=== PATIENT | female | born 1950 | race Caucasian/White ===

== ENCOUNTER 2025-03-25 12:40 | Outpatient (REF) | payer MEDICARE, OTHER, SELFPAY ==
[2025-03-25 14:36] LABS: C.Difficile Negative (Negative); CDIFFEPI 027 PRESUMPTIVE NEGATIVE (Negative)
== END 2025-03-25 12:41 | disposition home or self-care (01) ==
LOC: NPINS 12:40
PROVIDERS: PCP Family Medicine; Visit Provider Family Medicine
DX: A04.72 Enterocolitis due to Clostridium difficile, not specified as recurrent (principal); K85.91 Acute pancreatitis with uninfected necrosis, unspecified; Z79.2 Long term (current) use of antibiotics
CPT/HCPCS: 87045; 87046; 87427; 87493

== ENCOUNTER 2025-04-07 13:35 | Outpatient (CLI) | payer MEDICARE, OTHER, SELFPAY ==
--- NOTE | 2025-04-07 14:00 | CRLHL7_ITS ---
For Patients: As a result of the Century Cures Act, medical imaging exams and procedure reports are released immediately into your electronic medical record. You may view this report before your referring provider. If you have questions, please contact your health care provider. INDICATION: Acute pancreatitis. No additional clinical history is given. COMPARISON: Comparison is made to multiple prior examinations going back to 12/31/2024, the most recent prior study dated 03/13/2025. TECHNIQUE: CT of the abdomen and pelvis with 98 cc of Isovue 370 intravenous contrast. Please note that all CT scans at this facility use dose modulation, iterative reconstruction, and/or weight-based dosing when appropriate to reduce radiation dose to as low as reasonably achievable. FINDINGS: ABDOMEN Pancreas: Interval removal of the previously noted left upper quadrant locking loop drainage catheter. Persistent encapsulated collection of fluid, debris and gas within the pancreatic tail consistent with walled-off necrosis measuring 4.7 cm x 9.7 cm, compared to 5.3 cm x 9.6 cm on the prior examination. Slight differences in measurement are not considered clinically significant. There is a suspected fistula between this collection and the posterior wall of the gastric antrum (axial series 2; image 38 and sagittal series 5; image 90). This finding is thought to account for persistent gas within this collection. Differential diagnostic considerations for the presence of extraluminal gas within the collection includes superinfection. Clinical correlation is recommended in this regard. Fluid otherwise dissects through the left retromesenteric interfascial plane of the retroperitoneum from the area of walled-off necrosis both cranially and caudally. Cranial extension of this fluid is seen interposed between the stomach and spleen (series 2; image 25). Two collections extend caudally, each measuring between 3 and 4 cm in craniocaudal dimension (see axial series 2; image 43 and coronal series 4; images 66 and 74). The lateral collection abuts the proximal descending colon (series 2; image 42), exerting extrinsic mass effect upon it. 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 Nondilated pancreatic duct. Normal main duct caliber. Liver: Normal contour. Left hepatic lobe focal fatty infiltration is noted adjacent to the intersegmental fissure. No significant focal lesion. No intrahepatic biliary ductal dilatation. Patent portal veins. Patent hepatic veins. Gallbladder: Normal size. Cholelithiasis. No pericholecystic inflammatory changes. Normal common duct caliber. Spleen: Not enlarged. No significant focal lesion. 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 Adrenal Glands: Symmetrical adrenal glands. No significant focal lesion. Kidneys: Normal bilateral renal attenuation. No significant focal lesion. Uncomplicated large right renal cortical cysts are unchanged. No nephrolith. No dilatation of the intrarenal collecting systems. No ureteral stone. Nondilated ureters. Patent renal arteries and veins. 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 No other significant interval findings. Vascular: Chronic aortoiliac atherosclerotic mural calcification. Abdominal aorta and its major proximal branches including the celiac, superior mesenteric, inferior mesenteric, renal, and bilateral common iliac arteries are patent. Patent superior mesenteric vein. PELVIS No bladder lesion is identified. Redemonstration of a circumscribed homogeneous simple fluid attenuation right adnexal cyst, likely ovarian in origin, measuring 6.2 cm in greatest axial dimension (series 2; image 113) not significantly changed from the oldest available prior exam dated 12/31/2024. According to ACR white paper management guidelines follow-up ultrasound is suggested 6 months from the time of the 12/31/2024 CT, due June of this year. No ascites. No adenopathy. SKELETON AND BODY WALL Improvement in previously noted left lateral abdominal wall inflammatory changes suggesting cellulitis. Persistent fat stranding is seen superficial to the lateral abdominal wall musculature. Highest LOWER THORAX Partially included lower thoracic wall, lungs, pleural spaces and mediastinum are otherwise without significant incidental findings. IMPRESSION: 1. Walled-off pancreatic necrosis as above. Interval removal of the percutaneous drainage catheter. Persistent gas within the collection is associated with an apparent gap across the posterior wall of the gastric antrum suspicious for a fistula. Generally speaking, differential diagnostic considerations for persistent gas within the walled-off necrosis includes superinfection. Correlation with the patient`s clinical status in this regard is recommended. Otherwise, gastroenterology referral is suggested for further evaluation (endoscopy). 2. Retroperitoneal dissection of fluid along the retromesenteric interfascial plane as described in the body of the report. This finding is associated with mass effect upon the proximal descending colon. 3. 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 4. Redemonstration of a circumscribed homogeneous simple fluid attenuation right adnexal cyst, likely ovarian in origin, measuring 6.2 cm in greatest axial dimension (series 2; image 113) not significantly changed from the oldest available prior exam dated 12/31/2024. ACCORDING TO ACR [employer] MANAGEMENT GUIDELINES FOLLOW-UP PELVIC ULTRASOUND IS RECOMMENDED 6 MONTHS FROM THE TIME OF THE 12/31/2024 CT, DUE OF THIS YEAR. 5. Additional incidental findings as discussed above. Please note that all CT scans at this facility use dose modulation, iterative reconstruction, and/or weight-based dosing when appropriate to reduce radiation dose to as low as reasonably achievable. Dictated by Manny Helton MD @ 04/09/2025 1:10:36 PM (Electronically Signed)
== END 2025-04-07 13:36 | disposition home or self-care (01) ==
PROVIDERS: PCP Family Medicine; Visit Provider Physician Assistant Medical
DX: K85.90 Acute pancreatitis without necrosis or infection, unspecified (principal); K86.89 Other specified diseases of pancreas; N83.201 Unspecified ovarian cyst, right side
CPT/HCPCS: 74177; Q9967

== ENCOUNTER 2025-04-10 22:24 | Outpatient (REF) | payer MEDICARE, OTHER, SELFPAY ==
[2025-04-10 23:54] LABS: C.Difficile Negative (Negative); CDIFFEPI 027 PRESUMPTIVE NEGATIVE (Negative)
== END 2025-04-10 22:25 | disposition home or self-care (01) ==
LOC: NPINS 22:24
PROVIDERS: PCP Family Medicine; Visit Provider Nurse Practitioner Gerontology
DX: K85.90 Acute pancreatitis without necrosis or infection, unspecified (principal)
CPT/HCPCS: 87045; 87046; 87427; 87493

== ENCOUNTER 2025-04-27 18:50 | Outpatient (REF) | payer MEDICARE, OTHER, SELFPAY ==
[2025-04-27 21:42] LABS: Strep A DNA Probe* NOT DETECTED (Not Detectd)
--- OUTSIDE RECORDS SUMMARY | 2025-04-28 02:04 | XMS_ITS | Clinical Summary ---
Author Organization [facility] Address [address] [place] [id number] Care Team Providers Care Md Physician Dermatologist Name Role Phone William Najera MD Primary Care Provider Allergies Active Allergy Reactions Criticality Noted Date Comments Erythromycin Vomiting 02/24/2017 Medications Calcium-Cholecalci ferol, D3, (CALCIUM 600 + D,3,) 600-200 mg-unit Cap Take 1 Cap by mouth 2 times daily. 0 12/12/19 11 Active omega-3 fatty acids-vitamin E (FISH OIL) 1,000 mg Cap Take 1 capsule by mouth once daily. 0 01/08/20 12 Active multivitamin (MVI) tabletIndications: Paroxysmal atrial fibrillation (HC) Take 1 tablet by mouth once daily. 0 03/21/20 17 Active vitamin B complex (B-COMPLEX VITAMIN) tablet Take 1 tablet by mouth once daily. 1 tablet 04/14/20 20 Active cholecalciferol (VITAMIN D3) 2,000 unit capsule Take 1 Capsule (2,000 units) by mouth once daily. 0 07/28/20 21 Active hydrOXYzine HCL (ATARAX) 25 mg tabletIndications: Anxiety Take 1 Tablet (25 mg) by mouth every 6 hours if needed for Anxiety. 270 Tablet 4 04/23/20 24 Active sertraline (ZOLOFT) 100 mg tabletIndications: Major depressive disorder, recurrent, moderate (HC) Take 1 Tablet (100 mg) by mouth once daily in the morning. 90 Tablet 2 05/01/20 24 Active CPAPIndications:Ob structive sleep apnea RESMED CPAP (E0601) machine for home use at pressure: 10 .4 cmw, Choice of mask (A7030 or A7034) w/full face cushion (A7031) x1/mo, nasal cushion (A7032) x2/mo, or nasal pillows (A7033) x 2/mo; Length of Need: 99 months; Frequency of use: Daily 1 Each 08/26/20 24 Active alteplase injectionIndicatio ns:Infected pancreatic pseudocyst (HC) 2 mg by Intra-Catheter route each time if needed for Catheter Clearance. Instill 2 mg into catheter and allow to dwell for 30 minutes. If unable to aspirate blood, allow to dwell for a total of 120 minutes. 03/13/20 25 Active apixaban 5 mg tabletIndications: deep venous thrombosis,prevent thromboembolism in chronic atrial fibrillation Take 1 Tablet (5 mg) by mouth two times daily. 03/16/20 25 Active furosemide 20 mg tabletIndications: Chronic heart failure with preserved ejection fraction (HFpEF) (HC) Take 1 Tablet (20 mg) by mouth once daily in the morning. 03/17/20 25 Active gabapentin 300 mg capsuleIndications :Infected pancreatic pseudocyst (HC) Take 1 Capsule (300 mg) by mouth at bedtime. 03/16/20 25 Active hydrOXYzine pamoate 25 mg capsuleIndications :Anxiety Take 1 Capsule (25 mg) by mouth at bedtime. 03/16/20 25 Active methocarbamoL 500 mg tabletIndications: Infected pancreatic pseudocyst (HC) Take 1 Tablet (500 mg) by mouth four times daily. 03/16/20 25 Active pantoprazole 40 mg delayed-release tabletIndications: GERD without esophagitis Take 1 Tablet (40 mg) by mouth once daily before a meal. 03/17/20 25 Active acetaminophen 500 mg tabletIndications: Infected pancreatic pseudocyst (HC) Take 2 Tablets (1,000 mg) by mouth every 6 hours if needed for Pain. Max acetaminophen dose: 4000mg in 24 hrs. 03/16/20 25 Active diclofenac topical 1 % gelIndications:Oth er chronic back pain Apply 4 g topically to affected area(s) 4 times daily if needed (back pain). 03/16/20 25 Active ondansetron 4 mg disintegrating tabletIndications: Nausea Place 1 Tablet (4 mg) on the tongue every 8 hours if needed for Nausea/Vomiting. 03/16/20 25 Active potassium chloride 20 mEq extended-release tablet (part/cryst)Indica tions:Hypokalemia Take 2 Tablets (40 mEq) by mouth two times daily with meals. 03/18/20 25 Active loperamide (Imodium A-D) 2 mg capsule Take 2 mg by mouth each time if needed for Diarrhea. Take 2 capsules (4mg) orally with 1st loose stool, then 1 capsule (2mg) with other loose stools. Max 16 mg in 24 hrs. Active pravastatin 40 mg tabletIndications: Hyperlipidemia, unspecified hyperlipidemia type Take 1 Tablet (40 mg) by mouth at bedtime. Wait to start until done with daptomycin 90 Tablet 4 04/04/20 25 Active busPIRone 30 mg tabletIndications: Anxiety Take 0.5 Tablets (15 mg) by mouth two times daily. 90 Tablet 4 03/28/20 25 Active buprenorphine 10 mcg/hr 10 mcg/hour transdermal patchIndications:A cute necrotizing pancreatitis (HC) Apply 1 Patch on dry, clean, hairless skin every Sunday. 10 Patch 03/31/20 25 Active amoxicillin-clavul anate 875-125 mg tabletIndications: Infected pancreatic pseudocyst (HC) Take 1 Tablet by mouth two times daily with meals for 14 days. 28 Tablet 5 3:30 PM CDT 03/13/20 25 025 sotaloL 80 mg tabletIndications: Atrial fibrillation with rapid ventricular response (HC) Take 1 Tablet (80 mg) by mouth every 12 hours. 03/28/20 25 025 DAPTOmycin 500 mg injectionIndicatio ns:Acute necrotizing pancreatitis (HC) Inject 1,150 mg intravenous every 24 hours for 6 days. 04/10/20 25 025 amoxicillin-clavul anate 875-125 mg tabletIndications: ABDOMEN/PELVIS INFECTION Take 1 Tablet by mouth two times daily with meals for 7 days. 14 Tablet 04/10/20 25 025 Active Problems Problem Noted Date Diagnosed Date Obesity (BMI 35.0-39.9 without comorbidity) 01/27 Decreased renal clearance 02/13/2025 Opioid naive 02/13/2025 Acute generalized abdominal pain 02/13/2025 Atrial fibrillation with RVR 02/10/2025 Acute necrotizing pancreatitis 02/05/2025 Gastric outlet obstruction 02/05/2025 Aspiration pneumonia of both lower lobes due to gastric secretions 02/05/2025 Ileus 02/05/2025 Ovarian mass, right 02/04/2025 Lesion of uterus 02/04/2025 Post-ERCP acute pancreatitis 02/03/2025 CAPRICE 04/27/2017 AHI-19 06/20/2017 Exogenous obesity 04/10/2017 Scoliosis of the thoracic and lumbar spine 04/10 Atrial fibrillation 02/26/2017 Anxiety state, unspecified 09/25/2011 HTN (hypertension) Hypercholesterolemia Encounters Date Type Department Care Team Description 04/27/2025 Lab Requisition [facility] [phone] Brad Bolanos MD 04/23/2025 9:30 AM CDT Telemedicine [facility] [address] [place] [address] Iwona Moreno MD Left without seen 04/23/2025 8:00 AM CDT Ancillary Procedure [facility] [address] [place] [address] Arrived 04/23/2025 Travel 04/17/2025 Lab Requisition [facility] [phone] Brad Bolanos MD 04/17/2025 Telephone [facility] [address] [place] [address] William Najera MD 04/10/2025 Lab Requisition [facility] [phone] Brad Bolanos MD 04/10/2025 Telephone [facility] [address] [place] [address] Iwona Moreno MD antibiotics 04/02/2025 Lab Requisition [facility] [phone] Brad Bolanos MD 04/01/2025 Orders Only [facility] Scanner 1 scan: (1-Ord) [facility], MULTIPLE LAB TEST, 04/01/2025 03/27/2025 2:13 PM CDT Anesthesia Event [facility] [address] [place] [address] Romario Bocanegra, Vasile Shelby CRNA 03/26/2025 11:18 AM CDT - 03/28/2025 11:00 AM CDT Hospital Encounter [facility] [address] [place] [address] Kathy Akers, Gordon Clements MD Mrkvicka, Josef Carson MD [facility], [facility] Hospitalists Of Atrial fibrillation with rapid ventricular response (HC) (Primary Dx); Anxiety; Hyperlipidemia, unspecified hyperlipidemia type; Acute necrotizing pancreatitis (HC) Discharge Disposition: Longterm Facility 03/26/2025 9:30 AM CDT Office Visit [facility] [address] [address] Iwona Moreno MD 03/26/2025 Travel 03/24/2025 Telephone [facility] [address] [facility] [address] [place] [address] Iwona Moreno MD Questions (Questions about appt 03/26/25- [facility] - ) 03/23/2025 Lab Requisition [facility] [phone] June Arango NP 03/20/2025 Lab Requisition [facility] [phone] June Arango NP 02/06/[address] [phone] Carson Harris MD appointment scheduled, Rundown App message sent 02/05/2025 2:00 PM CDT - 03/17/2025 10:30 AM CDT Hospital Encounter [facility] [address] [place] [address] [facility], [facility] Hospitalists Of Frantz Velasquez MD Tamhane, Rahul Madhav, MBBS Sausker, David Bowman, MD Bingham, MD Jhonathan Perales Jimmy, MD Kohlmeyer, MD Samuel Sharp, Talib Osorio MD Infected pancreatic pseudocyst (HC) (Primary Dx); Splenic vein thrombosis; Paroxysmal atrial fibrillation with RVR (HC); Chronic heart failure with preserved ejection fraction (HFpEF) (HC); Anxiety; Essential hypertension; GERD without esophagitis; Other chronic back pain; Nausea; Hypokalemia; Hyperlipidemia, unspecified hyperlipidemia type Discharge Disposition: Longterm Facility 02/05/2025 Travel 02/03/2025 9:37 PM CDT - 02/05/2025 12:46 PM CDT Hospital Encounter [facility] [address] [place] [address] Rajesh Flores MD Santos, Pio Smith MD Hospitalist, [facility] Md Fernandez, Phil Arevalo, Acute pancreatitis, unspecified complication status, unspecified pancreatitis type (HC) (Primary Dx); Abdominal pain, unspecified abdominal location; Vomiting, unspecified vomiting type, unspecified whether nausea present; Ovarian cyst, right Discharge Disposition: Crit Acc Hosp w Planned Readmission 02/03/2025 Travel 01/29/2025 Orders Only [address] [phone] William Najera MD 1 scan: (1-Ord) 01/28/2025 01/28/2025 9:20 AM CDT Office Visit [address] [phone] William Najera MD Preoperative Exam (Surgery on 02/03/[address] [facility] fax # [phone] ) 01/28/2025 Travel from Last 3 Months Immunizations Immunization Administration Dates Next Due COVID-19 vaccine (Pfizer-Bio NTech 30mcg/0.3mL) 12YO+ BIVALENT DORIE HERNANDEZ 07/19/2022 COVID-19 vaccine (Pfizer-Bio NTech 30mcg/0.3mL) DORIE HERNANDEZ 01/30/2022,07/25/2021,01/22/2021,01/01 Influenza A (H1N1), Inactivated 09/07/2009 Influenza A (H1N1), Inactiva leslie (Age >=3 Years) 10/15/2009 Influenza, High-dose Inactivated 07/28/2024 Influenza, IIV3 (Age >=3 years) 08/13/20 14,07/14/2013,08/09/2011,08/12,07/13/2009,08/20/2007,08/17/2005 Influenza, IIV4 08/02/2017,07/12/2016,07/14/2015 Influenza, IIV4 (=>6mos) MDV 08/02/2019 Influenza, Inactivated AIIV4 (Age 65+ Years) Preserv Free 07/28/2022,07/20/2021,07/23/2020 Influenza, Inactivated IIV3 (Age 65+ Years) Preserv Free 08/08/2018 Pneumococcal Conj 20-valent (Prevnar 20) 04/23/2024 Pneumococcal Poly,23-Valent (Pneumovax) 02/19/2017 Pneumococcal conj 13-Valent (Prevnar 13) 02/18/2016 RSV, Bivalent Vaccine Recons tituted (Abrysvo 120MCG/0.5mL) 08/09/2023 Td (Age >=7 Years) 08/06/1999 Tdap 04/01/2020,12/10/2009 Tetanus Toxoid, Unspecified 03/17/1972 Zoster (Shingrix-RZV, recombinant) 03/13/2024, Zoster (Zostavax-ZVL, live) 01/09/2012 Family History Medical History Relation Name Comments Heart Disease Father Arthritis Mother Diabetes Mother Heart Disease Mother stents Hypertension Mother Stroke Mother Cancer-breast No Family History Relation Name Status Comments Father Mother Social History Tobacco Use Types Packs/Day Years Used Date Smoking Tobacco: Former Cigarettes 2 18 0 10/29/1968 - 10/29/1986 Smokeless Tobacco: Never Tobacco Cessation:Counseling Given: Yes Comments:quit '85 Alcohol Use Standard Drinks/Week Comments No 0 (1 standard drink = 0.6 oz pur e alcohol) PHQ-2 Answer Date Recorded PHQ-2 TOTAL SCORE 1 11/03/2024 Social Connections Answer Date Recorded Do you often feel lonely or isolated from those around you? 0 03/26/2025 Financial Resource Strain Answer Date R ecorded Difficulty of Paying Living Expenses 3 09/04/2024 Difficulty of Paying Living Expenses Not on file 09/04/2024 Food Insecurity Answer Date Recorded Do you worry your food will run out before you are able to buy more? 1 03/26/2025 Transportation Needs Answer Date Record ed Does lack of transportation keep you from medica l appointments? 1 03/26/2025 Does lack of transportation keep you from work, meetings or getting things that you need? 1 03/26/2025 Housing Stability Answer Date Recorded What is your housing situation today? 1 03/26/2025 Interpersonal Safety Answer Date Record ed Are you being hit, kicked, p ushed or yelled at (see row info)? No 03/26/2025 Interpersonal Safety Abuse 12 - 18 Not on file 03/26/2025 Interpersonal Safety Ambulatory Vulnerability No t on file 03/26/2025 Utilities Answer Date Recorded Do you have trouble paying f or utilities (for example, heat, electricity, water, phone)? 1 03/26/2025 Comments No Sex and Gender Information Value Date Recorded Sex Assigned at Not on file Legal Sex Female 5:23 AM DRY TRANSFER MAN Gender Identity Not on file Sexual Orientation Not on file Occupation Industry Job Start Date Job End Date Not on file Not on file Not on file Not on file Obstetrics History Last Filed Vital Signs Vital Sign Reading Time Taken Comments Blood Pressure 113/54 03/28/2025 9:05 AM CDT Pulse 68 03/28/2025 9:05 AM CDT Temperature 36.6 C (97.8 F) 03/28/2025 9:05 AM CDT Respiratory Rate 18 03/28/2025 9:05 AM CDT Oxygen Saturation 97% 03/28/2025 9:05 AM CDT Inhaled Oxygen Concentration - - Weight 92.6 kg (204 lb 2.3 oz) 03/28/2025 6:58 A M CDT Height 167.6 cm (5' 6) 03/26/2025 5:00 PM CDT Body Mass Index 32.95 03/26/2025 5:00 PM CDT Plan of Treatment Upcoming Encounters Date Type Department Care Team (Late st Contact Info) Description 05/21/2025 9:30 AM CDT Telemedicine [facility] [address] [place] [address] Iwona Moreno MD [address] [place] [address] Health Maintenance Due Date Last Done Comments Mammogram for age 45-75 02/26/2020 02/26/20 19, 02/05/2017, 02/03/2016, Additional history exists Fecal testing non-DNA (FIT,FOBT,iFOBT) for age 45-75 05/02/2023 05/02/2022, 08/12/2020, 04/07/2017 COVID-19 vaccine series (2023- season) 2025 07/28/2024, 01/10/2024, 07/19/2022, Additional history exists Medicare Wellness for age 65+ 04/24/2025 04/23/2024, 04/23/2023, 04/20/2022, Additional history exists Depression screening for age 12+ 11/04/2025 11/04/2024, 11/03/2024, 09/05/2024, Additional history exists BMI (ht and wt on same day) for age 18+ 01/28/2026 01/28/2025, 04/23/2024, 04/23/2023, Additional history exists Lipids for age 45-75 04/23/2029 04/23/2024, 04/23/2023, 04/20/2022, Additional history exists Tetanus booster 04/01/2030 04/01/2020, 11/29, 08/06/1999 Hepatitis C screening for age 18-79 Completed 02/01/2015 Tdap Completed 04/01/2020, 12/10/2009 DEXA/DXA scan for age 65+ Completed 04/26/2021, RSV vaccine for adults or Completed 08/09/2023 Zoster (shingles) series for age 50+ Completed 03/13/2024, 01/10/2024, 01/09/2012 Pneumococcal series for age 50+ Completed 04/23/2024, 02/19/2017, 02/18/2016 Influenza Vaccine Completed 07/28/2024, , 07/20/2021, Additional history exists Hepatitis B series for 19+ Aged Out N o longer eligible based on patient's age to complete this topic Procedures Procedure Name Priority Date/Time Associated Diagnosis Comments CT ABDOMEN PELVIS WO Routine 04/23/2025 9:23 AM CDT Acute pancreatitis, unspecified complication status, unspecified pancreatitis type (HC) CBC WITH AUTO DIFFERENTIAL Routine 04/21/2025 7:30 AM CDT Acute pancreatitis with uninfected necrosis, unspecified (HC) CREATININE Routine 04/21/2025 7:30 AM CDT Acute pancreatitis with uninfected necrosis, unspecified (HC) C-REACTIVE PROTEIN Routine 04/21/2025 7: 30 AM CDT Acute pancreatitis with uninfected necrosis, unspecified (HC) BUN Routine 04/21/2025 7:30 AM CDT Acute pancreatitis with uninfected necrosis, unspecified (HC) CBC WITH AUTO DIFFERENTIAL Routine 04/21/2025 7:30 AM CDT Acute pancreatitis with uninfected necrosis, unspecified (HC) CBC WITH AUTO DIFFERENTIAL Routine 04/14/2025 7:24 AM CDT Acute pancreatitis with uninfected necrosis, unspecified (HC) CK TOTAL Routine 04/14/2025 7:24 AM CDT Acute pancreatitis with uninfected necrosis, unspecified (HC) CREATININE Routine 04/14/2025 7:24 AM CDT Acute pancreatitis with uninfected necrosis, unspecified (HC) C-REACTIVE PROTEIN Routine 04/14/2025 7: 24 AM CDT Acute pancreatitis with uninfected necrosis, unspecified (HC) BUN Routine 04/14/2025 7:24 AM CDT Acute pancreatitis with uninfected necrosis, unspecified (HC) CBC WITH AUTO DIFFERENTIAL Routine 04/14/2025 7:24 AM CDT Acute pancreatitis with uninfected necrosis, unspecified (HC) RED CELL MORPHOLOGY Routine 04/07/2025 8 :15 AM CDT Acute pancreatitis with uninfected necrosis, unspecified (HC) PLATELET ESTIMATE Routine 04/07/2025 8:1 5 AM CDT Acute pancreatitis with uninfected necrosis, unspecified (HC) MANUAL DIFFERENTIAL Routine 04/07/2025 8 :15 AM CDT Acute pancreatitis with uninfected necrosis, unspecified (HC) CBC WITH AUTO DIFFERENTIAL Routine 04/07/2025 8:15 AM CDT Acute pancreatitis with uninfected necrosis, unspecified (HC) CREATININE Routine 04/07/2025 8:15 AM CDT Acute pancreatitis with uninfected necrosis, unspecified (HC) C-REACTIVE PROTEIN Routine 04/07/2025 8 :15 AM CDT Acute pancreatitis with uninfected necrosis, unspecified (HC) BUN Routine 04/07/2025 8:15 AM CDT Acute pancreatitis with uninfected necrosis, unspecified (HC) CBC WITH AUTO DIFFERENTIAL Routine 04/07/2025 8:15 AM CDT Acute pancreatitis with uninfected necrosis, unspecified (HC) SCAN-LABORATORY REPORT 12:00 AM CDT EKG 12 LEAD Routine 03/28/2025 6:41 AM CDT MAGNESIUM Timed 03/28/2025 5:58 AM CDT CK TOTAL DEYSI 03/28/2025 5:58 AM CDT SCAN-CARDIAC STRIP 03/28/2025 4: 07 AM CDT EKG 12 LEAD DEYSI 03/28/2025 2:57 AM CDT MAGNESIUM Timed 03/27/2025 7:29 PM CDT INSERT PICC LINE Routine 03/27/2025 7:20 PM CDT ECHO JUSTICE WO CONTRAST W COLOR W LTD DOPPLER Routine 03/27/2025 3:50 PM CDT EKG 12 LEAD Routine 03/27/2025 2:25 PM CDT Tachycardia SCAN-CARDIAC STRIP 03/27/2025 11 :15 AM CDT SCAN-CARDIAC STRIP 03/27/2025 5: 01 AM CDT SCAN-CARDIAC STRIP 03/27/2025 5: 01 AM CDT XR CHEST 1 VIEW PORTABLE DEYSI 03/26/2025 9:25 PM CDT SCAN-CARDIAC STRIP 03/26/2025 6: 27 PM CDT PHOSPHORUS DEYSI 03/26/2025 1:29 PM CDT POTASSIUM STAT 03/26/2025 1:29 PM CDT PROTIME-INR STAT 03/26/2025 12:41 PM CDT PRO-BNP STAT 03/26/2025 12:32 PM CDT MAGNESIUM STAT 03/26/2025 12:32 PM CDT CBC W PLT NO DIFF STAT 03/26/2025 12: 32 PM CDT BASIC METABOLIC PANEL STAT 03/26/2025 12:32 PM CDT EKG 12 LEAD STAT 03/26/2025 11:36 AM CDT SCAN-CARDIAC STRIP 03/26/2025 12 :00 AM CDT CBC WITH AUTO DIFFERENTIAL Routine 03/24/2025 7:00 AM CDT Acute pancreatitis with uninfected necrosis, unspecified (HC) BASIC METABOLIC PANEL Routine 03/24/2025 7:00 AM CDT Acute pancreatitis with uninfected necrosis, unspecified (HC) C-REACTIVE PROTEIN Routine 03/24/2025 7: 00 AM CDT Acute pancreatitis with uninfected necrosis, unspecified (HC) CBC WITH AUTO DIFFERENTIAL Routine 03/24/2025 7:00 AM CDT Acute pancreatitis with uninfected necrosis, unspecified (HC) BASIC METABOLIC PANEL Early AM 03/17/2025 4:50 AM CDT POTASSIUM Timed 03/16/2025 5:46 PM CDT GLUCOSE METER Timed 03/16/2025 4:31 PM CDT CK TOTAL DEYSI 03/16/2025 5:22 AM CDT CBC W PLT NO DIFF Early AM 03/16/2025 5:2 2 AM CDT CREATININE Early AM 03/16/2025 5:22 AM CDT POTASSIUM Early AM 03/16/2025 5:22 AM CDT CBC W PLT NO DIFF Early AM 03/15/2025 5:4 6 AM CDT CREATININE Early AM 03/15/2025 5:46 AM CDT SODIUM Early AM 03/15/2025 5:46 AM CDT POTASSIUM Early AM 03/15/2025 5:46 AM CDT MAGNESIUM Early AM 03/15/2025 5:46 AM CDT POTASSIUM Timed 03/14/2025 1:24 PM CDT SCAN-CARDIAC STRIP 03/14/2025 9: 54 AM CDT C-REACTIVE PROTEIN Add On 03/14/2025 5: 38 AM CDT MAGNESIUM Add On 03/14/2025 5:38 AM CDT CBC W PLT NO DIFF Early AM 03/14/2025 5:3 8 AM CDT BASIC METABOLIC PANEL Early AM 03/14/2025 5:38 AM CDT SCAN-CARDIAC STRIP 03/14/2025 1: 17 AM CDT CREATININE DEYSI 03/13/2025 7:01 PM CDT PHOSPHORUS Timed 03/13/2025 7:01 PM CDT MAGNESIUM Timed 03/13/2025 7:01 PM CDT POTASSIUM Timed 03/13/2025 7:01 PM CDT SCAN-CARDIAC STRIP 03/13/2025 5: [address] ABDOMEN PELVIS W Routine 03/13/2025 9 :06 AM CDT SCAN-CARDIAC STRIP 03/13/2025 5: 09 AM CDT MR PELVIS OVARY OR UTERUS WWO Routine 03/12/2025 9:27 PM CDT SCAN-CARDIAC STRIP 03/12/2025 2: 11 AM CDT SCAN-CARDIAC STRIP 03/11/2025 8: 46 PM CDT SCAN-CARDIAC STRIP 03/11/2025 6: 23 PM CDT PHOSPHORUS Early AM 03/11/2025 5:25 AM CDT MAGNESIUM Early AM 03/11/2025 5:25 AM CDT GLUCOSE METER Timed 03/11/2025 5:23 AM CDT SCAN-CARDIAC STRIP 03/11/2025 1: 03 AM CDT GLUCOSE METER Timed 03/11/2025 12:20 AM CDT GLUCOSE METER Timed 03/10/2025 5:35 PM CDT POTASSIUM Timed 03/10/2025 4:55 PM CDT GLUCOSE METER Timed 03/10/2025 11:42 AM CDT SCAN-CARDIAC STRIP 03/10/2025 8: 15 AM CDT PLATELET COUNT Early AM 03/10/2025 6:21 AM CDT POTASSIUM Early AM 03/10/2025 6:21 AM CDT MAGNESIUM Early AM 03/10/2025 6:21 AM CDT GLUCOSE METER Timed 03/10/2025 5:51 AM CDT SCAN-CARDIAC STRIP 03/10/2025 1: 00 AM CDT GLUCOSE METER Timed 03/09/2025 11:49 PM CDT GLUCOSE METER Timed 03/09/2025 5:14 PM CDT SCAN-CARDIAC STRIP 03/09/2025 2: 41 PM CDT GLUCOSE METER Timed 03/09/2025 12:02 PM CDT XR ASPIRATION HAND RT Routine 03/09/2025 9:25 AM CDT AEROBIC BACTERIAL CULTURE, STAIN Today 03/09/2025 9:15 AM CDT CRYSTAL ID BODY FLUID NO URINE Today 03/09/2025 9:15 AM CDT CREATININE DEYSI 03/09/2025 5:10 AM CDT URIC ACID Early AM 03/09/2025 5:10 AM CDT POTASSIUM Early AM 03/09/2025 5:10 AM CDT PHOSPHORUS Early AM 03/09/2025 5:10 AM CDT MAGNESIUM Early AM 03/09/2025 5:10 AM CDT GLUCOSE METER Timed 03/09/2025 5:06 AM CDT SCAN-CARDIAC STRIP 03/09/2025 1: 05 AM CDT GLUCOSE METER Timed 03/09/2025 1:00 AM CDT GLUCOSE METER Timed 03/08/2025 6:15 PM CDT XR CHEST 1 VIEW PORTABLE STAT 03/08/2025 5:42 PM CDT INSERT PICC LINE Routine 03/08/2025 5:25 PM CDT SCAN-CARDIAC STRIP 03/08/2025 4: 21 PM CDT SCAN-CARDIAC STRIP 03/08/2025 1: 44 PM CDT GLUCOSE METER Timed 03/08/2025 11:14 AM CDT CREATININE Add On 03/08/2025 7:41 AM CDT URIC ACID Add On 03/08/2025 7:41 AM CDT POTASSIUM Early AM 03/08/2025 7:41 AM CDT PHOSPHORUS Early AM 03/08/2025 7:41 AM CDT MAGNESIUM Early AM 03/08/2025 7:41 AM CDT GLUCOSE METER Timed 03/08/2025 5:16 AM CDT GLUCOSE METER Timed 03/08/2025 12:01 AM CDT SCAN-CARDIAC STRIP 03/07/2025 8: 38 PM CDT GLUCOSE METER Timed 03/07/2025 5:47 PM CDT CREATININE Today 03/07/2025 3:01 PM CDT SODIUM Today 03/07/2025 3:01 PM CDT XR HAND 3 VIEWS RIGHT Routine 03/07/2025 12:38 PM CDT GLUCOSE METER Timed 03/07/2025 12:26 PM CDT CK TOTAL Early AM 03/07/2025 6:12 AM CDT WHITE BLOOD COUNT Early AM 03/07/2025 6:1 2 AM CDT POTASSIUM Early AM 03/07/2025 6:12 AM CDT PHOSPHORUS Early AM 03/07/2025 6:12 AM CDT MAGNESIUM Early AM 03/07/2025 6:12 AM CDT GLUCOSE METER Timed 03/07/2025 5:38 AM CDT SCAN-CARDIAC STRIP 03/07/2025 3: 45 AM CDT GLUCOSE METER Timed 03/07/2025 12:08 AM CDT GLUCOSE METER Timed 03/06/2025 5:14 PM CDT SCAN-CARDIAC STRIP 03/06/2025 4: 15 PM CDT GLUCOSE METER Timed 03/06/2025 11:[address] ABDOMEN PELVIS W Routine 03/06/2025 9 :34 AM CDT MAGNESIUM Early AM 03/06/2025 6:54 AM CDT POTASSIUM Early AM 03/06/2025 6:54 AM CDT PHOSPHORUS Early AM 03/06/2025 6:54 AM CDT GLUCOSE METER Timed 03/06/2025 5:54 AM CDT SCAN-CARDIAC STRIP 03/06/2025 12 :51 AM CDT SCAN-CARDIAC STRIP 03/06/2025 12 :00 AM CDT GLUCOSE METER Timed 03/05/2025 11:59 PM CDT SCAN-CARDIAC STRIP 03/05/2025 6: 40 PM CDT GLUCOSE METER Timed 03/05/2025 5:19 PM CDT SCAN-CARDIAC STRIP 03/05/2025 2: 48 PM CDT SCAN-CARDIAC STRIP 03/05/2025 2: 46 PM CDT CREATININE DEYSI 03/05/2025 12:47 PM CDT POTASSIUM Timed 03/05/2025 12:47 PM CDT PHOSPHORUS Early AM 03/05/2025 12:47 PM CDT MAGNESIUM Timed 03/05/2025 12:47 PM CDT GLUCOSE METER Timed 03/05/2025 12:36 PM CDT GLUCOSE METER Timed 03/05/2025 5:34 AM CDT MAGNESIUM Timed 03/05/2025 4:15 AM CDT EXTRA TUBE GOLD/SST Today 03/05/2025 2 :15 AM CDT PHOSPHORUS Early AM 03/05/2025 2:15 AM CDT POTASSIUM Early AM 03/05/2025 2:15 AM CDT MAGNESIUM Timed 03/05/2025 2:15 AM CDT SCAN-CARDIAC STRIP 03/05/2025 12 :38 AM CDT GLUCOSE METER Timed 03/04/2025 11:51 PM CDT GLUCOSE METER Timed 03/04/2025 6:34 PM CDT LOW MOLECULAR WGT HEPARIN Timed 03/04/2025 1:21 PM CDT GLUCOSE METER Timed 03/04/2025 11:31 AM CDT MAGNESIUM Early AM 03/04/2025 7:12 AM CDT POTASSIUM Early AM 03/04/2025 7:12 AM CDT PHOSPHORUS Early AM 03/04/2025 7:12 AM CDT GLUCOSE METER Timed 03/04/2025 6:12 AM CDT SCAN-CARDIAC STRIP 03/04/2025 1: 58 AM CDT GLUCOSE METER Timed 03/03/2025 11:55 PM CDT SCAN-CARDIAC STRIP 03/03/2025 8: 27 PM CDT MAGNESIUM Timed 03/03/2025 7:25 PM CDT GLUCOSE METER Timed 03/03/2025 4:38 PM CDT US VENOUS UPPER EXTREMITY RIGHT Routine 03/03/2025 3:18 PM CDT GLUCOSE METER Timed 03/03/2025 11:36 AM CDT POTASSIUM Timed 03/03/2025 10:58 AM CDT EXTRA TUBE GOLD/SST Today 03/03/2025 1 0:56 AM CDT GLUCOSE METER Timed 03/03/2025 7:43 AM CDT GLUCOSE METER Timed 03/03/2025 6:27 AM CDT POTASSIUM Timed 03/03/2025 2:56 AM CDT MAGNESIUM Early AM 03/03/2025 2:56 AM CDT PHOSPHORUS Early AM 03/03/2025 2:56 AM CDT SCAN-CARDIAC STRIP 03/03/2025 1: 42 AM CDT GLUCOSE METER Timed 03/03/2025 1:02 AM CDT POTASSIUM Timed 03/02/2025 9:47 PM CDT GLUCOSE METER Timed 03/02/2025 4:28 PM CDT SCAN-CARDIAC STRIP 03/02/2025 3: 24 PM CDT GLUCOSE METER Timed 03/02/2025 11:31 AM CDT XR CHEST 1 VIEW PORTABLE STAT 03/02/2025 10:37 AM CDT SCAN-CARDIAC STRIP 03/02/2025 8: 17 AM CDT GLUCOSE METER Timed 03/02/2025 7:52 AM CDT MAGNESIUM Early AM 03/02/2025 7:13 AM CDT HEPATIC FUNCTION PANEL Early AM 7:13 AM CDT CBC W PLT NO DIFF Early AM 03/02/2025 7:1 3 AM CDT BASIC METABOLIC PANEL Early AM 03/02/2025 7:13 AM CDT PHOSPHORUS Early AM 03/02/2025 7:13 AM CDT GLUCOSE METER Timed 03/02/2025 3:55 AM CDT SCAN-CARDIAC STRIP 03/02/2025 1: 14 AM CDT GLUCOSE METER Timed 03/02/2025 12:06 AM CDT MAGNESIUM Timed 03/01/2025 8:12 PM CDT GLUCOSE METER Timed 03/01/2025 7:39 PM CDT GLUCOSE METER Timed 03/01/2025 3:55 PM CDT GLUCOSE METER Timed 03/01/2025 12:11 PM CDT CK TOTAL DEYSI 03/01/2025 8:41 AM CDT CHLORIDE DEYSI 03/01/2025 8:41 AM CDT SODIUM DEYSI 03/01/2025 8:41 AM CDT PHOSPHORUS Early AM 03/01/2025 8:41 AM CDT MAGNESIUM Early AM 03/01/2025 8:41 AM CDT GLUCOSE METER Timed 03/01/2025 8:10 AM CDT GLUCOSE METER Timed 03/01/2025 4:35 AM CDT SCAN-CARDIAC STRIP 03/01/2025 1: 22 AM CDT GLUCOSE METER Timed 03/01/2025 12:13 AM CDT GLUCOSE METER Timed 02/28/2025 8:58 PM CDT XR CHEST 2 VIEWS PA AND LATERAL Routine 02/28/2025 5:40 PM CDT GLUCOSE METER Timed 02/28/2025 4:03 PM CDT POTASSIUM Timed 02/28/2025 3:54 PM CDT GLUCOSE METER Timed 02/28/2025 12:[address] DRAIN PERITONEAL RETROPERITONEAL INC GUIDE Routine 02/28/2025 10:16 AM CDT AEROBIC BACTERIAL CULTURE, STAIN Today 02/28/2025 10:11 AM CDT ANAEROBIC CULTURE Today 02/28/2025 10: 11 AM CDT BODY FLUID CULTURE,STAIN (AEROBIC) Today 02/28/2025 10:10 AM CDT HEPATIC FUNCTION PANEL Early AM 9:20 AM CDT CBC W PLT NO DIFF Early AM 02/28/2025 9:2 0 AM CDT BASIC METABOLIC PANEL Early AM 02/28/2025 9:20 AM CDT PHOSPHORUS Early AM 02/28/2025 9:20 AM CDT MAGNESIUM Early AM 02/28/2025 9:20 AM CDT GLUCOSE METER Timed 02/28/2025 7:37 AM CDT SCAN-CARDIAC STRIP 02/28/2025 5: 13 AM CDT GLUCOSE METER Timed 02/28/2025 3:45 AM CDT GLUCOSE METER Timed 02/27/2025 11:40 PM CDT GLUCOSE METER Timed 02/27/2025 7:35 PM CDT GLUCOSE METER Timed 02/27/2025 5:07 PM CDT GLUCOSE METER Timed 02/27/2025 3:48 PM CDT GLUCOSE METER Timed 02/27/2025 12:34 PM CDT XR CHEST 1 VIEW PA OR AP STAT 02/27/2025 12:05 PM CDT CWS PATH REVIEW BODY FLUID Timed 02/27/2025 11:57 AM CDT AMYLASE,BODY FLUID Today 02/27/2025 11 :57 AM CDT BODY FLUID CULTURE,STAIN (AEROBIC) Today 02/27/2025 11:57 AM CDT BODY FLUID CELL COUNT/DIF Today 02/27/2025 11:57 AM CDT US THORACENTESIS LEFT Routine 02/27/2025 11:50 AM CDT MAGNESIUM Early AM 02/27/2025 8:53 AM CDT PROTIME-INR Early AM 02/27/2025 8:53 AM CDT CBC W PLT NO DIFF Early AM 02/27/2025 8:5 3 AM CDT HEPATIC FUNCTION PANEL Early AM 8:53 AM CDT BASIC METABOLIC PANEL Early AM 02/27/2025 8:53 AM CDT PHOSPHORUS Early AM 02/27/2025 8:53 AM CDT GLUCOSE METER Timed 02/27/2025 8:42 AM CDT GLUCOSE METER Timed 02/27/2025 4:03 AM CDT SCAN-CARDIAC STRIP 02/27/2025 2: 38 AM CDT MAGNESIUM Timed 02/27/2025 1:53 AM CDT GLUCOSE METER Timed 02/26/2025 11:56 PM CDT POTASSIUM Timed 02/26/2025 9:51 PM CDT GLUCOSE METER Timed 02/26/2025 8:29 PM CDT BLOOD CULTURE Today 02/26/2025 8:03 PM CDT BLOOD CULTURE Today 02/26/2025 8:03 PM CDT POTASSIUM Timed 02/26/2025 4:23 PM CDT MAGNESIUM Timed 02/26/2025 4:23 PM CDT GLUCOSE METER Timed 02/26/2025 4:[address] CHEST W Routine 02/26/2025 2:17 PM CDT VITAMIN D 25 (DEFICIENCY) DEYSI 02/26/2025 1:26 PM CDT POTASSIUM Timed 02/26/2025 1:[address] ABDOMEN PELVIS W Routine 02/26/2025 1 2:20 PM CDT GLUCOSE METER Timed 02/26/2025 11:51 AM CDT RESPIRATORY PANEL MULTIPLEX PCR Today 02/26/2025 11:07 AM CDT GLUCOSE METER Timed 02/26/2025 7:51 AM CDT WHITE BLOOD COUNT Early AM 02/26/2025 5:5 4 AM CDT CREATININE Early AM 02/26/2025 5:54 AM CDT POTASSIUM Early AM 02/26/2025 5:54 AM CDT SODIUM Early AM 02/26/2025 5:54 AM CDT PHOSPHORUS Early AM 02/26/2025 5:54 AM CDT MAGNESIUM Early AM 02/26/2025 5:54 AM CDT GLUCOSE METER Timed 02/26/2025 4:01 AM CDT SCAN-CARDIAC STRIP 02/26/2025 12 :52 AM CDT GLUCOSE METER Timed 02/26/2025 12:00 AM CDT GLUCOSE METER Timed 02/25/2025 8:22 PM CDT SCAN-CARDIAC STRIP 02/25/2025 4: 46 PM CDT GLUCOSE METER Timed 02/25/2025 4:31 PM CDT GLUCOSE METER Timed 02/25/2025 11:16 AM CDT XR NASO/PEPE GASTRO TUBE REPOSITION THRU DUODENUM Routine 02/25/2025 9:46 AM CDT GLUCOSE METER Timed 02/25/2025 7:46 AM CDT PHOSPHORUS DEYSI 02/25/2025 7:27 AM CDT MAGNESIUM DEYSI 02/25/2025 7:27 AM CDT WHITE BLOOD COUNT DEYSI 02/25/2025 7:2 7 AM CDT PLATELET COUNT Timed 02/25/2025 7:27 AM CDT POTASSIUM Early AM 02/25/2025 7:27 AM CDT GLUCOSE METER Timed 02/25/2025 4:12 AM CDT SCAN-CARDIAC STRIP 02/25/2025 1: 23 AM CDT GLUCOSE METER Timed 02/24/2025 11:55 PM CDT GLUCOSE METER Timed 02/24/2025 8:33 PM CDT MAGNESIUM Timed 02/24/2025 7:28 PM CDT GLUCOSE METER Timed 02/24/2025 3:53 PM CDT GLUCOSE METER Timed 02/24/2025 11:38 AM CDT MAGNESIUM Early AM 02/24/2025 7:57 AM CDT BUN Early AM 02/24/2025 7:57 AM CDT SODIUM Early AM 02/24/2025 7:57 AM CDT PROTIME-INR Early AM 02/24/2025 7:57 AM CDT CREATININE Early AM 02/24/2025 7:57 AM CDT POTASSIUM Early AM 02/24/2025 7:57 AM CDT HEMOGLOBIN DEYSI 02/24/2025 7:55 AM CDT WHITE BLOOD COUNT Early AM 02/24/2025 7:5 5 AM CDT PLATELET COUNT Early AM 02/24/2025 7:55 AM CDT GLUCOSE METER Timed 02/24/2025 7:52 AM CDT SCAN-CARDIAC STRIP 02/24/2025 6: 51 AM CDT GLUCOSE METER Timed 02/24/2025 3:36 AM CDT SCAN-CARDIAC STRIP 02/24/2025 12 :35 AM CDT GLUCOSE METER Timed 02/23/2025 11:41 PM CDT GLUCOSE METER Timed 02/23/2025 7:44 PM CDT GLUCOSE METER Timed 02/23/2025 3:22 PM CDT LOW MOLECULAR WGT HEPARIN Timed 02/23/2025 12:43 PM CDT MAGNESIUM Timed 02/23/2025 12:43 PM CDT GLUCOSE METER Timed 02/23/2025 11:32 AM CDT GLUCOSE METER Timed 02/23/2025 8:19 AM CDT POTASSIUM Timed 02/23/2025 5:14 AM CDT ALBUMIN Early AM 02/23/2025 5:14 AM CDT BASIC METABOLIC PANEL Early AM 02/23/2025 5:14 AM CDT PHOSPHORUS Early AM 02/23/2025 5:14 AM CDT MAGNESIUM Early AM 02/23/2025 5:14 AM CDT GLUCOSE METER Timed 02/23/2025 3:53 AM CDT SCAN-CARDIAC STRIP 02/23/2025 1: 28 AM CDT GLUCOSE METER Timed 02/22/2025 11:56 PM CDT POTASSIUM Timed 02/22/2025 11:20 PM CDT GLUCOSE METER Timed 02/22/2025 8:21 PM CDT GLUCOSE METER Timed 02/22/2025 4:10 PM CDT GLUCOSE METER Timed 02/22/2025 11:51 AM CDT GLUCOSE METER Timed 02/22/2025 8:49 AM CDT POTASSIUM DEYSI 02/22/2025 7:17 AM CDT CBC W PLT NO DIFF Early AM 02/22/2025 7:1 7 AM CDT PHOSPHORUS Early AM 02/22/2025 5:35 AM CDT BASIC METABOLIC PANEL Early AM 02/22/2025 5:35 AM CDT MAGNESIUM Timed 02/22/2025 5:35 AM CDT GLUCOSE METER Timed 02/22/2025 3:46 AM CDT SCAN-CARDIAC STRIP 02/22/2025 1: 25 AM CDT GLUCOSE METER Timed 02/21/2025 11:59 PM CDT POTASSIUM Timed 02/21/2025 10:51 PM CDT GLUCOSE METER Timed 02/21/2025 7:47 PM CDT GLUCOSE METER Timed 02/21/2025 4:21 PM CDT GLUCOSE METER Timed 02/21/2025 11:54 AM CDT EKG 12 LEAD Routine 02/21/2025 11:11 AM CDT MAGNESIUM DEYSI 02/21/2025 7:48 AM CDT PHOSPHORUS Early AM 02/21/2025 7:48 AM CDT CBC W PLT NO DIFF Early AM 02/21/2025 7:4 8 AM CDT CREATININE Early AM 02/21/2025 7:48 AM CDT ELECTROLYTE PANEL Early AM 02/21/2025 7:4 8 AM CDT GLUCOSE METER Timed 02/21/2025 7:39 AM CDT GLUCOSE METER Timed 02/21/2025 3:42 AM CDT SCAN-CARDIAC STRIP 02/21/2025 3: 02 AM CDT GLUCOSE METER Timed 02/20/2025 11:46 PM CDT GLUCOSE METER Timed 02/20/2025 7:59 PM CDT GLUCOSE METER Timed 02/20/2025 5:01 PM CDT LOW MOLECULAR WGT HEPARIN STAT 02/20/2025 1:10 PM CDT GLUCOSE METER Timed 02/20/2025 11:39 AM CDT GLUCOSE METER Timed 02/20/2025 7:33 AM CDT CREATININE Early AM 02/20/2025 5:52 AM CDT SODIUM Early AM 02/20/2025 5:52 AM CDT PHOSPHORUS Early AM 02/20/2025 5:52 AM CDT POTASSIUM Early AM 02/20/2025 5:52 AM CDT GLUCOSE METER Timed 02/20/2025 4:59 AM CDT SCAN-CARDIAC STRIP 02/20/2025 4: 02 AM CDT SCAN-CARDIAC STRIP 02/20/2025 1: 07 AM CDT GLUCOSE METER Timed 02/20/2025 12:04 AM CDT GLUCOSE METER Timed 02/19/2025 8:19 PM CDT MAGNESIUM Timed 02/19/2025 5:34 PM CDT GLUCOSE METER Timed 02/19/2025 4:02 PM CDT GLUCOSE METER Timed 02/19/2025 11:54 AM CDT GLUCOSE METER Timed 02/19/2025 8:30 AM CDT CBC W PLT NO DIFF Early AM 02/19/2025 6:0 2 AM CDT BASIC METABOLIC PANEL Early AM 02/19/2025 6:02 AM CDT PHOSPHORUS Early AM 02/19/2025 6:02 AM CDT MAGNESIUM Early AM 02/19/2025 6:02 AM CDT GLUCOSE METER Timed 02/19/2025 4:10 AM CDT SCAN-CARDIAC STRIP 02/19/2025 12 :55 AM CDT GLUCOSE METER Timed 02/19/2025 12:23 AM CDT GLUCOSE METER Timed 02/18/2025 7:34 PM CDT GLUCOSE METER Timed 02/18/2025 2:[address] ABDOMEN PELVIS W Routine 02/18/2025 1 :54 PM CDT SCAN-CARDIAC STRIP 02/18/2025 12 :07 PM CDT SCAN-CARDIAC STRIP 02/18/2025 12 :07 PM CDT GLUCOSE METER Timed 02/18/2025 10:09 AM CDT XR ABDOMEN 1 VIEW PORTABLE Routine 02/18/2025 7:57 AM CDT GLUCOSE METER Timed 02/18/2025 6:53 AM CDT PHOSPHORUS DEYSI 02/18/2025 6:12 AM CDT LIPASE Early AM 02/18/2025 6:12 AM CDT BILIRUBIN,TOTAL/DIRECT Early AM 6:12 AM CDT ALK PHOSPHATASE Early AM 02/18/2025 6:12 AM CDT AST (SGOT) Early AM 02/18/2025 6:12 AM CDT ALT (SGPT) Early AM 02/18/2025 6:12 AM CDT CBC W PLT NO DIFF Early AM 02/18/2025 6:1 2 AM CDT BASIC METABOLIC PANEL Early AM 02/18/2025 6:12 AM CDT GLUCOSE METER Timed 02/18/2025 3:11 AM CDT SCAN-CARDIAC STRIP 02/18/2025 12 :42 AM CDT GLUCOSE METER Timed 02/17/2025 11:30 PM CDT GLUCOSE METER Timed 02/17/2025 7:30 PM CDT HEMOGLOBIN Today 02/17/2025 7:09 PM CDT MAGNESIUM Timed 02/17/2025 4:10 PM CDT GLUCOSE METER Timed 02/17/2025 3:34 PM CDT GLUCOSE METER Timed 02/17/2025 11:29 AM CDT GLUCOSE METER Timed 02/17/2025 9:26 AM CDT XR ABDOMEN 1 VIEW PORTABLE Routine 02/17/2025 9:16 AM CDT GLUCOSE METER Timed 02/17/2025 7:40 AM CDT MAGNESIUM Timed 02/17/2025 6:37 AM CDT CBC W PLT NO DIFF Early AM 02/17/2025 6:3 7 AM CDT POTASSIUM Early AM 02/17/2025 6:37 AM CDT CREATININE Timed 02/17/2025 6:37 AM CDT GLUCOSE METER Timed 02/17/2025 4:13 AM CDT SCAN-CARDIAC STRIP 02/17/2025 12 :55 AM CDT GLUCOSE METER Timed 02/17/2025 12:06 AM CDT GLUCOSE METER Timed 02/16/2025 8:25 PM CDT MAGNESIUM Timed 02/16/2025 7:03 PM CDT GLUCOSE METER Timed 02/16/2025 4:23 PM CDT GLUCOSE METER Timed 02/16/2025 3:47 PM CDT XR ABDOMEN 1 VIEW PORTABLE Routine 02/16/2025 3:28 PM CDT GLUCOSE METER Timed 02/16/2025 11:12 AM CDT EKG 12 LEAD Routine 02/16/2025 8:04 AM CDT GLUCOSE METER Timed 02/16/2025 7:49 AM CDT SCAN-CARDIAC STRIP 02/16/2025 7: 43 AM CDT SCAN-CARDIAC STRIP 02/16/2025 7: 43 AM CDT SCAN-CARDIAC STRIP 02/16/2025 6: 57 AM CDT MAGNESIUM Today 02/16/2025 6:44 AM CDT BASIC METABOLIC PANEL Early AM 02/16/2025 6:44 AM CDT SCAN-CARDIAC STRIP 02/16/2025 5: 59 AM CDT GLUCOSE METER Timed 02/16/2025 3:59 AM CDT SCAN-CARDIAC STRIP 02/16/2025 1: 01 AM CDT GLUCOSE METER Timed 02/16/2025 12:05 AM CDT GLUCOSE METER Timed 02/15/2025 7:54 PM CDT XR ABDOMEN 1 VIEW PORTABLE Routine 02/15/2025 4:33 PM CDT GLUCOSE METER Timed 02/15/2025 3:53 PM CDT GLUCOSE METER Timed 02/15/2025 12:11 PM CDT BILIRUBIN DIRECT Today 02/15/2025 10:1 9 AM CDT ALT (SGPT) Today 02/15/2025 10:19 AM CDT AST (SGOT) Today 02/15/2025 10:19 AM CDT POTASSIUM Today 02/15/2025 10:19 AM CDT GLUCOSE METER Timed 02/15/2025 8:00 AM CDT HEPATIC FUNCTION PANEL Early AM 6:29 AM CDT BASIC METABOLIC PANEL Early AM 02/15/2025 6:29 AM CDT GLUCOSE METER Timed 02/15/2025 3:48 AM CDT SCAN-CARDIAC STRIP 02/15/2025 1: 04 AM CDT GLUCOSE METER Timed 02/14/2025 11:48 PM CDT GLUCOSE METER Timed 02/14/2025 7:59 PM CDT GLUCOSE METER Timed 02/14/2025 4:45 PM CDT GLUCOSE METER Timed 02/14/2025 11:40 AM CDT GLUCOSE METER Timed 02/14/2025 7:32 AM CDT BASIC METABOLIC PANEL Early AM 02/14/2025 6:12 AM CDT HEMOGLOBIN Timed 02/14/2025 6:12 AM CDT CREATININE Timed 02/14/2025 6:12 AM CDT PLATELET COUNT Timed 02/14/2025 6:12 AM CDT GLUCOSE METER Timed 02/14/2025 4:21 AM CDT SCAN-CARDIAC STRIP 02/14/2025 12 :44 AM CDT GLUCOSE METER Timed 02/14/2025 12:09 AM CDT GLUCOSE METER Timed 02/13/2025 8:10 PM CDT POTASSIUM Timed 02/13/2025 7:38 PM CDT GLUCOSE METER Timed 02/13/2025 4:41 PM CDT PLATELET COUNT Timed 02/13/2025 1:15 PM CDT CREATININE Timed 02/13/2025 1:14 PM CDT LOW MOLECULAR WGT HEPARIN Timed 02/13/2025 1:14 PM CDT POTASSIUM Early AM 02/13/2025 1:14 PM CDT GLUCOSE METER Timed 02/13/2025 11:46 AM CDT GLUCOSE METER Timed 02/13/2025 8:03 AM CDT GLUCOSE METER Timed 02/13/2025 3:56 AM CDT SCAN-CARDIAC STRIP 02/13/2025 2: 19 AM CDT GLUCOSE METER Timed 02/13/2025 12:06 AM CDT GLUCOSE METER Timed 02/12/2025 8:03 PM CDT GLUCOSE METER Timed 02/12/2025 4:13 PM CDT SCAN-CARDIAC STRIP 02/12/2025 1: 17 PM CDT GLUCOSE METER Timed 02/12/2025 11:27 AM CDT HEPATIC FUNCTION PANEL Early AM 6:57 AM CDT BASIC METABOLIC PANEL Early AM 02/12/2025 6:57 AM CDT POTASSIUM Timed 02/12/2025 6:57 AM CDT GLUCOSE METER Timed 02/12/2025 6:20 AM CDT SCAN-CARDIAC STRIP 02/12/2025 2: 45 AM CDT GLUCOSE METER Timed 02/11/2025 9:31 PM CDT POTASSIUM Timed 02/11/2025 6:44 PM CDT XR NASO/PEPE GASTRO TUBE REPOSITION THRU DUODENUM Routine 02/11/2025 2:36 PM CDT POTASSIUM Timed 02/11/2025 11:54 AM CDT GLUCOSE METER Timed 02/11/2025 11:45 AM CDT GLUCOSE METER Timed 02/11/2025 7:37 AM CDT MAGNESIUM Early AM 02/11/2025 6:03 AM CDT CBC W PLT NO DIFF Early AM 02/11/2025 6:0 3 AM CDT HEPATIC FUNCTION PANEL Early AM 6:03 AM CDT BASIC METABOLIC PANEL Early AM 02/11/2025 6:03 AM CDT PHOSPHORUS Early AM 02/11/2025 6:03 AM CDT SCAN-CARDIAC STRIP 02/11/2025 1: 05 AM CDT MAGNESIUM Timed 02/10/2025 5:59 PM CDT GLUCOSE METER Timed 02/10/2025 5:[address] ABDOMEN PELVIS W Routine 02/10/2025 4 :50 PM CDT POTASSIUM Timed 02/10/2025 11:47 AM CDT GLUCOSE METER Timed 02/10/2025 11:16 AM CDT GLUCOSE METER Timed 02/10/2025 7:37 AM CDT MAGNESIUM Early AM 02/10/2025 6:46 AM CDT PHOSPHORUS Early AM 02/10/2025 6:46 AM CDT POTASSIUM Early AM 02/10/2025 6:46 AM CDT SCAN-CARDIAC STRIP 02/10/2025 4: 30 AM CDT GLUCOSE METER Timed 02/09/2025 8:59 PM CDT GLUCOSE METER Timed 02/09/2025 4:55 PM CDT SCAN-CARDIAC STRIP 02/09/2025 1: 36 PM CDT ECHO TTE COMPLETE WO CONTRAST Routine 02/09/2025 12:59 PM CDT SCAN-CARDIAC STRIP 02/09/2025 11 :41 AM CDT XR ABDOMEN 1 VIEW PORTABLE Routine 02/09/2025 7:52 AM CDT GLUCOSE METER Timed 02/09/2025 7:51 AM CDT LIPASE DEYSI 02/09/2025 6:45 AM CDT PHOSPHORUS Early AM 02/09/2025 6:45 AM CDT MAGNESIUM Early AM 02/09/2025 6:45 AM CDT COMP METABOLIC PANEL Early AM 02/09/2025 6:45 AM CDT CBC W PLT NO DIFF Early AM 02/09/2025 6:4 5 AM CDT SCAN-CARDIAC STRIP 02/09/2025 3: 08 AM CDT SCAN-CARDIAC STRIP 02/09/2025 12 :48 AM CDT SCAN-CARDIAC STRIP 02/08/2025 6: 48 PM CDT GLUCOSE METER Timed 02/08/2025 5:58 PM CDT XR CHEST 1 VIEW PORTABLE Routine 02/08/2025 1:45 PM CDT CBC W PLT NO DIFF Today 02/08/2025 1:3 8 PM CDT SCAN-CARDIAC STRIP 02/08/2025 12 :52 PM CDT GLUCOSE METER Timed 02/08/2025 12:01 PM CDT XR ABDOMEN 2 VIEW FLAT AND UPRIGHT OR DECUBITUS Routine 02/08/2025 8:40 AM CDT GLUCOSE METER Timed 02/08/2025 7:46 AM CDT COMP METABOLIC PANEL Early AM 02/08/2025 6:54 AM CDT CBC W PLT NO DIFF Today 02/07/2025 12: 05 PM CDT COMP METABOLIC PANEL Today 02/07/2025 12:05 PM CDT GLUCOSE METER Timed 02/06/2025 9:12 PM CDT GLUCOSE METER Timed 02/06/2025 5:31 PM CDT GLUCOSE METER Timed 02/06/2025 11:47 AM CDT XR CHEST 1 VIEW PORTABLE STAT 02/06/2025 9:25 AM CDT EKG 12 LEAD STAT 02/06/2025 9:21 AM CDT AST (SGOT) Today 02/06/2025 8:16 AM CDT BILIRUBIN DIRECT Today 02/06/2025 8:16 AM CDT GLUCOSE METER Timed 02/06/2025 8:01 AM CDT BASIC METABOLIC PANEL Early AM 02/06/2025 6:38 AM CDT CBC W PLT NO DIFF Early AM 02/06/2025 6:3 8 AM CDT HEPATIC FUNCTION PANEL Early AM 6:38 AM CDT XR ABDOMEN 1 VIEW PORTABLE Routine 02/05/2025 5:23 PM CDT XR CHEST 1 VIEW PORTABLE STAT 02/05/2025 10:[address] CHEST ABDOMEN PELVIS W STAT 02/05/2025 7:59 AM CDT LIPASE Early AM 02/05/2025 5:51 AM CDT HEPATIC FUNCTION PANEL Early AM 5:51 AM CDT LD,TOTAL Early AM 02/05/2025 5:51 AM CDT C-REACTIVE PROTEIN Early AM 02/05/2025 5: 51 AM CDT MAGNESIUM Early AM 02/05/2025 5:51 AM CDT CREATININE Early AM 02/05/2025 5:51 AM CDT POTASSIUM Early AM 02/05/2025 5:51 AM CDT HEMOGLOBIN Early AM 02/05/2025 5:50 AM CDT MAGNESIUM Timed 02/04/2025 4:43 PM CDT HEPATIC FUNCTION PANEL DEYSI 5:13 AM CDT POTASSIUM Timed 02/04/2025 5:13 AM CDT BASIC METABOLIC PANEL Early AM 02/04/2025 5:13 AM CDT CBC W PLT NO DIFF Early AM 02/04/2025 5:1 3 AM CDT MAGNESIUM Early AM 02/04/2025 5:13 AM CDT LD,TOTAL Early AM 02/04/2025 5:13 AM CDT C-REACTIVE PROTEIN Early AM 02/04/2025 5: 13 AM CDT LIPASE Early AM 02/04/2025 5:[address] ABDOMEN PELVIS W STAT 02/03/2025 1 0:07 PM CDT HEMOGLOBIN A1C DEYSI 02/03/2025 10:03 PM CDT HEPATIC FUNCTION PANEL STAT 10:03 PM CDT LIPASE STAT 02/03/2025 10:03 PM CDT BASIC METABOLIC PANEL STAT 02/03/2025 10:03 PM CDT CBC W PLT NO DIFF STAT 02/03/2025 10: 03 PM CDT EKG 12 LEAD Routine 01/28/2025 12:00 AM CDT Essential hypertension LIPID PANEL W REFLEX MEASURED LDL Routine 04/23/2024 11:19 AM CDT Hyperlipidemia, unspecified hyperlipidemia type OCCULT BLOOD IFOBT STOOL Routine 05/02/2022 1:28 PM CDT Screening for colon cancer XR DXA BONE DENSITY 2 SITES AXIAL Routine 04/26/2021 1:14 PM CDT Menopause XR MAMMO BILAT SCREENING Routine 02/25/2019 1:46 PM CDT Breast screening, unspecified ANTI HCV Routine 02/01/2015 10:44 AM CDT Need for hepatitis C screening test from Last 3 Months or Most Recently Relevant to Health Maintenance Results * CT ABDOMEN PELVIS WO (04/23/2025 9:23 AM CDT) Anatomical Region Laterality Modality Abdomen, Pelvis, AORTA, LIVER, SPLEEN Computed Tomography 04/23/2025 2:09 PM CDT Narrative 04/23/2025 2:09 PM CDT For Patients: As a result of the Cures Act, medical imaging exams and procedure reports are released immediately into your electronic medical record. You may view this report before your referring provider. If you have questions, please contact your health care provider. Indication: Follow-up pancreatitis Technique: Noncontrast CT abdomen and pelvis. Intravenous contrast not administered due to the inability to obtain venous access. Please note that all CT scans at this facility use dose modulation, iterative reconstruction, and/or weight-based dosing when appropriate to reduce radiation dose to as low as reasonably achievable. Comparison: 04/07/2025, 03/13/2025, 03/06/2025, 02/28/2025 Findings: Overall, the pancreatic collection of fluid and air is similar to the most recent study. Adjacent adenopathy in left-sided mesenteric fat remains similar. Mild left upper quadrant free fluid is stable. No splenomegaly. The liver is heterogeneous, as before. Layering stones in the gallbladder. Multiple right-sided renal cysts. No hydronephrosis. Atherosclerotic changes. Right adnexal cyst. No bowel obstruction. Chronic bronchitis left lower lobe. Degenerative changes. Impression: Overall, no significant change compared to the most recent study. Please note that all CT scans at this facility use dose modulation, iterative reconstruction, and/or weight-based dosing when appropriate to reduce radiation dose to as low as reasonably achievable. Dictated by Sesar Law MD @ 04/23/2025 2:09:52 PM (Electronically Signed) Procedure Note Sesar Law MD - 04/23/2025 For Patients: As a result of the Century Cures Act, medical imagingexams and procedure reports are released immediately into your electronicmedical record. You may view this report before your referring provider.If you have questions, please contact your health care provider. Indication: Follow-up pancreatitis Technique: Noncontrast CT abdomen and pelvis. Intravenous contrast not administereddue to the inability to obtain venous access. Please note that all CT scans at this facility use dose modulation,iterative reconstruction, and/or weight-based dosing when appropriate toreduce radiation dose to as low as reasonably achievable. Comparison: 04/07/2025, 03/13/2025, 03/06/2025, 02/28/2025 Findings: Overall, the pancreatic collection of fluid and air is similar to the mostrecent study. Adjacent adenopathy in left-sided mesenteric fat remainssimilar. Mild left upper quadrant free fluid is stable. No splenomegaly.The liver is heterogeneous, as before. Layering stones in the gallbladder.Multiple right-sided renal cysts. No hydronephrosis. Atheroscleroticchanges. Right adnexal cyst. No bowel obstruction. Chronic bronchitis leftlower lobe. Degenerative changes. Impression: Overall, no significant change compared to the most recent study. Please note that all CT scans at this facility use dose modulation,iterative reconstruction, and/or weight-based dosing when appropriate toreduce radiation dose to as low as reasonably achievable. Dictated by Sesar Law MD @ 04/23/2025 2:09:52 PM (Electronically Signed) Nadja MORENO CT Final R esult * (ABNORMAL) CBC WITH AUTO DIFFERENTIAL (04/21/2025 7:30 AM CDT) Only the most recent of4 resultswithin the time period is included. WHITE BLOOD COUNT 8.3 4.5 - 11.0 thou/cu mm 04/21/2025 8:55 AM CDT [facility] RED BLOOD COUNT 4.58 4.00 - 5.20 mil/cu mm 04/21/2025 8:55 AM CDT [facility] HEMOGLOBIN 13.5 12.0 - 16.0 g/dL 04/21/2025 8:55 AM [facility] HEMATOCRIT 44.8 33.0 - 51.0 % 04/21/2025 8:55 AM [facility] MCV 98 80 - 100 fL 04/21/2025 8:55 AM [facility] MCH 29.5 26.0 - 34.0 pg 04/21/2025 8:55 AM [facility] MCHC 30.1(L) 32.0 - 36.0 g/dL 04/21/2025 8:55 AM [facility] RDW 20.4(H) 11.5 - 15.5 % 04/21/2025 8:55 AM [facility] PLATELET COUNT 377 140 - 440 thou/cu mm 04/21/2025 8:55 AM [facility] MPV 10.7 6.5 - 11.0 fL 04/21/2025 8:55 AM [facility] % NEUT 66.4 % 04/21/2025 8:55 AM [facility] % LYMPH 22.6 % 04/21/2025 8:55 AM [facility] % MONO 7.2 % 04/21/2025 8:55 AM [facility] % EOS 3.4 % 04/21/2025 8:55 AM [facility] % BASO 0.4 % 04/21/2025 8:55 AM [facility] ABSOLUTE NEUTROPHILS 5.5 1.7 - 7.0 thou/cu mm 04/21/2025 8:55 AM [facility] ABSOLUTE LYMPHOCYTES 1.9 0.9 - 2.9 thou/cu mm 04/21/2025 8:55 AM [facility] ABSOLUTE MONOCYTES 0.6 <0.9 thou/cu mm 04/21/2025 8:55 AM [facility] ABSOLUTE EOSINOPHILS 0.3 <0.5 thou/cu mm 04/21/2025 8:55 AM [facility] ABSOLUTE BASOPHILS 0.0 <0.3 thou/cu mm 04/21/2025 8:55 AM CDT [facility] Blood BLOOD SPECIMEN / Unknown Butterfly / Unknown 04/21/2025 7:30 AM CDT 04/21/2025 8:41 AM CDT Brad Bolanos MD HEMATOLOGY Final Result Performing Organization Address City/[facility]/ZIP Co de Phone Number [facility] [address] [place] [address] * (ABNORMAL) BUN (04/21/2025 7:30 AM CDT) Only the most recent of4 resultswithin the time period is included. BUN 7(L) 8 - 23 mg/dL 04/21/2025 9:09 AM CDT [facility] Blood BLOOD SPECIMEN / Unknown Butterfly / Unknown 04/21/2025 7:30 AM CDT 04/21/2025 8:41 AM CDT Brda Bolanos MD CHEMISTRY Final Result Performing Organization Address City/[facility]/[place] Co de Phone Number [facility] [address] [place] [address] * CREATININE (04/21/2025 7:30 AM CDT) Only the most recent of18 resultswithin the time period is included. eGFR >90 >90 mL/min/1.7 3m2 04/21/2025 9:09 AM CDT [facility] Comment:As of 2022, eG FR is calculated by the CKD-EPI creatinine equation without race adjustment. eGFR can be influenced by muscle mass, exercise, and diet. The reported eGFR is an estimation only and is only applicable if the renal function is stable. CREATININE 0.68 0.50 - 0.90 mg/dL 04/21/2025 9:09 AM CDT [facility] Blood BLOOD SPECIMEN / Unknown Butterfly / Unknown 04/21/2025 7:30 AM CDT 04/21/2025 8:41 AM CDT Brad Bolanos MD CHEMISTRY Final Result Performing Organization Address City/[facility]/ZIP Co de Phone Number [facility] [address] [place] [address] * (ABNORMAL) C-REACTIVE PROTEIN (04/21/2025 7:30 AM CDT) Only the most recent of7 resultswithin the time period is included. C-REACTIVE PROTEIN 1.7(H) <0.5 mg/dL 04/21/2025 9:09 AM CDT [facility] Blood BLOOD SPECIMEN / Unknown Butterfly / Unknown 04/21/2025 7:30 AM CDT 04/21/2025 8:41 AM CDT Brad Bolanos MD CHEMISTRY Final Result Performing Organization Address [facility]/RUST Co de Phone Number [facility] [address] [place] [address] * (ABNORMAL) CK TOTAL (04/14/2025 7:24 AM CDT) Only the most recent of5 resultswithin the time period is included. CK,TOTAL 16(L) 26 - 192 IU/L 04/14/2025 9:01 AM CDT [facility] Blood BLOOD SPECIMEN / Unknown Butterfly / Unknown 04/14/2025 7:24 AM CDT 04/14/2025 8:31 AM CDT Brad Bolanos MD CHEMISTRY Final Result Performing Organization Address City/[facility]/ZIP Co de Phone Number [facility] [address] [place] [address] * RED CELL MORPHOLOGY (04/07/2025 8:15 AM CDT) RBC COMMENT RBC morphology appears normal RBC morphology appears normal, RBC morphology within normal limits for newborns. 04/07/2025 10:56 AM CDT [facility] Blood BLOOD SPECIMEN / Unknown Butterfly / Unknown 04/07/2025 8:15 AM CDT 04/07/2025 9:35 AM CDT us Brad Bolanos MD HEMATOLOGY Final Result Performing Organization Address City/[facility]/ZIP Co de Phone Number [facility] [address] [place] [address] * PLATELET ESTIMATE (04/07/2025 8:15 AM CDT) PLATELET ESTIMATE Adequate Adequate, No estimate 04/07/2025 10:56 AM T [facility] Blood BLOOD SPECIMEN / Unknown Butterfly / Unknown 04/07/2025 8:15 AM CDT 04/07/2025 9:35 AM CDT Bard Bolanos MD HEMATOLOGY Final Result Performing Organization Address City/[facility]/ZIP Co de Phone Number [facility] [address] [place] [address] * (ABNORMAL) MANUAL DIFFERENTIAL (04/07/2025 8:15 AM CDT) Pathologist [facility] % NEUTROPHILS 71.0 % 04/07/2025 10:56 AM [facility] % LYMPHOCYTES 19.0 % 04/07/2025 10:56 AM [facility] % MONOCYTES 6.0 % 04/07/2025 10:56 AM [facility] % EOSINOPHILS 3.0 % 04/07/2025 10:56 AM [facility] % BASOPHILS 1.0 % 04/07/2025 10:56 AM [facility] NEUTROPHILS ABSOLUTE 9.1(H) 1.7 - 7.0 thou/cu mm 04/07/2025 10:56 AM [facility] LYMPHOCYTES ABSOLUTE 2.4 0.9 - 2.9 thou/cu mm 04/07/2025 10:56 AM [facility] MONOCYTES ABSOLUTE 0.8 <0.9 thou/cu mm 04/07/2025 10:56 AM [facility] EOSINOPHILS ABSOLUTE 0.4 <0.5 thou/cu mm 04/07/2025 10:56 AM CDT [facility] BASOPHILS ABSOLUTE 0.1 <0.3 thou/cu mm 04/07/2025 10:56 AM CDT [facility] Blood BLOOD SPECIMEN / Unknown Butterfly / Unknown 04/07/2025 8:15 AM CDT 04/07/2025 9:35 AM CDT us Brad Bolanos MD HEMATOLOGY Final Result [facility] [address] [place] [address] * SCAN-LABORATORY REPORT (04/01/2025 12:00 AM CDT) us Scanner OTHER Final Result * ECG AM (03/28/2025 6:41 AM CDT) Only the most recent of8 resultswithin the time period is included. Interpretation Sinus rhythm with Premature atrial complexes Possible Anterior infarct , age undetermined Low voltage QRS Abnormal ECG When compared with ECG of 28-Mar-2025 02:58, R wave Progression changed BEYOND NOW Ventricular Rate 68 BPM BEYOND NOW Atrial Rate 68 BPM BEYOND NOW P-R Interval 166 ms BEYOND NOW QRS Duration 92 ms BEYOND NOW QT 414 ms BEYOND NOW QTc 440 ms BEYOND NOW P [place] 72 degrees BEYOND NOW R [place] -14 degrees BEYOND NOW T [place] -9 degrees BEYOND NOW 03/28/2025 6:41 AM CDT 03/30/2025 8:24 PM CDT us Sesar Samuel MD EKG ORD Final Result Performing Organization Address City/[facility]/ZIP Co de Phone Number BEYOND NOW [place], [place] * MAGNESIUM (03/28/2025 5:58 AM CDT) Only the most recent of46 resultswithin the time period is included. MAGNESIUM 2.1 1.6 - 2.4 mg/dL 03/28/2025 6:44 AM CDT [facility] Blood BLOOD SPECIMEN / Unknown Non-Lab Venipuncture / Unknown 03/28/2025 5:58 AM CDT 03/28/2025 6:09 AM CDT us Jaspreet Sanchez MD CHEMISTRY Final Re sult [facility] [address] [place] [address], [place] * SCAN-CARDIAC STRIP (03/28/2025 4:07 AM CDT) us Scanner OTHER Final Result * Insert PICC line (03/27/2025 7:20 PM CDT) Only the most recent of2 resultswithin the time period is included. Narrative Kaitlin Duval, TINO - 03/27/2025 7:20 PM CDT Kaitlin Duval, TINO 03/27/2025 7:22 PM PICC Line Catheter Exchange With a Guidewire 03/27/2025 7:20 PM Reason for catheter exchange: Catheter migrated out and MD ordered. Procedure education reviewed: Placement procedure and Questions answered, discussed with: Patient face to face. Patient face to face confirms understanding of procedure. Signed consent was obtained: Patient Medical/ Surgical/ Allergies History reviewed: Yes. Site appearance pre-catheter exchange: Dry and Flat. Catheter that was removed, post-removal catheter inspection: Open ended catheter: Catheter length removed 40 cm. Preprocedure Verification: Yes 1) patient identity verified; 2) side/site/procedure confirmed; 3) relevant information/documentation available, reviewed and properly matched to the patient; 4) consent accurate and complete; 5) equipment and supplies available Site Marking: Not Applicable Site marked if not in continuous attendance with the patient Time Out: Yes Time out was conducted just prior to starting procedure to verify the four required elements: 1) patient name and date of 2) confirmation that the correct side/site are marked if applicable, including visualization of the site haile 3) name of procedure including laterality if applicable, and 4) essential imaging and results are properly labeled and appropriately displayed, if applicable. PICC line was placed using the following Central Line Insertion Checklist: Hand Hygiene: Yes Maximal Barrier Precautions including Sterile Gown, Hat and Mask: Yes Full Body Drape: Yes Site cleansed with: Chlorhexidine gluconate prep. Local anesthetic used at site: Yes, 1% Lidocaine. PICC Line 1 Lumen Right;Upper Arm;Basilic PICC/SVC (Active) 03/27/251918 Right;Upper Arm;Basilic Vessel Diameter: 0.47 cm upon initial insertion (03/08/25) Oagefuwi-dd-Dazl Ratio (%): Visible Catheter Length (cm): 0 cm Placed/Present Prior to Encounter: (IA) Placed Prior to Admission?: Type: Valved Catheter (IA) Size: Tip Location: PICC/SVC PICC Mid-Arm Circumference (cm): 37 cm Total Length of Catheter (cm): 40 cm Insertion Attempts: 1 (IA) Insertion Attempts: Local Anesthetic: Injectable Placement Verification: ECG;Blood Return Removed Catheter Length (cm): Removed/Resolved Prior to Encounter: Visible Catheter Length (cm) 0 cm 03/27/251918 Arm Circumference (cm) 37 cm 03/27/251918 Status Lumen One Blood Return;Capped/Locked 03/27/251918 Line Assessment Antimicrobial patch and dressing clean/dry/intact 03/27/251918 Site Description Dry/Flat 03/27/251918 Line Intervention New dressing applied and NO hemostatic agent/gauze 03/27/251918 Dressing change due date 04/03/2025 03/27/251918 Line Travel Attendants Name:Bard, Solo Power PICC (proximal valve) Lot Number: [id number] Access Assistance:Modified Seldinger Technique (Micro-Introducer) WITHOUT Dermatotomy (skin camilo), Tip Locating System, and Tip confirmation system/ECG Post-insertion: Able to remove guidewire: Smoothly Able to aspirate blood in each lumen: Yes Able to flush catheter without resistance in each lumen: Yes Each lumen flushed with 20 ml(s) of 0.9% saline, no Heparin. Cap applied to each lumen: Yes Line secured with Stat-Lock and site dressed with Hospital dressing policy/ protocol followed . X-ray pending: No, explain: tip location confirmed with Sherlock ECG Intended tip location: PICC (Superior Vena Cava) Patient tolerated the procedure: Yes Catheter exchange complications: None Kaitlin Duval RN .................... 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 Procedure: 2D, JUSTICE, Color Doppler and Spectral Doppler. Indication for study: Atrial fibrillation Cardiac Rhythm: Atrial fibrillation.Study quality: Fair. Final Impressions: 1. Normal left ventricular size, normal global systolic function. 2. Right ventricular cavity size is mildly enlarged, global systolic RV function is normal. 3. The mitral valve is sclerotic, mild mitral regurgitation. 4. Severely enlarged left atrium. 5. Severe right atrial enlargement. 6. No evidence of thrombus present in the left atrial appendage. Procedure comments: Indications, goals, risks and alternatives of the procedure were discussed with the patient and informed consent was obtained. The patient received sedation of intravenous Propofol . See procedural record for anesthesia details. Prior to performance of procedure, time out was called to accurately identify the patient and procedure. The X11 probe was passed without difficulty. 2D, JUSTICE, Color Doppler and Spectral Doppler was performed. The patient developed no apparent complications during the procedure. Estimated Blood Loss: 0 ml Chamber Sizes and Function Normal left ventricular size, normal global systolic function. No resting regional wall motion abnormality visualized. Left atrial size is severely enlarged. The left atrial appendage is well visualized and there is no evidence of thrombus present. Normal left atrial appendage flow velocities. Right ventricular cavity size is mildly enlarged, global systolic RV function is normal. The right atrium is severely enlarged. The pulmonary artery is not well visualized. The sinus of Valsalva is normal sized. The ascending aorta is normal sized. Aortic arch is normal sized. Descending aorta is normal sized. Valves, RV Pressures and Diastolic Function The aortic valve is trileaflet, no stenosis and no regurgitation. The mitral valve is sclerotic, mild mitral regurgitation. The tricuspid valve is normal in structure, trace tricuspid regurgitation. The pulmonic valve is not well visualized. Trace pulmonary regurgitation. Masses, Effusion, Shunts There is no pericardial effusion. Atrial septum is intact. Agitated saline injection not done. MEASUREMENTS AND CALCULATIONS 2-D Measurements and LV Function: Ao Sinus ULN 3.8 cm * HR 121 bpm Asc Ao ULN 4.0 cm * * Input BSA outside of range, reported values correspond to BSA = 1.9 . This study was interpreted by an [facility] accredited facility. Final Procedure Note Sesar Samuel MD - 03/27/2025 TRANSESOPHAGEAL ECHOCARDIOGRAM MERY BOYCE : 1950 74 years Study Date: 03/27/2025 1:51:51 PM Gender: F BP: 106/84 mmHg Height: 168.00 cm BSA: 2.02 m Weight: 93.00 kg Tech: DIONICIO/Josh Referring MD: JEREMIAH MUSA Site: [facility] Reading Location: [facility] Patient Location: Inpatient. Procedure: 2D, JUSTICE, Color Doppler and Spectral Doppler. Indication for study: Atrial fibrillation Cardiac Rhythm: Atrial fibrillation.Study quality: Fair. Final Impressions: 1. Normal left ventricular size, normal global systolic function. 2. Right ventricular cavity size is mildly enlarged, global systolic RVfunction is normal. 3. The mitral valve is sclerotic, mild mitral regurgitation. 4. Severely enlarged left atrium. 5. Severe right atrial enlargement. 6. No evidence of thrombus present in the left atrial appendage. Procedure comments: Indications, goals, risks and alternatives of theprocedure were discussed with the patient and informed consent wasobtained. The patient received sedation of intravenous Propofol . Seeprocedural record for anesthesia details. Prior to performance ofprocedure, time out was called to accurately identify the patient andprocedure. The X11 probe was passed without difficulty. 2D, JUSTICE, ColorDoppler and Spectral Doppler was performed. The patient developed noapparent complications during the procedure. Estimated Blood Loss: 0 ml Chamber Sizes and Function Normal left ventricular size, normal global systolic function. No restingregional wall motion abnormality visualized. Left atrial size is severelyenlarged. The left atrial appendage is well visualized and there is noevidence of thrombus present. Normal left atrial appendage flowvelocities. Right ventricular cavity size is mildly enlarged, globalsystolic RV function is normal. The right atrium is severely enlarged. Thepulmonary artery is not well visualized. The sinus of Valsalva is normalsized. The ascending aorta is normal sized. Aortic arch is normal sized.Descending aorta is normal sized. Valves, RV Pressures and Diastolic Function The aortic valve is trileaflet, no stenosis and no regurgitation. Themitral valve is sclerotic, mild mitral regurgitation. The tricuspid valveis normal in structure, trace tricuspid regurgitation. The pulmonic valveis not well visualized. Trace pulmonary regurgitation. Masses, Effusion, Shunts There is no pericardial effusion. Atrial septum is intact. Agitated salineinjection not done. MEASUREMENTS AND CALCULATIONS 2-D Measurements and LV Function: Ao Sinus ULN 3.8 cm * HR121 bpm Asc Ao ULN 4.0 cm * * Input BSA outside of range, reported values correspond to BSA = 1.9 . This study was interpreted by an [facility] accredited facility. Final us Jeremiah MORENO ECHO ORD Final Res ult * SCAN-CARDIAC STRIP (03/27/2025 11:15 AM CDT) us Scanner OTHER Final Result * SCAN-CARDIAC STRIP (03/27/2025 5:01 AM CDT) us Scanner OTHER Final Result * SCAN-CARDIAC STRIP (03/27/2025 5:01 AM CDT) us Scanner OTHER Final Result * XR CHEST 1 VIEW PORTABLE (03/26/2025 9:25 PM CDT) Only the most recent of6 resultswithin the time period is included. Anatomical Region Laterality Modality HEART, THORAX, CHEST Digital Rad iography 03/26/2025 11:0 4 PM CDT Narrative 03/26/2025 11:04 PM CDT For Patients: As a result of the Cures Act, medical imaging exams and procedure reports are released immediately into your electronic medical record. You may view this report before your referring provider. If you have questions, please contact your health care provider. Indication: Line placement. Technique: Chest 1 view. Comparison: Chest x-ray 03/08/2025. Findings/Impression: Right-sided PICC line with tip terminating near the junction of the right subclavian/brachiocephalic veins. Cardiac silhouette magnified. There is pulmonary vascular congestion and small left pleural effusion. Patchy bilateral airspace opacities are present which may reflect atelectasis or developing infectious process. No pneumothorax. No acute osseous abnormality. Dictated by Oscar Aceves MD @ 03/26/2025 11:04:41 PM (Electronically Signed) Procedure Note Oscar Aceves MD - 03/26/2025 For Patients: As a result of the Cures Act, medical imagingexams and procedure reports are released immediately into your electronicmedical record. You may view this report before your referring provider.If you have questions, please contact your health care provider. Indication: Line placement. Technique: Chest 1 view. Comparison: Chest x-ray 03/08/2025. Findings/Impression: Right-sided PICC line with tip terminating near the junction of the rightsubclavian/brachiocephalic veins. Cardiac silhouette magnified. There is pulmonary vascular congestion andsmall left pleural effusion. Patchy bilateral airspace opacities arepresent which may reflect atelectasis or developing infectious process. Nopneumothorax. No acute osseous abnormality. Dictated by Oscar Aceves MD @ 03/26/2025 11:04:41 PM (Electronically Signed) us Josef Wisdom MD GENERAL IMAGING Final Re sult * SCAN-CARDIAC STRIP (03/26/2025 6:27 PM CDT) Scanner OTHER Final Result * POTASSIUM (03/26/2025 1:29 PM CDT) Only the most recent of41 resultswithin the time period is included. POTASSIUM 4.7 3.5 - 5.1 mmol/L 03/26/2025 1:57 PM CDT [facility] Comment:Specimen mildly hemo lyzed. Interpret with caution. Blood BLOOD SPECIMEN / Unknown Non-Lab Venipuncture / Unknown 03/26/2025 1:29 PM CDT 03/26/2025 1:37 PM CDT Kathynadine Newton Oswald DO CHEMISTRY Final Res ult Performing Organization Address [facility]/[place]UST Co de Phone Number [facility] [address] [place] [address], [place] * PHOSPHORUS (03/26/2025 1:29 PM CDT) Only the most recent of26 resultswithin the time period is included. PHOSPHORUS 3.3 2.5 - 4.5 mg/dL 03/27/2025 9:28 AM CDT [facility] Blood BLOOD SPECIMEN / Unknown Non-Lab Venipuncture / Unknown 03/26/2025 1:29 PM CDT 03/26/2025 1:[address], LD CHEMISTRY Final Result Performing Organization Address [facility]/RUST Co de Phone Number [facility] [address] [place] [address], * (ABNORMAL) PROTIME-INR (03/26/2025 12:41 PM CDT) Only the most recent of3 resultswithin the time period is included. INR 2.0(H) <1.3 03/26/2025 1:09 PM CDT [facility] PROTIME 22.8(H) 10.6 - 12.4 sec 03/26/2025 1:09 PM CDT [facility] Blood BLOOD SPECIMEN / Unknown Non-Lab Venipuncture / Unknown 03/26/2025 12:41 PM CDT 03/26/2025 12:48 PM CDT [facility] - 03/26/2025 1:09 PM CDT Therapeutic Range 2.0-3.0 for most anticoagulated patients 2.5-3.5 or 4.0 for high risk patients The INR is only used for patients on stable oral anticoagulant therapy. It makes no significant contribution to the diagnosis or treatment of patients whose Protime is prolonged for other reasons. INR results are increased when heparin levels exceed 1.0 U/mL, which corresponds to an aPTT >125 seconds if the patient is on UFH. us Kathy Akers DO HEMATOLOGY Final Res ult [facility] [address] [place] [address], * (ABNORMAL) CBC W PLT NO DIFF (03/26/2025 12:32 PM CDT) Only the most recent of19 resultswithin the time period is included. WHITE BLOOD COUNT 11.1(H) 4.5 - 11.0 thou/cu mm 03/26/2025 12:43 PM CDT [facility] RED BLOOD COUNT 3.92(L) 4.00 - 5.20 mil/cu mm 03/26/2025 12:43 PM CDT [facility] HEMOGLOBIN 11.8(L) 12.0 - 16.0 g/dL 03/26/2025 12:43 PM CDT [facility] HEMATOCRIT 38.4 33.0 - 51.0 % 03/26/2025 12:43 PM CDT [facility] MCV 98 80 - 100 fL 03/26/2025 12:43 PM CDT [facility] MCH 30.1 26.0 - 34.0 pg 03/26/2025 12:43 PM CDT [facility] MCHC 30.7(L) 32.0 - 36.0 g/dL 03/26/2025 12:43 PM CDT [facility] RDW 18.6(H) 11.5 - 15.5 % 03/26/2025 12:43 PM CDT [facility] PLATELET COUNT 596(H) 140 - 440 thou/cu mm 03/26/2025 12:43 PM CDT [facility] MPV 9.1 6.5 - 11.0 fL 03/26/2025 12:43 PM CDT [facility] NRBC 0.0 % 03/26/2025 12:43 PM CDT [facility] ABS NRBC 0.0 thou /cu mm 03/26/2025 12:43 PM CDT [facility] Blood BLOOD SPECIMEN / Unknown Non-Lab Venipuncture / Unknown 03/26/2025 12:32 PM CDT 03/26/2025 12:38 PM CDT us Kathy Akers DO HEMATOLOGY Final Res ult [facility] [address] [place] [address], * (ABNORMAL) PRO-BNP (03/26/2025 12:32 PM CDT) PRO-BNP 2,075(H) <125 pg/mL 03/26/2025 1:11 PM CDT [facility] Blood BLOOD SPECIMEN / Unknown Non-Lab Venipuncture / Unknown 03/26/2025 12:32 PM CDT 03/26/2025 12:38 PM CDT Narrative [facility] - 03/26/2025 1:11 PM CDT The following cut-points have been suggested for the use of proBNP for the diagnostic evaluation of heart failure (HF) in patient with acute dyspnea. Patients with eGFR >= 60 Diagnosis (rule in CHF) <50 Years Old 450 pg/mL 50 - 75 Years Old 900 pg/mL >75 Years Old 1800 pg/mL Exclusion (rule out CHF) Age Independent 300 pg/mL A cutoff of 1200 pg/mL for patients with an eGFR <60 yields a diagnostic sensitivity of 89% and specificity of 72% for acute congestive heart failure. us Kathy Akers DO SEND OUTS Final Res ult [facility] [address] [place] [address], [place] * (ABNORMAL) BASIC METABOLIC PANEL (03/26/2025 12:32 PM CDT) Only the most recent of19 resultswithin the time period is included. SODIUM 139 136 - 145 mmol/L 03/26/2025 1:12 PM CDT [facility] POTASSIUM 03/26/2025 1:12 PM CDT [facility] Comment:Canceled- Specimen H emolyzed, Disposition Per Policy CHLORIDE 105 98 - 107 mmol/L 03/26/2025 1:12 PM CDT [facility] CO2,TOTAL 19(L) 22 - 29 mmol/L 03/26/2025 1:12 PM CDT [facility] ANION GAP 15 5 - 18 03/26/2025 1:12 PM CDT [facility] GLUCOSE 111(H) 70 - 99 mg/dL 03/26/2025 1:12 PM CDT [facility] CALCIUM 9.9 8.8 - 10.4 mg/dL 03/26/2025 1:12 PM CDT [facility] Comment: Reference ranges for this test were updated on 09/02/2024 to reflect our healthy population more accurately. Reference range changes are not retroactively applied to results, but previous results using the same methodology can be interpreted in the context of the new reference range. BUN 12 8 - 23 mg/dL 03/26/2025 1:12 PM CDT [facility] CREATININE 0.70 0.50 - 0.90 mg/dL 03/26/2025 1:12 PM CDT [facility] BUN/CREAT RATIO 17 10 - 20 1:12 PM CDT [facility] eGFR >90 >90 mL/min/1. 73m2 03/26/2025 1:12 PM CDT [facility] Comment:As of 2022, eG FR is calculated by the CKD-EPI creatinine equation without race adjustment. eGFR can be influenced by muscle mass, exercise, and diet. The reported eGFR is an estimation only and is only applicable if the renal function is stable. Blood BLOOD SPECIMEN / Unknown Non-Lab Venipuncture / Unknown 03/26/2025 12:32 PM CDT 03/26/2025 12:38 PM CDT Kathy Akers DO CHEMISTRY Final Res ult [facility] [address] [place] [address], [place] * SCAN-CARDIAC STRIP (03/26/2025 12:00 AM CDT) Narrative 03/26/2025 12:00 AM CDT Ordered by an unspecified provider. us Other Clinical Staff OTHER Final Resul t * (ABNORMAL) GLUCOSE METER (03/16/2025 4:31 PM CDT) Only the most recent of166 resultswithin the time period is included. [facility] Signature GLUCOSE METER 121(H) 65 - 100 mg/dL 03/16/2025 4:32 PM CDT [facility] Blood BLOOD SPECIMEN / Unknown 03/16/2025 4:31 PM CDT 03/16/2025 4:32 PM CDT us Talib Naidu MD CHEMISTRY Final Res ult Performing Organization Address City/[facility]/[place] Co de Phone Number [facility] [address] [id number], [place] * Sodium AM (03/15/2025 5:46 AM CDT) Only the most recent of6 resultswithin the time period is included. SODIUM 140 136 - 145 mmol/L 03/15/2025 6:29 AM CDT [facility] Blood BLOOD SPECIMEN / Unknown Non-Lab Venipuncture / Unknown 03/15/2025 5:46 AM CDT 03/15/2025 5:55 AM CDT us Maisha Lopez MD CHEMISTRY Final R esult Performing Organization Address [facility] Co de Phone Number [facility] [address] [place] [id number], [place] * SCAN-CARDIAC STRIP (03/14/2025 9:54 AM CDT) us Scanner OTHER Final Result * SCAN-CARDIAC STRIP (03/14/2025 1:17 AM CDT) us Scanner OTHER Final Result * SCAN-CARDIAC STRIP (03/13/2025 5:14 PM CDT) us Scanner OTHER Final Result * CT ABDOMEN PELVIS W (03/13/2025 9:06 AM CDT) Only the most recent of6 resultswithin the time period is included. Anatomical Region Laterality Modality Abdomen, Pelvis, AORTA, LIVER, SPLEEN Computed Tomography 03/13/2025 9:56 AM CDT Impressions 03/13/2025 9:56 AM CDT 1. No significant interval change in regards to an acute necrotic collection associated with necrosis of the pancreatic tail described in detail above. 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 In-situ percutaneous locking loop drainage catheter. Associated small to moderate left pleural effusion and complete collapse of the left lower lobe, unchanged. Left leg cellulitis. 2. Associated inflammatory changes surrounding the acute necrotic collection including a smaller simple fluid collection interposed between the stomach and spleen at the superior margin of the acute necrotic collection. 3. Incidental findings described above including cholelithiasis and a right adnexal cystic lesion for which follow-up ultrasound is recommended in 3-6 months. Differential diagnostic considerations for the latter finding include an indolent cystic neoplasm. Please note that all CT scans at this facility use dose modulation, iterative reconstruction, and/or weight-based dosing when appropriate to reduce radiation dose to as low as reasonably achievable. Dictated by Manny Helton MD @ 03/13/2025 9:56:51 AM (Electronically Signed) Narrative 03/13/2025 9:56 AM CDT For Patients: As a result of the Cures Act, medical imaging exams and procedure reports are released immediately into your electronic medical record. You may view this report before your referring provider. If you have questions, please contact your health care provider. INDICATION: Pancreatitis, acute, severe. (Sic) COMPARISON: Multiple prior examinations going back to 02/26/2025, including the most recent prior study dated 03/06/2025. TECHNIQUE: CT of the abdomen and pelvis with 100 cc of Omnipaque 350 intravenous contrast. Please note that all CT scans at this facility use dose modulation, iterative reconstruction, and/or weight-based dosing when appropriate to reduce radiation dose to as low as reasonably achievable. 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 This collection measures 9.6 x 5.3 cm in transverse and AP dimension on axial series 2; image 49, compared to 10.7 x 5.1 cm measured in similar fashion on the prior exam of 03/06/2025 (2; 59). There is a small normally enhancing segment of the extreme pancreatic tail at the margin of this collection (2; 43). There is a tongue like extension of this collection which extends inferiorly in the anterior pararenal retroperitoneal space (best demonstrated on coronal series 601; image 49). Diffuse surrounding inflammatory changes persist in the anterior perirenal space with thickening of the left retromesenteric fascial plane extending to the combined interfascial plane in the left retroperitoneum to the level of the left iliac fossa. Persistent unchanged smaller loculated peripherally enhancing homogeneous low attenuation fluid collection at the posterior superior margin of the collection interposed between the stomach and spleen measuring 2.7 x 4.9 cm (2; 39), previously measuring 2.8 x 5.5 cm on 2; 46 of 03/06/2025. Absence of gas suggests lack of communication between this collection and the larger acute necrotic collection. Hypoenhancement of the uncinate processes noted incidentally which is similar to the 03/06/2025 exam consistent with edema (2; 73). No significant dilatation of the pancreatic duct in the head and neck of the pancreas. Liver: Normal contour. Hepatic lobe focal fatty infiltration adjacent to the intersegmental fissure. Nonspecific too small to characterize hypodensity in the right hepatic lobe (2; 41) of doubtful clinical significance, not clearly seen on prior examinations although this could be due to partial volume averaging. No intrahepatic biliary ductal dilatation. Patent portal veins. Patent hepatic veins. Gallbladder: Normal size. Cholelithiasis. No pericholecystic inflammatory changes. Normal common duct caliber. Spleen: Not enlarged. No significant focal lesion. 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 Adrenal Glands: Symmetrical adrenal glands. No significant focal lesion. Kidneys: Normal bilateral renal attenuation. No significant focal lesion. Uncomplicated bilateral renal cortical cysts, the largest involving the right kidney at the upper pole (4.7 cm on 2; 56) and arising exophytically from the lower pole (7.6 cm on 2; 97). No nephrolith. No dilatation of the intrarenal collecting systems. No ureteral stone. Nondilated ureters. Patent renal arteries and veins. Gastrointestinal tract: Normal caliber, attenuation and wall thickness of the gastrointestinal tract. No inflammatory changes. Normal small bowel mesentery. Unseen appendix without signs of acute appendicitis. Vascular: Chronic aortoiliac atherosclerotic mural calcification. Abdominal aorta and its major proximal branches including the celiac, superior mesenteric, inferior mesenteric, renal, and bilateral common iliac arteries are patent. Patent superior mesenteric vein. Peritoneal Cavity/Retroperitoneum: Redemonstration of infiltration of the greater omentum in the left upper quadrant. No adenopathy. No adenopathy. PELVIS The bladder is catheterized and collapsed. 7 cm right adnexal cystic lesion, likely ovarian, for which ultrasound follow-up is recommended in 3-6 months. Incidental 1.6 cm posterior subserosal uterine fibroid (602; 90). No significant ascites. No adenopathy. SKELETON AND BODY WALL Unchanged inflammatory fat stranding of the left lateral flank. Thoracolumbar spondylosis. Bilateral hip osteoarthrosis. Lumbar levoscoliosis. LOWER THORAX Unchanged small to moderate left pleural effusion associated with complete collapse of the left lower lobe. Partial atelectasis of the lingula. Dependent atelectasis of the right lower lobe with a trace pleural effusion, also unchanged. Small hiatus hernia. Procedure Note Manny Helton MD - 03/13/2025 For Patients: As a result of the Cures Act, medical imagingexams and procedure reports are released immediately into your electronicmedical record. You may view this report before your referring provider.If you have questions, please contact your health care provider. INDICATION: Pancreatitis, acute, severe. (Sic) COMPARISON: Multiple prior examinations going back to 02/26/2025, including the mostrecent prior study dated 03/06/2025. TECHNIQUE: CT of the abdomen and pelvis with 100 cc of Omnipaque 350 intravenouscontrast. Please note that all CT scans at this facility use dosemodulation, iterative reconstruction, and/or weight-based dosing whenappropriate to reduce radiation dose to as low as reasonably achievable. 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 This collection measures 9.6 x 5.3 cm intransverse and AP dimension on axial series 2; image 49, compared to 10.7x 5.1 cm measured in similar fashion on the prior exam of 03/06/2025 (2;59). There is a small normally enhancing segment of the extreme pancreatictail at the margin of this collection (2; 43). There is a tongue likeextension of this collection which extends inferiorly in the anteriorpararenal retroperitoneal space (best demonstrated on coronal series 601;image 49). Diffuse surrounding inflammatory changes persist in theanterior perirenal space with thickening of the left retromesentericfascial plane extending to the combined interfascial plane in the leftretroperitoneum to the level of the left iliac fossa. Persistent unchanged smaller loculated peripherally enhancing homogeneouslow attenuation fluid collection at the posterior superior margin of thecollection interposed between the stomach and spleen measuring 2.7 x 4.9cm (2; 39), previously measuring 2.8 x 5.5 cm on 2; 46 of 03/06/2025.Absence of gas suggests lack of communication between this collection andthe larger acute necrotic collection. Hypoenhancement of the uncinate processes noted incidentally which issimilar to the 03/06/2025 exam consistent with edema (2; 73). Nosignificant dilatation of the pancreatic duct in the head and neck of thepancreas. Liver: Normal contour. Hepatic lobe focal fatty infiltration adjacent to theintersegmental fissure. Nonspecific too small to characterize hypodensity in the right hepaticlobe (2; 41) of doubtful clinical significance, not clearly seen on priorexaminations although this could be due to partial volume averaging. Nointrahepatic biliary ductal dilatation. Patent portal veins. Patent hepatic veins. Gallbladder: Normal size. Cholelithiasis. No pericholecystic inflammatory changes.Normal common duct caliber. Spleen: Not enlarged. No significant focal lesion. Redemonstration of thrombosisof the splenic vein with associated prominent collaterals between thestomach and spleen. Adrenal Glands: Symmetrical adrenal glands. No significant focal lesion. Kidneys: Normal bilateral renal attenuation. No significant focal lesion.Uncomplicated bilateral renal cortical cysts, the largest involving theright kidney at the upper pole (4.7 cm on 2; 56) and arising exophyticallyfrom the lower pole (7.6 cm on 2; 97). No nephrolith. No dilatation of the intrarenal collecting systems. No ureteral stone. Nondilated ureters. Patent renal arteries and veins. Gastrointestinal tract: Normal caliber, attenuation and wall thickness of the gastrointestinaltract. No inflammatory changes. Normal small bowel mesentery. Unseenappendix without signs of acute appendicitis. Vascular: Chronic aortoiliac atherosclerotic mural calcification. Abdominal aortaand its major proximal branches including the celiac, superior mesenteric,inferior mesenteric, renal, and bilateral common iliac arteries arepatent. Patent superior mesenteric vein. Peritoneal Cavity/Retroperitoneum: Redemonstration of infiltration of thegreater omentum in the left upper quadrant. No adenopathy. No adenopathy. PELVIS The bladder is catheterized and collapsed. 7 cm right adnexal cystic lesion, likely ovarian, for which ultrasoundfollow-up is recommended in 3-6 months. Incidental 1.6 cm posteriorsubserosal uterine fibroid (602; 90). No significant ascites. No adenopathy. SKELETON AND BODY WALL Unchanged inflammatory fat stranding of the left lateral flank.Thoracolumbar spondylosis. Bilateral hip osteoarthrosis. Lumbarlevoscoliosis. LOWER THORAX Unchanged small to moderate left pleural effusion associated with completecollapse of the left lower lobe. Partial atelectasis of the lingula.Dependent atelectasis of the right lower lobe with a trace pleuraleffusion, also unchanged. Small hiatus hernia. IMPRESSION: 1. No significant interval change in regards to an acute necroticcollection associated with necrosis of the pancreatic tail described indetail above. 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 In-situpercutaneous locking loop drainage catheter. Associated small to moderateleft pleural effusion and complete collapse of the left lower lobe,unchanged. Left leg cellulitis. 2. Associated inflammatory changes surrounding the acute necroticcollection including a smaller simple fluid collection interposed betweenthe stomach and spleen at the superior margin of the acute necroticcollection. 3. Incidental findings described above including cholelithiasis and aright adnexal cystic lesion for which follow-up ultrasound is recommendedin 3-6 months. Differential diagnostic considerations for the latterfinding include an indolent cystic neoplasm. Please note that all CT scans at this facility use dose modulation,iterative reconstruction, and/or weight-based dosing when appropriate toreduce radiation dose to as low as reasonably achievable. Dictated by Manny Helton MD @ 03/13/2025 9:56:51 AM (Electronically Signed) us Nadja MORENO CT Final R esult * SCAN-CARDIAC STRIP (03/13/2025 5:09 AM CDT) us Scanner OTHER Final Result * MR PELVIS OVARY OR UTERUS WWO (03/12/2025 9:27 PM CDT) Anatomical Region Laterality Modality Pelvis, UTERUS Magnetic Resonan ce 03/13/2025 7:42 AM CDT Impressions 03/13/2025 7:42 AM CDT 1. There is a unilocular simple cyst arising from the right ovary/adnexa that measures up to 7.7 cm. O-rads: 2. 2. There is a partially visualized 8 centimeter right renal cyst with a few septations. Bosniak 2F (follow up recommended). 3. Small pelvic ascites. No findings of peritonitis or discrete collection. 4. Right gluteal and adductor muscle strain. Dictated by Mindi Spencer MD @ 03/13/2025 7:42:45 AM (Electronically Signed) Narrative 03/13/2025 7:42 AM CDT For Patients: As a result of the Century Cures Act, medical imaging exams and procedure reports are released immediately into your electronic medical record. You may view this report before your referring provider. If you have questions, please contact your health care provider. INDICATION: 6.5 centimeter right adnexal cystic lesion COMPARISON: CT abdomen 12/31/2024, 02/26/2025, and 03/06/2025 TECHNIQUE: Multiplanar, multisequence MR imaging of the pelvis, without and with IV contrast. The gynecologic mass protocol was utilized. Contrast: 20 mL Clariscan FINDINGS: There is some mild patient motion artifact throughout. There is susceptibility artifact from bilateral fallopian tube clips. The exam remains diagnostic for the intended purpose. There is a right adnexal cystic lesion. The lesion is homogeneously T2 hyperintense and has a uniform intermediate T1 intensity. The cyst measures 6.2 x 7.7 x 5.3 cm (AP by transverse by cc). The cyst has a 1-2 millimeter thin uniform faintly enhancing wall. No septations. No internal debris. No solid nodular components. No adjacent inflammatory stranding. Small normal postmenopausal left ovary and adnexa without any cysts or masses. The vaginal canal is decompressed. Normal appearance of the cervix with a few small nabothian cysts. Postmenopausal uterus. The endometrium is 0.5 centimeters in double thickness. No endometrial masses. Uniform thin junctional zone is barely delineated from the adjacent normal myometrium. No myometrial masses. There is a small amount of pelvic ascites. No abnormal peritoneal thickening, nodularity, or enhancement. No pelvic adenopathy. The bladder is decompressed with a Myers catheter. The distal ureters are decompressed. Incidentally noted bilateral renal cystic lesions. This includes a right lower pole cyst that measures up to 8 centimeters and has a few fine thin septations along its posterior margin. As this is on the edge of the field of view and is not well characterized or evaluated on this exam but no definitively solid nodular components are identified. There is not any dilated or inflamed bowel within the field of view. Disc and facet degeneration in the lumbar spine. Bilateral sacroiliac and hip osteoarthritis. There is asymmetric edema and enlargement in the right gluteus medius and minimus muscles. There is overlying deep subcutaneous edema. Mild asymmetric intramuscular edema in the right adductor muscles. No abnormal enhancement or discrete collection. No hip joint effusion or sacroiliac joint effusion. Procedure Note Mindi Spencer MD - 03/13/2025 For Patients: As a result of the Century Cures Act, medical imagingexams and procedure reports are released immediately into your electronicmedical record. You may view this report before your referring provider.If you have questions, please contact your health care provider. INDICATION: 6.5 centimeter right adnexal cystic lesion COMPARISON: CT abdomen 12/31/2024, 02/26/2025, and 03/06/2025 TECHNIQUE: Multiplanar, multisequence MR imaging of the pelvis, without and with IVcontrast. The gynecologic mass protocol was utilized. Contrast: 20 mL Clariscan FINDINGS: There is some mild patient motion artifact throughout. There is susceptibility artifact from bilateral fallopian tube clips. The exam remains diagnostic for the intended purpose. There is a right adnexal cystic lesion. The lesion is homogeneously [id number] and has a uniform intermediate T1 intensity. The cystmeasures 6.2 x 7.7 x 5.3 cm (AP by transverse by cc). The cyst has a 1-2millimeter thin uniform faintly enhancing wall. No septations. No internaldebris. No solid nodular components. No adjacent inflammatory stranding.Small normal postmenopausal left ovary and adnexa without any cysts ormasses. The vaginal canal is decompressed. Normal appearance of the cervix with afew small nabothian cysts. Postmenopausal uterus. The endometrium is 0.5centimeters in double thickness. No endometrial masses. Uniform thinjunctional zone is barely delineated from the adjacent normal myometrium.No myometrial masses. There is a small amount of pelvic ascites. No abnormal peritonealthickening, nodularity, or enhancement. No pelvic adenopathy. The bladder is decompressed with a Myers catheter. The distal ureters aredecompressed. Incidentally noted bilateral renal cystic lesions. Thisincludes a right lower pole cyst that measures up to 8 centimeters and hasa few fine thin septations along its posterior margin. As this is on theedge of the field of view and is not well characterized or evaluated onthis exam but no definitively solid nodular components are identified. There is not any dilated or inflamed bowel within the field of view. Disc and facet degeneration in the lumbar spine. Bilateral sacroiliac andhip osteoarthritis. There is asymmetric edema and enlargement in the rightgluteus medius and minimus muscles. There is overlying deep subcutaneousedema. Mild asymmetric intramuscular edema in the right adductor muscles.No abnormal enhancement or discrete collection. No hip joint effusion orsacroiliac joint effusion. IMPRESSION: 1. There is a unilocular simple cyst arising from the right ovary/adnexathat measures up to 7.7 cm. O-rads: 2. 2. There is a partially visualized 8 centimeter right renal cyst with afew septations. Bosniak 2F (follow up recommended). 3. Small pelvic ascites. No findings of peritonitis or discretecollection. 4. Right gluteal and adductor muscle strain. Dictated by Mindi Spencer MD @ 03/13/2025 7:42:45 AM (Electronically Signed) Sesar Car MD MR Final R esult * SCAN-CARDIAC STRIP (03/12/2025 2:11 AM CDT) us Scanner OTHER Final Result * SCAN-CARDIAC STRIP (03/11/2025 8:46 PM CDT) us Scanner OTHER Final Result * SCAN-CARDIAC STRIP (03/11/2025 6:23 PM CDT) us Scanner OTHER Final Result * SCAN-CARDIAC STRIP (03/11/2025 1:03 AM CDT) us Scanner OTHER Final Result * SCAN-CARDIAC STRIP (03/10/2025 8:15 AM CDT) us Scanner OTHER Final Result * (ABNORMAL) PLATELET COUNT (03/10/2025 6:21 AM CDT) Only the most recent of5 resultswithin the time period is included. PLATELET COUNT 690(H) 140 - 440 thou/cu mm 03/10/2025 7:38 AM CDT [facility] MPV 9.1 6.5 - 11.0 fL 03/10/2025 7:38 AM CDT [facility] Blood BLOOD SPECIMEN / Unknown Line/Port / Unknown 03/10/2025 6:21 AM CDT 03/10/2025 7:28 AM CDT us Peyman Ring MD HEMATOLOGY Final Result [facility] [address] [place] [id number], * SCAN-CARDIAC STRIP (03/10/2025 1:00 AM CDT) us Scanner OTHER Final Result * SCAN-CARDIAC STRIP (03/09/2025 2:41 PM CDT) us Scanner OTHER Final Result * XR ASPIRATION HAND RT (03/09/2025 9:25 AM CDT) Anatomical Region Laterality Modality ANKLES Digital Radiogra phy Narrative 03/09/2025 9:37 AM CDT RADIOLOGY POST PROCEDURE NOTE 03/09/2025 Mery Boyce [id number] 1950 PROCEDURE PERFORMED: FLUOROSCOPIC GUIDED Right 1st metacarpalphalangeal Intra-articular aspiration PROCEDURALIST: TIFFANIE Thorpe FINDINGS: Informed consent was obtained prior to the procedure, universal time out completed. Fluoroscopic localization of the right 1st MCP joint was performed. Utilizing sterile technique, local anesthesia with 1% lidocaine, and fluoroscopic guidance, a 20 gauge needle was advanced into the joint capsule. Joint access was confirmed with use of fluoroscopy and visualization of synovial fluid. Joint was aspirated. 1 ml synovial fluid was collected. Synovial fluid appeared clear, some blood did mix with synovial fluid on second pass. The patient tolerated the procedure well with no immediate complications. POST-PROCEDURE DIAGNOSIS: FLUOROSCOPIC GUIDED Right 1st MCP Intra-articular aspiration MEDICATIONS GIVEN: Lidocaine for local anesthesia COMPLICATIONS: None ESTIMATED BLOOD LOSS: Less than 10 mL FLUOROSCOPY TIME: 10 seconds Jeancarlos Lopez PA-C [employer] [facility] [place] Protocol A. Pre-procedure verification complete yes 1-relevant information / documentation available, reviewed and properly matched to the patient; 2-consent accurate and complete, 3-equipment and supplies available B. Site marking complete Yes Site marked if not in continuous attendance with patient C. TIME OUT completed yes Time Out was conducted just prior to starting procedure to verify the eight required elements: 1-patient identity, 2-consent accurate and complete, 3-position, 4-correct side/site marked (if applicable), 5-procedure, 6-relevant images / results properly labeled and displayed (if applicable), 7-antibiotics / irrigation fluids (if applicable), 8-safety precautions. us Peyman Ring MD GENERAL IMAGING Final Result * AEROBIC BACTERIAL CULTURE, STAIN (03/09/2025 9:15 AM CDT) Only the most recent of2 resultswithin the time period is included. CULTURE No Growth. 03/12/2025 9:04 AM CDT [facility] GRAM STAIN 1+ PMNs 03/12/2025 9:04 AM CDT [facility] GRAM STAIN 2+ RBCs 03/12/2025 9:04 AM CDT [facility] GRAM STAIN No Epithelial cells 03/12/2025 9:04 AM CDT [facility] GRAM STAIN No organisms seen 03/12/2025 9:04 AM CDT [facility] Other (Other) Non-Blood / Unknown 03/09/2025 9:15 AM CDT 03/09/2025 9:39 AM CDT Narrative [facility] - 03/12/2025 9:04 AM CDT us Peyman Ring MD MICROBIOLOGY Final Result Performing Organization Address City/[facility]/ZIP Co de Phone Number [facility] [address] [place] [id number], [place] * Crystal ID synovial fluid (03/09/2025 9:15 AM CDT) MONOSODIUM URATES None Seen None Seen, Present, Not Present 03/10/2025 10:08 AM CDT [facility] CALCIUM PYROPHOSPHATES None Seen None Seen, Present, Not Present 03/10/2025 10:08 AM CDT [facility] OTHER CRYSTALS 03/10/2025 10:08 AM CDT [facility] SPECIMEN SOURCE hand aspiration 03/10/2025 10:08 AM CDT [facility] Body Fluid JOINT SPECIMEN / Unknown Non-Blood / Unknown 03/09/2025 9:15 AM CDT 03/09/2025 9:39 AM CDT us Peyman Ring MD BODY FLUID Final Result Performing Organization Address City/[facility]/ZIP Co de Phone Number [facility] [address] [place] [id number], [place] * Uric acid AM (03/09/2025 5:10 AM CDT) Only the most recent of2 resultswithin the time period is included. URIC ACID 3.8 2.4 - 5.7 mg/dL 03/09/2025 5:57 AM CDT [facility] Blood BLOOD SPECIMEN / Unknown Non-Lab Venipuncture / Unknown 03/09/2025 5:10 AM CDT 03/09/2025 5:18 AM CDT us Peyman Ring MD CHEMISTRY Final Result [facility] [address] [place] [address], [place] * SCAN-CARDIAC STRIP (03/09/2025 1:05 AM CDT) us Scanner OTHER Final Result * SCAN-CARDIAC STRIP (03/08/2025 4:21 PM CDT) us Scanner OTHER Final Result * SCAN-CARDIAC STRIP (03/08/2025 1:44 PM CDT) us Scanner OTHER Final Result * SCAN-CARDIAC STRIP (03/07/2025 8:38 PM CDT) us Scanner OTHER Final Result * XR hand RIGHT 3 views TODAY (03/07/2025 12:38 PM CDT) Anatomical Region Laterality Modality HANDS, HAND R Digital Radiogra phy 03/07/2025 1:44 PM CDT Impressions 03/07/2025 1:44 PM CDT 1. Advanced osteoarthritic changes. 2. Chondrocalcinosis. 3. No erosive change. 4. No acute fracture. Dictated by Og Espinoza MD @ Mar 07 2025 1:44PM (Electronically Signed) [email or web address] Narrative 03/07/2025 1:44 PM CDT For Patients: As a result of the Century Cures Act, medical imaging exams and procedure reports are released immediately into your electronic medical record. You may view this report before your referring provider. If you have questions, please contact your health care provider. HISTORY: Right thumb pain. TECHNIQUE: Three views of the right hand. COMPARISON: No prior. FINDINGS: Advanced osteoarthritic change of the 1st CMC articulation. Advanced osteoarthritic change of the interphalangeal joint of the thumb. Additional moderate to advanced osteoarthritic change of multiple metacarpophalangeal and other interphalangeal joints. No acute fracture. Chondrocalcinosis is present. No significant erosive change. Procedure Note Og Espinoza MD - 03/07/2025 For Patients: As a result of the Cures Act, medical imagingexams and procedure reports are released immediately into your electronicmedical record. You may view this report before your referring provider.If you have questions, please contact your health care provider. HISTORY: Right thumb pain. TECHNIQUE: Three views of the right hand. COMPARISON: No prior. FINDINGS: Advanced osteoarthritic change of the 1st CMC articulation. Advancedosteoarthritic change of the interphalangeal joint of the thumb.Additional moderate to advanced osteoarthritic change of multiplemetacarpophalangeal and other interphalangeal joints. No acute fracture.Chondrocalcinosis is present. No significant erosive change. IMPRESSION: 1. Advanced osteoarthritic changes. 2. Chondrocalcinosis. 3. No erosive change. 4. No acute fracture. Dictated by gO Espinoza MD @ Mar 07 2025 1:44PM (Electronically Signed) [email or web address] Peyman Ring MD GENERAL IMAGING Final Result * (ABNORMAL) WHITE BLOOD COUNT (03/07/2025 6:12 AM CDT) Only the most recent of4 resultswithin the time period is included. WHITE BLOOD COUNT 14.8(H) 4.5 - 11.0 thou/cu mm 03/07/2025 7:20 AM CDT [facility] NRBC 0.3 % 03/07/2025 7:20 AM CDT [facility] ABS NRBC 0.1 thou /cu mm 03/07/2025 7:20 AM CDT [facility] Blood BLOOD SPECIMEN / Unknown Butterfly / Unknown 03/07/2025 6:12 AM CDT 03/07/2025 7:13 AM CDT us Bushra MORENO HEMATOLOGY Misty l Result [facility] [address] [place] [id number], [place] * SCAN-CARDIAC STRIP (03/07/2025 3:45 AM CDT) us Scanner OTHER Final Result * SCAN-CARDIAC STRIP (03/06/2025 4:15 PM CDT) us Scanner OTHER Final Result * SCAN-CARDIAC STRIP (03/06/2025 12:51 AM CDT) us Scanner OTHER Final Result * SCAN-CARDIAC STRIP (03/05/2025 6:40 PM CDT) us Scanner OTHER Final Result * SCAN-CARDIAC STRIP (03/05/2025 2:48 PM CDT) us Scanner OTHER Final Result * SCAN-CARDIAC STRIP (03/05/2025 2:46 PM CDT) us Scanner OTHER Final Result * EXTRA TUBE GOLD/SST (03/05/2025 2:15 AM CDT) Only the most recent of2 resultswithin the time period is included. Blood BLOOD SPECIMEN / Unknown Extra Tube / Unknown 03/05/2025 2:15 AM CDT 03/05/2025 2:21 AM CDT us Peyman Ring MD LABORATORY Final Result [facility] [address] * SCAN-CARDIAC STRIP (03/05/2025 12:38 AM CDT) us Scanner OTHER Final Result * LOW MOLECULAR WGT HEPARIN (03/04/2025 1:21 PM CDT) Only the most recent of4 resultswithin the time period is included. LOW MOLECULAR WGT HEPARIN 0.64 U/mL 03/04/2025 1:49 PM CDT [facility] Comment: LMWH therapeutic range: 0.60-1.00 IU/mL for twice daily dosing* LMWH therapeutic range: 1.00-2.00 IU/mL for once daily dosing* LMWH prophylactic range: 0.10-0.30 IU/mL (*sample obtained 4-6 hours following subcutaneous injection) Blood BLOOD SPECIMEN / Unknown Butterfly / Unknown 03/04/2025 1:21 PM CDT 03/04/2025 1:35 PM CDT us Peyman Ring MD HEMATOLOGY Final Result [facility] [address] [place] [address] * SCAN-CARDIAC STRIP (03/04/2025 1:58 AM CDT) us Scanner OTHER Final Result * SCAN-CARDIAC STRIP (03/03/2025 8:27 PM CDT) us Scanner OTHER Final Result * US VENOUS UPPER EXTREMITY RIGHT (03/03/2025 3:18 PM CDT) Anatomical Region Laterality Modality ARMS, ARM R Ultrasound 03/03/2025 8:16 PM CDT Impressions 03/03/2025 8:16 PM CDT 1. No deep vein thrombosis in the right upper extremity. 2. Acute superficial vein thrombosis in the right basilic vein. Dictated by Romario Irving MD @ 03/03/2025 8:16:54 PM (Electronically Signed) Narrative 03/03/2025 8:16 PM CDT For Patients: As a result of the Cures Act, medical imaging exams and procedure reports are released immediately into your electronic medical record. You may view this report before your referring provider. If you have questions, please contact your health care provider. INDICATION: Swelling TECHNIQUE: Venous duplex ultrasound of the right upper extremity utilizing compression with arita-scale, color Doppler, and spectral Doppler imaging. COMPARISON: None FINDINGS: There is no sonographic evidence of deep vein thrombosis in the right internal jugular, innominate, subclavian, axillary, brachial, or contralateral left internal jugular and subclavian veins. Acute superficial vein thrombosis in the right basilic vein extending from the level of the mid upper arm to the antecubital fossa. No superficial vein thrombosis in the cephalic vein. Mild soft tissue edema. Procedure Note Romario Irving MD - 03/03/2025 For Patients: As a result of the Cures Act, medical imagingexams and procedure reports are released immediately into your electronicmedical record. You may view this report before your referring provider.If you have questions, please contact your health care provider. INDICATION: Swelling TECHNIQUE: Venous duplex ultrasound of the right upper extremity utilizingcompression with arita-scale, color Doppler, and spectral Doppler imaging. COMPARISON: None FINDINGS: There is no sonographic evidence of deep vein thrombosis in the rightinternal jugular, innominate, subclavian, axillary, brachial, orcontralateral left internal jugular and subclavian veins. Acute superficial vein thrombosis in the right basilic vein extending fromthe level of the mid upper arm to the antecubital fossa. No superficialvein thrombosis in the cephalic vein. Mild soft tissue edema. IMPRESSION: 1. No deep vein thrombosis in the right upper extremity. 2. Acute superficial vein thrombosis in the right basilic vein. Dictated by Romario Irving MD @ 03/03/2025 8:16:54 PM (Electronically Signed) us Peyman Ring MD [place] Final Result * SCAN-CARDIAC STRIP (03/03/2025 1:42 AM CDT) us Scanner OTHER Final Result * SCAN-CARDIAC STRIP (03/02/2025 3:24 PM CDT) us Scanner OTHER Final Result * SCAN-CARDIAC STRIP (03/02/2025 8:17 AM CDT) us Scanner OTHER Final Result * (ABNORMAL) HEPATIC FUNCTION PANEL (03/02/2025 7:13 AM CDT) Only the most recent of10 resultswithin the time period is included. [facility] ALBUMIN 2.2(L) 4.0 - 4.9 g/dL 03/02/2025 7:58 AM CDT [facility] PROTEIN,TOTAL 6.0 6.0 - 8.0 g/dL 03/02/2025 7:58 AM CDT [facility] BILIRUBIN,TOTAL 0.2 0.0 - 1.2 mg/dL 03/02/2025 7:58 AM CDT [facility] BILIRUBIN,DIRECT 0.1 0.0 - 0.2 mg/dL 03/02/2025 7:58 AM CDT [facility] BILIRUBIN,INDIRE CT 0.1(L) 0.2 - 0.8 mg/dL 03/02/2025 7:58 AM CDT [facility] ALK PHOSPHATASE 108(H) 35 - 104 IU/L 03/02/2025 7:58 AM CDT [facility] ALT (SGPT) <5(L) 10 - 35 IU/L 03/02/2025 7:58 AM CDT [facility] AST (SGOT) 21 10 - 35 IU/L 03/02/2025 7:58 AM CDT [facility] Blood BLOOD SPECIMEN / Unknown Butterfly / Unknown 03/02/2025 7:13 AM CDT 03/02/2025 7:20 AM CDT Kerri Bingham MD CHEMISTRY Final Result [facility] [address] [place] [id number], [place] * SCAN-CARDIAC STRIP (03/02/2025 1:14 AM CDT) us Scanner OTHER Final Result * CHLORIDE (03/01/2025 8:41 AM CDT) CHLORIDE 99 98 - 107 mmol/L 03/01/2025 1:05 PM CDT [facility] Blood BLOOD SPECIMEN / Unknown Non-Lab Venipuncture / Unknown 03/01/2025 8:41 AM CDT 03/01/2025 8:58 AM CDT us Kerri Bingham MD CHEMISTRY Final Result Performing Organization Address [facility]/RUST Co de Phone Number [facility] [address] [place] [phone], [place] * SCAN-CARDIAC STRIP (03/01/2025 1:22 AM CDT) us Scanner OTHER Final Result * XR Chest PA and lateral AM (02/28/2025 5:40 PM CDT) Anatomical Region Laterality Modality CHEST, THORAX, Lung, HEART Digit al Radiography 03/01/2025 10:3 4 AM CDT Impressions 03/01/2025 10:34 AM CDT Devices: An enteric tube enters the stomach with its tip off the inferior margin of the image. Unchanged moderate enlargement of the cardiac silhouette size. Normal mediastinal contours. Small to moderate left pleural effusion and complete left lower lobe atelectasis as on the recent CT. Trace right pleural effusion. No pneumothorax. Dictated by Angelina Morel MD @ Mar 01 2025 10:34AM (Electronically Signed) [email or web address] Narrative 03/01/2025 10:34 AM CDT For Patients: As a result of the Cures Act, medical imaging exams and procedure reports are released immediately into your electronic medical record. You may view this report before your referring provider. If you have questions, please contact your health care provider. INDICATION: Postprocedure. TECHNIQUE: Chest two views. COMPARISON: Chest radiograph 02/27/2025 and 02/08/2025. Chest CT 02/26/2025. Procedure Note Angelina Morel MD - 03/01/2025 For Patients: As a result of the Cures Act, medical imagingexams and procedure reports are released immediately into your electronicmedical record. You may view this report before your referring provider.If you have questions, please contact your health care provider. INDICATION: Postprocedure. TECHNIQUE: Chest two views. COMPARISON: Chest radiograph 02/27/2025 and 02/08/2025. Chest CT 02/26/2025. IMPRESSION: Devices: An enteric tube enters the stomach with its tip off the inferiormargin of the image. Unchanged moderate enlargement of the cardiac silhouette size. Normalmediastinal contours. Small to moderate left pleural effusion and completeleft lower lobe atelectasis as on the recent CT. Trace right pleuraleffusion. No pneumothorax. Dictated by Angelina Morel MD @ Mar 01 2025 10:34AM (Electronically Signed) [email or web address] us Sesar Car MD GENERAL IMAGING Final R esult * CT DRAIN PERITONEAL RETROPERITONEAL INC GUIDE (02/28/2025 10:16 AM CDT) Anatomical Region Laterality Modality Abdomen Computed Tomogra phy, Other Narrative 02/28/2025 10:31 AM CDT Date: 02/28/2025 Procedure: 1. CT guided placement of percutaneous 14 Azerbaijani drain into peripancreatic collection. Clinical History: Peripancreatic collection. Physician: Moy Mccormick MD Anesthesia: 1% local lidocaine and moderate sedation. Moderate conscious sedation was supervised by the performing physician with the presence of independent radiology nursing monitoring. The patient received 2 milligrams of Versed and 150 micrograms of fentanyl. Physiological data monitoring was performed throughout the entire procedure. The patient's blood pressure, EKG, and pulse oximetry were recorded. The patient was placed on 2liters of O2 via nasal cannula throughout the entire procedure. The patient tolerated the procedure and sedation without untoward reactions. The intra-procedural sedation time was 24 minutes. Medications: 1. Versed 2 mg IV 2. Fentanyl 150 mcg IV 3. 1% Lidocaine 10 mL SQ Samples: 10 mL purulent material Contrast: None EBL: < 10 cc Complications: None immediate. Procedure Description: The risks and benefits of the procedure were explained to the patient and informed consent was obtained. A timeout was taken. The patient was placed in the CT gantry in a supine position and universal protocol procedures were followed. The lesion was localized under CT guidance and a haile was made on the skin at a site overlying the collection. The patient was prepped and draped in the usual sterile fashion. 1% lidocaine was injected into the subcutaneous soft tissue for local anesthesia. A 5 Azerbaijani Yueh needle was inserted into the collection. Subsequently 10 mL purulent material was aspirated. Then an Amplatz wire was advanced into the collection. The Yueh needle was removed and the tract was sequentially dilated. Then a 14 Azerbaijani percutaneous drain was advanced over the wire into the collection under CT fluoroscopic guidance. Focused CT scan confirmed position of drain within the collection. The drainage catheter was then secured to the skin with 2-0 silk suture and covered with dressings. The catheter was connected to a drainage bag. The patient tolerated the procedure well and was transferred to the recovery room in stable condition. Impression: 1. Successful CT-guided placement of 14 Azerbaijani percutaneous drain into peripancreatic collection. Please contact me with any questions. Moy Mccormick MD Vascular & Interventional Radiology at [facility] Nadja MORENO CT Final R esult * (ABNORMAL) ANAEROBIC CULTURE (02/28/2025 10:11 AM CDT) CULTURE RESULT(A) 03/05/2025 9:35 AM CDT [facility] CULTURE 3+ Veillonella species 03/05/2025 9:35 AM CDT [facility] Other BODY FLUID SPECIMEN / Unknown Non-Blood / Unknown 02/28/2025 10:11 AM CDT 02/28/2025 10:35 AM CDT us Bushra MORENO MICROBIOLOGY Misty l Result Performing Organization Address City/[facility]/ZIP Co de Phone Number [facility] [address] [id number], * (ABNORMAL) Gm stain & culture ascitic fluid (02/28/2025 10:10 AM CDT) Only the most recent of2 resultswithin the time period is included. 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 CULTURE 1+ Staphylococcus coagulase negative 03/03/2025 1:23 PM CDT [facility] CULTURE 1+ Lactobacillus species 03/03/2025 1:23 PM CDT [facility] GRAM STAIN 2+ PMNs(A) 03/03/2025 1:23 PM CDT [facility] GRAM STAIN 1+ RBCs(A) 03/03/2025 1:23 PM CDT [facility] GRAM STAIN No Epithelial cells(A) 03/03/2025 1:23 PM CDT [facility] GRAM STAIN 1+ Gram Positive Cocci(A) 03/03/2025 1:23 PM CDT [facility] Body Fluid (Peritoneal) Non-Blood / Unknown 02/28/2025 10:10 AM CDT 02/28/2025 10:35 AM CDT Narrative Organism Antibiotic Method Susceptibility Enterococcus faecium VANCOMYCIN >=32: R Enterococcus faecium LINEZOLID 2: S Enterococcus faecium AMPICILLIN >=32: R Enterococcus faecium DAPTOMYCIN 4: Susceptible-dose dependent. Susceptibility dependent on max. possible blood level. Sesar Car MD MICROBIOLOGY Final R esult [facility] [address] [id number], * SCAN-CARDIAC STRIP (02/28/2025 5:13 AM CDT) us Scanner OTHER Final Result * XR CHEST 1 VIEW PA OR AP (02/27/2025 12:05 PM CDT) Anatomical Region Laterality Modality CHEST, THORAX, Lung, HEART Digit al Radiography 02/27/2025 12:2 2 PM CDT Narrative 02/27/2025 12:22 PM CDT For Patients: As a result of the Cures Act, medical imaging exams and procedure reports are released immediately into your electronic medical record. You may view this report before your referring provider. If you have questions, please contact your health care provider. Indication: Post thoracentesis Technique: AP view of the chest. Comparison: 02/26/2025, 02/08/2025 Findings: Partial visualization of enteric tube terminating below the diaphragm. Low lung volumes. Moderately enlarged cardiomediastinal silhouette with calcified aortic knob. Ahnt-qq-pohodpzy left basilar opacity with possible trace pleural effusion. Possible trace left apical pneumothorax. Impression: Ejwk-fc-[id number] left basilar opacity with possible trace pleural effusion, which may represent underlying atelectasis. Possible trace left apical pneumothorax. Findings communicated to Dr. Sesar Car at 12:20 p.m. via [employer] on 02/27/2025. Dictated by Paras Vila MD @ 02/27/2025 12:22:42 PM (Electronically Signed) Procedure Note Daniel Vila MD - 02/27/2025 For Patients: As a result of the Cures Act, medical imagingexams and procedure reports are released immediately into your electronicmedical record. You may view this report before your referring provider.If you have questions, please contact your health care provider. Indication: Post thoracentesis Technique: AP view of the chest. Comparison: 02/26/2025, 02/08/2025 Findings: Partial visualization of enteric tube terminating below the diaphragm. Low lung volumes. Moderately enlarged cardiomediastinal silhouette with calcified aorticknob. Ncbv-on-ervddrcx left basilar opacity with possible trace pleuraleffusion. Possible trace left apical pneumothorax. Impression: Rvez-pp-jnyngclc left basilar opacity with possible trace pleuraleffusion, which may represent underlying atelectasis. Possible trace left apical pneumothorax. Findings communicated to Dr. Sesar Car at 12:20 p.m. via [employer] on02/27/2025. Dictated by Paras Vila MD @ 02/27/2025 12:22:42 PM (Electronically Signed) us Sesar Car MD GENERAL IMAGING Final R esult * CWS PATH REVIEW BODY FLUID (02/27/2025 11:57 AM CDT) PATH COMMENT Comment 03/02/2025 8:30 AM CDT [facility] [email or web address] [facility] LABORATORY Comment:No atypical or malig nant cells, favor reactive.Reviewed by Dr. Ash Fuentes on 03/02/2025 Body Fluid PLEURAL FLUID SPECIMEN / Unknown Non-Blood / Unknown 02/27/2025 11:57 AM CDT 02/27/2025 12:06 PM CDT us Sesar Car MD LABORATORY Final R esult [facility] [address] [place] [address], * BODY FLUID CELL COUNT/DIF (02/27/2025 11:57 AM CDT) BODY FLUID SOURCE Pleural Fluid 03/02/2025 8:29 AM CDT [facility] BODY FLUID COLOR Yellow 03/02/2025 8:29 AM CDT [facility] BODY FLUID CLARITY Slightly Cloudy 03/02/2025 8:29 AM CDT [facility] [email or web address] LABORATORY- NTRMO LABORATORY TOTAL NUCLEATED CELLS, BF 1,930 /cu mm 03/02/2025 8:29 AM CDT [facility] N[facility]AL [facility] RED BLOOD COUNT, BODY FLUID 2,000 /cu mm 03/02/2025 8:29 AM CDT [facility] [email or web address] [facility]- NTRAL LABORATORY % NEUTROPHILS, BODY FLUID 73 % 03/02/2025 8:29 AM CDT [facility] % LYMPHOCYTES, BODY FLUID 5 % 03/02/2025 8:29 AM CDT [facility] % MONO/MACRO, BODY FLUID 9 % 03/02/2025 8:29 AM CDT [facility] % MESOTHELIAL CELLS, BODY FLUID 13 % 03/02/2025 8:29 AM CDT [facility] Body Fluid PLEURAL FLUID SPECIMEN / Unknown Non-Blood / Unknown 02/27/2025 11:57 AM CDT 02/27/2025 12:06 PM CDT [facility] - 03/02/2025 8:29 AM CDT TO ORDER BODY FLUID CULTURES, USE; [id number] BODY FLUID CULTURE, STAIN Sesar Car MD BODY FLUID Edited Result - Final [facility] [address] [place] [address], [place] * AMYLASE,BODY FLUID (02/27/2025 11:57 AM CDT) SPECIMEN SOURCE L. Pleural Fluid 02/27/2025 12:45 PM CDT [facility] TRAL LABORATORY AMYLASE,BODY FLUID 16 IU/L 02/27/2025 12:45 PM CDT [facility] LABORATORY Comment:No Reference Range D efined. Body Fluid PLEURAL FLUID SPECIMEN / Unknown Non-Blood / Unknown 02/27/2025 11:57 AM CDT 02/27/2025 12:06 PM CDT Narrative [facility] - 02/27/2025 12:45 PM CDT Peritoneal: Amylase activity in non-pancreatic peritoneal fluid is approximately equal to the serum amylase activity. Ascites associated with pancreatitis typically has amylase activity at least 5- fold greater than serum. Pleural: Amylase activity in pleural fluid is typically less than the upper limit of normal serumm amylase with fluid to serum amylase ratio <1.0 Test developed & performance characteristics determined by [place], [place] consistent with CLIA requirements. Not cleared or approved by [place] FDA. Sesar Car MD BODY FLUID Final R esult [email or web address] [facility] [address] [place] [address], [place] * US THORACENTESIS INCL IMAGE GUIDE LEFT (02/27/2025 11:50 AM CDT) Anatomical Region Laterality Modality CHEST, THORAX Ultrasound Impressions 02/27/2025 1:42 PM CDT Successful ultrasound guided therapeutic and diagnostic thoracentesis, with removal of 340 mLs of fluid from the Left pleural space. Gertrude Chacko PA-C [facility] Interventional Radiology [place] Protocol A. Pre-procedure verification complete yes 1-relevant information / documentation available, reviewed and properly matched to the patient; 2-consent accurate and complete, 3-equipment and supplies available B. Site marking complete Yes Site marked if not in continuous attendance with patient C. TIME OUT completed yes Time Out was conducted just prior to starting procedure to verify the eight required elements: 1-patient identity, 2-consent accurate and complete, 3-position, 4-correct side/site marked (if applicable), 5-procedure, 6-relevant images / results properly labeled and displayed (if applicable), 7-antibiotics / irrigation fluids (if applicable), 8-safety precautions. Narrative 02/27/2025 1:42 PM CDT RADIOLOGY IMMEDIATE POST PROCEDURE NOTE 02/27/2025 Mery Boyce [id number] 1950 INFORMED CONSENT: In my discussion, prior to the signing of the consent, I reviewed the procedure, benefits, risks, and how the procedure will meet the treatment goal with the patient and/or family. The patient was given ample time to ask questions. All questions were answered. PROCEDURE: Ultrasound-guided Thoracentesis, Left INDICATION: Pleural effusion COMPARISON: None PROCEDURALIST: Gertrude Chacko PA-C FINDINGS: Informed consent with risks, benefits, and alternatives was discussed and signed with patient. A focused ultrasound examination was performed of the posterior Left chest demonstrating a pleural effusion and a lower intercostal space was chosen for access. 1% lidocaine was used to anesthetize the subcutaneous soft tissues. Then, a 5-latvian Yueh needle with a one-way valve was advanced into the pleural space. 340 mLs of serous pleural fluid was removed. Fluid sample was sent to the lab for analysis. No immediate complications. Patient tolerated the procedure well. Sesar Car MD US Final R esult * SCAN-CARDIAC STRIP (02/27/2025 2:38 AM CDT) Scanner OTHER Final Result * Blood culture (02/26/2025 8:03 PM CDT) Only the most recent of2 resultswithin the time period is included. CULTURE No Growth. 03/03/2025 9:06 PM CDT [facility] Blood BLOOD SPECIMEN / Unknown Venipuncture / Unknown 02/26/2025 8:03 PM CDT 02/26/2025 8:08 PM CDT Narrative [facility] - 03/03/2025 9:06 PM CDT Low volume blood culture received; possible false negative culture. Sesar Car MD MICROBIOLOGY Final R esult [facility] [address] [place] [address], * CT Chest with contrast (02/26/2025 2:17 PM CDT) Anatomical Region Laterality Modality CHEST, THORAX, HEART Computed To mography 02/27/2025 12:5 6 AM CDT Impressions 02/27/2025 12:56 AM CDT Loamvbqu-wt-asugl left and small right pleural effusions with adjacent passive atelectasis. Complete collapse of the left lower lobe. Please note that all CT scans at this facility use dose modulation, iterative reconstruction, and/or weight-based dosing when appropriate to reduce radiation dose to as low as reasonably achievable. Dictated by Kadeem Paris MD @ 02/27/2025 12:56:02 AM (Electronically Signed) Narrative 02/27/2025 12:56 AM CDT For Patients: As a result of the Cures Act, medical imaging exams and procedure reports are released immediately into your electronic medical record. You may view this report before your referring provider. If you have questions, please contact your health care provider. INDICATION: shortness of breath - dyspnea, chronic, unclear etiology. TECHNIQUE: CT chest was acquired with 80 cc Omnipaque 350 IV contrast. COMPARISON: CT abdomen and pelvis from the same day. CT chest, abdomen, and pelvis 02/05/2025. FINDINGS: Lungs and pleura: Moderate to large left and small right pleural effusions with adjacent passive atelectasis. No pneumothorax. No suspicious nodule visualized within the aerated lung parenchyma. There is complete collapse of the left lower lobe. The central airways are clear. Heart and vasculature: Heart size is normal. Thoracic aorta and pulmonary artery are normal in caliber.Coronary artery and thoracic aorta atherosclerotic calcification. Lymph nodes/mediastinum: No mediastinal, hilar, or axillary adenopathy. Subdiaphragmatic enteric tube with the tip coursing into the stomach. Chest wall: No masses. Upper abdomen: Dictated separately. Bones: Unremarkable for age. Procedure Note Kadeem Prais MD - 02/27/2025 For Patients: As a result of the Cures Act, medical imagingexams and procedure reports are released immediately into your electronicmedical record. You may view this report before your referring provider.If you have questions, please contact your health care provider. INDICATION: shortness of breath - dyspnea, chronic, unclear etiology. TECHNIQUE: CT chest was acquired with 80 cc Omnipaque 350 IV contrast. COMPARISON: CT abdomen and pelvis from the same day. CT chest, abdomen, and [id number]/05/2025. FINDINGS: Lungs and pleura: Moderate to large left and small right pleural effusionswith adjacent passive atelectasis. No pneumothorax. No suspicious nodulevisualized within the aerated lung parenchyma. There is complete collapseof the left lower lobe. The central airways are clear. Heart and vasculature: Heart size is normal. Thoracic aorta and pulmonaryartery are normal in caliber.Coronary artery and thoracic aortaatherosclerotic calcification. Lymph nodes/mediastinum: No mediastinal, hilar, or axillary adenopathy.Subdiaphragmatic enteric tube with the tip coursing into the stomach. Chest wall: No masses. Upper abdomen: Dictated separately. Bones: Unremarkable for age. IMPRESSION: Rfvfvbvs-nx-bpbun left and small right pleural effusions with adjacentpassive atelectasis. Complete collapse of the left lower lobe. Please note that all CT scans at this facility use dose modulation,iterative reconstruction, and/or weight-based dosing when appropriate toreduce radiation dose to as low as reasonably achievable. Dictated by Kadeem Paris MD @ 02/27/2025 12:56:02 AM (Electronically Signed) Sesar Car MD CT Final R esult * VITAMIN D 25 (DEFICIENCY) (02/26/2025 1:26 PM CDT) [facility] VITAMIN D TOTAL 30.7 20.0 - 80.0 ng/mL 02/26/2025 10:38 PM CDT [facility] Blood BLOOD SPECIMEN / Unknown Butterfly / Unknown 02/26/2025 1:26 PM CDT 02/26/2025 1:31 PM CDT Narrative [facility] - 02/26/2025 10:38 PM CDT Vitamin D Status Deficiency: <20 ng/mL Insufficiency: 20-29 ng/mL Sufficiency: 30-80 ng/mL Possible Toxicity: >80 ng/mL Based on [place] [facility] recommendations Biotin supplements may cause clinically significant interference for this test assay. If interference is suspected, it is strongly recommended that biotin is discontinued for at least one week prior to retesting. Oscar Dumont RD, LD SEND OUTS Final Resu lt [facility] [address] [place] [address], * RESPIRATORY PANEL MULTIPLEX PCR (02/26/2025 11:07 AM CDT) [facility] Adenovirus NOT Detected 02/26/2025 12:08 PM CDT [facility] Coronavirus 229E NOT Detected 02/26/2025 12:08 PM CDT [facility] Coronavirus HKU1 NOT Detected 02/26/2025 12:08 PM CDT [facility] Coronavirus NL63 NOT Detected 02/26/2025 12:08 PM CDT [facility] Coronavirus OC43 NOT Detected 02/26/2025 12:08 PM CDT [facility] Human Metapneumovirus NOT Detected 02/26/2025 12:08 PM CDT [facility] Human Rhinovirus/Enterovi akosua NOT Detected 02/26/2025 12:08 PM CDT [facility] Influenza A NOT Detected 02/26/2025 12:08 PM CDT [facility] Influenza B NOT Detected 02/26/2025 12:08 PM CDT [facility] Parainfluenza Virus 1 NOT Detected 02/26/2025 12:08 PM CDT [facility] Parainfluenza Virus 2 NOT Detected 02/26/2025 12:08 PM CDT [facility] Parainfluenza Virus 3 NOT Detected 02/26/2025 12:08 PM CDT [facility] Parainfluenza Virus 4 NOT Detected 02/26/2025 12:08 PM CDT [facility] Respiratory Syncytial Virus NOT Detected 02/26/2025 12:08 PM CDT [facility] SARS-Cov-2 NOT Detected 02/26/2025 12:08 PM CDT [facility] Bordetella pertussis NOT Detected 02/26/2025 12:08 PM CDT [facility] Bordetella Parapertussis NOT Detected 02/26/2025 12:08 PM CDT [facility] Chlamydophila pneumoniae NOT Detected 02/26/2025 12:08 PM CDT [facility] Mycoplasma pneumoniae NOT Detected 02/26/2025 12:08 PM CDT [facility] Nasopharyngeal NASOPHARYNGEAL SWAB / Unknown Non-Blood / Unknown 02/26/2025 11:07 AM CDT 02/26/2025 11:13 AM CDT Narrative [facility] - 02/26/2025 12:08 PM CDT All PCR tests are subject to false negative results due to variability in viral/bacterial load and collection technique. This test does NOT detect MERS ( Respiratory Syndrome) or SARS-1 (Severe Acute Respiratory Syndrome). us Sesar Car MD MICROBIOLOGY Final R esult [facility] [address] [place] [address], [place] * SCAN-CARDIAC STRIP (02/26/2025 12:52 AM CDT) us Scanner OTHER Final Result * SCAN-CARDIAC STRIP (02/25/2025 4:46 PM CDT) us Scanner OTHER Final Result * XR NASO/PEPE GASTRO TUBE REPOSITION THRU DUODENUM (02/25/2025 9:46 AM CDT) Only the most recent of2 resultswithin the time period is included. Anatomical Region Laterality Modality Abdomen Computed Radiogr aphy Impressions 02/25/2025 9:55 AM CDT Successful advancement of nasojejunal feeding tube through the left nare. PROCEDURALIST: Jeancarlos Lopez PA-C ATTENDING PHYSICIAN: Mark Burr MD FLUOROSCOPY TIME: 2 minute 42 seconds Jeancarlos Lopez PA-C [employer] Narrative 02/25/2025 9:55 AM CDT RADIOLOGY POST PROCEDURE NOTE 02/25/2025 Mery Boyce [id number] 1950 PROCEDURE: Fluoroscopically guided feeding tube placement INDICATION: Need post pyloric advancement of feeding tube FINDINGS: Audible time out performed before beginning confirming patient ID, procedure, and procedure site. A previously placed 12 latvian weighted feeding tube was visualized in the stomach under direct fluoroscopic guidance. Under fluoroscopic guidance, the tube was advanced over a wire into the jejunum as far as could be tolerated. Gastrografin contrast was administered via the tube to confirm placement. Tube was flushed with water and anchored with adhesive dressing to the patient's nose. No immediate complication. Estimated blood loss none. us Sesar Cra MD FLUOROSCOPY Final R esult * SCAN-CARDIAC STRIP (02/25/2025 1:23 AM CDT) us Scanner OTHER Final Result * (ABNORMAL) HEMOGLOBIN (02/24/2025 7:55 AM CDT) Only the most recent of4 resultswithin the time period is included. HEMOGLOBIN 8.8(L) 12.0 - 16.0 g/dL 02/24/2025 10:41 AM CDT [facility] MCV 93 80 - 100 fL 02/24/2025 10:41 AM CDT [facility] Blood BLOOD SPECIMEN / Unknown Non-Lab Venipuncture / Unknown 02/24/2025 7:55 AM CDT 02/24/2025 9:00 AM CDT us Sesar Car MD HEMATOLOGY Final R esult [facility] [address] [place] [address], [place] * SCAN-CARDIAC STRIP (02/24/2025 6:51 AM CDT) us Scanner OTHER Final Result * SCAN-CARDIAC STRIP (02/24/2025 12:35 AM CDT) us Scanner OTHER Final Result * (ABNORMAL) Albumin AM (02/23/2025 5:14 AM CDT) ALBUMIN 2.3(L) 4.0 - 4.9 g/dL 02/23/2025 5:49 AM CDT [facility] Blood BLOOD SPECIMEN / Unknown Venipuncture / Unknown 02/23/2025 5:14 AM CDT 02/23/2025 5:24 AM CDT us Sesar Car MD CHEMISTRY Final R esult [facility] [address] [place] [id number], * SCAN-CARDIAC STRIP (02/23/2025 1:28 AM CDT) us Scanner OTHER Final Result * SCAN-CARDIAC STRIP (02/22/2025 1:25 AM CDT) us Scanner OTHER Final Result * (ABNORMAL) Electrolyte panel AM (02/21/2025 7:48 AM CDT) SODIUM 139 136 - 145 mmol/L 02/21/2025 9:35 AM CDT [facility] POTASSIUM 4.0 3.5 - 5.1 mmol/L 02/21/2025 9:35 AM CDT [facility] CHLORIDE 99 98 - 107 mmol/L 02/21/2025 9:35 AM CDT [facility] CO2,TOTAL 30(H) 22 - 29 mmol/L 02/21/2025 9:35 AM CDT [facility] ANION GAP 10 5 - 18 02/21/2025 9:35 AM CDT [facility] Blood BLOOD SPECIMEN / Unknown Non-Lab Venipuncture / Unknown 02/21/2025 7:48 AM CDT 02/21/2025 8:50 AM CDT us Sesar Car MD CHEMISTRY Final R esult [facility] [address] [place] [address], * SCAN-CARDIAC STRIP (02/21/2025 3:02 AM CDT) us Scanner OTHER Final Result * SCAN-CARDIAC STRIP (02/20/2025 4:02 AM CDT) us Scanner OTHER Final Result * SCAN-CARDIAC STRIP (02/20/2025 1:07 AM CDT) us Scanner OTHER Final Result * SCAN-CARDIAC STRIP (02/19/2025 12:55 AM CDT) us Scanner OTHER Final Result * SCAN-CARDIAC STRIP (02/18/2025 12:07 PM CDT) us Scanner OTHER Final Result * SCAN-CARDIAC STRIP (02/18/2025 12:07 PM CDT) us Scanner OTHER Final Result * XR ABDOMEN 1 VIEW PORTABLE (02/18/2025 7:57 AM CDT) Only the most recent of6 resultswithin the time period is included. Anatomical Region Laterality Modality Abdomen Digital Radiogra phy 02/18/2025 8:22 AM CDT Addenda Addendum by Hillary Guevara MD on 02/18/2025 8:22 AM CDT For Patients: As a result of the Century Cures Act, medical imaging exams and procedure reports are released immediately into your electronic medical record. You may view this report before your referring provider. If you have questions, please contact your health care provider. Indication: Abdomen pain. Technique: Abdomen 1 view. Comparison: X-ray abdomen February 17, 2025 Findings/Impression: Enteric tube is in place. Multiple dilated small bowel loops are again identified with distended loops (likely cecum) measuring approximately 11 mm, previously 14 mm. Dictated by Hillary Guevara MD @ Feb 18 2025 8:22AM (Electronically Signed) [email or web address] Impressions 02/18/2025 8:20 AM CDT The feeding tube tip is transpyloric with the tip at the mid duodenum. Several mildly distended gas-filled small bowel loops in the mid and lower abdomen. Previously distended cecum, featureless without haustral markings, now measuring 11 cm in diameter previously 14 cm. Narrative 02/18/2025 8:20 AM CDT INDICATION Abdominal pain TECHNIQUE KUB Procedure Note Mark Burr MD / Hillary Guevara MD - 02/18/2025 INDICATION Abdominal pain TECHNIQUE KUB IMPRESSION: The feeding tube tip is transpyloric with the tip at the mid duodenum. Several mildly distended gas-filled small bowel loops in the mid and lowerabdomen. Previously distended cecum, featureless without haustralmarkings, now measuring 11 cm in diameter previously 14 cm. Whitney Hui [facility] Edited Result - Final * Bilirubin, total/direct AM (02/18/2025 6:12 AM CDT) BILIRUBIN,TOTA L 0.3 0.0 - 1.2 mg/dL 02/18/2025 7:22 AM CDT [facility] BILIRUBIN,DIRE CT 0.1 0.0 - 0.2 mg/dL 02/18/2025 7:22 AM CDT [facility] BILIRUBIN,MAGDA RECT 0.2 0.2 - 0.8 mg/dL 02/18/2025 7:22 AM CDT [facility] Blood BLOOD SPECIMEN / Unknown Butterfly / Unknown 02/18/2025 6:12 AM CDT 02/18/2025 6:23 AM CDT Sesar Car MD CHEMISTRY Final R esult [facility] [address] [place] [address], * ALT AM (02/18/2025 6:12 AM CDT) Only the most recent of2 resultswithin the time period is included. ALT (SGPT) 15 10 - 35 IU/L 02/18/2025 7:22 AM CDT [facility] Blood BLOOD SPECIMEN / Unknown Butterfly / Unknown 02/18/2025 6:12 AM CDT 02/18/2025 6:23 AM CDT Sesar Car MD CHEMISTRY Final R esult Performing Organization Address City/[facility]/ZIP Co de Phone Number [facility] [address] [address], [place] * AST AM (02/18/2025 6:12 AM CDT) Only the most recent of3 resultswithin the time period is included. AST (SGOT) 32 10 - 35 IU/L 02/18/2025 7:22 AM CDT [facility] Blood BLOOD SPECIMEN / Unknown Butterfly / Unknown 02/18/2025 6:12 AM CDT 02/18/2025 6:23 AM CDT Sesar Car MD CHEMISTRY Final R esult Performing Organization Address [facility]/[place] Co de Phone Number [facility] [address] [phone], [place] * (ABNORMAL) Alk phosphatase AM (02/18/2025 6:12 AM CDT) ALK PHOSPHATASE 109(H) 35 - 104 IU/L 02/18/2025 7:22 AM CDT [facility] Blood BLOOD SPECIMEN / Unknown Butterfly / Unknown 02/18/2025 6:12 AM CDT 02/18/2025 6:23 AM CDT Sesar Car MD CHEMISTRY Final R esult Performing Organization Address City/[facility]/[place] Co de Phone Number [facility] [address] [address], [place] * Lipase AM (02/18/2025 6:12 AM CDT) Only the most recent of5 resultswithin the time period is included. LIPASE 48.0 13.0 - 60.0 IU/L 02/18/2025 8:32 AM CDT [facility] Blood BLOOD SPECIMEN / Unknown Butterfly / Unknown 02/18/2025 6:12 AM CDT 02/18/2025 6:23 AM CDT us Sesar Car MD CHEMISTRY Final R esult [facility] [address] [place] [address], [place] * SCAN-CARDIAC STRIP (02/18/2025 12:42 AM CDT) us Scanner OTHER Final Result * SCAN-CARDIAC STRIP (02/17/2025 12:55 AM CDT) us Scanner OTHER Final Result * SCAN-CARDIAC STRIP (02/16/2025 7:43 AM CDT) us Scanner OTHER Final Result * SCAN-CARDIAC STRIP (02/16/2025 7:43 AM CDT) us Scanner OTHER Final Result * SCAN-CARDIAC STRIP (02/16/2025 5:59 AM CDT) us Scanner OTHER Final Result * SCAN-CARDIAC STRIP (02/16/2025 1:01 AM CDT) us Scanner OTHER Final Result * BILIRUBIN DIRECT (02/15/2025 10:19 AM CDT) Only the most recent of2 resultswithin the time period is included. BILIRUBIN,DIRE CT 0.2 0.0 - 0.2 mg/dL 02/15/2025 11:00 AM CDT [facility] Blood BLOOD SPECIMEN / Unknown Non-Lab Venipuncture / Unknown 02/15/2025 10:19 AM CDT 02/15/2025 10:27 AM CDT us Rodrigo ORTIZ CHEMISTRY Final Result [facility] [address] [place] [address], [place] * SCAN-CARDIAC STRIP (02/15/2025 1:04 AM CDT) us Scanner OTHER Final Result * SCAN-CARDIAC STRIP (02/14/2025 12:44 AM CDT) us Scanner OTHER Final Result * SCAN-CARDIAC STRIP (02/13/2025 2:19 AM CDT) us Scanner OTHER Final Result * SCAN-CARDIAC STRIP (02/12/2025 1:17 PM CDT) us Scanner OTHER Final Result * SCAN-CARDIAC STRIP (02/12/2025 2:45 AM CDT) us Scanner OTHER Final Result * SCAN-CARDIAC STRIP (02/11/2025 1:05 AM CDT) us Scanner OTHER Final Result * SCAN-CARDIAC STRIP (02/10/2025 4:30 AM CDT) us Scanner OTHER Final Result * SCAN-CARDIAC STRIP (02/09/2025 1:36 PM CDT) us Scanner OTHER Final Result * ECHO TTE COMPLETE WO CONTRAST (02/09/2025 12:59 PM CDT) EJECTION FRACTION 64 % EJECTION FRACTION 60 - 65% Anatomical Region Laterality Modality Ultrasound 02/09/2025 5:57 PM CDT Narrative 02/09/2025 7:36 PM CDT ECHOCARDIOGRAM MERY BOYCE : 1950 74 years Study Date: 02/09/2025 5:57:24 PM Gender: F BP: 132/89 mmHg Height: 170.00 cm BSA: 2.14 m Weight: 104.00 kg Tech: EDILIA Referring MD: FRANTZ VELASQUEZ Site: [facility] Reading Location: [facility] Patient Location: Inpatient. Procedure: 2D, Color Doppler and Spectral Doppler. Indication for study: AFIB Cardiac Rhythm: Irregular.Study quality: Good. Final Impressions: 1. Normal LV size, mildly increased wall thickness, normal global systolic function with an estimated EF of 60 - 65%. 2. Moderately enlarged left atrium. 3. Right ventricular cavity size is moderately enlarged, global systolic RV function is normal. 4. The aortic valve is trileaflet and sclerotic, no stenosis and no regurgitation. 5. Tricuspid valve is normal, moderate-severe tricuspid regurgitation. RVSP 57 mmHg + RAP. 6. Trivial pericardial effusion. Chamber Sizes and Function Normal left ventricular size, mildly increased wall thickness, normal global systolic function with an estimated EF of 60 - 65%. No resting regional wall motion abnormality visualized. Left atrial size is moderately enlarged. Right ventricular cavity size is moderately enlarged, global systolic RV function is normal. The right atrium is mildly enlarged. The pulmonary artery is not well visualized. The sinus of Valsalva is normal sized. The ascending aorta is normal sized. Valves, RV Pressures and Diastolic Function The aortic valve is trileaflet and sclerotic, no stenosis and no regurgitation. The mitral valve is normal in structure, mild mitral regurgitation. Indeterminate pattern of LV diastolic filling. The tricuspid valve is normal in structure, moderate- severe tricuspid regurgitation. The pulmonic valve is normal. Trace pulmonary regurgitation. Masses, Effusion, Shunts There is trivial pericardial effusion. The inferior vena cava is normal sized, respiratory size variation greater than 50%. No left to right shunting was detected by limited color flow Doppler interrogation of the interatrial septum. MEASUREMENTS AND CALCULATIONS 2-D Measurements and LV Function: IVS (d) 1.2 cm HR 94 bpm Ao Sinus ULN 3.8 cm * RV Basal Diam 4.2 cm Asc Ao ULN 4.0 cm * RV Mid Diam 3.8 cm * Input BSA outside of range, reported values correspond to BSA = 1.9 . This study was interpreted by an [facility] accredited facility. Final Procedure Note Smita Mariee MD - 02/09/2025 ECHOCARDIOGRAM MERY BOYCE : 1950 74 years Study Date: 02/09/2025 5:57:24 PM Gender: F BP: 132/89 mmHg Height: 170.00 cm BSA: 2.14 m Weight: 104.00 kg Tech: BS Referring MD: FRANTZ VELASQUEZ Site: [facility] Reading Location: [facility] Patient Location: Inpatient. Procedure: 2D, Color Doppler and Spectral Doppler. Indication for study: AFIB Cardiac Rhythm: Irregular.Study quality: Good. Final Impressions: 1. Normal LV size, mildly increased wall thickness, normal globalsystolic function with an estimated EF of 60 - 65%. 2. Moderately enlarged left atrium. 3. Right ventricular cavity size is moderately enlarged, global systolicRV function is normal. 4. The aortic valve is trileaflet and sclerotic, no stenosis and noregurgitation. 5. Tricuspid valve is normal, moderate-severe tricuspid regurgitation.RVSP 57 mmHg + RAP. 6. Trivial pericardial effusion. Chamber Sizes and Function Normal left ventricular size, mildly increased wall thickness, normalglobal systolic function with an estimated EF of 60 - 65%. No restingregional wall motion abnormality visualized. Left atrial size ismoderately enlarged. Right ventricular cavity size is moderately enlarged,global systolic RV function is normal. The right atrium is mildlyenlarged. The pulmonary artery is not well visualized. The sinus ofValsalva is normal sized. The ascending aorta is normal sized. Valves, RV Pressures and Diastolic Function The aortic valve is trileaflet and sclerotic, no stenosis and noregurgitation. The mitral valve is normal in structure, mild mitralregurgitation. Indeterminate pattern of LV diastolic filling. Thetricuspid valve is normal in structure, moderate- severe tricuspidregurgitation. The pulmonic valve is normal. Trace pulmonaryregurgitation. Masses, Effusion, Shunts There is trivial pericardial effusion. The inferior vena cava is normalsized, respiratory size variation greater than 50%. No left to rightshunting was detected by limited color flow Doppler interrogation of theinteratrial septum. MEASUREMENTS AND CALCULATIONS 2-D Measurements and LV Function: IVS (d) 1.2 cm HR94 bpm Ao Sinus ULN 3.8 cm * RV Basal Diam4.2 cm Asc Ao ULN 4.0 cm * RV Mid Diam3.8 cm * Input BSA outside of range, reported values correspond to BSA = 1.9 . This study was interpreted by an [facility] accredited facility. Final us Frantz Velasquez MD ECHO ORD Final Result * SCAN-CARDIAC STRIP (02/09/2025 11:41 AM CDT) us Scanner OTHER Final Result * (ABNORMAL) COMP METABOLIC PANEL (02/09/2025 6:45 AM CDT) Only the most recent of3 resultswithin the time period is included. SODIUM 145 136 - 145 mmol/L 02/09/2025 7:19 AM CDT [facility] POTASSIUM 3.5 3.5 - 5.1 mmol/L 02/09/2025 7:19 AM CDT [facility] CHLORIDE 110(H) 98 - 107 mmol/L 02/09/2025 7:19 AM CDT [facility] CO2,TOTAL 28 22 - 29 mmol/L 02/09/2025 7:19 AM T [facility] ANION GAP 7 5 - 18 02/09/2025 7:19 AM T [facility] GLUCOSE 220(H) 70 - 99 mg/dL 02/09/2025 7:19 AM T [facility] CALCIUM 8.6(L) 8.8 - 10.4 mg/dL 02/09/2025 7:19 AM T [facility] Comment: Reference ranges for this test were updated on 09/02/2024 to reflect our healthy population more accurately. Reference range changes are not retroactively applied to results, but previous results using the same methodology can be interpreted in the context of the new reference range. BUN 20 8 - 23 mg/dL 02/09/2025 7:19 AM T [facility] CREATININE 0.53 0.50 - 0.90 mg/dL 02/09/2025 7:19 AM CDT [facility] BUN/CREAT RATIO 38(H) 10 - 20 7:19 AM T [facility] eGFR >90 >90 mL/min/1. 73m2 02/09/2025 7:19 AM T [facility] Comment:As of 2022, eG FR is calculated by the CKD-EPI creatinine equation without race adjustment. eGFR can be influenced by muscle mass, exercise, and diet. The reported eGFR is an estimation only and is only applicable if the renal function is stable. ALBUMIN 2.7(L) 4.0 - 4.9 g/dL 02/09/2025 7:19 AM T [facility] PROTEIN,TOTAL 5.6(L) 6.0 - 8.0 g/dL 02/09/2025 7:19 AM T [facility] BILIRUBIN,TOTAL 0.5 0.0 - 1.2 mg/dL 02/09/2025 7:19 AM T [facility] TRA [facility] ALK PHOSPHATASE 106(H) 35 - 104 IU/L 02/09/2025 7:19 AM T [facility] ALT (SGPT) 24 10 - 35 IU/L 02/09/2025 7:19 AM T [facility] AST (SGOT) 26 10 - 35 IU/L 02/09/2025 7:19 AM T [facility] Blood BLOOD SPECIMEN / Unknown Non-Lab Venipuncture / Unknown 02/09/2025 6:45 AM CDT 02/09/2025 6:53 AM CDT us Whitney A Nesset HOST/HOSTESS HEAD CHEMISTRY Final Result [facility] [address] [address], [place] * SCAN-CARDIAC STRIP (02/09/2025 3:08 AM CDT) us Scanner OTHER Final Result * SCAN-CARDIAC STRIP (02/09/2025 12:48 AM CDT) us Scanner OTHER Final Result * SCAN-CARDIAC STRIP (02/08/2025 6:48 PM CDT) us Scanner OTHER Final Result * SCAN-CARDIAC STRIP (02/08/2025 12:52 PM CDT) us Scanner OTHER Final Result * XR ABDOMEN 2 VIEW FLAT AND UPRIGHT OR DECUBITUS (02/08/2025 8:40 AM CDT) Anatomical Region Laterality Modality Abdomen Digital Radiogra phy 02/08/2025 10:0 9 AM CDT Impressions 02/08/2025 10:09 AM CDT 1. Increased distention of the proximal colon. The cecum measures over 15 centimeters in diameter compared to 13 centimeters in diameter previously. 2. Contrast material is present within nondilated left colon. 3. No free air. Dictated by Og Espinoza MD @ Feb 08 2025 10:09AM (Electronically Signed) [email or web address] Narrative 02/08/2025 10:09 AM CDT For Patients: As a result of the Century Cures Act, medical imaging exams and procedure reports are released immediately into your electronic medical record. You may view this report before your referring provider. If you have questions, please contact your health care provider. HISTORY: Abnormal bowel function. TECHNIQUE: Flat and upright abdominal radiographs. COMPARISON: 02/05/2025. FINDINGS: Nasogastric tube terminates within mid stomach. Contrast material is present left colon. There is gas distention of cecum, ascending colon and transverse colon. The cecum appears more distended measuring over 15 centimeters in diameter. This compares to 13 centimeters in diameter previously. There is no free intraperitoneal air. Procedure Note Og Espinoza MD - 02/08/2025 For Patients: As a result of the Cures Act, medical imagingexams and procedure reports are released immediately into your electronicmedical record. You may view this report before your referring provider.If you have questions, please contact your health care provider. HISTORY: Abnormal bowel function. TECHNIQUE: Flat and upright abdominal radiographs. COMPARISON: 02/05/2025. FINDINGS: Nasogastric tube terminates within mid stomach. Contrast material ispresent left colon. There is gas distention of cecum, ascending colon andtransverse colon. The cecum appears more distended measuring over 15centimeters in diameter. This compares to 13 centimeters in diameterpreviously. There is no free intraperitoneal air. IMPRESSION: 1. Increased distention of the proximal colon. The cecum measures over 15centimeters in diameter compared to 13 centimeters in diameterpreviously. 2. Contrast material is present within nondilated left colon. 3. No free air. Dictated by Og Espinoza MD @ Feb 08 2025 10:09AM (Electronically Signed) [email or web address] us Leila Malloy MD GENERAL IMAGING Final R esult * CT CHEST ABDOMEN PELVIS W (02/05/2025 7:59 AM CDT) Anatomical Region Laterality Modality Abdomen, Pelvis, AORTA, LIVER, SPLEEN, CHEST Computed Tomography 02/05/2025 8:14 AM CDT Impressions 02/05/2025 8:14 AM CDT 1. CHEST: Bibasilar airspace opacities, left greater than right and small left effusion. These findings are new since the prior study. This is probably partially atelectasis though I suspect aspiration especially at the left base. There is a hiatal hernia and fluid up to the thoracic inlet indicating wide open reflux. 2. ABDOMEN: Marked interval worsening in findings of pancreatitis. There is clear evidence of necrosis new since the prior study involving significant portions of the body and tail. No organized fluid collection or definite hemorrhage. Fluid distention of the stomach probably indicating low-level gastric outlet obstruction due to edema near the duodenum. There is also new colonic distention which is probably an ileus associated with the pancreatitis. There are multiple stones in the gallbladder neck. Consider sonography if this has not been performed. No definite gallbladder wall thickening 3. PELVIS: Right adnexal mass for which sonography is advised. 4. OSSEOUS STRUCTURES: No acute findings 5. BODY WALL: Body wall edema probably related to the pancreatitis Please note that all CT scans at this facility use dose modulation, iterative reconstruction, and/or weight-based dosing when appropriate to reduce radiation dose to as low as reasonably achievable. Dictated by Jaspreet Becerra MD @ 02/05/2025 8:14:30 AM (Electronically Signed) Narrative 02/05/2025 8:14 AM CDT For Patients: As a result of the Century Cures Act, medical imaging exams and procedure reports are released immediately into your electronic medical record. You may view this report before your referring provider. If you have questions, please contact your health care provider. INDICATION: Worsening pancreatitis COMPARISON: February 03, 2025 TECHNIQUE: CT examination of the chest, abdomen and pelvis was performed following the uneventful intravenous administration of 100 cc of Omnipaque 300. Thin section axial images were obtained from the thoracic inlet through the pubic symphysis. Oral contrast was not administered. Sagittal and coronal reformatted imaging was performed Please note that all CT scans at this facility use dose modulation, iterative reconstruction, and/or weight-based dosing when appropriate to reduce radiation dose to as low as reasonably achievable. FINDINGS: CHEST: The heart size is normal. There is no mediastinal or hilar adenopathy or mass. There are atherosclerotic vascular calcifications. There is a hiatal hernia with evidence of wide open reflux to the thoracic inlet. Bibasilar opacities are noted, [id number]-right. These are essentially new since February 03, 2025 and are probably due to atelectasis and/or aspiration given the esophageal findings. Small left effusion which is new. No pneumothorax. ABDOMEN AND PELVIS: LIVER/BILIARY SYSTEM:Hepatic steatosis. Mild intrahepatic biliary ductal dilation. There is a cluster of stones impacted in the gallbladder neck. No definite wall thickening or pericholecystic fluid.Consider further evaluation by sonography. ADRENALS: Normal KIDNEYS, URETERS and BLADDER:Normal-size kidneys. Low-density lesions likely cysts. No obstructive uropathy. The bladder appears normal SPLEEN:Normal appearance. PANCREAS: Findings of severe pancreatic inflammatory disease. The pancreas is enlarged and edematous with marked surrounding inflammatory change and moderate fluid but no collection. There is clear evidence of pancreatic necrosis which is new since the prior study. This involves most of the body and tail. No evidence of active hemorrhage. RETROPERITONEUM and MESENTERY: There is no mass, adenopathy or aortic aneurysm. Atherosclerotic vascular calcification GASTROINTESTINAL SYSTEM: Fluid distention of the stomach with hiatal hernia and reflux as mentioned above. There is probably some degree of mechanical outlet obstruction from the stomach due to inflammatory changes at the duodenum. Elsewhere, there is significant distention of bowel, especially the colon. This is probably an ileus associated with worsening pancreatitis. PELVIS: Right adnexal mass presumably right ovarian in origin measuring 6.1 centimeters. This should be evaluated by sonography at a clinically appropriate time. Mild free fluid. OSSEOUS STRUCTURES and ABDOMINAL WALL: No destructive process of bone. Body wall edema probably related to the patient`s pancreatitis OTHER: No free fluid or free air. Procedure Note Jaspreet Becerra MD - 02/05/2025 For Patients: As a result of the Cures Act, medical imagingexams and procedure reports are released immediately into your electronicmedical record. You may view this report before your referring provider.If you have questions, please contact your health care provider. INDICATION: Worsening pancreatitis COMPARISON: February 03, 2025 TECHNIQUE: CT examination of the chest, abdomen and pelvis was performed followingthe uneventful intravenous administration of 100 cc of Omnipaque 300. Thinsection axial images were obtained from the thoracic inlet through thepubic symphysis. Oral contrast was not administered. Sagittal and coronalreformatted imaging was performed Please note that all CT scans at this facility use dose modulation,iterative reconstruction, and/or weight-based dosing when appropriate toreduce radiation dose to as low as reasonably achievable. FINDINGS: CHEST: The heart size is normal. There is no mediastinal or hilar adenopathy ormass. There are atherosclerotic vascular calcifications. There is a hiatalhernia with evidence of wide open reflux to the thoracic inlet. Bibasilar opacities are noted, [id number]-right. These areessentially new since February 03, 2025 and are probably due to atelectasisand/or aspiration given the esophageal findings. Small left effusion whichis new. No pneumothorax. ABDOMEN AND PELVIS: LIVER/BILIARY SYSTEM:Hepatic steatosis. Mild intrahepatic biliary ductaldilation. There is a cluster of stones impacted in the gallbladder neck.No definite wall thickening or pericholecystic fluid.Consider furtherevaluation by sonography. ADRENALS: Normal KIDNEYS, URETERS and BLADDER:Normal-size kidneys. Low-density lesionslikely cysts. No obstructive uropathy. The bladder appears normal SPLEEN:Normal appearance. PANCREAS: Findings of severe pancreatic inflammatory disease. The pancreasis enlarged and edematous with marked surrounding inflammatory change andmoderate fluid but no collection. There is clear evidence of pancreaticnecrosis which is new since the prior study. This involves most of thebody and tail. No evidence of active hemorrhage. RETROPERITONEUM and MESENTERY: There is no mass, adenopathy or aorticaneurysm. Atherosclerotic vascular calcification GASTROINTESTINAL SYSTEM: Fluid distention of the stomach with hiatalhernia and reflux as mentioned above. There is probably some degree ofmechanical outlet obstruction from the stomach due to inflammatory changesat the duodenum. Elsewhere, there is significant distention of bowel,especially the colon. This is probably an ileus associated with worseningpancreatitis. PELVIS: Right adnexal mass presumably right ovarian in origin measuring6.1 centimeters. This should be evaluated by sonography at a clinicallyappropriate time. Mild free fluid. OSSEOUS STRUCTURES and ABDOMINAL WALL: No destructive process of bone.Body wall edema probably related to the patient`s pancreatitis OTHER: No free fluid or free air. IMPRESSION: 1. CHEST: Bibasilar airspace opacities, left greater than right and smallleft effusion. These findings are new since the prior study. This isprobably partially atelectasis though I suspect aspiration especially atthe left base. There is a hiatal hernia and fluid up to the thoracic inletindicating wide open reflux. 2. ABDOMEN: Marked interval worsening in findings of pancreatitis. Thereis clear evidence of necrosis new since the prior study involvingsignificant portions of the body and tail. No organized fluid collectionor definite hemorrhage. Fluid distention of the stomach probablyindicating low-level gastric outlet obstruction due to edema near theduodenum. There is also new colonic distention which is probably an ileusassociated with the pancreatitis. There are multiple stones in thegallbladder neck. Consider sonography if this has not been performed. Nodefinite gallbladder wall thickening 3. PELVIS: Right adnexal mass for which sonography is advised. 4. OSSEOUS STRUCTURES: No acute findings 5. BODY WALL: Body wall edema probably related to the pancreatitis Please note that all CT scans at this facility use dose modulation,iterative reconstruction, and/or weight-based dosing when appropriate toreduce radiation dose to as low as reasonably achievable. Dictated by Jaspreet Becerra MD @ 02/05/2025 8:14:30 AM (Electronically Signed) us Phil Vaughnaleenaen Rebecca DO CT Final Res ult * (ABNORMAL) LD,TOTAL (02/05/2025 5:51 AM CDT) Only the most recent of2 resultswithin the time period is included. [facility] LD,TOTAL 536(H) 135 - 214 IU/L 02/05/2025 7:29 AM CDT [facility] Blood BLOOD SPECIMEN / Unknown Butterfly / Unknown 02/05/2025 5:51 AM CDT 02/05/2025 6:14 AM CDT us Phil Vaughnjeanette Fernandez DO CHEMISTRY Final Res ult [facility] [address] [place] [id number] * HEMOGLOBIN A1C (02/03/2025 10:03 PM CDT) [facility] HEMOGLOBIN A1C SCREENING 5.6 <=6.4 % 02/04/2025 7:40 AM CDT [facility] Blood BLOOD SPECIMEN / Unknown Butterfly / Unknown 02/03/2025 10:03 PM CDT 02/03/2025 10:08 PM CDT Narrative [facility] - 02/04/2025 7:40 AM CDT (<5.7%) Normal (5.7% to 6.4%) Indicates prediabetes (>=6.5%) Confirms diabetes Falsely low levels may be seen with: Recent Transfusion, Recent Significant Blood Loss, Hemolytic Diseases, or Falsely elevated levels may be seen with: Untreated Anemias, Splenectomy Pio Russell MD CHEMISTRY Final Result Performing Organization Address City/[facility]/ZIP Co de Phone Number [facility] [address] [place] [address] * LIPID PANEL W REFLEX MEASURED LDL (04/23/2024 11:19 AM CDT) CHOLESTEROL,TOTAL 191 100 - 199 mg/dL 04/23/2024 11:56 AM T [facility] Comment: Cholesterol, Total Reference Ranges Desirable <200 mg/dL Borderline 200-239 mg/dL High >=240 mg/dL TRIGLYCERIDES 140 <150 mg/dL 04/23/2024 11:56 AM T [facility] HDL CHOLESTEROL 48 >40 mg/dL 11:56 AM T [facility] NON-HDL CHOLESTEROL 143 <145 mg/dl 04/23/2024 11:56 AM [facility] CHOL/HDL RATIO 3.98 <4.50 04/23/2024 11:56 AM [facility] LDL CHOLESTEROL 115 <=130 mg/dL 04/23/2024 11:56 AM [facility] VLDL CHOLESTEROL 28 <=30 mg/dL 04/23/2024 11:56 AM [facility] PROVIDER ORDERED STATUS RANDOM 04/23/2024 11:56 AM [facility] Blood BLOOD SPECIMEN / Unknown Venipuncture / Unknown 04/23/2024 11:19 AM CDT 04/23/2024 11:19 AM CDT William Najera MD CHEMISTRY Final R esult [facility] [address] [place] [address] * OCCULT BLOOD IFOBT STOOL [[id number]] (05/02/2022 1:28 PM CDT) STOOL BLOOD ,IFOBT Negative Negative 05/05/2022 8:45 AM CDT [facility] Stool STOOL SPECIMEN / Unknown Non-Blood / Unknown 05/02/2022 1:28 PM CDT 05/04/2022 1:28 PM CDT William Najera MD LABORATORY Final R esult Performing Organization Address City/State/ZIP [facility] Phone Number [facility] [address] [place] [address], * (ABNORMAL) XR DXA BONE DENSITY 2 SITES AXIAL [[id number]] (04/26/2021 1:14 PM CDT) Anatomical Region Laterality Modality Spine, HIPS, HIPL, HIPR Computed Radiography Impressions 04/26/2021 3:04 PM CDT Osteopenia. RECOMMENDATIONS: The National Osteoporosis Foundation recommends pharmacologic treatment for patients with T-scores of -2.5 or less, patients with prior history of fragility fractures, or patients with 10-year probability of greater than 3% at hips or greater than 20% of suffering major osteoporotic fractures. Recommend continued optimization of calcium and vitamin D intake through dietary means and/or supplementation and regular exercise. Consider pharmacologic therapy for osteopenia with increased fracture risk. Follow-up bone density reading in 2 years if therapy initiated to assess therapeutic efficacy. Narrative 04/26/2021 3:04 PM CDT XR DXA Bone Mineral Density (BMD) EXAM LOCATION: [address] [id number] PATIENT NAME: Mery Boyce DATE OF : 1950 EXAM DATE: 04/26/2021 REQUESTING PROVIDER: William Najera MD GENDER AT : female HEIGHT: 5' 4.75 (04/19/2021) WEIGHT: 203 lb (04/19/2021) MENOPAUSAL STATUS: Postmenopausal RACE/ETHNICITY: White RISK FACTORS: No Risk Factors CURRENT MEDICATION FOR BONE LOSS: NONE INDICATION: Screening for osteoporosis PROCEDURE: Dual-energy x-ray absorptiometry performed with routine technique. Reporting is completed in the form of a T-score. The T-score represents the standard deviation from peak bone mass based on young healthy adult. A Z-score is used for diagnosis in premenopausal women, and for men under the age of 50. FINDINGS: RESULT LUMBAR SPINE L1 - L4 BMD: 1.229 g/cm2 T-Score: + 0.4 RESULT FEMORAL NECK Bilateral Total Femoral Neck BMD: 0.758 g/cm2 T-Score: - 2.0 RESULT TOTAL HIP Bilateral Total Hip BMD: 0 0.845 g/cm2 T-Score: - 1.3 WHO criteria: Normal: T-score at or above -1 SD Osteopenia: T-score between -1.1 and -2.4 SD Osteoporosis: T-score at or below -2.5 SD FRAX RISK CALCULATION (USED FOR OSTEOPENIA ONLY): 10-year probability of major osteoporotic fracture: 13.0%. 10-year probability of hip fracture: 3.1%. William Najera MD DEXA Final R esult * XR MAMMO BILAT SCREENING (02/25/2019 1:46 PM CDT) Anatomical Region Laterality Modality BREASTS, Breast Left, Breast Right Bilateral Mammography Impressions 02/26/2019 2:30 PM CDT There is no radiographic evidence for malignancy. Recommend annual mammograms. A lay language report of this examination will be provided to the patient. MAMMOGRAM ASSESSMENT: ACR 1 Negative Narrative 02/26/2019 2:30 PM CDT XR MAMMO BILAT SCREENING [[id number]] CLINICAL HISTORY: This is an asymptomatic 68 y.o. patient. INDICATION FOR EXAM: Mammogram Screening. TECHNIQUE: CC & MLO views were obtained. This digital study was evaluated with the assistance of Computer-Aided Detection. COMPARISON FILM: Yes 02/05/17 [facility] FINDINGS: Mammographically, the breast tissue has scattered fibroglandular densities. There are no dominant masses, suspicious micro calcifications or areas of architectural distortion. William Najera MD MAMMO Final R esult * ANTI HCV [[id number]] (02/01/2015 10:44 AM CDT) HEPATITIS C ANTIBODY Non-Reacti ve Non-Reacti ve 02/01/2015 8:39 PM CDT [facility] Blood specimen (specimen) BLOOD SPECIMEN / Unknown Butterfly / Unknown 02/01/2015 10:44 AM CDT 02/01/2015 10:44 AM CDT Narrative [facility] - 02/01/2015 8:39 PM CDT Antibodies to HCV not detected; does not exclude the possibility of exposure to HCV. us William Najera MD SEND OUTS Final R esult [facility] 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 Drain remains in place on antibiotic treatment continues. 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, Peritoneal body fluid; 02/28/2025 02/28/2025 Insurance [employer] MR PB ONLY [employer] HB MEDICARE PART B HB ONLY MEDICARE PART [place] [phone] DUC MATHEW [id number] Advance Directives Documents on File Type Date Recorded Patient Shoes Hand Sewer Expl anation Healthcare Directive 02/11/2024 024 POLST 04/19/2021 1:58 PM POLST 03/30 * Full Code (Latest Code Status on File) Date Activated Date Inactivated Comments 03/26/2025 4:55 PM 03/28/2025 2:29 PM Question Answer Comments Code Status Discussion: Reviewed Preferences * Full Code Date Activated Date Inactivated Comments 02/05/2025 3:15 PM 03/17/2025 2:06 PM Question Answer Comments Code Status Discussion: Reviewed Preferences * Full Code Date Activated Date Inactivated Comments 02/03/2025 11:46 PM 02/05/2025 2:01 PM Question Answer Comments Code Status Discussion: Reviewed Preferences Care Teams Md Physician Dermatologist Relationship Specialty Start Date End Date William Najera MD [address] [facility] [address] [place] [address] PCP - General 02/18/16
--- OUTSIDE RECORDS SUMMARY | 2025-04-28 02:05 | XMS_ITS | Clinical Summary ---
Author Organization [facility] Address [address] [place] [address]. [place] [address] Care Team Providers Care Net Programmer Name Role Phone William Najera Primary Care Provider [phone] Allergies Active Allergy Reactions Criticality Noted Date Comments Erythromycin Nausea and Vomiting 02/24/2017 Medications sertraline (ZOLOFT) 100 MG tablet Take 100 mg by mouth daily. Active pravastatin (PRAVACHOL) 40 MG tablet Take 40 mg by mouth daily. Active metoprolol tartrate (LOPRESSOR) 25 MG tablet Take 25 mg by mouth 2 times daily. Active lisinopril (ZESTRIL) 20 MG tablet Take 20 mg by mouth daily. Active hydrOXYzine HCl (ATARAX) 25 MG tablet Take 25 mg by mouth 3 times daily as needed for itching. Active busPIRone HCl (BUSPAR) 30 MG tablet Take 15 mg by mouth 2 times daily. Active aspirin 81 MG EC tablet Take 81 mg by mouth daily. Active vitamin D3 (CHOLECALCIFEROL ) 50 mcg (2000 units) tablet Take 1 tablet by mouth daily. Active multivitamin w/minerals (MULTI-VITAMIN) tablet Take 1 tablet by mouth daily. Active fish oil-omega-3 fatty acids 1000 MG capsule Take 2 g by mouth daily. Active Calcium Carb-Cholecalcif rudy (CALCIUM 600+D3 PO) Take 1 tablet by mouth daily. Active B Complex Vitamins (VITAMIN-B COMPLEX PO) Take 1 tablet by mouth daily. Active hydrochlorothiaz ruddy (HYDRODIURIL) 25 MG tablet Take 25 mg by mouth daily. Active Encounters Date Type Department Care Team Description 02/03/2025 1:33 PM CDT Anesthesia Event [facility] Per[facility] [address] [place] [address] Brenda Machuca MD 02/03/2025 1:00 PM CDT - 02/03/2025 2:25 PM CDT Surgery [facility] [address] [place] [address] Hilda Llanos MD ENDOSCOPIC RETROGRADE CHOLANGIOPANCREATOGRAPHY with sphincterotomy and stone extraction 02/03/2025 10:39 AM CDT - 02/03/2025 4:53 PM CDT Hospital Encounter [facility] PreOP/Phase II [address] [place] [address] Hilda Llanos MD Discharge Disposition: Home or Self Care 02/03/2025 Travel from Last 3 Months Social History Tobacco Use Types Packs/Day Years Used Date Smoking Tobacco: Former Cigarettes 2 18 1 969 - 1986 Smokeless Tobacco: Never Tobacco Cessation:Counseling Given: Not Answered Alcohol Use Standard Drinks/Week Comments Not Currently 0 (1 standard drink = 0.6 oz pur e alcohol) Interpersonal Safety Answer Date Record ed Do you feel physically and e motionally safe where you currently live? Yes 02/03/2025 Within the past 12 months, h ave you been hit, slapped, kicked or otherwise physically hurt by someone? No 02/03/2025 Within the past 12 months, h ave you been humiliated or emotionally abused in other ways by your partner or ex-partner? No 02/03/2025 Comments No Sex and Gender Information Value Date Recorded Sex Assigned at Not on file Legal Sex Female 3:52 PM CDT Gender Identity Not on file Sexual Orientation Not on file Last Filed Vital Signs Vital Sign Reading Time Taken Comments Blood Pressure 156/91 02/03/2025 4:30 PM CDT Pulse 73 02/03/2025 4:30 PM CDT Temperature 36.4 C (97.5 F) 02/03/2025 4:30 PM CDT Respiratory Rate 16 02/03/2025 4:30 PM CDT Oxygen Saturation 95% 02/03/2025 4:30 PM CDT Inhaled Oxygen Concentration - - Weight 102.5 kg (225 lb 14.4 oz) 2024 11:15 AM CDT Height 175.3 cm (5' 9) 02/03/2025 11:1 5 AM CDT Body Mass Index 33.36 02/03/2025 11:15 AM CDT Plan of Treatment Health Maintenance Due Date Last Done Comments ADVANCE CARE PLANNING 1950 ANNUAL REVIEW OF HM ORDERS 1950 CT COLONOGRAPHY 1950 FLEX SIG 1950 LIPID 1950 sDNA (Cologuard) 1950 COLONOSCOPY 1960 FALL RISK ASSESSMENT 2015 MAMMO SCREENING 02/25/2021 02/25/2019 COLORECTAL CANCER SCREENING 05/02/2023 FIT 05/02/2023 05/02/2022 PHQ-2 (once per calendar year) 2024 COVID-19 VACCINE ( season) 2025 07/28/2024, 01/10/2024, 07/19/2022, Additional history exists MEDICARE ANNUAL WELLNESS VISIT 04/23/2025 04/23/2024, 04/23/2023, 04/20/2022, Additional history exists RSV VACCINE (1 - 1-dose 75+ series) 2025 DIABETES SCREENING 02/04/2028 02/03/2025 DTAP/TDAP/TD VACCINE (3 - Td or Tdap) 04/01/2030 04/01/2020, 12/10/2009, 08/06/1999 DEXA 04/26/2036 04/26/2021 HEPATITIS C SCREENING Completed 02/01/2015 ZOSTER VACCINE Completed 03/13/2024, 12/27, 01/09/2012 PNEUMOCOCCAL VACCINE 50+ YEARS Completed 04/23/2024, 02/19/2017, 02/18/2016 INFLUENZA VACCINE Completed 07/28/2024, , 07/20/2021, Additional history exists HPV VACCINE Aged Out No longer eligi ble based on patient's age to complete this topic MENINGITIS VACCINE Aged Out No longer eligible based on patient's age to complete this topic Procedures Procedure Name Priority Date/Time Associated Diagnosis Comments XR ERCP Routine 02/03/2025 2:17 PM CDT ANE AIRWAY ETT PERFORMABLE Routine 02/03 1:47 PM CDT ENDOSCOPIC ULTRASOUND, ESOPHAGOSCOPY / UPPER GASTROINTESTINAL TRACT (GI) 02/03/2025 1:33 PM CDT Common bile duct obstruction (H) Special Needs *hiren-cpap, htn, afib-asa ERCP W/W/O KYLE OF SPEC-BRUSH/WASH 02/03/2025 1:33 PM CDT Common bile duct obstruction (H) Special Needs *hiren-cpap, htn, afib-asa UPPER EUS Routine 02/03/2025 1:20 PM CDT ENDOSCOPIC RETROGRADE CHOLANGIOPANCREATOGRAPHY Routine 02/03/2025 1:18 PM CDT INR STAT 02/03/2025 11:40 AM CDT COMPREHENSIVE METABOLIC PANEL STAT 11:40 AM CDT EKG CARDIAC - HIM SCAN 12:00 AM CDT from Last 3 Months Results * XR ERCP (02/03/2025 2:17 PM CDT) Narrative RADIANT - 02/03/2025 2:18 PM CDT This exam was marked as non-reportable because it will not be read by a radiologist or a [facility] non-radiologist provider. us Hilda Llanos MD IMG DIAGNOSTIC IMAGIN G ORDERABLES Final Result [facility] * ANE AIRWAY ETT PERFORMABLE (02/03/2025 1:47 PM CDT) Narrative Placido Madrigal APRN CRNA - 02/03/2025 1:47 PM CDT Placido Madrigal APRN MITTEN SEWER 02/03/2025 1:57 PM Airway Patient location during procedure: OR Procedure Start/Stop Times: 02/03/2025 1:47 PM Staff - Anesthesiologist: Brenda Machuca MD MITTEN SEWER: Placido Madrigal APRN MITTEN SEWER Performed By: MITTEN SEWER Consent for Airway Urgency: elective Indications and Patient Condition Indications for airway management: smith-procedural Induction type:intravenous Final Airway Details Final airway type: endotracheal airway Successful airway: ETT - single Endotracheal Airway Details ETT size (mm): 7.0 Cuffed: yes Successful intubation technique: video laryngoscopy VL Blade Size: Conrad 3 Grade View of Cords: 1 Adjucts: stylet Position: Right Measured from: lips Secured at (cm): 22 Bite block used: None Post intubation assessment Placement verified by: capnometry, equal breath sounds and chest rise Number of attempts at approach: 1 Number of other approaches attempted: 0 Secured with: tape Ease of procedure: easy Dentition: Intact and Unchanged Medication(s) Administered Medication Administration Time: 02/03/2025 1:47 PM us Brenda Machuca MD [place] ANESTHESIA Final Result * UPPER EUS (02/03/2025 1:20 PM CDT) Upper EUS [address] [place] [address] Patient Name: Mery Boyce Procedure Date: 02/03/2025 1:20 PM Date of : 1950 Admit Type: Outpatient Age: 74 Room: [place] [address] Note Status: Finalized Attending MD: HILDA LLANOS MD, Instrument Name: [id number] Linear Procedure: Upper EUS Indications: Suspected choledocholithiasis Providers: HILDA LLANOS MD, Whitney Vanegas, TINO, Ethel Christie RN Referring MD: SHAYY NUÑEZ, William Najera MD Complications: none Procedure: Pre-Anesthesia Assessment: - Prior to the procedure, a History and Physical was performed, and patient medications and allergies were reviewed. The patient is competent. The risks and benefits of the procedure and the sedation options and risks were discussed with the patient. All questions were answered and informed consent was obtained. Patient identification and proposed procedure were verified by the physician in the procedure room. Mental Status Examination: alert and oriented. Airway Examination: normal oropharyngeal airway and neck mobility. Respiratory Examination: clear to auscultation. CV Examination: normal. Prophylactic Antibiotics: The patient does not require prophylactic antibiotics. Prior Anticoagulants: The patient has taken no anticoagulant or antiplatelet agents. ASA Grade Assessment: III - A patient with severe systemic disease. After reviewing the risks and benefits, the patient was deemed in satisfactory condition to undergo the procedure. The anesthesia plan was to use general anesthesia. Immediately prior to administration of medications, the patient was re-assessed for adequacy to receive sedatives. The heart rate, respiratory rate, oxygen saturations, blood pressure, adequacy of pulmonary ventilation, and response to care were monitored throughout the procedure. The physical status of the patient was re-assessed after the procedure. After obtaining informed consent, the endoscope was passed under direct vision. Throughout the procedure, the patient's blood pressure, pulse, and oxygen saturations were monitored continuously. The Endosonoscope was introduced through the mouth, and advanced to the second part of duodenum. The upper EUS was accomplished with ease. The patient tolerated the procedure well. Findings: ENDOSCOPIC FINDING: : No gross lesions were noted in the entire examined stomach. No gross lesions were noted in the ampulla and in the entire examined duodenum. ENDOSONOGRAPHIC FINDING: : One stone was visualized endosonographically in the common bile duct. It was hyperechoic. CBD dilated to 10 mm Multiple stones were visualized endosonographically in the gallbladder body. They were hyperechoic and characterized by shadowing. The pancreatic duct had a dilated endosonographic appearance in the pancreatic head. The pancreatic duct measured up to 5 mm in diameter. 2 mm in the body, Pancreas parenchyma normal in the uncinate, head, body and tail Normal celiac axis No worrisome mediastinal nodes. Impression: - Cholelithiasis and choledocholithiasis. - Mild PD dilation without evidence of obstruction Recommendation: - Perform an ERCP today. Hilda Llanos MD HILDA LLANOS MD 02/03/2025 2:33:35 PM I was physically present for the entire viewing portion of the exam. HILDA LLANOS MD Number of Addenda: 0 Note Initiated On: 02/03/2025 1:20 PM Total Procedure Duration: 0 hours 8 minutes 33 seconds Estimated Blood Loss: Minimal Scope In: 1:49:17 PM Scope Out: 1:57:50 PM RADIOLOGY RESULTS 02/03/2025 1:20 PM CDT us Qun Feli Nuñez MD PROCEDURES Final Result RADIOLOGY RESULTS * ENDOSCOPIC RETROGRADE CHOLANGIOPANCREATOGRAPHY (02/03/2025 1:18 PM CDT) [facility] ERCP [place] [address] [address] [place], [place] [address] Patient Name: Mery Boyce Procedure Date: 02/03/2025 1:18 PM Date of : 1950 Admit Type: Outpatient Age: 74 Room: [place] [address] Note Status: Finalized Attending MD: HILDA LLANOS MD, Instrument Name: [id number] ERCP Procedure: ERCP Indications: Bile duct stone(s) Providers: HILDA LLANOS MD, Whitney Vanegas RN, Ethel Christie RN Referring MD: SHAYY NUÑEZ, William Najera MD Medicines: General Anesthesia, Indomethacin 100 mg [place] Complications: No immediate complications. Procedure: Pre-Anesthesia Assessment: - Prior to the procedure, a History and Physical was performed, and patient medications and allergies were reviewed. The patient is competent. The risks and benefits of the procedure and the sedation options and risks were discussed with the patient. All questions were answered and informed consent was obtained. Patient identification and proposed procedure were verified by the physician in the procedure room. Mental Status Examination: alert and oriented. Airway Examination: normal oropharyngeal airway and neck mobility. Respiratory Examination: clear to auscultation. CV Examination: normal. Prophylactic Antibiotics: The patient does not require prophylactic antibiotics. Prior Anticoagulants: The patient has taken no anticoagulant or antiplatelet agents. ASA Grade Assessment: III - A patient with severe systemic disease. After reviewing the risks and benefits, the patient was deemed in satisfactory condition to undergo the procedure. The anesthesia plan was to use general anesthesia. Immediately prior to administration of medications, the patient was re-assessed for adequacy to receive sedatives. The heart rate, respiratory rate, oxygen saturations, blood pressure, adequacy of pulmonary ventilation, and response to care were monitored throughout the procedure. The physical status of the patient was re-assessed after the procedure. After obtaining informed consent, the scope was passed under direct vision. Throughout the procedure, the patient's blood pressure, pulse, and oxygen saturations were monitored continuously. The Duodenoscope was introduced through the mouth, and used to inject contrast into and used to inject contrast into the bile duct. The ERCP was accomplished with ease. The patient tolerated the procedure well. Findings: The major papilla was normal. A long 0.035 inch Soft Jagwire was passed into the biliary tree. The short-nosed traction sphincterotome was passed over the guidewire and the bile duct was then deeply cannulated. Contrast was injected. I personally interpreted the bile duct images. Ductal flow of contrast was adequate. Image quality was adequate. Contrast extended to the hepatic ducts. The main bile duct was mildly dilated, with a stone causing an obstruction. The largest diameter was 10 mm. An 8 mm biliary sphincterotomy was made with a monofilament traction (standard) sphincterotome using ERBE electrocautery. There was no post-sphincterotomy bleeding. The biliary tree was swept with an 11.5 mm balloon starting at the left main hepatic duct and right main hepatic duct. Three stones were removed. No stones remained. The endoscope was withdrawn from the patient. Impression: - The major papilla appeared normal. - The entire main bile duct was mildly dilated, with a stone causing an obstruction. - Choledocholithiasis was found. Complete removal was accomplished by biliary sphincterotomy and balloon extraction. - A biliary sphincterotomy was performed. - The biliary tree was swept. Recommendation: - Discharge patient to home (ambulatory). - Clear liquid diet for 1 day. - Observe patient's clinical course. - Follow up with Dr. Harris for cholecystectomy Hilda Llanos MD HILDA LLANOS MD 02/03/2025 2:36:55 PM I was physically present for the entire viewing portion of the exam. HILDA LLANOS MD Number of Addenda: 0 Note Initiated On: 02/03/2025 1:18 PM Total Procedure Duration: 0 hours 13 minutes 46 seconds Estimated Blood Loss: Estimated blood loss was minimal. Scope In: 2:00:16 PM Scope Out: 2:14:02 PM RADIOLOGY RESULTS 02/03/2025 1:18 PM CDT us Shayy Nuñez MD PROCEDURES Final Result RADIOLOGY RESULTS * INR (02/03/2025 11:40 AM CDT) Pathologist [facility] INR 1.06 0.85 - 1.15 02/03/2025 11:53 AM CDT LABORATORY Blood STRUCTURE OF RIGHT UPPER LIMB / Unknown Venipuncture / Unknown 02/03/2025 11:40 AM CDT 02/03/2025 11:43 AM CDT Hilda Llanos MD LAB - BLOOD ORDERABLE S Final Result LABORATORY [facility] [address] 1[address] floor, [address] [place] [address], [facility] [phone] * (ABNORMAL) Comprehensive metabolic panel (02/03/2025 11:40 AM CDT) Pathologist [facility] Sodium 141 135 - 145 mmol/L 02/03/2025 12:07 PM CDT LABORATORY Potassium 3.6 3.4 - 5.3 mmol/L 02/03/2025 12:07 PM CDT LABORATORY Carbon Dioxide (CO2) 23 22 - 29 mmol/L 02/03/2025 12:07 PM CDT LABORATORY Anion Gap 13 7 - 15 mmol/L 02/03/2025 12:07 PM CDT LABORATORY Urea Nitrogen 12.2 8.0 - 23.0 mg/dL 02/03/2025 12:07 PM CDT LABORATORY Creatinine 0.66 0.51 - 0.95 mg/dL 02/03/2025 12:07 PM CDT LABORATORY GFR Estimate >90 >60 mL/min/1.7 3m2 02/03/2025 12:07 PM CDT LABORATORY Comment:eGFR calculated us2020 CKD-EPI equation. Calcium 9.7 8.8 - 10.4 mg/dL 02/03/2025 12:07 PM CDT LABORATORY Chloride 105 98 - 107 mmol/L 02/03/2025 12:07 PM CDT LABORATORY Glucose 103(H) 70 - 99 mg/dL 02/03/2025 12:07 PM CDT LABORATORY Alkaline Phosphatase 99 40 - 150 U/L 02/03/2025 12:07 PM CDT LABORATORY AST 23 0 - 45 U/L 02/03/2025 12:07 PM CDT LABORATORY ALT 19 0 - 50 U/L 02/03/2025 12:07 PM CDT LABORATORY Protein Total 6.8 6.4 - 8.3 g/dL 02/03/2025 12:07 PM CDT LABORATORY Albumin 3.9 3.5 - 5.2 g/dL 02/03/2025 12:07 PM CDT LABORATORY Bilirubin Total 0.3 <=1.2 mg/dL 02/03/2025 12:07 PM CDT LABORATORY Blood STRUCTURE OF RIGHT UPPER LIMB / Unknown Venipuncture / Unknown 02/03/2025 11:40 AM CDT 02/03/2025 11:43 AM CDT Hilda Llanos MD LAB - BLOOD ORDERABLE S Final Result LABORATORY [facility] [address] 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
== END 2025-04-27 18:51 | disposition home or self-care (01) ==
LOC: NPINS 18:50
PROVIDERS: PCP Family Medicine; Visit Provider Family Medicine
DX: J02.9 Acute pharyngitis, unspecified (principal)
CPT/HCPCS: 87651

== ENCOUNTER 2025-05-12 10:11 | Outpatient (CLI) | payer MEDICARE, OTHER, SELFPAY | END 2025-05-12 10:12 | disposition home or self-care (01) | PROVIDERS: PCP Family Medicine; Visit Provider Family Medicine | DX: R10.9 Unspecified abdominal pain (principal); R11.10 Vomiting, unspecified | CPT/HCPCS: A0425; A0427 ==

== ENCOUNTER 2025-05-12 10:39 | Emergency (ER) | payer MEDICARE, OTHER, SELFPAY ==
--- OUTSIDE RECORDS SUMMARY | 2025-05-06 19:00 | XMS_ITS | Continuity of Care Document ---
Author Organization [facility] Address [address] [address] [place] [address] Phone Care Team Providers Care Barrel Inspector Name Role Phone Dimitry Garcia MD Unavailable Unavaila ble Allergies, Adverse Reactions, Alerts Substance Reaction Status Criticality erythromycin base Nausea/Vomiting Active No Info rmation Medications Medication Instructions Dosage Effective Dates (start - stop) Status Comments buspirone 30 mg tablet take 0.5 tablet b y oral route 2 times every day 15 MG - Active acetaminophen 500 mg tablet take 2 tablet by oral route 4 times every day as needed 1000 MG - Active Cathflo Activase 2 mg intra-catheter solution - Active Eliquis 5 mg tablet take 1 tablet by ora l route 2 times every day 5 MG - Active buprenorphine 10 mcg/hour weekly transdermal patch apply 1 patch by transdermal route every 7 days 10 MCG/H - Active diclofenac 1 % topical gel apply 4 gram by topical route 4 times every day to the affected area(s) 4 gram - Active furosemide 20 mg tablet take 1 tablet by oral route every day 20 MG - Active gabapentin 300 mg capsule take 1 capsule by oral route every day 300 MG - Active hydroxyzine pamoate 25 mg capsule take 1 capsule by oral route every day 25 MG - Active loperamide 2 mg capsule take 2 capsule by oral route after 1st loose stool, followed by 1 capsule after each subsequent loose stool not to exceed 16 mg/day 4 MG - Active methocarbamol 500 mg tablet take 1 tablet by oral route 4 times every day 500 MG - Active oxycodone 5 mg tablet take 1 tablet by o ral route every 6 hours as needed 5 MG - Active pantoprazole 40 mg tablet,delayed release take 1 tablet by oral route every day 40 MG - Active potassium chloride ER 20 mEq tablet,extended release take 2 tablet by oral route 2 times every day with food 40 MEQ - Active sertraline 100 mg tablet take 1 tablet by oral route every day 100 MG - Active sodium chloride 0.9 % (flush) injection syringe - Active sotalol 80 mg tablet take 1 tablet by or al route 2 times every day 80 MG - Active ondansetron HCl 4 mg tablet take 1 tablet by oral route 3 times every day as needed 4 MG - Active pravastatin 40 mg tablet take 1 tablet by oral route every day 40 MG - Active Fish Oil 1,000 mg (120 mg-180 mg) capsule take 1 tablet by oral route every day 1 tablet - Active sertraline 100 mg tablet take 1 tablet by oral route every day 100 MG - Active Procedures Procedure Date Offic/outpt E&m Estab High Routine Serum Collection Subsqt Inpt Moderate Subsqt Inpt Moderate Subsqt Inpt Moderate Subsqt Inpt Moderate Subsqt Inpt Moderate Subsqt Inpt Moderate Subsqt Inpt Moderate Subsqt Inpt Moderate Subsqt Inpt Moderate Subsqt Inpt Moderate Subsqt Inpt Moderate Subsqt Inpt Moderate Subsqt Inpt Moderate Subsqt Hosp-da E&m Minr Compl 5 Subsqt Hosp-da E&m Minr Compl 5 Subsqt Hosp-da E&m Minr Compl 5 Subsqt Hosp-da E&m Minr Compl 5 Subsqt Hosp-da E&m Minr Compl 5 Subsqt Hosp-da E&m Sig Compl 3 25 Subsqt Hosp-da E&m Minr Compl 5 Subsqt Hosp-da E&m Minr Compl 5 Subsqt Hosp-da E&m Minr Compl 5 Subsqt Hosp-da E&m Minr Compl 5 Subsqt Hosp-da E&m Minr Compl 5 Init Hosp-da E&m Mod Severity 5 Ugi Endo; W/endo Ultrasound Ex Ercp; W/sphincterotomy/papillo Ercp; W/endo Retro Remov Stone New Level 4 Advance Directives Directive Yes / No Effective Date File Name No Information Encounters Encounter Description Practice Location Reason(s) For Visit Diagnoses Date Provider Providers Copied on Encounter [facility], [address] [address], [place], [place], [id number], tel:[phone] [facility] No Information 5 Radha Moraes. [address], [id number], [place]. tel:[phone] Offic/outpt E&m Estab High [facility], [address] [address], [place], [place], [address], [place] tel:[phone] [facility] GI Symptoms or Concerns (chief complaint) Necrotizing pancreatitisPo st-ERCP acute pancreatitisAc stillaguamish pancreatitis without necrosis or infection, unspecified 5 Patricia Ugalde. [address], [id number], [place]. tel:[phone] Referring Provider: Referral Self, USE FOR SELF REFERRALS. [facility], [address] [address], [place], [address], [place] tel:[phone] [facility] Acute pancreatitis, unspecified complication status, unspecified pancreatitis type 5 Jose Saez. [address] [facility], [place], [place], [address], [place]. tel:[phone] Subsqt Inpt Moderate [facility], [address] [address], [place], [address], [place] tel:[phone] [facility] No Information 5 Jose Saez. [address] [facility], [place], [place], [address], [place]. tel:[phone] Referring Provider: Nadja Phoenix, [address] [facility] [address], [place], [address] . tel:[phone] Subsqt Inpt Moderate [facility], [address] [address], [place], [address], [place] tel:[phone] [facility] No Information 5 Jose Saez. [address] [facility], [address], [place], [place], [address], [place]. tel:[phone] Referring Provider: Nadja Phoenix, [address] [facility] [address], [place], [address] . tel:[phone] Subsqt Inpt Moderate [facility], [address] [address], [place], [address], [place] tel:[phone] [facility] No Information 5 Jose Saez. [address] [facility], [address], [place], [place], [address], [place]. [phone] Referring Provider: Nadja Phoenix, [address] [facility] [address], [place], [address] . tel:[phone] Subsqt Inpt Moderate [facility], [address] [address], [place], [address], [place] tel:[phone] [facility] No Information 5 Jose Saez. [address] [facility], [address], [place], [place], [address], [place]. tel:[phone] Referring Provider: Nadja Phoenix, [address] [facility] [address], [place], [address] . tel:[phone] Subsqt Inpt Moderate [facility], [address] [address], [place], [address], [place] tel:[phone] [facility] No Information 5 Jose Saez. [address] [facility], [facility] [address], [place], [place], [address], [place]. tel:[phone] Referring Provider: Nadja Phoenix, [address] [facility] [address], [place], [address] . tel:[phone] Subsqt Hosp-da E&m Minr Compl [facility], [address] [address], [place] [facility] [place], [address], [place] tel:[phone] [facility] No Information 5 Ez Olson. [address] [facility], [address], [place], [place], [address], [place]. tel:[phone] Referring Provider: Whitney Chris, [address] [facility] [address], [place], [address] . tel:[phone] Subsqt Hosp-da E&m Sig Compl 3 [facility], [address] [address], [place], [address], [place] tel:[phone] [facility] No Information 5 Dav Phipps. [address] [facility], [address], [place], [place], [address], [place]. tel:[phone] Referring Provider: Desire Demarco NP P, [address] [facility] [address], [place], [address] . tel:[phone] Subsqt Hosp-da E&m Minr Compl [facility], [address] [address], [place], [address], [place] tel:[phone] [facility] No Information 5 Jose Saez. [address] [facility], [address], [place], [place], [address], [place]. tel:[phone] Referring Provider: Nadja Phoenix, [address] [facility] [address], [place], [address] . tel:[phone] Subsqt Hosp-da E&m Minr Compl [facility], [address] [address], [place], [address], [place] tel:[phone] [facility] No Information 5 Ez Olson. [address] [facility], [address], [place], [place], [address], [place]. tel:[phone] Referring Provider: Whitney Chris, [address] [facility] [address], [place], [address] . tel:[phone] Init Hosp-da E&m Mod Severity [facility], [address] [address], [place], [address], [place] tel:[phone] [facility] No Information 5 Gama Dee. [address] [facility], [address], [place], [place], [address], [place]. tel:[phone] Referring Provider: William Najera MD, [address] [place] [address], [address]. tel:[phone] [facility], [address] [address], [place], [address], [place] tel:[phone] [facility] No Information 5 Viet Cade. [address] [facility], [facility] [address], [address], [place]. tel:[phone] Referring Provider: Carson Mariano, [address] [place] [address], [address]. tel:[phone] [facility], [address] [address], [place] [facility], [address], [place] tel:[phone] [facility] Common bile duct (CBD) obstruction 5 Viet Cade. [address] [facility], [facility] [address], [address], [place]. tel:[phone] [facility] Level 4 [facility], [address] [address], [place] [facility], [address], [place] tel:[phone] [facility] GI Symptoms or Concerns (chief complaint) Common bile duct (CBD) obstructionGal lstonesRUQ painNausea 5 Gordon Edmond. [address] [facility], [facility] [address], [place], [address], [place]. tel:[phone] Referring Provider: Carson Mariano, [address] [place] [address], [address]. tel:[phone] [facility] [place], [address] [address], [facility], [address], [place] tel:[phone] [facility] No Information 5 Man Vogel. [address] [facility], [facility] [address], [place], [address], [place]. tel:[phone] Family History Family Member Type Diagnosis Age At Onset Son Problem (finding) Gallbladder disease Immunizations Vaccine Date Status Comments Influenza, high-dose, split virus, trivalent, injectable, preservative free administered Note: [facility] bi-direct ional interface ; Source: Other Registry SARS-COV-2 (COVID-19) vaccin e, mRNA, spike protein, LNP, preservative free, jaylyn-sucrose, 30 mcg/0.3 mL dose administered Note: [facility] bi-direct ional interface ; Source: Other Registry Pneumococcal conjugate vacci ne 20-valent (PCV20), polysaccharide [id number] conjugate, adjuvant, preservative free administered Note: [facility] bi-direct ional interface ; Source: Other Registry zoster vaccine recombinant administered N ote: [facility] bi-directional interface ; Source: Other Registry zoster vaccine recombinant administered N ote: [facility] bi-directional interface ; Source: Other Registry SARS-COV-2 (COVID-19) vaccin e, mRNA, spike protein, LNP, preservative free, jaylyn-sucrose, 30 mcg/0.3 mL dose administered Note: [facility] bi-direct ional interface ; Source: Other Registry Respiratory syncytial virus (RSV), vaccine, bivalent, protein subunit RSV prefusion F, diluent reconstituted, 0.5 mL, preservative free administered Note: [facility] bi-direct ional interface ; Source: Other Registry Influenza, adjuvanted, inactivated, quadrivalent, injectable, preservative free administered Note: [facility] bi-directional interface ; Source: Other Registry SARS-COV-2 (COVID-19) vaccin e, mRNA, spike protein, LNP, bivalent, preservative free, 30 mcg/0.3 mL dose, jaylyn-sucrose formulation administered Note: [facility] bi-direct ional interface ; Source: Other Registry SARS-COV-2 (COVID-19) vaccin e, mRNA, spike protein, LNP, preservative free, 30 mcg/0.3mL dose, jaylyn-sucrose formulation administered Note: [facility] C bi- directional interface ; Source: Other Registry SARS-COV-2 (COVID-19) vaccin e, mRNA, spike protein, LNP, preservative free, 30 mcg/0.3mL dose administered Note: [facility] bi-direct ional interface ; Source: Other Registry Influenza, adjuvanted, inactivated, quadrivalent, injectable, preservative free administered Note: [facility] bi-directional interface ; Source: Other Registry SARS-COV-2 (COVID-19) vaccin e, mRNA, spike protein, LNP, preservative free, 30 mcg/0.3mL dose administered Note: [facility] bi-direct ional interface ; Source: Other Registry SARS-COV-2 (COVID-19) vaccin e, mRNA, spike protein, LNP, preservative free, 30 mcg/0.3mL dose administered Note: [facility] bi-direct ional interface ; Source: Other Registry Influenza, adjuvanted, inactivated, quadrivalent, injectable, preservative free administered Note: [facility] bi-directional interface ; Source: Other Registry tetanus toxoid, reduced diphtheria toxoid, and acellular pertussis vaccine, adsorbed administered Note: [facility] b i-directional interface ; Source: Other Registry Influenza, adjuvanted, inactivated, trivalent, injectable, preservative free administered Note: [facility] bi-directional interface ; Source: Other Registry Afluria Qd administered Note: [facility] bi-directional interface ; Source: Other Registry Afluria Qd administered Note: [facility] bi-directional interface ; Source: Other Registry Pneumovax administered Note: [facility] bi-d irectional interface ; Source: Other Registry Influenza, high-dose, split virus, trivalent, injectable, preservative free administered Note: [facility] bi-direct ional interface ; Source: Other Registry Afluria Qd administered Note: [facility] bi-directional interface ; Source: Other Registry Prevnar 13 administered Note: [facility] bi-d irectional interface ; Source: Other Registry influenza virus vaccine, unspecified formulation administered Note: [facility] bi-di rectional interface ; Source: Other Registry Afluria Qd administered Note: [facility] bi-directional interface ; Source: Other Registry Influenza, split virus, trivalent, injectable, contains preservative administered Note: [facility] bi-direct ional interface ; Source: Other Registry influenza virus vaccine, unspecified formulation administered Note: [facility] bi-di rectional interface ; Source: Other Registry zoster vaccine, live administered Note: [facility] bi-directional interface ; Source: Other Registry Influenza, split virus, trivalent, injectable, preservative free administered Note: [facility] bi-direct ional interface ; Source: Other Registry tetanus toxoid, reduced diphtheria toxoid, and acellular pertussis vaccine, adsorbed administered Note: [facility] b i-directional interface ; Source: Other Registry Novel ajeurhaco-[id number], all formulations administered Note: [facility] bi-direct ional interface ; Source: Other Registry Influenza, split virus, trivalent, injectable, contains preservative administered Note: [facility] bi-direct ional interface ; Source: Other Registry Influenza, split virus, trivalent, injectable, contains preservative administered Note: [facility] bi-direct ional interface ; Source: Other Registry Payers Payer name Insurance type Covered constitution party ID Authoriza tion(s) [employer] [id number] Social History Type Description Quantity Date Captured Comments Sex Female Smoking Status No Information Chief Complaint And Reason For Visit No Information Reason For Referral Reason For Referral No Information Plan Of Treatment Date Type Action Status Referral Ordered: CT Abdomen And Pelvis WITH Contrast Appointment date/timeframe: 04/29/2025 ordered Referral Ordered: EUS Appointment date/timeframe: 02/03/2025 ordered Referral Ordered: ERCP Appointment date/timeframe: 02/03/2025 ordered History Of Present Illness Encounter Date Complaint History Of Prese nt Illness GI Symptoms or Concerns This is a 74-year-old female with a past medical history of A-fib on Eliquis, hypertension, hyperlipidemia, CAPRICE on CPAP, BMI of about 40, 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 Patient underwent ERCP and then had necrotizing acute pancreatitis. In January she had percutaneous drainage tube that was placed. And was [facility] as well as with IV and oral antibiotics currently guided by infectious diseases. [facility] in [facility] 1[facility]5 weeks ago she accidentally removed the percutaneous tube as it got caught on something while she was getting repositioned.Otherwise she has had significant GI symptoms with nausea, vomiting with eating of food as well as significant dyspepsia. She has 5-7 bowel movements a day type -VII [place] stool chart. Patient tells me she has had previous C. difficile testing that is been negative. She has been kept on IV daptomycin as well as oral Augmentin.Of note last CT scan was done in [facility] therefore unfortunately we are not able to review independently. Report communicates ongoing walled off necrosis measuring 4.7 x 9.7 cm. This is essentially unchanged from previous cross-sectional imaging. They do mention the possibility of self fistulizing disease between the fluid collection as well as the stomach. I will comment though that it is difficult to tell this versus an infection. They mention some other fluid in the retromesenteric interfascial plane of the retroperitoneum.Splenic vein thrombosis is noted with splenorenal collaterals.From a social standpoint she denies any smoking or recreational drug use or alcohol use. GI Symptoms or Concerns This is a pleasant 74-year-old patient referred by Dr. Carson Harris, surgeon to [facility] clinic for choledocholithiasis and cholelithiasis. Patient gave consent for today's virtual visit and. She is at home by herself and. Nobody else with joint overcompensation today. I reviewed 6 pages of medical record today.This is a pleasant 74-year-old patient with history of paroxysmal A-fib, currently not on anticoagulation, obstructive sleep apnea, on CPAP: Anxiety, hypertension, hypercholesterolemia, was complaining intermittent right upper quadrant pain radiating to right flank region for the last 3 to 4 weeks. It was associate with nausea, worsening postprandially and. She feel abdominal fullness. She was referred to [facility] on December 17, 2024. Urine test was unremarkable. She reported ultrasound showed gallstones and common bile duct stone and. She was referred to surgeon Dr. Carson Harris for further evaluation. I reviewed Dr. Harris's clinical note today. No US/CT report available. It is reported CT of abdomen pelvics showed multiple gallstones and common bile duct stone with mild biliary duct ductal dilatation. Lab test showed borderline leukocytosis with WBC 10.6 and. And hemoglobin stable. Calcium 10.5. Normal liver function test AST 33 ALT 22. Patient denies of a fever chill. No dark stool no rectal bleeding no change of bowel habit no weight loss. Dr. Harris was planning cholecystectomy after ERCP. patient was referred to [facility] clinic.Patient never had a colonoscopy in the past. She had a Cologuard at home. She reported 2 years ago was negative. She is not interested in colonoscopy.Family history: No GI related malignancy. Social history ex-smoker. No alcohol use and. Functional Status Date Functional Assessmen t No Information Instructions Date Instruction Additional Infor rajni -- At this time we w ill get blood testing to look at blood counts, liver tests, kidney function and how thick/thin your blood is-- We will plan for performing CT scan in the next 5 to 7 days in the [facility] system to be able to visualize the fluid collection ourselves with our advanced endoscopy colleagues-- Then we will hopefully be able to put an internal drain as we discussed to drain the necrosis you have in your pancreas-- This should start to make you feel better-- Until that internal drain procedure is placed I would still like you on antibiotics and I will communicate this to your infectious disease doctor Dr. Iwona Moreno-- 2 to 3 days prior to the endoscopic procedure/internal drain would recommend that you stop the apixaban/Eliquis so we can perform the procedure safely-- The internal drain placement is the initial procedure and then you might require 2-3 more endoscopies by 2 to 4 weeks-- I will see you in clinic after our advanced endoscopy colleagues finish with their procedures Related to Necrotizing pancreatitis Assessments Type Assessment Date No Information Patient Care Teams Name Effective Dates (start - stop) Status Members No Information
[2025-05-12] VITALS (16 sets, daily range): BP systolic 98–109; BP diastolic 64–90; PULSE 71–92; RESP 16–18; TEMP 36.1; O2SAT 89–95
--- NOTE | 2025-05-12 11:09 | ED_ITS ---
HPI - General Adult General Date Seen: 05/12/25 Chief complaint: Nausea/Vomiting Stated complaint: nausea Time Seen by Provider: 05/12/25 11:05 History of Present Illness HPI narrative: 74 yo F with complex PMH includint AF (apixaban), HTN, obesity, high cholester ol, CAPRICE, Anxiety, Gastric outlet obstruction, and pancreatitis due to bile duct stones, SP ERCP removal, and complicated by necrotizing pancreatitis with infected cyst/abscess (perc drainage. was on IV antibiotics). Patient presents to the ER today with her daughter. They note that she has been on antibiotics for several weeks to treat her at abscess/cyst in her pancreas and as still been on antibiotics since she had her ERCP last . She is not sure when she is supposed to stop them. She had a dose yesterday but has not had her dose today. She has notes that for the past few days she has had recurrent and worsening nausea. She has not been able to keep fluids or meds or foods down. In particular none of her meds stay down since yesterday. She has not been a tape to take her potassium, Eliquis or her other meds. She is feeling chilled but not having a fever. She does have some upper abdominal pain but that is not unusual for her. This morning she was getting up to go to the bathroom. She notes that she has had diarrhea for several weeks (liquidy, not bloody). She had more diarrhea this morning. It has been a little bit worse than normal for the past few days. She had previously been tested for C diff and was negative. Along with that when she was on the commode she got very lightheaded and almost presyncopal. She did not have any palpitations and did not think she had a run of AFib. It is suspected that she was probably lightheaded from dehydration. She is not really able to quantify how many times per day she is having loose stool. Sounds like more than 1. Her urine output has been less in volume and has been darker than normal but not bloody. Not painful to urinate. Her GI doctor through [facility] has suggested that she needs placement of a gastric tube and apparently suggested that they come here to the ER at [place] to get a G-tube placed. Unclear if DUC SORIANO had been in contact with general surgery for this patient or not. She has a PICC line in place for her IV antibiotics. She worries that maybe the PICC line has been displaced. All however there has been no bleeding. No redness around the PICC line site. It is the same length sticking out of her skin is it always has been. She does not get any IV fluids through her PICC line at her snf because her nursing staff are not capable of doing IV fluids. She does get her IV antibiotic. 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 She has not been able to take her Eliquis yesterday or today. No chest pain or shortness of breath. Per Records from [facility] Phone note from ID 05/12 (today) Patient now s/p endoscopy 05/07. 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 GI recommended a few more days of antibiotics then discontinue. If we assume there is adequate source control with spontaneous decompression then 4 days from procedure in line with STOPIT trial. Antibiotics were extended through 05/11, we can now trial off. She should follow up with GI as directed. We are happy to see her back in ID clinic as needed. ?Iwona Moreno MD Infectious Disease 05/08 phone nurse note Recommend continue daptomycin and augmentin until Sunday when Dr Moreno returns and she can reassess the plan. 05/07 ERCP ENDOSCOPIC FINDING: : The esophagus was normal throughout. The stomach was edematous with prominent folds. Mild extrinsic compression was seen along the mid body posteriorly. No fistula or drainage of fluid. Pylorus was widely patent. The examined duodenum was endoscopically normal. ENDOSONOGRAPHIC FINDING: : The ampulla was endosonographically normal. The bile duct was 4 mm in diameter. No stones or sludge seen. The gallbladder was distended with multiple shadowing stones. The liver was endosonographically normal in the visualized regions. The pancreas was markedly abnormal with atrophy, prominent duct measuring up to 4 mm at the head, the majority of the body and tail were replaced by a 26 x 17 mm in cross-sectional area tubular structure with debris. No targets for cyst gastrostomy. No lymphadenopathy seen. 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 Cross-sectional imaging in late March showed a large abscess collection with air. This has decreased in size dramatically since, as confirmed by CT scan. - Gallstones. Patient with previous severe acute pancreatitis after ERCP. Her walled off pancreatic necrosis has spontaneously decompressed into lumen and is not amenable to cystogastrostomy today. Patient is markedly deconditioned from her chronic illness since January of this year and is at TCU for cares. Recommendation: - Discharge patient to home. - Resume diet. - Continue antibiotics for 3 days then discontinue. - IR consultation for consideration of GJ tube for enteric supplementation. - Resume PT/OT treatment. - Will discuss with Dr. Lakshmi MD Per [facility] DC Summary 03/28/25 Hospital Problem List Active Problems: ? Atrial fibrillation with RVR Bradycardia, cardiac pauses on higher doses of AVN Assessment: 74 y.o. with h/o AF with RVR and complex pancreatic history as below presenting with asymptomatic AF with RVR. Longstanding problem since prior to recent hospitalization, has never required DCCV. Developed RVR several times during recent hospitalization while holding PO metoprolol and denies current or recent chest pain or shortness of breath; low suspicion for new ischemia triggering symptoms. Blood pressure is adequate on presentation and denies any worsening of chronic lightheadedness with ambulation (likely related to severe deconditioning from 6 weeks-long hospitalization). Heparin not indicated with continuous anticoagulation; given home Apixaban and metoprolol here wihtout good improvement in rates. Treated with one dose of IV metoprolol without improvement in HR, two additional doses given with improvement only to the 140s. Discussed with cardiology, recommended IVF with continued metoprolol pushes. HR improved to low 100s with this. However, with such resistant rates and clinical fragility, recommend admission for continued monitoring of rates overnight to assure no further IV metoprolol required. Plan: - Cardiology consult - metoprolol 50 mg twice daily at this time - furosemide 20 mg daily-restart - Underwent JUSTICE cardioversion 03/27 successfully -Plan to start sotalol thereafter - Anti-coag regimen ? apixaban, 5 mg, Oral, bid ? 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 Worsening symptoms prompting repeat CT, exam not read but per Gastroenterology noted concern for gas and infection and desire to place CT drain. Drain placed 02/28; cultures growing 4+ Enterococcus faecium. ID managing antibiotics. Removed Keofeed 03/10. Doing well with appetite/intake. Advised holding on cystogastostrostomy for now. Plan: - regular diet - Perc drain in place- drain cares - antibiotics per ID - Anti-infectives ? IV Daptomycin + PO Augmentin - continue - single lumen PICC placed 03/08 - Continue eliquis for splenic vein thrombosis / atrial fibrillation Related Data Home Medications ?Medication ?Instructions ?Recorded ?Confirmed acetaminophen 500 mg tablet 1,000 mg PO Q6H PRN 05/12/25 (Acetaminophen Extra Strength) amoxicillin 875 mg-potassium 1 tab PO BID 05/12/25 clavulanate 125 mg tablet apixaban 5 mg tablet (Eliquis) 5 mg PO BID 05/12/25 buprenorphine 5 mcg/hour weekly 1 patch transdermal Q7 D 05/12/25 05/12/25 transdermal patch buspirone 30 mg tablet 15 mg PO BID 05/12/25 daptomycin 500 mg intravenous 1,150 mg IV DAILY@1630 0 05/12/25 05/12/25 solution diclofenac sodium 1 % topical gel 4 g topical QID PRN 05/12/25 05/12/25 (Arthritis Pain (diclofenac)) furosemide 20 mg tablet (Lasix) 20 mg PO DAILY 5 05/12/25 gabapentin 300 mg capsule 300 mg PO HS 05/12/25 hydroxyzine pamoate 25 mg capsule 25 mg PO HS 05/12/25 05/12/25 loperamide 2 mg capsule 2 mg PO Q4H PRN 05/12/25 lorazepam 0.5 mg tablet (Ativan) 0.5 mg PO DAILY PRN 0 05/12/25 05/12/25 methocarbamol 500 mg tablet 500 mg PO QID 05/12/25 oxycodone 5 mg capsule 5 mg PO Q6H PRN 05/12/25 pantoprazole 40 mg tablet,delayed 40 mg PO DAILY 05/1205/12/25 release potassium chloride 20 mEq 40 meq PO BID 05/12/2505/12 tablet,extended release pravastatin 40 mg tablet 40 mg PO DAILY 05/12/2504/28 Held on 05/12/25. Instructions: HOLD WHILE ON DAPTOMYCIN prochlorperazine maleate 10 mg 10 mg PO BID 05/12/25 0 05/12/25 tablet (Compazine) sertraline 100 mg tablet 100 mg PO DAILY 05/12/25 sotalol 80 mg tablet 80 mg PO BID 05/12/25 Allergies Allergy/AdvReac Type Severity Reaction Status Date / Time erythromycin base Allergy Unknown Verified 05/12/25 10:[address] [facility] Social History Smoking Status: Never smoker How often do you have a drink containing alcohol: never AUDIT-C Alcohol total score: 0 Non-prescribed substance use: denies use service: No Exam Narrative: Exam Narrative: Constitutional: Appears well-developed . Chronically ill-appearing. Alert. Has a wry sense of humor is pessimistic about her prognosis. Alert. Conversant. Looks tired. HENT: Head: Atraumatic. Nose: Nose normal. Mouth/Throat: Oral mucosa is clear and dry. no trismus. Pharynx normal. Tonsils symmetric. No tonsillar enlargement, erythema, or exudate. Eyes: Conjunctivae normal. EOM normal. Pupils equal, round, and reactive to light. No scleral icterus. Neck: Normal range of motion. Neck supple. No tracheal deviation present. No JVD Cardiovascular: Normal rate, regular rhythm. No gallop. No friction rub. No murmur heard. Symmetric radial artery pulses PICC line in right upper extremity. Dressing and PICC line look good. No swelling. Pulmonary/Chest: Effort normal. No stridor. No respiratory distress. No wheezes. No rales. No rhonchi . No tenderness. Abdominal: Soft. Bowel sounds normal. No distension. No mass. Epigastric and left upper quadrant, left lower quadrant tenderness. No rebound. No guarding. Healing puncture site from where her percutaneous pancreatic drain pulled out a few weeks ago. No redness or drainage from the puncture site. Musculoskeletal: RUE: Normal range of motion. No tenderness. No deformity LUE: Normal range of motion. No tenderness. No deformity RLE: Normal range of motion. No edema. No tenderness. No deformity LLE: Normal range of motion. No edema. No tenderness. No deformity Lymph: No cervical adenopathy. Neurological: Alert and oriented to person, place, and time. Normal strength. CN II-VII intact. No sensory deficit. GCS eye subscore is 4. GCS verbal subscore is 5. GCS motor subscore is 6. Normal coordination Skin: Skin is warm and dry. No rash noted. No pallor. Normal capillary refill. Psychiatric: Normal mood. Normal affect. Const: Vital Signs, click to edit/add: Vital Signs - 24 hr 05/12/25 10:50 05/12/25 11:13 05/12/25 11:15 Temperature 97 F L Pulse Rate 82 85 Pulse Rate [Right Pulse Oximeter] 86 Respiratory Rate 18 Blood Pressure Blood Pressure [Ri ght Upper Arm] 109/90 H Pulse Oximetry 95 94 95 Oxygen Delivery [facility] Room Air 05/12/25 11:30 05/12/25 11:45 05/12/25 12:00 Temperature Pulse Rate 85 92 83 Pulse Rate [Right Pulse Oximeter] Respiratory Rate Blood Pressure Blood Pressure [Ri ght Upper Arm] Pulse Oximetry 95 94 94 Oxygen Delivery [facility] 05/12/25 12:15 05/12/25 12:32 05/12/25 12:45 Temperature Pulse Rate 82 81 83 Pulse Rate [Right Pulse Oximeter] Respiratory Rate 16 Blood Pressure 103/80 Blood Pressure [Ri ght Upper Arm] Pulse Oximetry 92 92 93 Oxygen Delivery [facility] 05/12/25 12:46 05/12/25 13:00 05/12/25 13:15 Temperature Pulse Rate 81 74 74 Pulse Rate [Right Pulse Oximeter] Respiratory Rate Blood Pressure Blood Pressure [Ri ght Upper Arm] Pulse Oximetry 91 90 89 Oxygen Delivery [facility] 05/12/25 13:30 05/12/25 13:46 05/12/25 14:11 Temperature Pulse Rate 71 74 Pulse Rate [Right Pulse Oximeter] 71 Respiratory Rate 16 Blood Pressure Blood Pressure [Ri ght Upper Arm] 105/64 Pulse Oximetry 94 94 94 Oxygen Delivery [facility] Room Air 05/12/25 14:11 05/12/25 16:58 Temperature Pulse Rate Pulse Rate [Right Pulse Oximeter] 72 Respiratory Rate 16 16 Blood Pressure 105/64 Blood Pressure [Ri ght Upper Arm] 98/64 Pulse Oximetry 95 Oxygen Delivery Me thod Course Vital Signs Vital signs: Initial Vital Signs Temperature 97 F L 05/12/25 10:50 Temperature Source Temporal Artery Scan 05/12/25 10:50 Pulse Rate 86 05/12/25 10:50 Pulse Rhythm Regular 05/12/25 10:50 Pulse Strength 3+ Normal 05/12/25 10:50 Respiratory Rate 18 05/12/25 10:50 Blood Pressure 109/90 H 05/12/25 10:50 Blood Pressure Mean 96 05/12/25 10:50 Blood Pressure Position Sitting 05/12/25 10:50 Pulse Oximetry 95 05/12/25 10:50 Oxygen Delivery Method Room Air 05/12/25 10:50 Vital Signs Temperature 97 F L 05/12/25 10:50 Pulse Rate 86 05/12/25 10:50 Respiratory Rate 18 05/12/25 10:50 Blood Pressure 109/90 H 05/12/25 10:50 Pulse Oximetry 95 05/12/25 10:50 Oxygen Delivery Method Room Air 05/12/25 10:50 Temperature 97 F L 05/12/25 10:50 Pulse Rate 72 05/12/25 16:58 Respiratory Rate 16 05/12/25 16:58 Blood Pressure 98/64 05/12/25 16:58 Pulse Oximetry 95 05/12/25 16:58 Oxygen Delivery Method Room Air 05/12/25 14:11 Medications Administered Medications: Generic Name Dose Route Start Last Admin Trade Name Freq PRN Reason Stop Dose Admin Enoxaparin Sodium 80 mg 05/12/25 16:00 05/12/25 16:11 Enoxaparin 80 Mg/0.8 Ml Inj SUBCUT 80 mg Q24H CAL Administration Discontinued Medications Generic Name Dose Route Start Last Admin Trade Name Freq PRN Reason Stop Dose Admin Sodium Chloride 1,000 mls @ 1,000 mls/hr 05/12/25 12:00 05/12/25 15:23 0.9 % Sodium Chloride 1000 Ml IV 05/12/25 12:59 Infused .Q1H CAL Infusion Potassium Chloride 10 meq in 100 mls @ 100 mls/hr 05/12/25 13:15 05/12/25 16: 19 Potassium Chloride IVPB 05/12/25 15:44 Infused Q90M CAL Infusion Lactated Ringer's 1,000 mls @ 1,000 mls/hr 05/12/25 14:34 05/12/25 16:59 Lactated Ringers 1000 Ml IV 05/12/25 15:33 Infused .Q1H ONE Infusion Potassium Chloride 10 meq in 100 mls @ 100 mls/hr 05/12/25 15:34 05/12/25 16:53 Potassium Chloride IVPB 05/12/25 16:33 Infused ONCE ONE Infusion Metoclopramide HCl 10 mg 05/12/25 14:36 05/12/25 15:05 Metoclopramide Hcl 5 Mg/Ml Inj IVP 05/12/25 14:37 10 mg ONCE ONE Administration Ondansetron HCl 4 mg 05/12/25 11:48 05/12/25 12:46 Ondansetron 2 Mg/Ml Inj IVP 05/12/25 11:49 4 mg ONCE ONE Administration Pantoprazole Sodium 40 mg 05/12/25 11:48 05/12/25 12:46 Pantoprazole Sodium 40 Mg Inj IVP 05/12/25 11:49 40 mg ONCE ONE Administration Potassium Bicarbonate 50 meq 05/12/25 13:08 05/12/25 14:13 Potassium Bicarb 25 Meq Effervescent Tab PO 05/12/25 13:09 Not Given ONCE ONE Medical Decision Making MDM Narrative Medical decision making narrative: 74-year-old female with a history of recent necrotizing pancreatitis an infection in her pancreatic cyst/abscess. She had had a percutaneous drain in the pancreatic cyst that fell out accidentally several weeks ago. She had had a n ERCP done last to see if she could have a drain from the cyst into her stomach, but apparently on that findings the assisted largely resolved. She is still on IV antibiotics. She is here because she has had increase in nausea and vomiting leading to dehydration inability to take her oral medications for the past few days. Pancreas: Lipase today is normal at 130. CT scan shows interval resolution of her previous fluid collection. No signs of active pancreatitis. CT scan does show some abnormality in the liver possibly hepatic edema or hepatitis. Liver.: AST is mildly abnormal at 68, total bili is normal at 0.8. Alk-phos is elevated at 177. Compared to her labs from February, AST and alk-phos are both up slightly. No evidence for any bile duct dilation or active cholecystitis on CT. GI: Has had intractable nausea and vomiting for the past few days unable to take any oral solids, very scant oral liquids, and not able to take her medications. No evidence for any acute bowel obstruction. Did not have any obvious gastritis on EGD report from her ERCP last . There was a mention of submucosal edema in the stomach. No definite mechanical source for her vomiting or need for immediate surgical decompression. GI notes recommend that she probably will need placement of a G/J tube for enteral feeding. Daughter says that her GI doctors told her they can come here to the hospital in [place] for placement. However, after consultation with our hospitalist and general surgeon, I confirmed that we do not have capacity to place a GJ tube here. We can do simple gastric feeding tubes. In this case, it sounds like a post pyloric tube is necessary. Therefore, transfer to a facility, such as [facility], is indicated. Renal/electrolytes: Patient does have hypernatremia today with a sodium of 152. Compared to her sodiums from May 05, and early this morning on May 12 is similar. Sodium was 154 on the and 156 with a lab this morning. It looks like her sodium had been normal in February when she was in the hospital. Potassium is low at 2.7. It had been 3.4 on the lab draw viewed through [facility] earlier this morning at 8:34 a.m.... Supplement with IV and oral potassium. EKG shows nonspecific T-wave changes which could be related to hypokalemia. Suspect that her weakness is probably related to dehydration, hypokalemia, hypernatremia. Will need hospitalization for IV hydration and electrolyte management. Magnesium level is normal at 1.9. Cardiac: EKG shows nonspecific changes but no definite ischemia. Troponin is m inimally detectable at 0.8. 2 hour delta troponin is trending up slightly to 0.11. Denies any chest pain. At this point low likelihood for acute coronary syndrome. Lovenox administered. Unable to tolerate aspirin. Pulmonary: No hypoxia. She is not short of breath. No tachycardia. She is already on Eliquis for treatment of splenic vein thrombosis and AFib. She has not been able take her Eliquis yesterday or today because of vomiting. However INR is abnormal suggesting that she does have some Eliquis in her system at this point I do not think she needs CT PA. However, since she is unable to tolerate any PO, including Eliquis, will need parenteral anticoagulation (lovenox 1mg/kg SubQ). ID: Per infectious disease notes from [facility] it looks like she was due to finish up her antibiotics for her pancreas yesterday and then dry course of off antibiotics. Urinalysis is obtained today and does show hematuria but no pyuria. It is also positive for nitrite. It she denies any urinary symptoms. Would await urine culture before initiating any new antibiotics She does have chronic diarrhea but worse than normal over the past few days. Reports that she had been tested previously for C diff and was negative. Given diarrhea, I ordered repeat C diff test. However she did not have diarrhea while here in the ER at [place]. Lab Data Labs: Lab Results 05/12/25 05/12/25 05/12/25 Range/Units 11:50 12:25 14:36 WBC 8.08 (4.50-11.00) K/uL RBC 5.03 (4.00-5.20) m/uL Hgb 14.7 (12.0-16.0) gm/dL Hct 47.4 (33.0-51.0) % MCV 94 (80-100) fL MCH 29 (26-34) pg MCHC 31 L (32-36) gm/dL RDW Coeff of Steffi 19.4 H (11.5-15.5) % Plt Count 345 (140-440) K/uL Neut % (Auto) 64.1 (42.0-72.0) % Lymph % (Auto) 24.5 (20-44) % Childress % (Auto) 9.0 (0.0-11.0) % Eos % (Auto) 1.9 (0.0-7.0) % Baso % (Auto) 0.4 (0.0-3.0) % Neut # (Auto) 5.18 (1.7-7.0) K/uL Lymph # (Auto) 1.98 (0.90-2.90) K/uL Childress # (Auto) 0.70 (0.00-0.90) K/UL Eos # (Auto) 0.15 (0.00-0.50) K/uL Baso # (Auto) 0.03 (0.00-0.30) K/uL Abs Immat Gran (auto) 0.01 (0.00-0.30) K/uL Imm/Tot Granulo (auto) 0.1 % INR 1.86 H (0.91-1.10) Sodium 152 H (135-149) mmol/L Potassium 2.7 L* (3.6-5.1) mmol/L Chloride 115 H (96-114) mmol/L Carbon Dioxide 30 (20-32) mmol/L Anion Gap 7 (7-15) mEq/L BUN 20 (7-30) mg/dL Creatinine 0.7 (0.5-1.5) mg/dL Estimated GFR 91 ml/min Glucose 101 (60-115) mg/dL Lactate 1.6 (0.5-1.9) mmol/L Calcium 9.8 (8.4-10.6) mg/dL Magnesium 1.9 (1.5-2.6) mg/dL Total Bilirubin 0.8 (0.1-1.5) mg/dL AST 68 H (12-35) U/L ALT 30 (4-35) U/L Alkaline Phosphatase 177 H (40-150) U/L Total Protein 6.3 (6.0-8.3) g/dL Albumin 3.2 L (3.3-5.0) g/dL Lipase 130 (23-300) U/L Urine Color (Yellow) Urine Appearance (Clear) Urine pH (5.0-8.5) Ur Specific [place] (1.000-1.030) Urine Protein (Negative) Urine Glucose (UA) (Negative) Urine Ketones (Negative) Urine Blood (Negative) Urine Nitrite (Negative) Urine Bilirubin (Negative) Urine Urobilinogen (0.2-1.0) Ur Leukocyte Esterase (Negative) Urine RBC (0-2) Urine WBC (0-5) Ur Squamous Epith Cells (None-Few) Calcium Oxalate Crystal (None) Urine Bacteria (None) POC Troponin I 0.08 H 0.11 H (0.01-0.04) ng/ml 05/12/25 Range/Units 15:20 WBC (4.50-11.00) K/uL RBC (4.00-5.20) m/uL Hgb (12.0-16.0) gm/dL Hct (33.0-51.0) % MCV (80-100) fL MCH (26-34) pg MCHC (32-36) gm/dL RDW Coeff of Steffi (11.5-15.5) % Plt Count (140-440) K/uL Neut % (Auto) (42.0-72.0) % Lymph % (Auto) (20-44) % Childress % (Auto) (0.0-11.0) % Eos % (Auto) (0.0-7.0) % Baso % (Auto) (0.0-3.0) % Neut # (Auto) (1.7-7.0) K/uL Lymph # (Auto) (0.90-2.90) K/uL Childress # (Auto) (0.00-0.90) K/UL Eos # (Auto) (0.00-0.50) K/uL Baso # (Auto) (0.00-0.30) K/uL Abs Immat Gran (auto) (0.00-0.30) K/uL Imm/Tot Granulo (auto) % INR (0.91-1.10) Sodium (135-149) mmol/L Potassium (3.6-5.1) mmol/L Chloride (96-114) mmol/L Carbon Dioxide (20-32) mmol/L Anion Gap (7-15) mEq/L BUN (7-30) mg/dL Creatinine (0.5-1.5) mg/dL Estimated GFR ml/min Glucose (60-115) mg/dL Lactate (0.5-1.9) mmol/L Calcium (8.4-10.6) mg/dL Magnesium (1.5-2.6) mg/dL Total Bilirubin (0.1-1.5) mg/dL AST (12-35) U/L ALT (4-35) U/L Alkaline Phosphatase (40-150) U/L Total Protein (6.0-8.3) g/dL Albumin (3.3-5.0) g/dL Lipase (23-300) U/L Urine Color Yellow (Yellow) Urine Appearance Clear (Clear) Urine pH 5.5 (5.0-8.5) Ur Specific [place] 1.010 (1.000-1.030) Urine Protein 2+ A (Negative) Urine Glucose (UA) Negative (Negative) Urine Ketones 1+ A (Negative) Urine Blood 3+ A (Negative) Urine Nitrite Positive A (Negative) Urine Bilirubin 1+ A (Negative) Urine Urobilinogen 0.2 (0.2-1.0) Ur Leukocyte Esterase Trace A (Negative) Urine RBC 10-25 A (0-2) Urine WBC 2-5 (0-5) Ur Squamous Epith Cells Few (None-Few) Calcium Oxalate Crystal Few A (None) Urine Bacteria Few A (None) POC Troponin I (0.01-0.04) ng/ml Imaging Data CT scan - abdomen: Attestation: I have reviewed the pertinent imaging results. Radiologist's impression: IMPRESSION: 1. Significant decrease in size of pancreatic and peripancreatic fluid collections. 2. Significant diffuse hepatic hypodensity with geographic areas of heterogeneity concerning for hepatic steatosis or hepatic edema in the setting of hepatitis. 3. Cholelithiasis without CT evidence of cholecystitis. 4. Small focus of gas in the nondependent portion of the bladder. Correlate with history of recent catheterization. ECG Data Attestation: I personally reviewed and interpreted this ECG as follows: Interpretation: Normal sinus rhythm Rate 82 MT interval 120. Very difficult to see P waves because of baseline artifact but I think there are P waves visible in lead 2. Left axis deviation. Low voltage QRS. No pathologic Q-waves. I do not think she has had an anterior infarct. Nonspecific T-wave flattening and nonspecific ST segment changes very limited by artifact in the baseline. I do not see any acute ST elevation or ST depression. No definite ischemia. [facility] Discharge Plan Discharge Clinical Impression: Dehydration, Hypernatremia, Hypokalemia, Near syncope, Elevated troponin Prescriptions: No Action prochlorperazine maleate [Compazine] 10 mg tablet 10 mg PO BID sotalol 80 mg tablet 80 mg PO BID methocarbamol 500 mg tablet 500 mg PO QID amoxicillin-pot clavulanate 875-125 mg tablet 1 tab PO BID potassium chloride 20 mEq tablet extended release 40 meq PO BID pantoprazole 40 mg tablet,delayed release (DR/EC) 40 mg PO DAILY buspirone 30 mg tablet 15 mg PO BID Eliquis 5 mg tablet 5 mg PO BID furosemide [Lasix] 20 mg tablet 20 mg PO DAILY gabapentin 300 mg capsule 300 mg PO HS hydroxyzine pamoate 25 mg capsule 25 mg PO HS loperamide 2 mg capsule 2 mg PO Q4H PRN lorazepam [Ativan] 0.5 mg tablet 0.5 mg PO DAILY PRN buprenorphine 5 mcg/hour patch weekly 1 patch transdermal Q7D Patient Comments: to be dc'd 05/12/25 diclofenac sodium [Arthritis Pain (diclofenac)] 1 % gel 4 g topical QID PRN oxycodone 5 mg capsule 5 mg PO Q6H PRN sertraline 100 mg tablet 100 mg PO DAILY acetaminophen [Acetaminophen Extra Strength] 500 mg tablet 1,000 mg PO Q6H PRN daptomycin 500 mg recon soln 1,150 mg IV DAILY@1630 pravastatin 40 mg tablet 40 mg PO DAILY Follow Up/Referrals: Brad Bolanos MD [Primary Care Provider, Family Practice]
--- NOTE | 2025-05-12 11:48 | CRLHL7_ITS ---
For Patients: As a result of the 21st Century Cures Act, medical imaging exams and procedure reports are released immediately into your electronic medical record. You may view this report before your referring provider. If you have questions, please contact your health care provider. INDICATION: Nausea, abdominal pain.. TECHNIQUE: CT abdomen and pelvis acquired with 90 cc Isovue 370 IV contrast. COMPARISON: None. FINDINGS: Lower chest: Mild bibasilar linear opacities likely atelectasis or scarring. Liver: Heterogeneous diffuse hepatic hypodensity with geographic areas of heterogeneity. This may be related to underlying hepatic steatosis or hepatic edema. No suspicious hepatic lesions identified. Gallbladder and bile ducts: Cholelithiasis without CT evidence of cholecystitis. Pancreas: Interval significant decrease in size of pancreatic fluid collection, now measuring 5.4 x 1.8 x 1.4 cm, previously 9.7 x 4.7 x 3.1 cm. Other smaller peripancreatic collection is stable (/), measuring approximately 3.7 centimeters in diameter. Other smaller collections have resolved with residual mild mesenteric soft tissue attenuation likely scarring. Spleen: Unremarkable. Normal in size. No masses. Adrenal glands: Unremarkable. No nodules. Kidneys: Stable renal cysts. No hydronephrosis or hydroureter. No renal stones. GI tract: No bowel obstruction. Small hiatal hernia. Possible gastro pancreatic adhesions no definite fistulous communication identified. No bowel obstruction. Appendix is not visualized Vasculature: Abdominal aorta is normal in caliber. Mesenteric arteries are patent. Lymph nodes: No lymphadenopathy. Peritoneum/Abdominal Wall: Unremarkable. No sign of mass or infiltration. No free air or significant free fluid. Pelvis: The small focus of gas in the nondependent portion of the bladder. Correlate with history of catheterization. Stable right adnexal cyst. Uterus is otherwise unremarkable. Bones: Unremarkable for age. IMPRESSION: 1. Significant decrease in size of pancreatic and peripancreatic fluid collections. 2. Significant diffuse hepatic hypodensity with geographic areas of heterogeneity concerning for hepatic steatosis or hepatic edema in the setting of hepatitis. 3. Cholelithiasis without CT evidence of cholecystitis. 4. Small focus of gas in the nondependent portion of the bladder. Correlate with history of recent catheterization. Please note that all CT scans at this facility use dose modulation, iterative reconstruction, and/or weight-based dosing when appropriate to reduce radiation dose to as low as reasonably achievable. Dictated by Julian Mccormick MD @ 05/12/2025 2:54:01 PM (Electronically Signed)
--- OUTSIDE RECORDS SUMMARY | 2025-05-12 12:27 | XMS_ITS | Clinical Summary ---
Author Organization [id number] Address [address] [place] [address] Care Team Providers Care Supervisor Particleboard Name Role Phone William Najera MD Primary Care Provider Allergies Active Allergy Reactions Criticality Noted Date Comments Erythromycin Vomiting 02/24/2017 Medications Calcium-Cholecalc iferol, D3, (CALCIUM 600 + D,3,) 600-200 mg-unit Cap Take 1 Cap by mouth 2 times daily. 0 011 Active omega-3 fatty acids-vitamin E (FISH OIL) 1,000 mg Cap Take 1 capsule by mouth once daily. 0 012 Active multivitamin (MVI) tabletIndications :Paroxysmal atrial fibrillation (HC) Take 1 tablet by mouth once daily. 0 017 Active vitamin B complex (B-COMPLEX VITAMIN) tablet Take 1 tablet by mouth once daily. 1 tablet 020 Active cholecalciferol (VITAMIN D3) 2,000 unit capsule Take 1 Capsule (2,000 units) by mouth once daily. 0 021 Active CPAPIndications:O bstructive sleep apnea RESMED CPAP (E0601) machine for home use at pressure: 10 .4 cmw, Choice of mask (A7030 or A7034) w/full face cushion (A7031) x1/mo, nasal cushion (A7032) x2/mo, or nasal pillows (A7033) x 2/mo; Length of Need: 99 months; Frequency of use: Daily 1 Each Active alteplase injectionIndicati ons:Infected pancreatic pseudocyst (HC) 2 mg by Intra-Catheter route each time if needed for Catheter Clearance. Instill 2 mg into catheter and allow to dwell for 30 minutes. If unable to aspirate blood, allow to dwell for a total of 120 minutes. Active apixaban 5 mg tabletIndications :deep venous thrombosis,preven t thromboembolism in chronic atrial fibrillation Take 1 Tablet (5 mg) by mouth two times daily. Active furosemide 20 mg tabletIndications :Chronic heart failure with preserved ejection fraction (HFpEF) (HC) Take 1 Tablet (20 mg) by mouth once daily in the morning. Active gabapentin 300 mg capsuleIndication s:Infected pancreatic pseudocyst (HC) Take 1 Capsule (300 mg) by mouth at bedtime. Active hydrOXYzine pamoate 25 mg capsuleIndication s:Anxiety Take 1 Capsule (25 mg) by mouth at bedtime. Active methocarbamoL 500 mg tabletIndications :Infected pancreatic pseudocyst (HC) Take 1 Tablet (500 mg) by mouth four times daily. Active pantoprazole 40 mg delayed-release tabletIndications :GERD without esophagitis Take 1 Tablet (40 mg) by mouth once daily before a meal. Active acetaminophen 500 mg tabletIndications :Infected pancreatic pseudocyst (HC) Take 2 Tablets (1,000 mg) by mouth every 6 hours if needed for Pain. Max acetaminophen dose: 4000mg in 24 hrs. Active diclofenac topical 1 % gelIndications:Ot her chronic back pain Apply 4 g topically to affected area(s) 4 times daily if needed (back pain). Active ondansetron 4 mg disintegrating tabletIndications :Nausea Place 1 Tablet (4 mg) on the tongue every 8 hours if needed for Nausea/Vomiting . Active potassium chloride 20 mEq extended-release tablet (part/cryst)Indic ations:Hypokalemi a Take 2 Tablets (40 mEq) by mouth two times daily with meals. 05/21/2 025 Active loperamide (Imodium A-D) 2 mg capsule Take 2 mg by mouth each time if needed for Diarrhea. Take 2 capsules (4mg) orally with 1st loose stool, then 1 capsule (2mg) with other loose stools. Max 16 mg in 24 hrs. Active pravastatin 40 mg tabletIndications :Hyperlipidemia, unspecified hyperlipidemia type Take 1 Tablet (40 mg) by mouth at bedtime. Wait to start until done with daptomycin 90 Tablet 4 025 Active busPIRone 30 mg tabletIndications :Anxiety Take 0.5 Tablets (15 mg) by mouth two times daily. 90 Tablet 4 025 Active buprenorphine 10 mcg/hr 10 mcg/hour transdermal patchIndications: Acute necrotizing pancreatitis (HC) Apply 1 Patch on dry, clean, hairless skin every Sunday. 10 Patch 025 Active hydrOXYzine HCL (ATARAX) 25 mg tabletIndications :Anxiety TAKE 1 TABLET EVERY 6 HOURS IF NEEDED FOR ANXIETY 270 Tablet 4 025 Active sertraline (ZOLOFT) 100 mg tabletIndications :Major depressive disorder, recurrent, moderate (HC) TAKE 1 TABLET DAILY IN THE MORNING 90 Tablet 1 025 Active hydrOXYzine HCL (ATARAX) 25 mg tabletIndications :Anxiety Take 1 Tablet (25 mg) by mouth every 6 hours if needed for Anxiety. 270 Tablet 4 024 2024 Discontinued sertraline (ZOLOFT) 100 mg tabletIndications :Major depressive disorder, recurrent, moderate (HC) Take 1 Tablet (100 mg) by mouth once daily in the morning. 90 Tablet 2 024 2024 Discontinued sotaloL 80 mg tabletIndications :Atrial fibrillation with rapid ventricular response (HC) Take 1 Tablet (80 mg) by mouth every 12 hours. 025 2024 DAPTOmycin 500 mg injectionIndicati ons:Acute necrotizing pancreatitis (HC) Inject 1,150 mg intravenous every 24 hours for 6 days. 025 2024 Discontinued(R eorder (E-cancel not sent)) amoxicillin-clavu lanate 875-125 mg tabletIndications :ABDOMEN/PELVIS INFECTION Take 1 Tablet by mouth two times daily with meals for 7 days. 14 Tablet 025 2024 Discontinued(R eorder (E-cancel not sent)) amoxicillin-clavu lanate (AUGMENTIN) 875-125 mg tabletIndications :ABDOMEN/PELVIS INFECTION Take 1 Tablet by mouth two times daily with meals for 3 days. 025 2024 DAPTOmycin (CUBICIN) 500 mg injectionIndicati ons:Acute necrotizing pancreatitis (HC) Inject 1,150 mg intravenous every 24 hours for 3 days. 025 2024 Active Problems Problem Noted Date Diagnosed Date [...] Encounters Date Type Department Care Team Description 05/07/2025 8:07 AM CDT Anesthesia Event [facility] [address] [place] [address] Joe Fung MD 05/07/2025 7:50 AM CDT - 05/07/2025 8:50 AM CDT Surgery [facility] [address] [place] [address] Dimitry Garcia MD ENDOSCOPIC ULTRASOUND UPPER 05/07/2025 6:25 AM CDT - 05/07/2025 10:45 AM CDT Hospital Encounter [facility] [address] [place] [address] Dimitry Garcia MD Post-ERCP acute pancreatitis (HC) (Primary Dx) Discharge Disposition: Jail Care Facility 05/07/[address] [facility] [address] [address] Iwona Moreno MD Infusion Therapy 05/07/2025 Travel 05/06/2025 Lab Requisition [facility] [phone] June Arango NP 05/06/[address] [phone] William Najera MD Refill Request (Sertraline) 05/05/[address] [address] William Najera MD Refill Request (Hydroxyzine Hcl) 04/30/2025 Lab Requisition [facility] [phone] June Arango NP 04/29/2025 Telephone [facility] [address] [place] [address] William Najera MD Procedure (Medication Hold Order) 04/27/2025 Lab Requisition [facility] [phone] Brad Bolanos MD 04/23/2025 9:[address] [facility] [address] [address] Iwona Moreno MD Error-please disregard (NO SHOW) 04/23/2025 8:00 AM CDT Ancillary Procedure [facility] [address] [place] [address] 04/23/2025 Travel 04/17/2025 Lab Requisition [facility] [phone] Brad Bolanos MD 04/17/[address] [facility] [address] [facility] [address] [place] [address] William Najera MD 04/10/2025 Lab Requisition [facility] [phone] Brad Bolanos MD 04/10/[address] [facility] [address] [facility] [address] [place] [address] Iwona Moreno MD antibiotics 04/02/2025 Lab Requisition [facility] [phone] Brad Bolanos MD 04/01/2025 Orders Only [facility] Scanner 1 scan: (1-Ord) [facility], MULTIPLE LAB TEST, 04/01/2025 03/27/2025 2:13 PM CDT Anesthesia Event [facility] [address] [place] [address] Romario Bocanegra, DO Cardoza, Vasile Leyva CRNA 03/26/2025 11:18 AM CDT - 03/28/2025 11:00 AM CDT Hospital Encounter [facility] [address] [place] [address] Kathy Akers DO Peterson, Christopher Roy, MD Mrkvicka, Josef Carson MD [facility] Hospitalists Of Atrial fibrillation with rapid ventricular response (HC) (Primary Dx); Anxiety; Hyperlipidemia, unspecified hyperlipidemia type; Acute necrotizing pancreatitis (HC) Discharge Disposition: Jail Facility 03/26/2025 9:30 AM CDT Office Visit [facility] [address] [facility] [address] [place] [address] Iwona Moreno MD 03/26/2025 Travel 03/24/[address] [facility] [address] [facility] [address] [place] [address] Iwona Moreno MD Questions (Questions about appt 03/26/25- patient is in [address] [place] [address] - ) 03/23/2025 Lab Requisition [facility] [phone] June Arango NP 03/20/2025 Lab Requisition [facility] [phone] June Arango NP 02/05/2025 2:00 PM CDT - 03/17/2025 10:30 AM CDT Hospital Encounter [facility] [address] [place] [address] [facility] [place] Of Marcos Ybarra MD Tamhane, ANGEL Hung, MD Zachery Lopez, MD Jhonathan Perales Jimmy, MD Kohlmeyer, MD Samuel Sharp, Talib Osroio MD Infected pancreatic pseudocyst (HC) (Primary Dx); Splenic vein thrombosis; Paroxysmal atrial fibrillation with RVR (HC); Chronic heart failure with preserved ejection fraction (HFpEF) (HC); Anxiety; Essential hypertension; GERD without esophagitis; Other chronic back pain; Nausea; Hypokalemia; Hyperlipidemia, unspecified hyperlipidemia type Discharge Disposition: Jail Facility from Last 3 Months Immunizations Immunization Administration Dates Next Due COVID-19 vaccine ([employer] NTech 30mcg/0.3mL) 12YO+ BIVALENT PF, MDV 07/19/2022 COVID-19 vaccine ([employer] NTech 30mcg/0.3mL) PF, MDV 01/30/2022,07/25/2021,01/22/2021,01/01 Influenza A (H1N1), Inactivated 09/07/2009 Influenza [...] on file 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 Gender Identity Not on file Sexual Orientation Not on file Occupation Industry Job Start Date Job End Date Not on file Not on file Not on file Not on file Obstetrics History Last Filed Vital Signs Vital Sign Reading Time Taken Comments Blood Pressure 96/57 05/07/2025 9:45 AM CDT Pulse 78 05/07/2025 9:45 AM CDT Temperature 36.6 C (97.8 F) 05/07/2025 9:05 AM CDT Respiratory Rate 16 05/07/2025 9:05 AM CDT Oxygen Saturation 93% 05/07/2025 10:00 AM CDT Inhaled Oxygen Concentration - - Weight 78.9 kg (174 lb) 05/07/2025 9:05 AM CDT Height 167.6 cm (5' 6) 03/26/2025 5:00 PM CDT Body Mass Index 28.08 03/26/2025 5:00 PM CDT Plan of Treatment Upcoming Encounters Date Type Department Care Team (Late st Contact Info) Description 05/21/2025 9:30 AM CDT Telemedicine [facility] [address] [facility] [address] [place] [address] Iwona Moreno MD [address] [facility] [address] [place] [address] Health Maintenance Due Date Last Done Comments Mammogram for age 45-75 02/26/2020 02/26/20 19, 02/05/2017, 02/03/2016, Additional history exists Fecal testing non-DNA (FIT,FOBT,iFOBT) for age 45-75 05/02/2023 05/02/2022, 08/12/2020, 04/07/2017 COVID-19 vaccine series ( season) 2025 07/28/2024, 01/10/2024, 07/19/2022, Additional history exists Medicare Wellness for age 65+ 04/24/2025 04/23/2024, 04/23/2023, 04/20/2022, Additional history exists Influenza Vaccine (#1) 2025 4, 07/28/2022, 07/20/2021, Additional history exists Depression screening for age 12+ 11/04/2025 11/04/2024, 11/03/2024, 09/05/2024, Additional history exists BMI (ht and wt on same day) for age 18+ 01/28/2026 01/28/2025, 04/23/2024, 04/23/2023, Additional history exists Lipids for age 45-75 04/23/2029 04/23/2024, 04/23/2023, 04/20/2022, Additional history exists Tetanus booster 04/01/2030 04/01/2020, 11/29, 08/06/1999 Hepatitis C screening for age 18-79 Completed 02/01/2015 DEXA/DXA scan for age 65+ Completed 04/26/2021, RSV vaccine for adults or Completed 08/09/2023 Zoster (shingles) series for age 50+ Completed 03/13/2024, 01/10/2024, 01/09/2012 Pneumococcal series for age 50+ Completed 04/23/2024, 02/19/2017, 02/18/2016 Hepatitis B series for 19+ Aged Out N o longer eligible based on patient's age to complete this topic Procedures Procedure Name Priority Date/Time Associated Diagnosis Comments CBC WITH AUTO DIFFERENTIAL Routine 05/12/2025 8:34 AM CDT Hypo-osmolality and hyponatremia Acute pancreatitis with uninfected necrosis, unspecified (HC) C-REACTIVE PROTEIN Routine 05/12/2025 8: 34 AM CDT Hypo-osmolality and hyponatremia Acute pancreatitis with uninfected necrosis, unspecified (HC) BASIC METABOLIC PANEL Routine 05/12/2025 8:34 AM CDT Hypo-osmolality and hyponatremia Acute pancreatitis with uninfected necrosis, unspecified (HC) CBC WITH AUTO DIFFERENTIAL Routine 05/12/2025 8:34 AM CDT Hypo-osmolality and hyponatremia Acute pancreatitis with uninfected necrosis, unspecified (HC) CT ABDOMEN PELVIS W Routine 05/07/2025 1 0:21 AM CDT Post-ERCP acute pancreatitis (HC) XR ERCP BILIARY ONLY Routine 05/07/2025 8:53 AM CDT ENDOTRACHEAL TUBE Routine 05/07/2025 8:3 1 AM CDT ENDOTRACHEAL TUBE Routine 05/07/2025 8:3 1 AM CDT ENDOSCOPIC ULTRASOUND bundles hanger 1 05/07/2025 7:53 AM CDT See MD Dictation ENDOSCOPY 05/07/2025 7:06 AM CDT SCAN CORRESP-EKG RESULTS 05/05/2025 2:46 PM CDT CBC WITH AUTO DIFFERENTIAL Routine 05/05/2025 7:45 AM CDT Essential (primary) hypertension Acute pancreatitis with uninfected necrosis, unspecified (HC) BASIC METABOLIC PANEL Routine 05/05/2025 7:45 AM CDT Essential (primary) hypertension Acute pancreatitis with uninfected necrosis, unspecified (HC) CK TOTAL Routine 05/05/2025 7:45 AM CDT Essential (primary) hypertension Acute pancreatitis with uninfected necrosis, unspecified (HC) C-REACTIVE PROTEIN Routine 05/05/2025 7: 45 AM CDT Essential (primary) hypertension Acute pancreatitis with uninfected necrosis, unspecified (HC) CBC WITH AUTO DIFFERENTIAL Routine 05/05/2025 7:45 AM CDT Essential (primary) hypertension Acute pancreatitis with uninfected necrosis, unspecified (HC) POTASSIUM Routine 04/28/2025 7:50 AM CDT Acute pancreatitis with uninfected necrosis, unspecified (HC) Essential (primary) hypertension CBC WITH AUTO DIFFERENTIAL Routine 04/28/2025 7:50 AM CDT Acute pancreatitis with uninfected necrosis, unspecified (HC) Essential (primary) hypertension C-REACTIVE PROTEIN Routine 04/28/2025 7: 50 AM CDT Acute pancreatitis with uninfected necrosis, unspecified (HC) Essential (primary) hypertension BUN Routine 04/28/2025 7:50 AM CDT Acute pancreatitis with uninfected necrosis, unspecified (HC) Essential (primary) hypertension CREATININE Routine 04/28/2025 7:50 AM CDT Acute pancreatitis with uninfected necrosis, unspecified (HC) Essential (primary) hypertension CBC WITH AUTO DIFFERENTIAL Routine 04/28/2025 7:50 AM CDT Acute pancreatitis with uninfected necrosis, unspecified (HC) Essential (primary) hypertension CT ABDOMEN PELVIS WO Routine 04/23/2025 9:23 [...] necrosis, unspecified (HC) C-REACTIVE PROTEIN Routine 04/07/2025 8: 15 AM CDT Acute pancreatitis with uninfected necrosis, [...] SCAN-CARDIAC STRIP 02/10/2025 4: 30 AM CDT LIPID PANEL W REFLEX MEASURED LDL Routine [...] Recently Relevant to Health Maintenance Results * (ABNORMAL) CBC WITH AUTO DIFFERENTIAL (05/12/2025 8:34 AM CDT) Only the most recent of7 resultswithin the time period is included. WHITE BLOOD COUNT 7.2 4.5 - 11.0 thou/cu mm 05/12/2025 9:58 AM [facility] RED BLOOD COUNT 5.20 4.00 - 5.20 mil/cu mm 05/12/2025 9:58 AM [facility] HEMOGLOBIN 15.3 12.0 - 16.0 g/dL 05/12/2025 9:58 AM [facility] HEMATOCRIT 48.9 33.0 - 51.0 % 05/12/2025 9:58 AM [facility] MCV 94 80 - 100 fL 05/12/2025 9:58 AM [facility] MCH 29.4 26.0 - 34.0 pg 05/12/2025 9:58 AM [facility] MCHC 31.3(L) 32.0 - 36.0 g/dL 05/12/2025 9:58 AM [facility] RDW 21.0(H) 11.5 - 15.5 % 05/12/2025 9:58 AM [facility] PLATELET COUNT 312 140 - 440 thou/cu mm 05/12/2025 9:58 AM [facility] MPV 11.9(H) 6.5 - 11.0 fL 05/12/2025 9:58 AM [facility] % NEUT 60.0 % 05/12/2025 9:58 AM [facility] % LYMPH 28.0 % 05/12/2025 9:58 AM [facility] % MONO 9.5 % 05/12/2025 9:58 AM [facility] % EOS 2.2 % 05/12/2025 9:58 AM [facility] % BASO 0.3 % 05/12/2025 9:58 AM [facility] ABSOLUTE NEUTROPHILS 4.3 1.7 - 7.0 thou/cu mm 05/12/2025 9:58 AM [facility] ABSOLUTE LYMPHOCYTES 2.0 0.9 - 2.9 thou/cu mm 05/12/2025 9:58 AM CDT [facility] ABSOLUTE MONOCYTES 0.7 <0.9 thou/cu mm 05/12/2025 9:58 AM CDT [facility] ABSOLUTE EOSINOPHILS 0.2 <0.5 thou/cu mm 05/12/2025 9:58 AM CDT [facility] ABSOLUTE BASOPHILS 0.0 <0.3 thou/cu mm 05/12/2025 9:58 AM CDT [facility] Blood BLOOD SPECIMEN / Unknown Butterfly / Unknown 05/12/2025 8:34 AM CDT 05/12/2025 9:40 AM CDT June Arango NP HEMATOLOGY Final Resul t Performing Organization Address City/[facility] Co de Phone Number [facility] [address] [place] [address] * (ABNORMAL) C-REACTIVE PROTEIN (05/12/2025 8:34 AM CDT) Only the most recent of8 resultswithin the time period is included. C-REACTIVE PROTEIN 0.7(H) <0.5 mg/dL 05/12/2025 10:15 AM CDT [facility] Blood BLOOD SPECIMEN / Unknown Butterfly / Unknown 05/12/2025 8:34 AM CDT 05/12/2025 9:40 AM CDT June Arango NP CHEMISTRY Final Resul t [facility] [address] [place] [address] * (ABNORMAL) BASIC METABOLIC PANEL (05/12/2025 8:34 AM CDT) Only the most recent of18 resultswithin the time period is included. SODIUM 156(H) 136 - 145 mmol/L 05/12/2025 10:15 AM CDT [facility] POTASSIUM 3.4(L) 3.5 - 5.1 mmol/L 05/12/2025 10:15 AM [facility] CHLORIDE 113(H) 98 - 107 mmol/L 05/12/2025 10:15 AM [facility] CO2,TOTAL 23 22 - 29 mmol/L 05/12/2025 10:15 AM [facility] ANION GAP 20(H) 5 - 18 05/12/2025 10:15 AM [facility] GLUCOSE 93 70 - 99 mg/dL 05/12/2025 10:15 AM [facility] CALCIUM 10.0 8.8 - 10.4 mg/dL 05/12/2025 10:15 AM [facility] Comment: Reference ranges for this test were updated on 09/02/2024 to reflect our healthy population more accurately. Reference range changes are not retroactively applied to results, but previous results using the same methodology can be interpreted in the context of the new reference range. BUN 17 8 - 23 mg/dL 05/12/2025 10:15 AM [facility] CREATININE 0.78 0.50 - 0.90 mg/dL 05/12/2025 10:15 AM [facility] BUN/CREAT RATIO 22(H) 10 - 20 10:15 AM [facility] eGFR 80(L) >90 mL/min/1. 73m2 05/12/2025 10:15 AM [facility] Comment:As of 2022, eG FR is calculated by the CKD-EPI creatinine equation without race adjustment. eGFR can be influenced by muscle mass, exercise, and diet. The reported eGFR is an estimation only and is only applicable if the renal function is stable. Blood BLOOD SPECIMEN / Unknown Butterfly / Unknown 05/12/2025 8:34 AM CDT 05/12/2025 9:40 AM T us June Arango NP CHEMISTRY Final Resul t [facility] [address] [place] [address] * CT ABDOMEN PELVIS W (05/07/2025 10:21 AM CDT) Only the most recent of6 resultswithin the time period is included. Anatomical Region Laterality Modality Abdomen, Pelvis, AORTA, LIVER, SPLEEN Computed Tomography 05/08/2025 12:0 6 PM CDT Impressions 05/08/2025 12:06 PM CDT 1. Decreasing size of retro gastric pancreatic pseudocyst. 2. Residual small linear pseudocyst in the pancreatic body and adjacent retroperitoneum . 3. No new fluid collections. Please note that all CT scans at this facility use dose modulation, iterative reconstruction, and/or weight-based dosing when appropriate to reduce radiation dose to as low as reasonably achievable. Dictated by Mark Burr MD @ 05/08/2025 12:06:13 PM (Electronically Signed) Narrative 05/08/2025 12:06 PM CDT For Patients: As a result of the Cures Act, medical imaging exams and procedure reports are released immediately into your electronic medical record. You may view this report before your referring provider. If you have questions, please contact your health care provider. INDICATION: Pancreatitis follow up. TECHNIQUE: CT scan abdomen pelvis 100 cc Omnipaque IV. COMPARISON: 04/23/2025. FINDINGS: Pancreas and retroperitoneum: Retrogastric pseudocyst has decreased in size. There is a residual of linear intrapancreatic pseudocyst/collection of 15 mm x 60 mm. Some fluid along the Gerota fascia on the left side with little change. Spleen: Stable normal size. Liver: Markedly heterogeneous with fat deposition no change. Calcified stones in the gallbladder. No biliary dilatation. Kidneys and adrenal glands: Stable. Large right renal cysts. GI tract: Normal caliber. Pelvis: There is a stable right adnexal cyst. Small exophytic right-sided uterine fibroid. No free fluid. The lymph nodes: No adenopathy. Lung bases: Are chronic scarring or bronchial wall thickening left lower lobe with slightly increased atelectasis in the left lower lobe. Procedure Note Mark Burr MD - 05/08/2025 For Patients: As a result of the 21st Century Cures Act, medical imagingexams and procedure reports are released immediately into your electronicmedical record. You may view this report before your referring provider.If you have questions, please contact your health care provider. INDICATION: Pancreatitis follow up. TECHNIQUE: CT scan abdomen pelvis 100 cc Omnipaque IV. COMPARISON: 04/23/2025. FINDINGS: Pancreas and retroperitoneum: Retrogastric pseudocyst has decreased in size. There is a residual oflinear intrapancreatic pseudocyst/collection of 15 mm x 60 mm. Some fluidalong the Gerota fascia on the left side with little change. Spleen: Stable normal size. Liver: Markedly heterogeneous with fat deposition no change. Calcifiedstones in the gallbladder. No biliary dilatation. Kidneys and adrenal glands: Stable. Large right renal cysts. GI tract: Normal caliber. Pelvis: There is a stable right adnexal cyst. Small exophytic right-sideduterine fibroid. No free fluid. The lymph nodes: No adenopathy. Lung bases: Are chronic scarring or bronchial wall thickening left lowerlobe with slightly increased atelectasis in the left lower lobe. IMPRESSION: 1. Decreasing size of retro gastric pancreatic pseudocyst. 2. Residual small linear pseudocyst in the pancreatic body and adjacentretroperitoneum . 3. No new fluid collections. Please note that all CT scans at this facility use dose modulation,iterative reconstruction, and/or weight-based dosing when appropriate toreduce radiation dose to as low as reasonably achievable. Dictated by Mark Burr MD @ 05/08/2025 12:06:13 PM (Electronically Signed) Dimitry Garcia MD CT Misty l Result * XR ERCP BILIARY ONLY (05/07/2025 8:53 AM CDT) Anatomical Region Laterality Modality GALLBLADDER, PANCREAS, LIVER Oth er Narrative 05/07/2025 8:53 AM CDT 1 second fluoroscopy time was provided. See operative/procedure report for further information. us Dimitry Garcia MD FLUOROSCOPY Misty l Result * HCHG TUBE PR1, HCHG STYLET PR1 (05/07/2025 8:31 AM CDT) Narrative Nikki Cummings CRNA - 05/07/2025 8:31 AM CDT Nikki Cummings CRNA 05/07/2025 8:31 AM Procedure: ETT Patient location during procedure: OR ETT Properties Mask Ventilation: easy Final Technique: direct laryngoscopy, cricoid pressure and rapid sequence induction Type: straight Location: oral Cuffed: yes Tube Size: 7.0 mm Stylet: yes Laryngoscope Blade: Mac Blade Size: 3 Cormack-Lehane Grade View: 1 Insertion Attempts: 1 Placement Verification: auscultation, end tidal CO2 and symmetrical chest wall movement Assessment: pharynx clear, atraumatic and dentition unchanged Secured at: 22 Measured From: lips Difficulty: 0 (not difficult) us Joe Fung MD ANESTHESIA PX N OTE ORDERABLES Final Result * ENDOSCOPY (05/07/2025 7:06 AM CDT) 05/07/2025 7:06 AM CDT Narrative Transcriptions Dimitry Garcia MD - 05/07/2025 4:05 PM CDT [facility] Patient Name: Mery Boyce Procedure Date: 05/07/2025 Gender: Female Date of : 1950 Admit Type: Ambulatory Procedure: Upper EUS Proceduralist: Dimitry Garcia MD - [facility] Referring MD: Dimitry Garcia MD Indications/Pre-Op Diagnosis: 74-year-old woman with 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 Ongoing abdominal pain, nausea, inadvertent weight loss and inability toeat. Most recent cross-sectional imaging showed large perigastric walled off necrosis withgas and fluid. Previously placed percutaneousdrain was no longer in situ. Patient presents for cyst gastrostomy. Medications: General Anesthesia Procedure Description: Risk of bleeding, infection, perforation, pancreatitis, need for surgery, remote chance of and alternatives were discussed, andthe patient gave informed consent. The endoscope [id number] was introduced through the mouth, and advanced to the third part of duodenum. The upper EUS wasaccomplished without difficulty. The patient tolerated the procedure well. Complications: No immediate complications. Estimated Blood Loss & Specimen: Estimated blood loss: none. Specimen collected: None Findings: ENDOSCOPIC FINDING: : The esophagus was normal throughout. The stomach was edematous with prominent folds. Mild extrinsic compression was seen along the mid body posteriorly. No fistula or drainage of fluid. Pylorus was widely patent. The examined duodenum was endoscopically normal. ENDOSONOGRAPHIC FINDING: : The ampulla was endosonographically normal. The bile duct was 4 mm in diameter. No stones or sludge seen. The gallbladder was distended with multiple shadowing stones. The liver was endosonographically normal in the visualized regions. The pancreas was markedly abnormal with atrophy, prominent duct measuring up to 4 mm at the head, the majority of the body and tailwere replaced by a 26 x 17 mm in cross-sectional area tubular structurewith debris. No targets for cyst gastrostomy. No lymphadenopathy seen. 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 Cross-sectional imaging in late March showed a large abscess collection with air. This has decreased in size dramatically since, as confirmed by CT scan. - Gallstones. Patient with previous severe acute pancreatitis after ERCP. 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 Patient is markedly deconditioned from her chronic illness since January of this year andis at [facility] for cares. Recommendation: - Discharge patient to home. - Resume diet. - Continue antibiotics for 3 days then discontinue. - IR consultation for consideration of GJ tube for enteric supplementation. - Resume PT/OT treatment. - Will discuss with Dr. Das. Dimitry Garcia MD 05/07/2025 4:05:18 PM This report has been signed electronically. Note Initiated On: 05/07/2025 7:06 AM us Dimitry Garcia MD PROCEDURE ORD Misty l Result * SCAN CORRESP-EKG RESULTS (05/05/2025 2:46 PM CDT) Narrative 05/05/2025 2:46 PM CDT Ordered by an unspecified provider. us Other Clinical Staff OTHER Final Resul t * (ABNORMAL) CK TOTAL (05/05/2025 7:45 AM CDT) Only the most recent of6 resultswithin the time period is included. CK,TOTAL 20(L) 26 - 192 IU/L 05/05/2025 9:03 AM CDT [facility] Blood BLOOD SPECIMEN / Unknown Butterfly / Unknown 05/05/2025 7:45 AM CDT 05/05/2025 8:38 AM CDT us June Arango NP CHEMISTRY Final Resul t [facility] [address] [place] [address] * (ABNORMAL) BUN (04/28/2025 7:50 AM CDT) Only the most recent of5 resultswithin the time period is included. BUN 7(L) 8 - 23 mg/dL 04/28/2025 9:38 AM CDT [facility] Blood BLOOD SPECIMEN / Unknown Butterfly / Unknown 04/28/2025 7:50 AM CDT 04/28/2025 9:11 AM CDT Brad Bolanos MD CHEMISTRY Final Result Performing Organization Address City/[facility] Co de Phone Number [facility] [address] [place] [address] * POTASSIUM (04/28/2025 7:50 AM CDT) Only the most recent of40 resultswithin the time period is included. POTASSIUM 4.0 3.5 - 5.1 mmol/L 04/28/2025 9:33 AM CDT [facility] Blood BLOOD SPECIMEN / Unknown Butterfly / Unknown 04/28/2025 7:50 AM CDT 04/28/2025 9:11 AM CDT Brad Bolanos MD CHEMISTRY Final Result Performing Organization Address [facility] Phone Number [facility] [address] [place] [address] * CREATININE (04/28/2025 7:50 AM CDT) Only the most recent of18 resultswithin the time period is included. eGFR >90 >90 mL/min/1.7 3m2 04/28/2025 9:38 AM CDT [facility] Comment:As of 2022, eG FR is calculated by the CKD-EPI creatinine equation without race adjustment. eGFR can be influenced by muscle mass, exercise, and diet. The reported eGFR is an estimation only and is only applicable if the renal function is stable. CREATININE 0.62 0.50 - 0.90 mg/dL 04/28/2025 9:38 AM CDT [facility] Blood BLOOD SPECIMEN / Unknown Butterfly / Unknown 04/28/2025 7:50 AM CDT 04/28/2025 9:11 AM CDT Brad Bolanos MD CHEMISTRY Final Result Performing Organization Address [facility] Co de Phone Number [facility] [address] [place] [address] * CT ABDOMEN PELVIS WO (04/23/2025 9:23 [...] as low as reasonably achievable. Dictated by Ssear Law MD @ 04/23/2025 2:09:52 PM (Electronically Signed) us Nadja MORENO CT Final R esult * RED CELL MORPHOLOGY (04/07/2025 8:15 AM CDT) RBC COMMENT RBC morphology appears normal RBC morphology appears normal, RBC morphology within normal limits for newborns. 04/07/2025 10:56 AM CDT [facility] Blood BLOOD SPECIMEN / Unknown Butterfly / Unknown 04/07/2025 8:15 AM CDT 04/07/2025 9:35 AM CDT us Brad Bolanos MD HEMATOLOGY Final Result [facility] [address] [place] [address] * PLATELET ESTIMATE (04/07/2025 8:15 AM CDT) PLATELET ESTIMATE Adequate Adequate, No estimate 04/07/2025 10:56 AM CDT [facility] Blood BLOOD SPECIMEN / Unknown Butterfly / Unknown 04/07/2025 8:15 AM CDT 04/07/2025 9:35 AM CDT us Brad Bolanos MD HEMATOLOGY Final Result Performing Organization Address [facility]/ZIP Co de Phone Number [facility] [address] [place] [address] * (ABNORMAL) MANUAL DIFFERENTIAL (04/07/2025 8:15 AM CDT) % NEUTROPHILS 71.0 % 04/07/2025 10:56 AM [facility] % LYMPHOCYTES 19.0 % 04/07/2025 10:56 AM [facility] % MONOCYTES 6.0 % 04/07/2025 10:56 AM [facility] % EOSINOPHILS 3.0 % 04/07/2025 10:56 AM [facility] % BASOPHILS 1.0 % 04/07/2025 10:56 AM [facility] NEUTROPHILS ABSOLUTE 9.1(H) 1.7 - 7.0 thou/cu mm 04/07/2025 10:56 AM [facility] LYMPHOCYTES ABSOLUTE 2.4 0.9 - 2.9 thou/cu mm 04/07/2025 10:56 AM [facility] MONOCYTES ABSOLUTE 0.8 <0.9 thou/cu mm 04/07/2025 10:56 AM [facility] EOSINOPHILS ABSOLUTE 0.4 <0.5 thou/cu mm 04/07/2025 10:56 AM [facility] BASOPHILS ABSOLUTE 0.1 <0.3 thou/cu mm 04/07/2025 10:56 AM [facility] Blood BLOOD SPECIMEN / Unknown Butterfly / Unknown 04/07/2025 8:15 AM CDT 04/07/2025 9:35 AM CDT us Brad Bolanos MD HEMATOLOGY Final Result Performing Organization Address City/[facility]/ZIP Co de Phone Number [facility] [address] [place] [address] * SCAN-LABORATORY REPORT (04/01/2025 12:00 AM CDT) us Scanner OTHER Final Result * ECG AM (03/28/2025 6:41 AM CDT) Only the most recent of6 resultswithin the time period is included. Interpretation [...] NOW QTc 440 ms BEYOND NOW P [place] 72 degrees BEYOND NOW R [place] -14 degrees BEYOND NOW T [place] -9 degrees BEYOND NOW 03/28/2025 6:41 AM CDT 03/30/2025 8:24 PM CDT us Sesar Samuel MD EKG ORD Final Result Performing Organization Address [facility] de Phone Number BEYOND NOW [place], [place] * MAGNESIUM (03/28/2025 5:58 AM CDT) Only the most recent of42 resultswithin the time period is included. MAGNESIUM 2.1 1.6 - 2.4 mg/dL 03/28/2025 6:44 AM CDT [facility] Blood BLOOD SPECIMEN / Unknown Non-Lab Venipuncture / Unknown 03/28/2025 5:58 AM CDT 03/28/2025 6:09 AM CDT us Jaspreet Sanchez MD CHEMISTRY Final Re sult Performing Organization Address City/[facility] Co de Phone Number [facility] [address] [place] [address], [place] * SCAN-CARDIAC STRIP (03/28/2025 4:07 AM CDT) us Scanner OTHER Final Result * Insert PICC line (03/27/2025 7:20 PM CDT) Only the most recent of2 resultswithin the time period is included. Narrative Kaitlin Duval, TINO - 03/27/2025 7:20 PM CDT Kaitlin Duval RN 03/27/2025 7:22 PM PICC Line Catheter Exchange [...] Diameter: 0.47 cm upon initial insertion (03/08/25) [id number] Ratio (%): Visible Catheter Length (cm): 0 [...] Dressing change due date 04/03/2025 03/27/251918 Line Call Worker Name:Bard, Solo Power PICC (proximal valve) Lot Number: [id number] Access Assistance:Modified Seldinger Technique (Micro-Introducer) WITHOUT Dermatotomy [...] BSA: 2.02 m Weight: 93.00 kg Tech: Xin Referring MD: JEREMIAH MUSA Site: [facility] Reading Location: [facility] Patient Location: Inpatient. Procedure: 2D, JUSTICE, Color [...] . This study was interpreted by an [facility] accredited facility. Final Procedure Note Sesar Samuel MD - 03/27/2025 TRANSESOPHAGEAL ECHOCARDIOGRAM MERY BOYCE : 1950 74 years Study Date: 03/27/2025 1:51:51 PM Gender: F BP: 106/84 mmHg Height: 168.00 cm BSA: 2.02 m Weight: 93.00 kg Tech: DIONICIO/Josh Referring MD: JEREMIAH MUSA Site: [facility] Reading Location: [facility] Patient Location: Inpatient. Procedure: 2D, JUSTICE, Color [...] . This study was interpreted by an [facility] accredited facility. Final us Jeremiah MORENO ECHO ORD Final Res ult * SCAN-CARDIAC STRIP (03/27/2025 11:15 AM CDT) us Scanner OTHER Final Result * SCAN-CARDIAC STRIP (03/27/2025 5:01 AM CDT) us Scanner OTHER Final Result * SCAN-CARDIAC STRIP (03/27/2025 5:01 AM CDT) us Scanner OTHER Final Result * XR CHEST 1 VIEW PORTABLE (03/26/2025 9:25 PM CDT) Only the most recent of3 resultswithin the time period is included. Anatomical [...] * SCAN-CARDIAC STRIP (03/26/2025 6:27 PM CDT) us Scanner OTHER Final Result * PHOSPHORUS (03/26/2025 1:29 PM CDT) Only the most recent of25 resultswithin the time period is included. PHOSPHORUS 3.3 2.5 - 4.5 mg/dL 03/27/2025 9:28 AM CDT [facility] Blood BLOOD SPECIMEN / Unknown Non-Lab Venipuncture / Unknown 03/26/2025 1:29 PM CDT 03/26/2025 1:[address], LD CHEMISTRY Final Result Performing Organization Address [facility] Co de Phone Number [facility] [address] [address], [place] * (ABNORMAL) PROTIME-INR (03/26/2025 12:41 PM CDT) Only the most recent of3 resultswithin the time period is included. INR 2.0(H) <1.3 03/26/2025 1:09 PM CDT [facility] PROTIME 22.8(H) 10.6 - 12.4 sec 03/26/2025 1:09 PM CDT [facility] Blood BLOOD SPECIMEN / Unknown Non-Lab Venipuncture / Unknown 03/26/2025 12:41 PM CDT 03/26/2025 12:48 PM CDT Narrative [facility] - 03/26/2025 1:09 PM CDT Therapeutic [...] seconds if the patient is on UFH. Kathy Akers DO HEMATOLOGY Final Res ult Performing Organization Address [facility] Co de Phone Number [facility] [address] [place] [address], [place] * (ABNORMAL) CBC W PLT NO DIFF (03/26/2025 12:32 PM CDT) Only the most recent of13 resultswithin the time period is included. WHITE BLOOD COUNT 11.1(H) 4.5 - 11.0 thou/cu mm 03/26/2025 12:43 PM CDT [facility] RED BLOOD COUNT 3.92(L) 4.00 - 5.20 mil/cu mm 03/26/2025 12:43 PM CDT [facility] HEMOGLOBIN 11.8(L) 12.0 - 16.0 g/dL 03/26/2025 12:43 PM CDT [facility] HEMATOCRIT 38.4 33.0 - 51.0 % 03/26/2025 12:43 PM CDT [facility] MCV 98 80 - 100 fL 03/26/2025 12:43 PM CDT [facility] MCH 30.1 26.0 - 34.0 pg 03/26/2025 12:43 PM CDT [facility] MCHC 30.7(L) 32.0 - 36.0 g/dL 03/26/2025 12:43 PM CDT [facility] RDW 18.6(H) 11.5 - 15.5 % 03/26/2025 12:43 PM CDT [facility] PLATELET COUNT 596(H) 140 - 440 thou/cu mm 03/26/2025 12:43 PM CDT [facility] MPV 9.1 6.5 - 11.0 fL 03/26/2025 12:43 PM CDT [facility] NRBC 0.0 % 03/26/2025 12:43 PM CDT [facility] ABS NRBC 0.0 thou /cu mm 03/26/2025 12:43 PM T [facility] Blood BLOOD SPECIMEN / Unknown Non-Lab Venipuncture / Unknown 03/26/2025 12:32 PM CDT 03/26/2025 12:38 PM CDT us Kathy Akers DO HEMATOLOGY Final Res ult [facility] [address] [place] [address], * (ABNORMAL) PRO-BNP (03/26/2025 12:32 PM CDT) PRO-BNP 2,075(H) <125 pg/mL 03/26/2025 1:11 PM CDT [facility] Blood BLOOD SPECIMEN / Unknown Non-Lab Venipuncture / Unknown 03/26/2025 12:32 PM CDT 03/26/2025 12:38 PM CDT Narrative [facility] - 03/26/2025 1:11 PM CDT The following [...] of 72% for acute congestive heart failure. Kathy Akers DO SEND OUTS Final Res ult [facility] [address] [place] [address], [place] * SCAN-CARDIAC STRIP (03/26/2025 12:00 AM CDT) Narrative 03/26/2025 12:00 AM CDT Ordered by an unspecified provider. Other Clinical Staff OTHER Final Resul t * (ABNORMAL) GLUCOSE METER (03/16/2025 4:31 PM CDT) Only the most recent of156 resultswithin the time period is included. GLUCOSE METER 121(H) 65 - 100 mg/dL 03/16/2025 4:32 PM CDT [facility] Blood BLOOD SPECIMEN / Unknown 03/16/2025 4:31 PM CDT 03/16/2025 4:32 PM CDT us Talib Naidu MD CHEMISTRY Final Res ult Performing Organization Address [facility]/ZIP Co de Phone Number [facility] [address] [place] [address], * Sodium AM (03/15/2025 5:46 AM CDT) Only the most recent of6 resultswithin the time period is included. SODIUM 140 136 - 145 mmol/L 03/15/2025 6:29 AM CDT [facility] Blood BLOOD SPECIMEN / Unknown Non-Lab Venipuncture / Unknown 03/15/2025 5:46 AM CDT 03/15/2025 5:55 AM CDT us Maisha Lopez MD CHEMISTRY Final R esult Performing Organization Address City/[facility] Co de Phone Number [facility] [address] [place] [address], [place] * SCAN-CARDIAC STRIP (03/14/2025 9:54 AM CDT) us Scanner OTHER Final Result * SCAN-CARDIAC STRIP (03/14/2025 1:17 AM CDT) us Scanner OTHER Final Result * SCAN-CARDIAC STRIP (03/13/2025 5:14 PM CDT) us Scanner OTHER Final Result * SCAN-CARDIAC STRIP (03/13/2025 5:09 AM CDT) [...] adnexal cystic lesion. The lesion is homogeneously [id number] and has a uniform intermediate T1 intensity. [...] MD @ 03/13/2025 7:42:45 AM (Electronically Signed) us Sesar Car MD MR Final R esult [...] 440 thou/cu mm 03/10/2025 7:38 AM CDT [facility] MPV 9.1 6.5 - 11.0 fL 03/10/2025 7:38 AM CDT [facility] Blood BLOOD SPECIMEN / Unknown Line/Port / Unknown 03/10/2025 6:21 AM CDT 03/10/2025 7:28 AM CDT us Peyman Ring MD HEMATOLOGY Final Result Performing Organization Address City/State/[facility] Co de Phone Number [facility] [address] [address], [place] * SCAN-CARDIAC STRIP (03/10/2025 1:00 AM CDT) us Scanner OTHER Final Result * SCAN-CARDIAC STRIP (03/09/2025 2:41 PM CDT) us Scanner OTHER Final Result * XR ASPIRATION HAND RT (03/09/2025 9:25 AM CDT) Anatomical Region Laterality Modality ANKLES Digital Radiogra phy Narrative 03/09/2025 9:37 AM CDT RADIOLOGY POST PROCEDURE NOTE 03/09/2025 Mery Boyce [id number] 1950 PROCEDURE PERFORMED: FLUOROSCOPIC GUIDED Right 1st [...] seconds Jeancarlos Lopez PA-C [employer] [place] Protocol A. Pre-procedure verification complete yes 1-relevant [...] / irrigation fluids (if applicable), 8-safety precautions. Peyman Ring MD GENERAL IMAGING Final Result * AEROBIC BACTERIAL CULTURE, STAIN (03/09/2025 9:15 AM CDT) Only the most recent of2 resultswithin the time period is included. CULTURE No Growth. 03/12/2025 9:04 AM CDT [facility] GRAM STAIN 1+ PMNs 03/12/2025 9:04 AM CDT [facility] GRAM STAIN 2+ RBCs 03/12/2025 9:04 AM CDT [facility] GRAM STAIN No Epithelial cells 03/12/2025 9:04 AM CDT [facility] GRAM STAIN No organisms seen 03/12/2025 9:04 AM CDT [facility] Other (Other) Non-Blood / Unknown 03/09/2025 9:15 AM CDT 03/09/2025 9:39 AM CDT Narrative [facility] - 03/12/2025 9:04 AM CDT Peyman Ring MD MICROBIOLOGY Final Result [facility] [address] [place] [id number], [place] * Crystal ID synovial fluid (03/09/2025 9:15 AM CDT) MONOSODIUM URATES None Seen None Seen, Present, Not Present 03/10/2025 10:08 AM CDT [facility] CALCIUM PYROPHOSPHATES None Seen None Seen, Present, Not Present 03/10/2025 10:08 AM CDT [facility] OTHER CRYSTALS 03/10/2025 10:08 AM CDT [facility] SPECIMEN SOURCE hand aspiration 03/10/2025 10:08 AM CDT [facility] Body Fluid JOINT SPECIMEN / Unknown Non-Blood / Unknown 03/09/2025 9:15 AM CDT 03/09/2025 9:39 AM CDT Peyman Ring MD BODY FLUID Final Result [facility] [address] [place] [id number], [place] * Uric acid AM (03/09/2025 5:10 AM CDT) Only the most recent of2 resultswithin the time period is included. URIC ACID 3.8 2.4 - 5.7 mg/dL 03/09/2025 5:57 AM CDT [facility] Blood BLOOD SPECIMEN / Unknown Non-Lab Venipuncture / Unknown 03/09/2025 5:10 AM CDT 03/09/2025 5:18 AM CDT us Peyman Ring MD CHEMISTRY Final Result [facility] [address] [place] [address], [place] * SCAN-CARDIAC STRIP (03/09/2025 1:05 AM [...] @ Mar 07 2025 1:44PM (Electronically Signed) [email or web address] Narrative 03/07/2025 1:44 PM CDT For Patients: [...] @ Mar 07 2025 1:44PM (Electronically Signed) [email or web address] Peyman Ring MD GENERAL IMAGING Final Result * (ABNORMAL) WHITE BLOOD COUNT (03/07/2025 6:12 AM CDT) Only the most recent of4 resultswithin the time period is included. WHITE BLOOD COUNT 14.8(H) 4.5 - 11.0 thou/cu mm 03/07/2025 7:20 AM CDT [facility] NRBC 0.3 % 03/07/2025 7:20 AM CDT [facility] ABS NRBC 0.1 thou /cu mm 03/07/2025 7:20 AM CDT [facility] Blood BLOOD SPECIMEN / Unknown Butterfly / Unknown 03/07/2025 6:12 AM CDT 03/07/2025 7:13 AM CDT us Bushra MORENO HEMATOLOGY Misty l Result [facility] [address] [place] [address], [place] * SCAN-CARDIAC STRIP (03/07/2025 3:45 AM [...] us Peyman Ring MD LABORATORY Final Result Performing Organization Address City/[facility]/ZIP Co de Phone Number [facility] [address] [place] [id number], [place] * SCAN-CARDIAC STRIP (03/05/2025 12:38 AM CDT) us Scanner OTHER Final Result * LOW MOLECULAR WGT HEPARIN (03/04/2025 1:21 PM CDT) Only the most recent of4 resultswithin the time period is included. LOW MOLECULAR WGT HEPARIN 0.64 U/mL 03/04/2025 1:49 PM CDT [facility] Comment: LMWH therapeutic range: 0.60-1.00 IU/mL for twice daily dosing* LMWH therapeutic range: 1.00-2.00 IU/mL for once daily dosing* LMWH prophylactic range: 0.10-0.30 IU/mL (*sample obtained 4-6 hours following subcutaneous injection) Blood BLOOD SPECIMEN / Unknown Butterfly / Unknown 03/04/2025 1:21 PM CDT 03/04/2025 1:35 PM CDT Peyman Ring MD HEMATOLOGY Final Result [facility] [address] [place] [address], [place] * SCAN-CARDIAC STRIP (03/04/2025 1:58 AM CDT) [...] 7:13 AM CDT) Only the most recent of6 resultswithin the time period is included. ALBUMIN 2.2(L) 4.0 - 4.9 g/dL 03/02/2025 7:58 AM CDT [facility] PROTEIN,TOTAL 6.0 6.0 - 8.0 g/dL 03/02/2025 7:58 AM CDT [facility] BILIRUBIN,TOTAL 0.2 0.0 - 1.2 mg/dL 03/02/2025 7:58 AM CDT [facility] BILIRUBIN,DIRECT 0.1 0.0 - 0.2 mg/dL 03/02/2025 7:58 AM CDT [facility] BILIRUBIN,INDIRE CT 0.1(L) 0.2 - 0.8 mg/dL 03/02/2025 7:58 AM CDT [facility] ALK PHOSPHATASE 108(H) 35 - 104 IU/L 03/02/2025 7:58 AM CDT [facility] ALT (SGPT) <5(L) 10 - 35 IU/L 03/02/2025 7:58 AM CDT [facility] AST (SGOT) 21 10 - 35 IU/L 03/02/2025 7:58 AM CDT [facility] Blood BLOOD SPECIMEN / Unknown Butterfly / Unknown 03/02/2025 7:13 AM CDT 03/02/2025 7:20 AM CDT us Kerri [place] MD CHEMISTRY Final Result [facility] [address] [place] [address], * SCAN-CARDIAC STRIP (03/02/2025 1:14 AM CDT) us Scanner OTHER Final Result * CHLORIDE (03/01/2025 8:41 AM CDT) CHLORIDE 99 98 - 107 mmol/L 03/01/2025 1:05 PM CDT [facility] Blood BLOOD SPECIMEN / Unknown Non-Lab Venipuncture / Unknown 03/01/2025 8:41 AM CDT 03/01/2025 8:58 AM CDT us Kerri Bingham MD CHEMISTRY Final Result [facility] [address] [place] [address], * SCAN-CARDIAC STRIP (03/01/2025 1:22 AM CDT) [...] @ Mar 01 2025 10:34AM (Electronically Signed) [email or web address] Narrative 03/01/2025 10:34 AM CDT For Patients: As a result of the 21st Century Cures Act, medical imaging exams and [...] For Patients: As a result of the 21st Century Cures Act, medical imagingexams and procedure [...] @ Mar 01 2025 10:34AM (Electronically Signed) [email or web address] MD GENERAL IMAGING Final R esult * CT DRAIN PERITONEAL RETROPERITONEAL INC GUIDE (02/28/2025 10:16 AM CDT) Anatomical Region Laterality Modality Abdomen Computed Tomogra phy, Other Narrative 02/28/2025 10:31 AM CDT Date: 02/28/2025 Procedure: 1. CT guided placement of percutaneous 14 Filipino drain into peripancreatic collection. Clinical History: Peripancreatic [...] soft tissue for local anesthesia. A 5 Filipino Yueh needle was inserted into the collection. Subsequently 10 mL purulent material was aspirated. Then an Amplatz wire was advanced into the collection. The Yueh needle was removed and the tract was sequentially dilated. Then a 14 Filipino percutaneous drain was advanced over the wire [...] Impression: 1. Successful CT-guided placement of 14 Filipino percutaneous drain into peripancreatic collection. Please contact me with any questions. Moy Mccormick MD Vascular & Interventional Radiology at [facility] Nadja MORENO CT Final R esult * (ABNORMAL) ANAEROBIC CULTURE (02/28/2025 10:11 AM CDT) CULTURE RESULT(A) 03/05/2025 9:35 AM CDT [facility] CULTURE 3+ Veillonella species 03/05/2025 9:35 AM CDT [facility] Other BODY FLUID SPECIMEN / Unknown Non-Blood / Unknown 02/28/2025 10:11 AM CDT 02/28/2025 10:35 AM CDT us Bushra MORENO MICROBIOLOGY Misty johnson Result [facility] [address] [place] [address], * (ABNORMAL) Gm stain & culture ascitic fluid (02/28/2025 10:10 AM CDT) Only the most recent of2 resultswithin the time period is included. 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 CULTURE 1+ Staphylococcus coagulase negative 03/03/2025 1:23 PM CDT [facility] CULTURE 1+ Lactobacillus species 03/03/2025 1:23 PM CDT [facility] GRAM STAIN 2+ PMNs(A) 03/03/2025 1:23 PM CDT [facility] GRAM STAIN 1+ RBCs(A) 03/03/2025 1:23 PM CDT [facility] GRAM STAIN No Epithelial cells(A) 03/03/2025 1:23 PM CDT [facility] GRAM STAIN 1+ Gram Positive Cocci(A) 03/03/2025 1:23 PM CDT [facility] Body Fluid (Peritoneal) Non-Blood / Unknown 02/28/2025 10:10 AM CDT 02/28/2025 10:35 AM CDT Narrative Organism Antibiotic Method Susceptibility Enterococcus faecium VANCOMYCIN >=32: R Enterococcus faecium LINEZOLID 2: S Enterococcus faecium AMPICILLIN >=32: R Enterococcus faecium DAPTOMYCIN 4: Susceptible-dose dependent. Susceptibility dependent on max. possible blood level. us Sesar Car MD MICROBIOLOGY Final R esult [facility] [address] [place] [address], * SCAN-CARDIAC STRIP (02/28/2025 5:13 AM CDT) [...] enlarged cardiomediastinal silhouette with calcified aortic knob. Xxaw-bs-whdbkfid left basilar opacity with possible trace pleural effusion. Possible trace left apical pneumothorax. Impression: Yjto-py-nqmrwzbg left basilar opacity with possible trace pleural effusion, which may represent underlying atelectasis. Possible trace left apical pneumothorax. Findings communicated to Dr. Sesar Car at 12:20 p.m. via Zoom Telephonics Chat on 02/27/2025. Dictated by Paras Vila [...] Moderately enlarged cardiomediastinal silhouette with calcified aorticknob. Zasu-ml-pczldlxh left basilar opacity with possible trace pleuraleffusion. Possible trace left apical pneumothorax. Impression: Rpeh-nl-ypthmpid left basilar opacity with possible trace pleuraleffusion, which may represent underlying atelectasis. Possible trace left apical pneumothorax. Findings communicated to Dr. Sesar Car at 12:20 p.m. via Epic Chat on02/27/2025. Dictated by Paras Vila MD @ 02/27/2025 12:22:42 PM (Electronically Signed) Sesar Car MD GENERAL IMAGING Final R esult * CWS PATH REVIEW BODY FLUID (02/27/2025 11:57 AM CDT) PATH COMMENT Comment 03/02/2025 8:30 AM CDT [facility] Comment:No atypical or malig nant cells, favor reactive.Reviewed by Dr. Ash Fuentes on 03/02/2025 Body Fluid PLEURAL FLUID SPECIMEN / Unknown Non-Blood / Unknown 02/27/2025 11:57 AM CDT 02/27/2025 12:06 PM CDT Sesar Car MD LABORATORY Final R esult [facility] [address] [place] [address], * BODY FLUID CELL COUNT/DIF (02/27/2025 11:57 AM CDT) BODY FLUID SOURCE Pleural Fluid 03/02/2025 8:29 AM CDT [facility] BODY FLUID COLOR Yellow 03/02/2025 8:29 AM CDT [facility] BODY FLUID CLARITY Slightly Cloudy 03/02/2025 8:29 AM CDT [facility] TOTAL NUCLEATED CELLS, BF 1,930 /cu mm 03/02/2025 8:29 AM CDT [facility] RED BLOOD COUNT, BODY FLUID 2,000 /cu mm 03/02/2025 8:29 AM CDT [facility] % NEUTROPHILS, BODY FLUID 73 % 03/02/2025 8:29 AM CDT [facility] % LYMPHOCYTES, BODY FLUID 5 % 03/02/2025 8:29 AM CDT [facility] % MONO/MACRO, BODY FLUID 9 % 03/02/2025 8:29 AM CDT [facility] % MESOTHELIAL CELLS, BODY FLUID 13 % 03/02/2025 8:29 AM CDT [facility] Body Fluid PLEURAL FLUID SPECIMEN / Unknown Non-Blood / Unknown 02/27/2025 11:57 AM CDT 02/27/2025 12:06 PM CDT Narrative [facility] - 03/02/2025 8:29 AM CDT TO ORDER BODY FLUID CULTURES, USE; [id number] BODY FLUID CULTURE, STAIN Sesar Car MD BODY FLUID Edited Result - Final Performing Organization Address [facility]/ZIP Co de Phone Number [facility] [address] [place] [address], [place] * AMYLASE,BODY FLUID (02/27/2025 11:57 AM CDT) SPECIMEN SOURCE L. Pleural Fluid 02/27/2025 12:45 PM CDT [facility] AMYLASE,BODY FLUID 16 IU/L 02/27/2025 12:45 PM CDT [facility] Comment:No Reference Range D efined. Body Fluid PLEURAL FLUID SPECIMEN / Unknown Non-Blood / Unknown 02/27/2025 11:57 AM CDT 02/27/2025 12:06 PM CDT Narrative [facility] - 02/27/2025 12:45 PM CDT Peritoneal: [...] Test developed & performance characteristics determined [facility] [place], [place] consistent with CLIA requirements. Not cleared or approved by [place] FDA. Sesar Car MD BODY FLUID Final R esult Performing Organization Address [facility]/ZIP Co de Phone Number [facility] [address] [place] [address], [place] * US THORACENTESIS INCL IMAGE GUIDE LEFT (02/27/2025 11:50 AM CDT) Anatomical Region Laterality Modality CHEST, THORAX Ultrasound Impressions 02/27/2025 1:42 PM CDT Successful ultrasound guided therapeutic and diagnostic thoracentesis, with removal of 340 mLs of fluid from the Left pleural space. Gertrude Chacko PA-C [facility] Interventional Radiology [place] Protocol A. Pre-procedure verification complete yes 1-relevant [...] IMMEDIATE POST PROCEDURE NOTE 02/27/2025 Mery Boyce [id number] INFORMED CONSENT: In my discussion, prior [...] anesthetize the subcutaneous soft tissues. Then, a 5-spanish Yueh needle with a one-way valve was advanced into the pleural space. 340 mLs of serous pleural fluid was removed. Fluid sample was sent to the lab for analysis. No immediate complications. Patient tolerated the procedure well. Sesar Car MD US Final R esult * SCAN-CARDIAC STRIP (02/27/2025 2:38 AM CDT) us Scanner OTHER Final Result * Blood culture (02/26/2025 8:03 PM CDT) Only the most recent of2 resultswithin the time period is included. CULTURE No Growth. 03/03/2025 9:06 PM CDT [facility] Blood BLOOD SPECIMEN / Unknown Venipuncture / Unknown 02/26/2025 8:03 PM CDT 02/26/2025 8:08 PM CDT Narrative [facility] - 03/03/2025 9:06 PM CDT Low volume blood culture received; possible false negative culture. Sesar Car MD MICROBIOLOGY Final R esult [facility] [address] [place] [address], * CT Chest with contrast (02/26/2025 2:17 PM CDT) Anatomical Region Laterality Modality CHEST, THORAX, HEART Computed To mography 02/27/2025 12:5 6 AM CDT Impressions 02/27/2025 12:56 AM CDT Xszescge-yp-zgjjw left and small right pleural effusions with [...] Bones: Unremarkable for age. Procedure Note Kadeem Paris MD - 02/27/2025 For Patients: As a [...] the same day. CT chest, abdomen, and [id number]/05/2025. FINDINGS: Lungs and pleura: Moderate to large [...] Dictated separately. Bones: Unremarkable for age. IMPRESSION: Htprxnfc-ak-fxjbn left and small right pleural effusions with [...] D 25 (DEFICIENCY) (02/26/2025 1:26 PM CDT) [facility] VITAMIN D TOTAL 30.7 20.0 - 80.0 ng/mL 02/26/2025 10:38 PM CDT [facility] Blood BLOOD SPECIMEN / Unknown Butterfly / Unknown 02/26/2025 1:26 PM CDT 02/26/2025 1:[address] [facility] LAB[facility]AT[facility] - 02/26/2025 10:38 PM CDT Vitamin D Status Deficiency: <20 ng/mL Insufficiency: 20-29 ng/mL Sufficiency: 30-80 ng/mL Possible Toxicity: >80 ng/mL Based on [employer] recommendations Biotin supplements may cause clinically significant interference for this test assay. If interference is suspected, it is strongly recommended that biotin is discontinued for at least one week prior to retesting. Oscar Dumont RD, LD SEND OUTS Final Resu lt [facility] [address] [place] [address], * RESPIRATORY PANEL MULTIPLEX PCR (02/26/2025 11:07 AM CDT) [facility] Adenovirus NOT Detected 02/26/2025 12:08 PM CDT [facility] Coronavirus 229E NOT Detected 02/26/2025 12:08 PM CDT [facility] Coronavirus HKU1 NOT Detected 02/26/2025 12:08 PM CDT [facility] Coronavirus NL63 NOT Detected 02/26/2025 12:08 PM CDT [facility] Coronavirus OC43 NOT Detected 02/26/2025 12:08 PM CDT [facility] Human Metapneumovirus NOT Detected 02/26/2025 12:08 PM CDT [facility] Human Rhinovirus/Enterovi akosua NOT Detected 02/26/2025 12:08 PM CDT [facility] Influenza A NOT Detected 02/26/2025 12:08 PM CDT [facility] Influenza B NOT Detected 02/26/2025 12:08 PM CDT [facility] Parainfluenza Virus 1 NOT Detected 02/26/2025 12:08 PM CDT [facility] Parainfluenza Virus 2 NOT Detected 02/26/2025 12:08 PM CDT [facility] Parainfluenza Virus 3 NOT Detected 02/26/2025 12:08 PM CDT [facility] Parainfluenza Virus 4 NOT Detected 02/26/2025 12:08 PM CDT [facility] Respiratory Syncytial Virus NOT Detected 02/26/2025 12:08 PM CDT [facility] SARS-Cov-2 NOT Detected 02/26/2025 12:08 PM CDT [facility] Bordetella pertussis NOT Detected 02/26/2025 12:08 PM CDT [facility] Bordetella Parapertussis NOT Detected 02/26/2025 12:08 PM CDT [facility] Chlamydophila pneumoniae NOT Detected 02/26/2025 12:08 PM CDT [facility] Mycoplasma pneumoniae NOT Detected 02/26/2025 12:08 PM CDT [facility] Nasopharyngeal NASOPHARYNGEAL SWAB / Unknown Non-Blood / Unknown 02/26/2025 11:07 AM CDT 02/26/2025 11:[address] [facility] LAB[facility]AT[facility] - 02/26/2025 12:08 PM CDT All PCR tests are subject to false negative results due to variability in viral/bacterial load and collection technique. This test does NOT detect MERS ( Respiratory Syndrome) or SARS-1 (Severe Acute Respiratory Syndrome). us Sesar Car MD MICROBIOLOGY Final R esult [facility] [address] [place] [address], [place] * SCAN-CARDIAC STRIP (02/26/2025 12:52 AM [...] CDT RADIOLOGY POST PROCEDURE NOTE 02/25/2025 Mery Mari Boyce [id number] PROCEDURE: Fluoroscopically guided feeding tube placement INDICATION: Need post pyloric advancement of feeding tube FINDINGS: Audible time out performed before beginning confirming patient ID, procedure, and procedure site. A previously placed 12 spanish weighted feeding tube was visualized in the [...] complication. Estimated blood loss none. us Sesar Car MD FLUOROSCOPY Final R esult * SCAN-CARDIAC STRIP (02/25/2025 1:23 AM CDT) us Scanner OTHER Final Result * (ABNORMAL) HEMOGLOBIN (02/24/2025 7:55 AM CDT) Only the most recent of3 resultswithin the time period is included. HEMOGLOBIN 8.8(L) 12.0 - 16.0 g/dL 02/24/2025 10:41 AM CDT [facility] MCV 93 80 - 100 fL 02/24/2025 10:41 AM CDT [facility] Blood BLOOD SPECIMEN / Unknown Non-Lab Venipuncture / Unknown 02/24/2025 7:55 AM CDT 02/24/2025 9:00 AM CDT us Sesar Car MD HEMATOLOGY Final R esult Performing Organization Address [facility] de Phone Number [facility] [address] [place] [address], [place] * SCAN-CARDIAC STRIP (02/24/2025 6:51 AM CDT) us Scanner OTHER Final Result * SCAN-CARDIAC STRIP (02/24/2025 12:35 AM CDT) us Scanner OTHER Final Result * (ABNORMAL) Albumin AM (02/23/2025 5:14 AM CDT) Pathologist [facility] ALBUMIN 2.3(L) 4.0 - 4.9 g/dL 02/23/2025 5:49 AM CDT [facility] Blood BLOOD SPECIMEN / Unknown Venipuncture / Unknown 02/23/2025 5:14 AM CDT 02/23/2025 5:24 AM CDT us Sesar Car MD CHEMISTRY Final R esult Performing Organization Address [facility] Co de Phone Number [facility] [address] [place] [address], [place] * SCAN-CARDIAC STRIP (02/23/2025 1:28 AM CDT) us Scanner OTHER Final Result * SCAN-CARDIAC STRIP (02/22/2025 1:25 AM CDT) us Scanner OTHER Final Result * (ABNORMAL) Electrolyte panel AM (02/21/2025 7:48 AM CDT) SODIUM 139 136 - 145 mmol/L 02/21/2025 9:35 AM CDT [facility] POTASSIUM 4.0 3.5 - 5.1 mmol/L 02/21/2025 9:35 AM CDT [facility] CHLORIDE 99 98 - 107 mmol/L 02/21/2025 9:35 AM CDT [facility] CO2,TOTAL 30(H) 22 - 29 mmol/L 02/21/2025 9:35 AM CDT [facility] ANION GAP 10 5 - 18 02/21/2025 9:35 AM CDT [facility] Blood BLOOD SPECIMEN / Unknown Non-Lab Venipuncture / Unknown 02/21/2025 7:48 AM CDT 02/21/2025 8:50 AM CDT us Sesar Car MD CHEMISTRY Final R esult [facility] [address] [place] [address], [place] * SCAN-CARDIAC STRIP (02/21/2025 3:02 AM CDT) [...] 7:57 AM CDT) Only the most recent of4 resultswithin the time period is included. Anatomical [...] @ Feb 18 2025 8:22AM (Electronically Signed) [email or web address] Impressions 02/18/2025 8:20 AM CDT The feeding [...] in diameter previously 14 cm. Whitney Hui COMMUNITY OUTREACH MANAGER GENERAL IMAGING Edited Result - Final * Bilirubin, total/direct AM (02/18/2025 6:12 AM CDT) BILIRUBIN,TOTA L 0.3 0.0 - 1.2 mg/dL 02/18/2025 7:22 AM CDT [facility] BILIRUBIN,DIRE CT 0.1 0.0 - 0.2 mg/dL 02/18/2025 7:22 AM CDT [facility] BILIRUBIN,MAGDA RECT 0.2 0.2 - 0.8 mg/dL 02/18/2025 7:22 AM CDT [facility] Blood BLOOD SPECIMEN / Unknown Butterfly / Unknown 02/18/2025 6:12 AM CDT 02/18/2025 6:23 AM CDT Sesar Car MD CHEMISTRY Final R esult Performing Organization Address City/[facility]/ZIP Co de Phone Number [facility] [address] [address], * ALT AM (02/18/2025 6:12 AM CDT) Only the most recent of2 resultswithin the time period is included. ALT (SGPT) 15 10 - 35 IU/L 02/18/2025 7:22 AM CDT [facility] Blood BLOOD SPECIMEN / Unknown Butterfly / Unknown 02/18/2025 6:12 AM CDT 02/18/2025 6:23 AM CDT Sesar Car MD CHEMISTRY Final R esult [facility] [address] [address], [place] * AST AM (02/18/2025 6:12 AM CDT) Only the most recent of2 resultswithin the time period is included. AST (SGOT) 32 10 - 35 IU/L 02/18/2025 7:22 AM CDT [facility] Blood BLOOD SPECIMEN / Unknown Butterfly / Unknown 02/18/2025 6:12 AM CDT 02/18/2025 6:23 AM CDT Sesar Car MD CHEMISTRY Final R esult Performing Organization Address City/[facility]/ZIP Co de Phone Number [facility] [address] [address], [place] * (ABNORMAL) Alk phosphatase AM (02/18/2025 6:12 AM CDT) ALK PHOSPHATASE 109(H) 35 - 104 IU/L 02/18/2025 7:22 AM CDT [facility] Blood BLOOD SPECIMEN / Unknown Butterfly / Unknown 02/18/2025 6:12 AM CDT 02/18/2025 6:23 AM CDT Sesar Car MD CHEMISTRY Final R esult Performing Organization Address City/[facility]/ZIP Co de Phone Number [facility] [address] [address], [place] * Lipase AM (02/18/2025 6:12 AM CDT) LIPASE 48.0 13.0 - 60.0 IU/L 02/18/2025 8:32 AM CDT [facility] Blood BLOOD SPECIMEN / Unknown Butterfly / Unknown 02/18/2025 6:12 AM CDT 02/18/2025 6:23 AM CDT Sesar Car MD CHEMISTRY Final R esult [facility] [address] [place] [address], [place] * SCAN-CARDIAC STRIP (02/18/2025 12:42 AM [...] * BILIRUBIN DIRECT (02/15/2025 10:19 AM CDT) BILIRUBIN,DIRE CT 0.2 0.0 - 0.2 mg/dL 02/15/2025 11:00 AM CDT [facility] Blood BLOOD SPECIMEN / Unknown Non-Lab Venipuncture / Unknown 02/15/2025 10:19 AM CDT 02/15/2025 10:27 AM CDT us Rodrigo ORTIZ CHEMISTRY Final Result [facility] [address] [place] [address], [place] * SCAN-CARDIAC STRIP (02/15/2025 1:04 AM [...] CDT) us Scanner OTHER Final Result * LIPID PANEL W REFLEX MEASURED LDL (04/23/2024 11:19 AM CDT) [facility] CHOLESTEROL,TOTAL 191 100 - 199 mg/dL 04/23/2024 11:56 AM [facility] Comment: Cholesterol, Total Reference Ranges Desirable <200 mg/dL Borderline 200-239 mg/dL High >=240 mg/dL TRIGLYCERIDES 140 <150 mg/dL 04/23/2024 11:56 AM [facility] HDL CHOLESTEROL 48 >40 mg/dL 11:56 AM [facility] NON-HDL CHOLESTEROL 143 <145 mg/dl 04/23/2024 11:56 AM [facility] CHOL/HDL RATIO 3.98 <4.50 04/23/2024 11:56 AM [facility] LDL CHOLESTEROL 115 <=130 mg/dL 04/23/2024 11:56 AM [facility] VLDL CHOLESTEROL 28 <=30 mg/dL 04/23/2024 11:56 AM [facility] PROVIDER ORDERED STATUS RANDOM 04/23/2024 11:56 AM CDT [facility] Blood BLOOD SPECIMEN / Unknown Venipuncture / Unknown 04/23/2024 11:19 AM CDT 04/23/2024 11:19 AM CDT William Najera MD CHEMISTRY Final R esult Performing Organization Address City/[facility]/ZIP Co de Phone Number [facility] [address] [place] [address] * OCCULT BLOOD IFOBT STOOL [[id number]] (05/02/2022 1:28 PM CDT) STOOL BLOOD ,IFOBT Negative Negative 05/05/2022 8:45 AM CDT [facility] Stool STOOL SPECIMEN / Unknown Non-Blood / Unknown 05/02/2022 1:28 PM CDT 05/04/2022 1:28 PM CDT William Najera MD LABORATORY Final R esult Performing Organization Address City/[facility]/ZIP Co de Phone Number [facility] [address] [place] [address], * (ABNORMAL) XR DXA BONE DENSITY 2 SITES AXIAL [[id number]] (04/26/2021 1:14 PM CDT) Anatomical Region Laterality [...] DXA Bone Mineral Density (BMD) EXAM LOCATION: [address] [id number] PATIENT NAME: Mery Boyce DATE OF : [...] 13.0%. 10-year probability of hip fracture: 3.1%. us William Najera MD DEXA Final R esult [...] 2:30 PM CDT XR MAMMO BILAT SCREENING [[id number]] CLINICAL HISTORY: This is an asymptomatic 68 y.o. patient. INDICATION FOR EXAM: Mammogram Screening. TECHNIQUE: CC & MLO views were obtained. This digital study was evaluated with the assistance of Computer-Aided Detection. COMPARISON FILM: Yes 02/05/17 [facility] FINDINGS: Mammographically, the breast tissue has scattered fibroglandular densities. There are no dominant masses, suspicious micro calcifications or areas of architectural distortion. William Najera MD MAMMO Final R esult * ANTI HCV [[id number]] (02/01/2015 10:44 AM CDT) HEPATITIS C ANTIBODY Non-Reacti ve Non-Reacti ve 02/01/2015 8:39 PM CDT [facility] Blood specimen (specimen) BLOOD SPECIMEN / Unknown Butterfly / Unknown 02/01/2015 10:44 AM CDT 02/01/2015 10:44 AM CDT Narrative [facility] - 02/01/2015 8:39 PM CDT Antibodies to HCV not detected; does not exclude the possibility of exposure to HCV. William Najera MD SEND OUTS Final R esult [facility] 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 Drain remains in place on antibiotic treatment continues. 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, Peritoneal body fluid; 02/28/2025 02/28/2025 Insurance [employer] MR PB ONLY MEDICA PRIME SOLUTION HB MEDICARE PART B HB ONLY MEDICARE PART A HB ONLY [facility] [place] [address] [facility] DUC [place] [phone] MAGY [place] DUC [id number] Advance Directives Documents on File Type Date Recorded Patient Director Toxicology Expl anation Healthcare Directive 02/11/2024 024 POLST 04/19/2021 1:58 PM POLST 03/30 * Full Code (Latest Code Status on File) Date Activated Date Inactivated Comments 05/07/2025 6:48 AM 05/07/2025 1:06 PM Question Answer Comments Code Status Discussion: Reviewed Preferences * Full Code Date Activated Date Inactivated Comments 03/26/2025 4:55 [...] Code Status Discussion: Reviewed Preferences Care Teams Supervisor Particleboard Relationship Specialty Start Date End Date William Najera MD [address] [place] [address] Magy [place]HE[place] DUC [id number] PCP - General 02/18/16
--- OUTSIDE RECORDS SUMMARY | 2025-05-12 12:27 | XMS_ITS | Clinical Summary ---
Author Organization [facility] Address [address] [place] [address] Care Team Providers Care Sample Room Supervisor Name Role Phone William Najera Primary Care Provider [phone] Allergies Active Allergy Reactions Criticality Noted Date [...] Take 25 mg by mouth daily. Active Social History Tobacco Use Types Packs/Day Years [...] Procedure Name Priority Date/Time Associated Diagnosis Comments COMPREHENSIVE METABOLIC PANEL STAT 02/03/2025 11:40 AM CDT from Last 3 Months or Most Recently Relevant to Health Maintenance Results * (ABNORMAL) Comprehensive metabolic panel (02/03/2025 11:40 AM CDT) Sodium 141 135 - 145 mmol/L 02/03/2025 [...] 02/03/2025 12:07 PM CDT LABORATORY Comment:eGFR calculated usin g 1 CKD-EPI equation. Calcium 9.7 8.8 - 10.4 [...] - BLOOD ORDERABLE S Final Result LABORATORY [facility] 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
[2025-05-12 12:38] LABS: Lactate* 1.6 mmol/L (0.5-1.9)
[2025-05-12 12:39] LABS: Hematocrit* 47.4 % (33.0-51.0); Hemoglobin* 14.7 gm/dL (12.0-16.0); Immature Granulocytes Abs Auto 0.01 K/uL (0.00-0.30); Immature Granulocytes Pct Auto 0.1 %; Lymphocytes Absolute Auto 1.98 K/uL (0.90-2.90); Mean Corpuscular HGB Conc 31 gm/dL (32-36); Mean Corpuscular Hemoglobin 29 pg (26-34); Mean Corpuscular Volume 94 fL (80-100); RDW Coefficient of Variation % 19.4 % (11.5-15.5); Red Blood Count* 5.03 m/uL (4.00-5.20); White Blood Count* 8.08 K/uL (4.50-11.00)
[2025-05-12 12:40] LABS: Slide Review Reflex No
[2025-05-12] MEDS: PANTOPRAZOLE SODIUM 40 MG INJ IVP (12:46)
[2025-05-12] MEDS: ONDANSETRON 2 MG/ML inj 4 MG IVP (12:46)
[2025-05-12 12:57] LABS: Albumin* 3.2 g/dL (3.3-5.0); Chloride* 115 mmol/L (96-114); Sodium* 152 mmol/L (135-149)
[2025-05-12 13:00] LABS: Alanine Aminotransferase* 30 U/L (4-35); Alkaline Phosphatase* 177 U/L (40-150); Anion Gap 7 mEq/L (7-15); Aspartate Amino Transferase* 68 U/L (12-35); Bilirubin Total* 0.8 mg/dL (0.1-1.5); Blood Urea Nitrogen* 20 mg/dL (7-30); Calcium* 9.8 mg/dL (8.4-10.6); Carbon Dioxide* 30 mmol/L (20-32); Creatinine* 0.7 mg/dL (0.5-1.5); Estimated Glomerular Filt Rate 91 ml/min; Glucose* 101 mg/dL (60-115); Total Protein* 6.3 g/dL (6.0-8.3)
[2025-05-12 13:01] LABS: INR 1.86 (0.91-1.10); Prothrombin Time 22.5 Seconds
[2025-05-12 13:06] LABS: Potassium* 2.7 mmol/L (3.6-5.1)
--- NOTE | 2025-05-12 13:07 | ED.NURSE ---
K+ 2.7. Notified Dr. Addison
[2025-05-12 13:16] LABS: Troponin, Point-of-Care* 0.08 ng/ml (0.01-0.04)
[2025-05-12] MEDS: POTASSIUM CHLORIDE 10 MEQ/100 ML PIGGYBACK 100 MEQ IVPB ×3 (13:17→15:41)
[2025-05-12] MEDS: METOCLOPRAMIDE HCL 5 MG/ML INJ 10 MG IVP (15:05)
[2025-05-12] MEDS: LACTATED RINGERS 1000 ML 1,000 ML IV (15:22)
[2025-05-12 15:26] LABS: Troponin, Point-of-Care* 0.11 ng/ml (0.01-0.04)
[2025-05-12] MEDS: ENOXAPARIN 80 MG/0.8 ML INJ SUBCUT (16:11)
[2025-05-12 17:26] LABS: Appearance Urine Clear (Clear)
== END 2025-05-12 19:37 | disposition home or self-care (01) ==
LOC: ED 12:24
PROVIDERS: Emergency Provider Emergency Medicine; PCP Family Medicine
DX: E86.0 Dehydration (principal); E87.1 Hypo-osmolality and hyponatremia; E87.6 Hypokalemia; R55 Syncope and collapse
CPT/HCPCS: 36415; 74177; 80053; 81001; 83605; 83690; 83735; 84484; 85025; 85610; 87040; 87086; 87186; 87493; 93005; 96365; 96366; 96375; 99285; J1650; J2405; J2470; J2765; J3480; J7030; J7120; Q9967

== ENCOUNTER 2025-05-12 19:30 | Outpatient (CLI) | payer MEDICARE, OTHER, SELFPAY | END 2025-05-12 19:31 | disposition home or self-care (01) | PROVIDERS: PCP Family Medicine; Visit Provider Family Medicine | DX: E86.0 Dehydration (principal); E87.6 Hypokalemia; E87.0 Hyperosmolality and hypernatremia; R79.89 Other specified abnormal findings of blood chemistry | CPT/HCPCS: A0425; A0427 ==

== ENCOUNTER 2025-06-02 12:24 | Outpatient (CLI) | payer MEDICARE, OTHER, SELFPAY | END 2025-06-02 12:25 | disposition home or self-care (01) | PROVIDERS: PCP Family Medicine; Visit Provider Student in an Organized Health Care Education/Training Program | DX: R53.1 Weakness (principal); M25.561 Pain in right knee; M25.562 Pain in left knee | CPT/HCPCS: A0425; A0429 ==

== ENCOUNTER 2025-06-02 12:42 | Inpatient (IN) | payer MEDICARE, OTHER, SELFPAY ==
[2025-06-02] VITALS (7 sets, daily range): BP systolic 100–142; BP diastolic 44–103; PULSE 81–88; RESP 18–19; TEMP 35.9–36.6; O2SAT 90–95; BMI 36.2; BMI 37.5; BMI 37.6
--- OUTSIDE RECORDS SUMMARY | 2025-06-02 12:49 | XMS_ITS | Clinical Summary ---
Author Organization [facility] Address [address] [place] [id number] Care Team Providers Care Can Pusher Name Role Phone William Najera Primary Care Provider [phone] Allergies Active Allergy Reactions Criticality Noted Date [...] 1 tablet by mouth daily. Active hydrochlorothiaz urddy (HYDRODIURIL) 25 MG tablet Take 25 mg [...] 04/23/2025 04/23/2024, 04/23/2023, 04/20/2022, Additional history exists INFLUENZA VACCINE (#1) 2025 , 07/28/2022, 07/20/2021, Additional history exists DIABETES SCREENING 02/04/2028 02/03/2025 DTAP/TDAP/TD VACCINE (3 - Td or Tdap) 04/01/2030 04/01/2020, 12/10/2009, 08/06/1999 DEXA 04/26/2036 04/26/2021 HEPATITIS C SCREENING Completed 02/01/2015 RSV VACCINE Completed 08/09/2023 ZOSTER VACCINE Completed 03/13/2024, 12/27, 01/09/2012 PNEUMOCOCCAL VACCINE 50+ YEARS Completed 04/23/2024, 02/19/2017, 02/18/2016 HPV VACCINE (No Doses Required) Completed MENINGITIS VACCINE Aged Out No longer eligible based on patient's age to complete this topic Procedures Procedure Name Priority Date/Time Associated Diagnosis Comments MICROBIOLOGY ISOLATE REFERRAL Routine 05/12/2025 3:20 PM CDT COMPREHENSIVE METABOLIC PANEL STAT 02/03/2025 11:40 AM CDT from Last 3 Months or Most Recently Relevant to Health Maintenance Results * (ABNORMAL) Microbiology Isolate Referral (05/12/2025 3:20 PM CDT) Culture Klebsiella pneumoniae(A) 05/19/2025 9:32 AM CDT [facility] Comment:Organism identified by client. Urine URINE SPECIMEN / Unknown Non-blood Collection / Unknown 05/12/2025 3:20 PM CDT 05/16/2025 1:22 PM CDT Narrative Organism Antibiotic Method Susceptibility Klebsiella pneumoniae Ampicillin ANTOINE Resistant Comment:Intrinsicall y Resistant Klebsiella pneumoniae Ampicillin/ Sulbactam ANTOINE 8 ug/mL: Susceptible Klebsiella pneumoniae Piperacillin/Tazobactam ANTOINE >=128 ug/mL: Resistant Klebsiella pneumoniae Cefazolin ANTOINE >=32 ug/mL: Resistant Klebsiella pneumoniae Ceftazidime ANTOINE <=0.5 ug/mL: Susceptible Klebsiella pneumoniae Ceftriaxone ANTOINE 32 ug/mL: Resistant Klebsiella pneumoniae Cefepime ANTOINE <=0.12 ug/mL: Susceptible Klebsiella pneumoniae Gentamicin ANTOINE <=1 ug/mL: Susceptible Klebsiella pneumoniae Ciprofloxacin ANTOINE <=0.06 ug/mL: Susceptible Klebsiella pneumoniae Levofloxacin ANTOINE <=0.12 ug/mL: Susceptible Klebsiella pneumoniae Nitrofurantoin ANTOINE 128 ug/mL: Resistant Klebsiella pneumoniae Trimethoprim/Sulfa methoxazo le ANTOINE <=1/19 ug/mL: Susceptible Comment:This isolate does no t meet the criteria of an ESBL producer assistant. A different resistance mechanism may be present. Kadeem Addison MD LAB - MICRO GENERAL ORDERA BLES Final Result [facility] Inf. Diseases Diag. Lab [address] [facility], [address] [place] [address] * (ABNORMAL) Comprehensive metabolic panel (02/03/2025 11:40 [...] 02/03/2025 12:07 PM CDT LABORATORY Comment:eGFR calculated 2020 CKD-EPI equation. Calcium 9.7 8.8 - 10.4 [...] - BLOOD ORDERABLE S Final Result LABORATORY [facility] [address], [address] [place] [address], [facility] [phone] from Last 3 Months or Most Recently Relevant to Health Maintenance Additional Health Concerns Infection Onset Date Last Indicated VRE Comment:Positive at [facility] 02/28/2025 03/31/2025 [facility] [employer] MEDICARE MEDICA PRIME SOLUTION MEDICARE Care Teams Can Pusher Relationship Specialty Start Date End Date William Najera [address] [place] [id number] PCP - General Family Medicine 01/15/25
--- OUTSIDE RECORDS SUMMARY | 2025-06-02 12:49 | XMS_ITS | Clinical Summary ---
Author Organization [facility] Address [address] [place] [address] Care Team Providers Care Intake Counselor Name Role Phone William Najera MD Primary Care Provider Allergies Active Allergy Reactions Criticality Noted Date Comments Erythromycin Vomiting 02/24/2017 Medications CPAPIndications:O bstructive sleep apnea RESMED CPAP (E0601) machine for home use at pressure: 10 .4 cmw, Choice of mask (A7030 or A7034) w/full face cushion (A7031) x1/mo, nasal cushion (A7032) x2/mo, or nasal pillows (A7033) x 2/mo; Length of Need: 99 months; Frequency of use: Daily 1 Each 024 Active alteplase injectionIndicati ons:Infected pancreatic pseudocyst (HC) 2 mg by Intra-Catheter route each time if needed for Catheter Clearance. Instill 2 mg into catheter and allow to dwell for 30 minutes. If unable to aspirate blood, allow to dwell for a total of 120 minutes. 025 Active apixaban 5 mg tabletIndications :deep venous thrombosis,preven t thromboembolism in chronic atrial fibrillation Take 1 Tablet (5 mg) by mouth two times daily. 025 Active furosemide 20 mg tabletIndications :Chronic heart [...] mg) by mouth four times daily. Active acetaminophen 500 mg tabletIndications :Infected pancreatic pseudocyst (HC) Take 2 Tablets (1,000 mg) by mouth every 6 hours if needed for Pain. Max acetaminophen dose: 4000mg in 24 hrs. Active diclofenac topical 1 % gelIndications:Ot her chronic back pain Apply 4 g topically to affected area(s) 4 times daily if needed (back pain). Active potassium chloride 20 mEq extended-release tablet (part/cryst)Indic ations:Hypokalemi a Take 2 Tablets (40 mEq) by mouth two times daily with meals. Active pravastatin 40 mg tabletIndications :Hyperlipidemia, unspecified hyperlipidemia type Take 1 Tablet (40 mg) by mouth at bedtime. Wait to start until done with daptomycin 90 Tablet 4 Active busPIRone 30 mg tabletIndications :Anxiety Take 0.5 Tablets (15 mg) by mouth two times daily. 90 Tablet 4 Active LORazepam (Ativan) 0.5 mg tab Take 0.5 mg by mouth each time if needed. give one tab po prior to medical appointments Active oxyCODONE (ROXICODONE) 5 mg immediate release tablet Take 5 mg by mouth every 6 hours if needed. Active prochlorperazine (COMPAZINE) 10 mg tablet Take 10 mg by mouth 2 times daily if needed for Nausea/Vomiting . Active sertraline (ZOLOFT) 25 mg tablet Take 25 mg by mouth once daily. Along with 100 mg tablet for TDD of 125 mg Active sotaloL (BETAPACE) 80 mg tablet Take 80 mg by mouth every 12 hours. Active ergocalciferol ((vitamin D2)) 50,000 unit capsuleIndication s:Nutritional deficiency Take 1 Capsule (50,000 units) by mouth once weekly. 4 Capsule 025 2024 Active guar gum (NUTRISOURCE FIBER) packetIndications :Nutritional deficiency Administer 1 Packet via J-tube three times daily. Mix 1 packet in 4 oz of beverage/soft food. 10 Packet Active lansoprazole (Prevacid) 30 mg disintegrating tabletIndications :Acute necrotizing pancreatitis (HC),Ileus (HC) Place 1 Tablet (30 mg) on the tongue once daily before a meal. 30 Tablet 025 Active axbith-vrexxjur-o mylase (ZENPEP) 3,000-10,000 -14,000-unit cpDRIndications:A cute necrotizing pancreatitis (HC) Administer 2 Capsules via nasogastric tube four times daily with meals and at bedtime. 30 Capsule 2 Active multivitamin folic acid 0.4 mgIndications:Nut ritional deficiency Take 1 Tablet by mouth once daily. 10 Tablet 025 Active nystatin powder (MYCOSTATIN) powderIndications :Yeast dermatitis Apply topically to affected area(s) two times daily. 15 g Active ondansetron (ZOFRAN ODT) 4 mg disintegrating tabletIndications :Nausea Place 1 Tablet (4 mg) on the tongue every 8 hours if needed for Nausea/Vomiting . 30 Tablet 025 Active loperamide (Imodium A-D) 2 mg capsuleIndication s:Acute necrotizing pancreatitis (HC) Take 1 capsule (2mg) four times daily. Max 16 mg in 24 hrs. If patient does not have bowel movement in 24 hours, switch to NEEDED 40 Capsule 025 Active sertraline (ZOLOFT) 100 mg tabletIndications :Anxiety state Take 1 Tablet (100 mg) by mouth once daily in the morning. 10 Tablet 025 Active diazePAM (VALIUM) 5 mg tabletIndications :Nausea Take 0.5 Tablets (2.5 mg) by mouth once daily in the morning. Then switch to as needed in the morning after 06/01/2025 5 Tablet 025 Active Calcium-Cholecalc iferol, D3, (CALCIUM 600 + D,3,) 600-200 mg-unit Cap Take 1 Cap by mouth 2 times daily. 0 011 2024 Discontinued(* Patient states no longer taking) omega-3 fatty acids-vitamin E (FISH OIL) 1,000 mg Cap Take 1 capsule by mouth once daily. 0 012 2024 Discontinued(* Patient states no longer taking) multivitamin (MVI) tabletIndications :Paroxysmal atrial fibrillation (HC) Take 1 tablet by mouth once daily. 0 017 2024 Discontinued(* Patient states no longer taking) vitamin B complex (B-COMPLEX VITAMIN) tablet Take 1 tablet by mouth once daily. 1 tablet 020 2024 Discontinued(* Patient states no longer taking) cholecalciferol (VITAMIN D3) 2,000 unit capsule Take 1 Capsule (2,000 units) by mouth once daily. 0 021 2024 Discontinued(* Patient states no longer taking) hydrOXYzine HCL (ATARAX) 25 mg tabletIndications :Anxiety Take 1 Tablet (25 mg) by mouth every 6 hours if needed for Anxiety. 270 Tablet 4 024 2024 Discontinued sertraline (ZOLOFT) 100 mg tabletIndications :Major depressive disorder, recurrent, moderate (HC) Take 1 Tablet (100 mg) by mouth once daily in the morning. 90 Tablet 2 024 2024 Discontinued pantoprazole 40 mg delayed-release tabletIndications :GERD without esophagitis Take 1 Tablet (40 mg) by mouth once daily before a meal. 025 2024 Discontinued(* IP Discontinued) ondansetron 4 mg disintegrating tabletIndications :Nausea Place 1 Tablet (4 mg) on the tongue every 8 hours if needed for Nausea/Vomiting . 025 2024 Discontinued(* Patient states no longer taking) loperamide (Imodium A-D) 2 mg capsule Take 2 mg by mouth each time if needed for Diarrhea. Take 2 capsules (4mg) orally with 1st loose stool, then 1 capsule (2mg) with other loose stools. Max 16 mg in 24 hrs. 2024 Discontinued(* IP Discontinued) buprenorphine 10 mcg/hr 10 mcg/hour transdermal patchIndications: Acute necrotizing pancreatitis (HC) Apply 1 Patch on dry, clean, hairless skin every Sunday. 10 Patch 025 2024 Discontinued(* Medication adjustment) DAPTOmycin 500 mg injectionIndicati ons:Acute necrotizing pancreatitis (HC) Inject 1,150 mg intravenous every 24 hours for 6 days. 025 2024 Discontinued(R eorder (E-cancel not sent)) amoxicillin-clavu lanate 875-125 mg tabletIndications :ABDOMEN/PELVIS INFECTION Take 1 Tablet by mouth two times daily with meals for 7 days. 14 Tablet 2024 Discontinued(R eorder (E-cancel not sent)) hydrOXYzine HCL (ATARAX) 25 mg tabletIndications :Anxiety TAKE 1 TABLET EVERY 6 HOURS IF NEEDED FOR ANXIETY 270 Tablet 4 2024 Discontinued(* Patient states no longer taking) sertraline (ZOLOFT) 100 mg tabletIndications :Major depressive disorder, recurrent, moderate (HC) TAKE 1 TABLET DAILY IN THE MORNING 90 Tablet 1 2024 Discontinued(* IP Discontinued) amoxicillin-clavu lanate (AUGMENTIN) 875-125 mg tabletIndications :ABDOMEN/PELVIS INFECTION Take 1 Tablet by mouth two times daily with meals for 3 days. 025 2024 DAPTOmycin (CUBICIN) 500 mg injectionIndicati ons:Acute necrotizing pancreatitis (HC) Inject 1,150 mg intravenous every 24 hours for 3 days. 025 2024 amoxicillin-clavu lanate (AUGMENTIN) 875-125 mg tablet Take 1 Tablet by mouth two times daily with meals. 025 2024 Discontinued(* IP Discontinued) DAPTOmycin (CUBICIN) 500 mg injection Inject 1,150 mg intravenous once daily. 025 2024 Discontinued(* IP Discontinued) buprenorphine 5 mcg/hr (BUTRANS) 5 mcg/hour transdermal patch Apply 1 Patch on dry, clean, hairless skin once weekly. 025 2024 Discontinued(* IP Discontinued) magnesium oxide (MAG-OX 400) 400 mg tabletIndications :Nutritional deficiency Take 1 Tablet (400 mg) by mouth or nasogastric tube four times daily for 3 days. Check BMP in 3 days 10 Tablet 025 2024 Active Problems Problem Noted Date [...] Encounters Date Type Department Care Team Description 06/02/20 Lab Requisition [facility] [address] [place] [address] Brad Bolanos MD 06/01/20 25 Refill [facility] [address] [place] [address] William Najera MD Refill Request (Pravastatin, Hydrochlorothiazide, Buspirone) 05/27/20 25 Refill [facility] [address] [place] [address] William Najera MD Refill Request (Metoprolol Tartrate) 05/19/20 25 Travel 05/13/20 25 1:35 PM CDT Anesthesia Event [facility] [address] [place] [address] Joe Fung MD Hill, Joanne, CRNA 05/13/20 25 1:05 PM CDT - 05/13/20 1:50 PM CDT Surgery [facility] [address] [place] [address] Talib Cheng MD ESOPHAGOGASTRODUODENOSCOPY 05/12/20 9:17 PM CDT - 05/27/20 1:00 PM CDT Hospital Encounter [facility] [address] [place] [address] [facility] [place] Hospitalists Of Jaspreet Jimenez MD Hauff, MD Monty Moraes, MD Caitlin Henry Duc Minh, MD Nutritional deficiency (Primary Dx); Acute necrotizing pancreatitis (HC); Ileus (HC); Yeast dermatitis; Nausea; Anxiety state, unspecified Discharge Disposition: [facility] 05/07/20 8:07 AM CDT Anesthesia Event [facility] [address] [place] [address] Joe Fung MD 05/07/20 7:50 AM CDT - 05/07/20 8:50 AM CDT Surgery [facility] [address] [place] [address] Dimitry Garcia MD ENDOSCOPIC ULTRASOUND UPPER 05/07/20 6:25 AM CDT - 05/07/20 10:45 AM CDT Hospital Encounter [facility] [address] [place] [address] Dimitry Garcia MD Post-ERCP acute pancreatitis (HC) (Primary Dx) Discharge Disposition: [facility] 05/07/20 Telephone [facility] [address] [address] Iwona Moreno MD Infusion Therapy 05/07/20 Travel 05/06/20 Lab Requisition [facility] [phone] June Arango NP 05/06/20 Refill [facility] [address] [place] [address] William Najera MD Refill Request (Sertraline) 05/05/20 Refill [facility] [address] [place] [address] William Najera MD Refill Request (Hydroxyzine Hcl) 04/30/20 25 Lab Requisition [facility] [phone] June Arango NP 04/29/20 25 Telephone [facility] [address] [place] [address] William Najera MD Procedure (Medication Hold Order) 04/27/20 25 Lab Requisition [facility] [phone] Brad Bolanos MD 04/23/20 25 9:[address] [facility] [address] [facility] [address] [place] [address] Iwona Moreno MD Error-please disregard (NO SHOW) 04/23/20 25 8:00 AM CDT Ancillary Procedure [facility] [address] [place] [address] 04/23/20 25 Travel 04/17/20 25 Lab Requisition [facility] [phone] Brad Bolanos MD 04/17/[address] [facility] [address] [facility] [address] [place] [address] William Najera MD 04/10/20 25 Lab Requisition [facility] [phone] Brad Bolanos MD 04/10/[address] [facility] [address] [facility] [address] [place] [address] Iwona Moreno MD [facility] 04/02/20 25 Lab Requisition [facility] [phone] Brad Bolanos MD 04/01/20 25 Orders Only [facility] Scanner 1 scan: (1-Ord) [facility], MULTIPLE LAB TEST, 04/01/2025 03/27/20 25 2:13 PM CDT Anesthesia Event [facility] [address] [place] [address] Bocanegra, RomarioDO Nani Salazar Brian Christopher, CRNA 03/26/20 11:18 AM CDT - 03/28/20 11:00 AM CDT Hospital Encounter [facility] [address] [place] [address] Kathy Akers DO Peterson, Christopher Roy, MD Mrkvicka, Josef Carson MD [facility] Hospitalists Of Atrial fibrillation with rapid ventricular response (HC) (Primary Dx); Anxiety; Hyperlipidemia, unspecified hyperlipidemia type; Acute necrotizing pancreatitis (HC) Discharge Disposition: [facility] 03/26/20 9:30 AM CDT Office Visit [facility] [address] [place] [address] Iwona Moreno MD 03/26/20 Travel 03/24/20 Telephone [facility] [address] [place] [address] Iwona Moreno MD Questions (Questions about appt 03/26/25- patient is in [address] [place] [address] - ) 03/23/20 Lab Requisition [facility] [phone] June Arango NP 03/20/20 Lab Requisition [facility] [phone] June Arango NP 02/06/20 2:00 PM CDT - 03/17/20 10:30 AM CDT Hospital Encounter [facility] [address] [place] [address] [facility] Hospitalists Of Marcos Ybarra MD Tamhane, [...] Hypokalemia; Hyperlipidemia, unspecified hyperlipidemia type Discharge Disposition: [facility] from Last 3 Months Immunizations Immunization Administration Dates Next Due COVID-19 vaccine (Pfizer-Bio NTech 30mcg/0.3mL) 12YO+ BIVALENT PF, MDV 07/19/2022 COVID-19 vaccine (Pfizer-Bio NTech 30mcg/0.3mL) PF, MDV 01/30/2022,07/25/2021,01/22/2021,01/01 Influenza A [...] or isolated from those around you? 0 05/19/2025 Financial Resource Strain Answer Date R ecorded Difficulty of Paying Living Expenses 3 09/04/2024 Difficulty of Paying Living Expenses Not on file 09/04/2024 Food Insecurity Answer Date Recorded Do you worry your food will run out before you are able to buy more? 1 05/19/2025 Transportation Needs Answer Date Record ed Does lack of transportation keep you from medica l appointments? 1 05/19/2025 Does lack of transportation keep you from work, meetings or getting things that you need? 1 05/19/2025 Housing Stability Answer Date Recorded What is your housing situation today? 1 05/19/2025 Interpersonal Safety Answer Date Record ed Are you being hit, kicked, p ushed or yelled at (see row info)? No 05/14/2025 Interpersonal Safety Abuse 12 - 18 Not on file 05/14/2025 Interpersonal Safety Ambulatory Vulnerability No t on file 05/14/2025 Utilities Answer Date Recorded Do you have trouble paying f or utilities (for example, heat, electricity, water, phone)? 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 Gender Identity Not on file Sexual Orientation Not on file Occupation Industry Job Start Date Job End Date Not on file Not on file Not on file Not on file Obstetrics History Last Filed Vital Signs Vital Sign Reading Time Taken Comments Blood Pressure 113/59 05/27/2025 9:23 AM CDT Pulse 89 05/27/2025 9:23 AM CDT Temperature 36.9 C (98.5 F) 05/27/2025 9:23 AM CDT Respiratory Rate 18 05/27/2025 9:23 AM CDT Oxygen Saturation 93% 05/27/2025 9:23 AM CDT Inhaled Oxygen Concentration - - Weight 94.4 kg (208 lb 1.8 oz) 05/27/2025 5:06 A M CDT Height 167.6 cm (5' 5.98) 05/16/2025 2:00 AM CD T Body Mass Index 33.61 05/16/2025 2:00 AM CDT Plan of Treatment Health Maintenance Due Date Last Done Comments Mammogram for age 45-75 02/26/2020 02/26/20 19, 02/05/2017, 02/03/2016, Additional history exists Fecal testing non-DNA (FIT,FOBT,iFOBT) for age 45-75 05/02/2023 05/02/2022, 08/12/2020, 04/07/2017 COVID-19 vaccine series (2023- season) 2025 07/28/2024, 01/10/2024, 07/19/2022, Additional history exists Medicare Wellness for age 65+ 04/24/2025 04/23/2024, 04/23/2023, 04/20/2022, Additional history exists Influenza Vaccine (#1) 2025 , 07/28/2022, 07/20/2021, Additional history exists Depression screening [...] Diagnosis Comments CBC WITH AUTO DIFFERENTIAL Routine 06/02 7:40 AM CDT Acute pancreatitis with uninfected necrosis, unspecified (HC) PRO-BNP Routine 06/02/2025 7:40 AM CDT Acute pancreatitis with uninfected necrosis, unspecified (HC) CBC WITH AUTO DIFFERENTIAL Routine 06/02 7:40 AM CDT Acute pancreatitis with uninfected necrosis, unspecified (HC) BASIC METABOLIC PANEL Routine 06/02/2025 7:40 AM CDT Acute pancreatitis with uninfected necrosis, unspecified (HC) REMOVE PICC LINE Routine 05/27/2025 11:14 AM CDT POTASSIUM Early AM 05/27/2025 5:50 AM CDT PHOSPHORUS Early AM 05/27/2025 5:50 AM CDT MAGNESIUM Early AM 05/27/2025 5:50 AM CDT POTASSIUM Early AM 05/26/2025 8:07 AM CDT PHOSPHORUS Early AM 05/26/2025 8:07 AM CDT MAGNESIUM Early AM 05/26/2025 8:07 AM CDT CREATININE DEYSI 05/25/2025 6:27 AM CDT POTASSIUM Early AM 05/25/2025 6:27 AM CDT MAGNESIUM Early AM 05/25/2025 6:27 AM CDT PHOSPHORUS Early AM 05/25/2025 6:27 AM CDT POTASSIUM Early AM 05/24/2025 4:34 AM CDT MAGNESIUM Early AM 05/24/2025 4:34 AM CDT PHOSPHORUS Timed 05/24/2025 4:34 AM CDT POTASSIUM Today 05/23/2025 11:10 AM CDT MAGNESIUM Today 05/23/2025 11:10 AM CDT PHOSPHORUS Today 05/23/2025 11:10 AM CDT POTASSIUM Early AM 05/22/2025 10:56 PM CDT PHOSPHORUS Early AM 05/22/2025 10:56 PM CDT MAGNESIUM Timed 05/22/2025 10:56 PM CDT SCAN CORRESP-LABORATORY RESULTS 05/22/2025 12:11 PM CDT CREATININE DEYSI 05/22/2025 6:45 AM CDT SELENIUM SERUM/PLASMA Early AM 05/22/2025 6:45 AM CDT VITAMIN B6 BLOOD Early AM 05/22/2025 6:45 AM CDT ZINC SERUM Early AM 05/22/2025 6:45 AM CDT VITAMIN K1 Early AM 05/22/2025 6:45 AM CDT VITAMIN C Early AM 05/22/2025 6:45 AM CDT COPPER SERUM Early AM 05/22/2025 6:45 AM CDT METHYLMALONIC ACID BLOOD Early AM 05/22/ 025 6:45 AM CDT VITAMIN E Early AM 05/22/2025 6:45 AM CDT VITAMIN A BLOOD Early AM 05/22/2025 6:45 AM CDT VITAMIN D 25 (DEFICIENCY) DEYSI 2024 6:45 AM CDT POTASSIUM Early AM 05/22/2025 6:45 AM CDT PHOSPHORUS Early AM 05/22/2025 6:45 AM CDT MAGNESIUM Early AM 05/22/2025 6:45 AM CDT CLOSTRIDIOIDES DIFFICILE TOX IN PCR Today 05/21/2025 8:44 PM CDT FOLIC ACID Timed 05/21/2025 4:57 PM CDT PHOSPHORUS Early AM 05/21/2025 4:13 AM CDT POTASSIUM Early AM 05/21/2025 4:13 AM CDT MAGNESIUM Early AM 05/21/2025 4:13 AM CDT PHOSPHORUS Timed 05/20/2025 10:55 PM CDT TSH DEYSI 05/20/2025 4:20 AM CDT POTASSIUM Early AM 05/20/2025 4:20 AM CDT PHOSPHORUS Early AM 05/20/2025 4:20 AM CDT MAGNESIUM Early AM 05/20/2025 4:20 AM CDT MAGNESIUM Timed 05/19/2025 8:17 PM CDT SCAN CORRESP-LABORATORY RESULTS 05/19/2025 12:03 PM CDT PHOSPHORUS Timed 05/19/2025 5:26 AM CDT POTASSIUM Early AM 05/19/2025 5:26 AM CDT MAGNESIUM Early AM 05/19/2025 5:26 AM CDT URINALYSIS MICROSCOPIC Timed 10:49 PM CDT UA W/ SEDIMENT EXAM REFLEXED PER CRITERIA Today 05/18/2025 10:49 PM CDT PHOSPHORUS Timed 05/18/2025 10:49 PM CDT CREATININE Early AM 05/18/2025 5:50 AM CDT SODIUM Early AM 05/18/2025 5:50 AM CDT POTASSIUM Early AM 05/18/2025 5:50 AM CDT PHOSPHORUS Early AM 05/18/2025 5:50 AM CDT MAGNESIUM Early AM 05/18/2025 5:50 AM CDT SODIUM Early AM 05/17/2025 5:46 AM CDT MAGNESIUM Early AM 05/17/2025 5:46 AM CDT POTASSIUM Early AM 05/17/2025 5:46 AM CDT PHOSPHORUS Early AM 05/17/2025 5:46 AM CDT PHOSPHORUS Timed 05/16/2025 3:05 PM CDT IR PERCUTANEOUS TUBE PLACEMENT Routine 0 05/16/2025 11:48 AM CDT SODIUM DEYSI 05/16/2025 6:37 AM CDT POTASSIUM Early AM 05/16/2025 6:37 AM CDT PHOSPHORUS Early AM 05/16/2025 6:37 AM CDT MAGNESIUM Timed 05/16/2025 6:37 AM CDT MAGNESIUM Timed 05/15/2025 10:54 PM CDT PHOSPHORUS Early AM 05/15/2025 6:00 AM CDT MAGNESIUM Early AM 05/15/2025 6:00 AM CDT BASIC METABOLIC PANEL Early AM 05/15/2025 6:00 AM CDT PROTIME-INR DEYSI 05/14/2025 4:55 PM CDT BASIC METABOLIC PANEL Early AM 05/14/2025 5:11 AM CDT MAGNESIUM Early AM 05/14/2025 5:11 AM CDT POTASSIUM Timed 05/13/2025 10:58 PM CDT SODIUM Timed 05/13/2025 4:07 PM CDT ESOPHAGOGASTRODUODENOSCOPY 05/13 1:30 PM CDT See MD ferrara ENDOSCOPY 05/13/2025 1:18 PM CDT SCAN CORRESP-IMAGING 05/13/2025 11:12 AM CDT SCAN CORRESP-EKG RESULTS 025 11:07 AM CDT CK TOTAL Early AM 05/13/2025 5:39 AM CDT MAGNESIUM Early AM 05/13/2025 5:39 AM CDT HEPATIC FUNCTION PANEL Early AM 5:39 AM CDT CBC W PLT NO DIFF Early AM 05/13/2025 5:39 AM CDT BASIC METABOLIC PANEL Early AM 05/13/2025 5:39 AM CDT STOOL PATHOGEN MULTIPLEX PCR PANEL Today 05/13/2025 12:52 AM CDT CLOSTRIDIOIDES DIFFICILE TOX IN PCR Today 05/13/2025 12:52 AM CDT CBC WITH AUTO DIFFERENTIAL Routine 05/12 8:34 AM CDT Hypo-osmolality and hyponatremia Acute pancreatitis with uninfected necrosis, unspecified (HC) C-REACTIVE PROTEIN Routine 05/12/2025 8:34 AM CDT Hypo-osmolality and hyponatremia Acute pancreatitis with uninfected necrosis, unspecified (HC) BASIC METABOLIC PANEL Routine 05/12/2025 8:34 AM CDT Hypo-osmolality and hyponatremia Acute pancreatitis with uninfected necrosis, unspecified (HC) CBC WITH AUTO DIFFERENTIAL Routine 05/12 8:34 AM CDT Hypo-osmolality and hyponatremia Acute pancreatitis with uninfected necrosis, unspecified (HC) CT ABDOMEN PELVIS W Routine 05/07/2025 10:21 AM CDT Post-ERCP acute pancreatitis (HC) XR ERCP BILIARY ONLY Routine 05/07/2025 8:53 AM CDT ENDOTRACHEAL TUBE Routine 05/07/2025 8:31 AM CDT ENDOTRACHEAL TUBE Routine 05/07/2025 8:31 AM CDT ENDOSCOPIC ULTRASOUND balance engineer 1: within 14 days 05/07/2025 7:53 AM CDT See Dictation ENDOSCOPY 05/07/2025 7:06 AM CDT SCAN CORRESP-EKG RESULTS 07/08/2 025 2:46 PM CDT CBC WITH AUTO DIFFERENTIAL Routine 05/05 7:45 AM CDT Essential (primary) hypertension Acute pancreatitis with uninfected necrosis, unspecified (HC) BASIC METABOLIC PANEL Routine 05/05/2025 7:45 AM CDT Essential (primary) hypertension Acute pancreatitis with uninfected necrosis, unspecified (HC) CK TOTAL Routine 05/05/2025 7:45 AM CDT Essential (primary) hypertension Acute pancreatitis with uninfected necrosis, unspecified (HC) C-REACTIVE PROTEIN Routine 05/05/2025 7:45 AM CDT Essential (primary) hypertension Acute pancreatitis with uninfected necrosis, unspecified (HC) CBC WITH AUTO DIFFERENTIAL Routine 05/05 7:45 AM CDT Essential (primary) hypertension Acute pancreatitis with uninfected necrosis, unspecified (HC) POTASSIUM Routine 04/28/2025 7:50 AM CDT Acute pancreatitis with uninfected necrosis, unspecified (HC) Essential (primary) hypertension CBC WITH AUTO DIFFERENTIAL Routine 04/28 7:50 AM CDT Acute pancreatitis with uninfected necrosis, unspecified (HC) Essential (primary) hypertension C-REACTIVE PROTEIN Routine 04/28/2025 7:50 AM CDT Acute pancreatitis with uninfected necrosis, unspecified (HC) Essential (primary) hypertension BUN Routine 04/28/2025 7:50 AM CDT Acute pancreatitis with uninfected necrosis, unspecified (HC) Essential (primary) hypertension CREATININE Routine 04/28/2025 7:50 AM CDT Acute pancreatitis with uninfected necrosis, unspecified (HC) Essential (primary) hypertension CBC WITH AUTO DIFFERENTIAL Routine 04/28 7:50 AM CDT Acute pancreatitis with uninfected necrosis, unspecified (HC) Essential (primary) hypertension CT ABDOMEN PELVIS WO Routine 04/23/2025 9:23 AM CDT Acute pancreatitis, unspecified complication status, unspecified pancreatitis type (HC) CBC WITH AUTO DIFFERENTIAL Routine 04/21 7:30 AM CDT Acute pancreatitis with uninfected necrosis, unspecified (HC) CREATININE Routine 04/21/2025 7:30 AM CDT Acute pancreatitis with uninfected necrosis, unspecified (HC) C-REACTIVE PROTEIN Routine 04/21/2025 7:30 AM CDT Acute pancreatitis with uninfected necrosis, unspecified (HC) BUN Routine 04/21/2025 7:30 AM CDT Acute pancreatitis with uninfected necrosis, unspecified (HC) CBC WITH AUTO DIFFERENTIAL Routine 04/21 7:30 AM CDT Acute pancreatitis with uninfected necrosis, unspecified (HC) CBC WITH AUTO DIFFERENTIAL Routine 04/14 7:24 AM CDT Acute pancreatitis with uninfected necrosis, unspecified (HC) CK TOTAL Routine 04/14/2025 7:24 AM CDT Acute pancreatitis with uninfected necrosis, unspecified (HC) CREATININE Routine 04/14/2025 7:24 AM CDT Acute pancreatitis with uninfected necrosis, unspecified (HC) C-REACTIVE PROTEIN Routine 04/14/2025 7:24 AM CDT Acute pancreatitis with uninfected necrosis, unspecified (HC) BUN Routine 04/14/2025 7:24 AM CDT Acute pancreatitis with uninfected necrosis, unspecified (HC) CBC WITH AUTO DIFFERENTIAL Routine 04/14 7:24 AM CDT Acute pancreatitis with uninfected necrosis, unspecified (HC) RED CELL MORPHOLOGY Routine 04/07/2025 8:15 AM CDT Acute pancreatitis with uninfected necrosis, unspecified (HC) PLATELET ESTIMATE Routine 04/07/2025 8:15 AM CDT Acute pancreatitis with uninfected necrosis, unspecified (HC) MANUAL DIFFERENTIAL Routine 04/07/2025 8:15 AM CDT Acute pancreatitis with uninfected necrosis, unspecified (HC) CBC WITH AUTO DIFFERENTIAL Routine 04/07 8:15 AM CDT Acute pancreatitis with uninfected necrosis, unspecified (HC) CREATININE Routine 04/07/2025 8:15 AM CDT Acute pancreatitis with uninfected necrosis, unspecified (HC) C-REACTIVE PROTEIN Routine 04/07/2025 8:15 AM CDT Acute pancreatitis with uninfected necrosis, unspecified (HC) BUN Routine 04/07/2025 8:15 AM CDT Acute pancreatitis with uninfected necrosis, unspecified (HC) CBC WITH AUTO DIFFERENTIAL Routine 04/07 8:15 AM CDT Acute pancreatitis with uninfected necrosis, unspecified (HC) SCAN-LABORATORY REPORT 12:00 AM CDT EKG 12 LEAD Routine 03/28/2025 6:41 AM CDT MAGNESIUM Timed 03/28/2025 5:58 AM CDT CK TOTAL DEYSI 03/28/2025 5:58 AM CDT SCAN-CARDIAC STRIP 03/28/2025 4:07 AM CDT EKG 12 LEAD DEYSI 03/28/2025 2:57 AM CDT MAGNESIUM Timed 03/27/2025 7:29 PM CDT INSERT PICC LINE Routine 03/27/2025 7:20 PM CDT ECHO JUSTICE WO CONTRAST W COLOR W LTD DOPPLER Routine 03/27/2025 3:50 PM CDT EKG 12 LEAD Routine 03/27/2025 2:25 PM CDT Tachycardia SCAN-CARDIAC STRIP 03/27/2025 11:15 AM CDT SCAN-CARDIAC STRIP 03/27/2025 5:01 AM CDT SCAN-CARDIAC STRIP 03/27/2025 5:01 AM CDT XR CHEST 1 VIEW PORTABLE DEYSI 025 9:25 PM CDT SCAN-CARDIAC STRIP 03/26/2025 6:27 PM CDT PHOSPHORUS DEYSI 03/26/2025 1:29 PM CDT POTASSIUM STAT 03/26/2025 1:29 PM CDT PROTIME-INR STAT 03/26/2025 12:41 PM CDT PRO-BNP STAT 03/26/2025 12:32 PM CDT MAGNESIUM STAT 03/26/2025 12:32 PM CDT CBC W PLT NO DIFF STAT 03/26/2025 12:32 PM CDT BASIC METABOLIC PANEL STAT 03/26/2025 12:32 PM CDT EKG 12 LEAD STAT 03/26/2025 11:36 AM CDT SCAN-CARDIAC STRIP 03/26/2025 12:00 AM CDT CBC WITH AUTO DIFFERENTIAL Routine 03/24 7:00 AM CDT Acute pancreatitis with uninfected necrosis, unspecified (HC) BASIC METABOLIC PANEL Routine 03/24/2025 7:00 AM CDT Acute pancreatitis with uninfected necrosis, unspecified (HC) C-REACTIVE PROTEIN Routine 03/24/2025 7:00 AM CDT Acute pancreatitis with uninfected necrosis, unspecified (HC) CBC WITH AUTO DIFFERENTIAL Routine 03/24 7:00 AM CDT Acute pancreatitis with uninfected necrosis, unspecified (HC) BASIC METABOLIC PANEL Early AM 03/17/2025 4:50 AM CDT POTASSIUM Timed 03/16/2025 5:46 PM CDT GLUCOSE METER Timed 03/16/2025 4:31 PM CDT CK TOTAL DEYSI 03/16/2025 5:22 AM CDT CBC W PLT NO DIFF Early AM 03/16/2025 5:22 AM CDT CREATININE Early AM 03/16/2025 5:22 AM CDT POTASSIUM Early AM 03/16/2025 5:22 AM CDT CBC W PLT NO DIFF Early AM 03/15/2025 5:46 AM CDT CREATININE Early AM 03/15/2025 5:46 AM CDT SODIUM Early AM 03/15/2025 5:46 AM CDT POTASSIUM Early AM 03/15/2025 5:46 AM CDT MAGNESIUM Early AM 03/15/2025 5:46 AM CDT POTASSIUM Timed 03/14/2025 1:24 PM CDT SCAN-CARDIAC STRIP 03/14/2025 9:54 AM CDT C-REACTIVE PROTEIN Add On 03/14/2025 5:38 AM CDT MAGNESIUM Add On 03/14/2025 5:38 AM CDT CBC W PLT NO DIFF Early AM 03/14/2025 5:38 AM CDT BASIC METABOLIC PANEL Early AM 03/14/2025 5:38 AM CDT SCAN-CARDIAC STRIP 03/14/2025 1:17 AM CDT CREATININE DEYSI 03/13/2025 7:01 PM CDT PHOSPHORUS Timed 03/13/2025 7:01 PM CDT MAGNESIUM Timed 03/13/2025 7:01 PM CDT POTASSIUM Timed 03/13/2025 7:01 PM CDT SCAN-CARDIAC STRIP 03/13/2025 5:[address] ABDOMEN PELVIS W Routine 03/13/2025 9:06 AM CDT SCAN-CARDIAC STRIP 03/13/2025 5:09 AM CDT MR PELVIS OVARY OR UTERUS WWO Routine 9:27 PM CDT SCAN-CARDIAC STRIP 03/12/2025 2:11 AM CDT SCAN-CARDIAC STRIP 03/11/2025 8:46 PM CDT SCAN-CARDIAC STRIP 03/11/2025 6:23 PM CDT PHOSPHORUS Early AM 03/11/2025 5:25 AM CDT MAGNESIUM Early AM 03/11/2025 5:25 AM CDT GLUCOSE METER Timed 03/11/2025 5:23 AM CDT SCAN-CARDIAC STRIP 03/11/2025 1:03 AM CDT GLUCOSE METER Timed 03/11/2025 12:20 AM CDT GLUCOSE METER Timed 03/10/2025 5:35 PM CDT POTASSIUM Timed 03/10/2025 4:55 PM CDT GLUCOSE METER Timed 03/10/2025 11:42 AM CDT SCAN-CARDIAC STRIP 03/10/2025 8:15 AM CDT PLATELET COUNT Early AM 03/10/2025 6:21 AM CDT POTASSIUM Early AM 03/10/2025 6:21 AM CDT MAGNESIUM Early AM 03/10/2025 6:21 AM CDT GLUCOSE METER Timed 03/10/2025 5:51 AM CDT SCAN-CARDIAC STRIP 03/10/2025 1:00 AM CDT GLUCOSE METER Timed 03/09/2025 11:49 PM CDT GLUCOSE METER Timed 03/09/2025 5:14 PM CDT SCAN-CARDIAC STRIP 03/09/2025 2:41 PM CDT GLUCOSE METER Timed 03/09/2025 12:02 PM CDT XR ASPIRATION HAND RT Routine 03/09/2025 9:25 AM CDT AEROBIC BACTERIAL CULTURE, STAIN Today 03/09/2025 9:15 AM CDT CRYSTAL ID BODY FLUID NO URINE Today 0 03/09/2025 9:15 AM CDT CREATININE DEYSI 03/09/2025 5:10 AM CDT URIC ACID Early AM 03/09/2025 5:10 AM CDT POTASSIUM Early AM 03/09/2025 5:10 AM CDT PHOSPHORUS Early AM 03/09/2025 5:10 AM CDT MAGNESIUM Early AM 03/09/2025 5:10 AM CDT GLUCOSE METER Timed 03/09/2025 5:06 AM CDT SCAN-CARDIAC STRIP 03/09/2025 1:05 AM CDT GLUCOSE METER Timed 03/09/2025 1:00 AM CDT GLUCOSE METER Timed 03/08/2025 6:15 PM CDT XR CHEST 1 VIEW PORTABLE STAT 025 5:42 PM CDT INSERT PICC LINE Routine 03/08/2025 5:25 PM CDT SCAN-CARDIAC STRIP 03/08/2025 4:21 PM CDT SCAN-CARDIAC STRIP 03/08/2025 1:44 PM CDT GLUCOSE METER Timed 03/08/2025 11:14 AM CDT CREATININE Add On 03/08/2025 7:41 AM CDT URIC ACID Add On 03/08/2025 7:41 AM CDT POTASSIUM Early AM 03/08/2025 7:41 AM CDT PHOSPHORUS Early AM 03/08/2025 7:41 AM CDT MAGNESIUM Early AM 03/08/2025 7:41 AM CDT GLUCOSE METER Timed 03/08/2025 5:16 AM CDT GLUCOSE METER Timed 03/08/2025 12:01 AM CDT SCAN-CARDIAC STRIP 03/07/2025 8:38 PM CDT GLUCOSE METER Timed 03/07/2025 5:47 PM CDT CREATININE Today 03/07/2025 3:01 PM CDT SODIUM Today 03/07/2025 3:01 PM CDT XR HAND 3 VIEWS RIGHT Routine 03/07/2025 12:38 PM CDT GLUCOSE METER Timed 03/07/2025 12:26 PM CDT CK TOTAL Early AM 03/07/2025 6:12 AM CDT WHITE BLOOD COUNT Early AM 03/07/2025 6:12 AM CDT POTASSIUM Early AM 03/07/2025 6:12 AM CDT PHOSPHORUS Early AM 03/07/2025 6:12 AM CDT MAGNESIUM Early AM 03/07/2025 6:12 AM CDT GLUCOSE METER Timed 03/07/2025 5:38 AM CDT SCAN-CARDIAC STRIP 03/07/2025 3:45 AM CDT GLUCOSE METER Timed 03/07/2025 12:08 AM CDT GLUCOSE METER Timed 03/06/2025 5:14 PM CDT SCAN-CARDIAC STRIP 03/06/2025 4:15 PM CDT GLUCOSE METER Timed 03/06/2025 11:[address] ABDOMEN PELVIS W Routine 03/06/2025 9:34 AM CDT MAGNESIUM Early AM 03/06/2025 6:54 AM CDT POTASSIUM Early AM 03/06/2025 6:54 AM CDT PHOSPHORUS Early AM 03/06/2025 6:54 AM CDT GLUCOSE METER Timed 03/06/2025 5:54 AM CDT SCAN-CARDIAC STRIP 03/06/2025 12:51 AM CDT SCAN-CARDIAC STRIP 03/06/2025 12:00 AM CDT GLUCOSE METER Timed 03/05/2025 11:59 PM CDT SCAN-CARDIAC STRIP 03/05/2025 6:40 PM CDT GLUCOSE METER Timed 03/05/2025 5:19 PM CDT SCAN-CARDIAC STRIP 03/05/2025 2:48 PM CDT SCAN-CARDIAC STRIP 03/05/2025 2:46 PM CDT CREATININE DEYSI 03/05/2025 12:47 PM CDT POTASSIUM Timed 03/05/2025 12:47 PM CDT PHOSPHORUS Early AM 03/05/2025 12:47 PM CDT MAGNESIUM Timed 03/05/2025 12:47 PM CDT GLUCOSE METER Timed 03/05/2025 12:36 PM CDT GLUCOSE METER Timed 03/05/2025 5:34 AM CDT MAGNESIUM Timed 03/05/2025 4:15 AM CDT EXTRA TUBE GOLD/SST Today 03/05/2025 2:15 AM CDT PHOSPHORUS Early AM 03/05/2025 2:15 AM CDT POTASSIUM Early AM 03/05/2025 2:15 AM CDT MAGNESIUM Timed 03/05/2025 2:15 AM CDT SCAN-CARDIAC STRIP 03/05/2025 12:38 AM CDT GLUCOSE METER Timed 03/04/2025 11:51 PM CDT GLUCOSE METER Timed 03/04/2025 6:34 PM CDT LOW MOLECULAR WGT HEPARIN Timed 2024 1:21 PM CDT GLUCOSE METER Timed 03/04/2025 11:31 AM CDT MAGNESIUM Early AM 03/04/2025 7:12 AM CDT POTASSIUM Early AM 03/04/2025 7:12 AM CDT PHOSPHORUS Early AM 03/04/2025 7:12 AM CDT GLUCOSE METER Timed 03/04/2025 6:12 AM CDT SCAN-CARDIAC STRIP 03/04/2025 1:58 AM CDT GLUCOSE METER Timed 03/03/2025 11:55 PM CDT SCAN-CARDIAC STRIP 03/03/2025 8:27 PM CDT MAGNESIUM Timed 03/03/2025 7:25 PM CDT GLUCOSE METER Timed 03/03/2025 4:38 PM CDT US VENOUS UPPER EXTREMITY RIGHT Routine 03/03/2025 3:18 PM CDT GLUCOSE METER Timed 03/03/2025 11:36 AM CDT POTASSIUM Timed 03/03/2025 10:58 AM CDT EXTRA TUBE GOLD/SST Today 03/03/2025 10:56 AM CDT GLUCOSE METER Timed 03/03/2025 7:43 AM CDT GLUCOSE METER Timed 03/03/2025 6:27 AM CDT POTASSIUM Timed 03/03/2025 2:56 AM CDT MAGNESIUM Early AM 03/03/2025 2:56 AM CDT PHOSPHORUS Early AM 03/03/2025 2:56 AM CDT SCAN-CARDIAC STRIP 03/03/2025 1:42 AM CDT GLUCOSE METER Timed 03/03/2025 1:02 AM CDT POTASSIUM Timed 03/02/2025 9:47 PM CDT GLUCOSE METER Timed 03/02/2025 4:28 PM CDT SCAN-CARDIAC STRIP 03/02/2025 3:24 PM CDT GLUCOSE METER Timed 03/02/2025 11:31 AM CDT XR CHEST 1 VIEW PORTABLE STAT 025 10:37 AM CDT SCAN-CARDIAC STRIP 03/02/2025 8:17 AM CDT GLUCOSE METER Timed 03/02/2025 7:52 AM CDT MAGNESIUM Early AM 03/02/2025 7:13 AM CDT HEPATIC FUNCTION PANEL Early AM 7:13 AM CDT CBC W PLT NO DIFF Early AM 03/02/2025 7:13 AM CDT BASIC METABOLIC PANEL Early AM 03/02/2025 7:13 AM CDT PHOSPHORUS Early AM 03/02/2025 7:13 AM CDT GLUCOSE METER Timed 03/02/2025 3:55 AM CDT SCAN-CARDIAC STRIP 03/02/2025 1:14 AM CDT GLUCOSE METER Timed 03/02/2025 12:06 AM CDT LIPID PANEL W REFLEX MEASURE D LDL Routine 04/23/2024 11:19 AM CDT Hyperlipidemia, unspecified hyperlipidemia type OCCULT BLOOD IFOBT STOOL Routine 022 1:28 PM CDT Screening for colon cancer XR DXA BONE DENSITY 2 SITES AXIAL Routine 04/26/2021 1:14 PM CDT Menopause XR MAMMO BILAT SCREENING Routine 019 1:46 PM CDT Breast screening, unspecified ANTI HCV Routine 02/01/2015 10:44 AM CDT Need for hepatitis C screening test from Last 3 Months or Most Recently Relevant to Health Maintenance Results * (ABNORMAL) CBC WITH AUTO DIFFERENTIAL (06/02/2025 7:40 AM CDT) Only the most recent of8 resultswithin the time period is included. WHITE BLOOD COUNT 7.8 4.5 - 11.0 thou/cu mm 06/02/2025 9:[address] [facility] RED BLOOD COUNT 3.15(L) 4.00 - 5.20 mil/cu mm 06/02/2025 9:[address] [facility] HEMOGLOBIN 9.4(L) 12.0 - 16.0 g/dL 06/02/2025 9:[address] [facility] HEMATOCRIT 27.2(L) 33.0 - 51.0 % 06/02/2025 9:[address] [facility] MCV 86 80 - 100 fL 06/02/2025 9:[address] [facility] MCH 29.8 26.0 - 34.0 pg 06/02/2025 9:[address] [facility] MCHC 34.6 32.0 - 36.0 g/dL 06/02/2025 9:[address] [facility] RDW 16.6(H) 11.5 - 15.5 % 06/02/2025 9:[address] [facility] PLATELET COUNT 536(H) 140 - 440 thou/cu mm 06/02/2025 9:[address] [facility] MPV 9.0 6.5 - 11.0 fL 06/02/2025 9:[address] [facility] % NEUT 76.1 % 06/02/2025 9:[address] [facility] % LYMPH 13.2 % 06/02/2025 9:[address] [facility] % MONO 7.6 % 06/02/2025 9:28 AM CDT [facility] % EOS 2.8 % 06/02/2025 9:28 AM CDT [facility] % BASO 0.3 % 06/02/2025 9:28 AM CDT [facility] ABSOLUTE NEUTROPHILS 5.9 1.7 - 7.0 thou/cu mm 06/02/2025 9:28 AM CDT [facility] ABSOLUTE LYMPHOCYTES 1.0 0.9 - 2.9 thou/cu mm 06/02/2025 9:28 AM CDT [facility] ABSOLUTE MONOCYTES 0.6 <0.9 thou/cu mm 06/02/2025 9:28 AM CDT [facility] ABSOLUTE EOSINOPHILS 0.2 <0.5 thou/cu mm 06/02/2025 9:28 AM CDT [facility] ABSOLUTE BASOPHILS 0.0 <0.3 thou/cu mm 06/02/2025 9:28 AM CDT [facility] Blood BLOOD SPECIMEN / Unknown Butterfly / Unknown 06/02/2025 7:40 AM CDT 06/02/2025 9:11 AM CDT Brad Bolanos MD HEMATOLOGY Final Result [facility] [address] [place] [address] * (ABNORMAL) PRO-BNP (06/02/2025 7:40 AM CDT) Only the most recent of2 resultswithin the time period is included. [facility] Signature PRO-BNP 2,069(H) <125 pg/mL 06/02/2025 9:44 AM CDT [facility] Blood BLOOD SPECIMEN / Unknown Butterfly / Unknown 06/02/2025 7:40 AM CDT 06/02/2025 9:11 AM CDT Narrative [facility] - 06/02/2025 9:44 AM CDT The following cut-points have been suggested [...] 72% for acute congestive heart failure. us Brad Bolanos MD SEND OUTS Final Result [facility] [address] [place] [id number] * (ABNORMAL) BASIC METABOLIC PANEL (06/02/2025 7:40 AM CDT) Only the most recent of11 resultswithin the time period is included. SODIUM 117(LL) 136 - 145 mmol/L 06/02/2025 9:[address] [facility] POTASSIUM 3.7 3.5 - 5.1 mmol/L 06/02/2025 9:[address] [facility] CHLORIDE 84(L) 98 - 107 mmol/L 06/02/2025 9:[address] [facility] CO2,TOTAL 22 22 - 29 mmol/L 06/02/2025 9:[address] [facility] ANION GAP 11 5 - 18 06/02/2025 9:[address] [facility] GLUCOSE 118(H) 70 - 99 mg/dL 06/02/2025 9:[address] [facility] CALCIUM 8.4(L) 8.8 - 10.4 mg/dL 06/02/2025 9:[address] [facility] Comment: Reference ranges for this test were updated on 09/02/2024 to reflect our healthy population more accurately. Reference range changes are not retroactively applied to results, but previous results using the same methodology can be interpreted in the context of the new reference range. BUN 6(L) 8 - 23 mg/dL 06/02/2025 9:51 AM T [facility] CREATININE 0.21(L) 0.50 - 0.90 mg/dL 06/02/2025 9:[address] [facility] BUN/CREAT RATIO 29(H) 10 - 20 9:51 AM T [facility] eGFR >90 >90 mL/min/1. 73m2 06/02/2025 9:[address] [facility] Comment:As of 2022, eG FR is calculated by the CKD-EPI creatinine equation without race adjustment. eGFR can be influenced by muscle mass, exercise, and diet. The reported eGFR is an estimation only and is only applicable if the renal function is stable. Blood BLOOD SPECIMEN / Unknown Butterfly / Unknown 06/02/2025 7:40 AM CDT 06/02/2025 9:11 AM CDT us Brad Bolanos MD CHEMISTRY Final Result Performing Organization Address City/State/[facility] Co de Phone Number [facility] [address] [place] [address] * REMOVE PICC LINE (05/27/2025 11:14 AM CDT) Narrative Lolly Cifuentes RN - 05/27/2025 11:14 AM CDT Lolly Cifuentes RN 05/27/2025 11:14 AM Central Line Discontinued Note PICC Line 05/27/2025 11:14 AM Reviewed removal procedure with: Patient Understanding verbalized: Yes Catheter removed without problems. Exit site appearance Dry. Exit site location Right, Upper Arm. Post-removal catheter inspection: Open ended catheter: Catheter length removed 40 cm, dressing applied per hospital protocol. Catheter removed intact: Yes Patient tolerated the procedure: Yes Post removal catheter education provided: Patient Pressure held until hemostasis achieved. Occlusive dressing with gauze, Vaseline and Tegaderm applied. Discussed with patient need to keep this dressing in place for 24 hours and avoid strenuous activity and/or heavy lifting for 24 hours. Patient should remain in hospital for at least one hour after PICC removal to ensure hemostasis. Instructed patient about signs and symptoms of bleeding and infection, also reviewed actions patient should take should either occur. All questions answered. PICC line dc'd as ordered. Patient's RN to visualize dressing every 15 minutes for the next hour to ensure hemostasis is maintained. us Carmelo Tucker MD IV ORD Final Result * POTASSIUM (05/27/2025 5:50 AM CDT) Only the most recent of33 resultswithin the time period is included. POTASSIUM 4.2 3.5 - 5.1 mmol/L 05/27/2025 6:45 AM CDT [facility] Blood BLOOD SPECIMEN / Unknown Venipuncture / Unknown 05/27/2025 5:50 AM CDT 05/27/2025 6:19 AM CDT us Camrelo Tucker MD CHEMISTRY Final Result Performing Organization Address City/[facility] Co de Phone Number [facility] [address] [address], [place] * (ABNORMAL) PHOSPHORUS (05/27/2025 5:50 AM CDT) Only the most recent of29 resultswithin the time period is included. PHOSPHORUS 2.4(L) 2.5 - 4.5 mg/dL 05/27/2025 6:45 AM CDT [facility] Blood BLOOD SPECIMEN / Unknown Venipuncture / Unknown 05/27/2025 5:50 AM CDT 05/27/2025 6:19 AM CDT us Carmelo Tucker MD CHEMISTRY Final Result Performing Organization Address City/[facility] Co de Phone Number [facility] [address] [place] [address], [place] * (ABNORMAL) MAGNESIUM (05/27/2025 5:50 AM CDT) Only the most recent of37 resultswithin the time period is included. MAGNESIUM 1.4(L) 1.6 - 2.4 mg/dL 05/27/2025 6:47 AM CDT [facility] Blood BLOOD SPECIMEN / Unknown Venipuncture / Unknown 05/27/2025 5:50 AM CDT 05/27/2025 6:19 AM CDT us Carmelo Tucker MD CHEMISTRY Final Result Performing Organization Address City/[facility]/ZIP Co de Phone Number [facility] [address] [address], [place] * (ABNORMAL) CREATININE (05/25/2025 6:27 AM CDT) Only the most recent of14 resultswithin the time period is included. eGFR >90 >90 mL/min/1.7 3m2 05/25/2025 7:45 AM CDT [facility] Comment:As of 2022, eG FR is calculated by the CKD-EPI creatinine equation without race adjustment. eGFR can be influenced by muscle mass, exercise, and diet. The reported eGFR is an estimation only and is only applicable if the renal function is stable. CREATININE 0.22(L) 0.50 - 0.90 mg/dL 05/25/2025 7:45 AM CDT [facility] Blood BLOOD SPECIMEN / Unknown Non-Lab Venipuncture / Unknown 05/25/2025 6:27 AM CDT 05/25/2025 6:40 AM CDT us Carmelo Tucker MD CHEMISTRY Final Result Performing Organization Address City/[facility]/ZIP Co de Phone Number [facility] [address] [place] [phone], [place] * SCAN CORRESP-LABORATORY RESULTS (05/22/2025 12:11 PM CDT) Only the most recent of2 resultswithin the time period is included. Narrative 05/22/2025 12:11 PM CDT Ordered by an unspecified provider. us Other Clinical Staff OTHER Final Resul t * (ABNORMAL) SELENIUM SERUM/PLASMA (05/22/2025 6:45 AM CDT) Pathologist [facility] SELENIUM LVL 62(L) 93 - 198 ug/L 05/25/2025 2:06 AM CDT [facility] ([facility]) Blood BLOOD SPECIMEN / Unknown Non-Lab Venipuncture / Unknown 05/22/2025 6:45 AM CDT 05/22/2025 7:08 AM CDT Narrative [facility] ([facility]) - 05/25/2025 2:06 AM CDT Test(s) 166936-[id number], Serum/Plasma was developed and its performance characteristics determined by [facility]. It has not been cleared or approved by the Food and Drug Administration. Performed at: 01 - [facility] [address], [place], [place] [id number] Chemical Handler: Radha Xiao MD, Phone: [phone] us Oscar Dumont RD, LD SEND OUTS Final Resu lt [facility] ([facility]) [facility] [place] [address], [place] * METHYLMALONIC ACID BLOOD (05/22/2025 6:45 AM CDT) [facility] Methylmalonic Acid 150 0 - 378 nmol/L 05/25/2025 6:08 PM CDT [facility] ([facility]) Blood BLOOD SPECIMEN / Unknown Non-Lab Venipuncture / Unknown 05/22/2025 6:45 AM CDT 05/22/2025 7:08 AM CDT Narrative [facility] ([facility]) - 05/25/2025 6:08 PM CDT Test(s) [id number]-[id number] Acid, Serum was developed and its performance characteristics determined by [facility]. It has not been cleared or approved by the Food and Drug Administration. Performed at: - [address] [id number] Chemical Handler: Swapnil Mitchell MD, Phone: [phone] MEEK Dubois RD SEND OUTS Final Resu lt Performing Organization Address [facility]/ZIP Co de Phone Number [facility] ([facility]) [address] [place] [address] * VITAMIN E (05/22/2025 6:45 AM CDT) [facility] Vit E Alpha [place] 9.6 9.0 - 29.0 mg/L 05/26/2025 8:09 AM CDT [facility] ([facility]) Vit E Gamma [place] 0.7 0.5 - 4.9 mg/L 05/26/2025 8:09 AM CDT [facility] ([facility]) Comment: Reference intervals for alpha and gamma-tocopherol determined from National Health and Nutrition Examination Survey, 0072-0464. Individuals with alpha-tocopherol levels less than 5.0 mg/L are considered vitamin E deficient. Blood BLOOD SPECIMEN / Unknown Non-Lab Venipuncture / Unknown 05/22/2025 6:45 AM CDT 05/22/2025 7:08 AM CDT Narrative [facility] ([facility]) - 05/26/2025 8:09 AM CDT Test(s) 851757-[id number] E(Alpha Tocopherol); 465226- Vitamin E(Gamma Tocopherol) was developed and its performance characteristics determined by [facility]. It has not been cleared or approved by the Food and Drug Administration. Performed at: - [address] [id number] Chemical Handler: Swapnil Mitchell MD, Phone: [phone] MEEK Dubois RD SEND OUTS Final Resu lt Performing Organization Address [facility]/ZIP Co de Phone Number [facility] ([facility]) [address] [place] [address], * VITAMIN K1 (05/22/2025 6:45 AM CDT) Vitamin K1 0.37 0.10 - 2.20 ng/mL 05/26/2025 2:07 AM CDT [facility] ([facility]) Blood BLOOD SPECIMEN / Unknown Non-Lab Venipuncture / Unknown 05/22/2025 6:45 AM CDT 05/22/2025 7:08 AM CDT Narrative [facility] ([facility]ET) - 05/26/2025 2:07 AM CDT Test(s) 674229-Ntcwzak K1 was developed and its performance characteristics determined by [employer]. It has not been cleared or approved by the Food and Drug Administration. Performed at: 01 - [address] [id number] Chemical Handler: Swapnil Mitchell MD, Phone: [phone] us Oscar Dumont RD, LD SEND OUTS Final Resu lt [facility] ([facility]) [address] [place] [address], * VITAMIN A BLOOD (05/22/2025 6:45 AM CDT) Vitamin A 28.4 22.0 - 69.5 ug/dL 05/26/2025 8:09 AM CDT [facility] ([facility]) Comment: Reference intervals for vitamin A determined from [facility] internal studies. Individuals with vitamin A less than 20 ug/dL are considered vitamin A deficient and those with serum concentrations less than 10 ug/dL are considered severely deficient. This test was developed and its performance characteristics determined by [employer]. It has not been cleared or approved by the Food and Drug Administration. Blood BLOOD SPECIMEN / Unknown Non-Lab Venipuncture / Unknown 05/22/2025 6:45 AM CDT 05/22/2025 7:08 AM CDT Narrative [facility] ([facility]) - 05/26/2025 8:09 AM CDT Performed at: [address] [place] [id number] Chemical Handler: Swapnil Mitchell MD, Phone: [phone] MEEK Dubois RD SEND OUTS Final Resu lt Performing Organization Address [facility] Co de Phone Number [facility] ([facility]) [address] [place] [address], * VITAMIN B6 BLOOD (05/22/2025 6:45 AM CDT) Vitamin B6 3.5 3.4 - 65.2 ug/L 05/25/2025 8:07 PM CDT [facility] ([facility]) Comment: Deficiency: <3.4 Marginal: 3.4 - 5.1 Adequate: >5.1 Blood BLOOD SPECIMEN / Unknown Non-Lab Venipuncture / Unknown 05/22/2025 6:45 AM CDT 05/22/2025 7:08 AM CDT [facility] ESOTERIC TESTING ([facility]) - 05/25/2025 8:07 PM CDT Test(s) [id number] B6 was developed and its performance characteristics determined by [facility]. It has not been cleared or approved by the Food and Drug Administration. Performed at: [address] [place] [address] [id number] Chemical Handler: Swapnil Mitchell MD, Phone: [phone] MEEK Dubois RD CHEMISTRY Final Resu lt Performing Organization Address [facility]/ZIP Co de Phone Number [facility] ESOTERIC TESTING ([facility]) [address] [place] [address], * VITAMIN C (05/22/2025 6:45 AM CDT) Vitamin C 0.9 0.4 - 2.0 mg/dL 05/27/2025 3:10 PM CDT [facility] ([facility]) Comment: Vitamin C deficiency is generally defined as plasma concentrations less than 0.2 mg/dL and levels between 0.2 and 0.4 mg/dL are considered low. Blood BLOOD SPECIMEN / Unknown Non-Lab Venipuncture / Unknown 05/22/2025 6:45 AM CDT 05/22/2025 7:08 AM CDT Narrative [facility] ESOTERIC TESTING ([facility]) - 05/27/2025 3:10 PM CDT Test(s) [id number] C was developed and its performance characteristics determined by [employer]. It has not been cleared or approved by the Food and Drug Administration. Performed at: [address] [id number] Chemical Handler: Swapnil Mitchell MD, Phone: [phone] Oscar Dumont RD, MEEK SEND OUTS Final Resu lt [facility] ESOTERIC TESTING ([facility]) [address] [place] [address], * ZINC SERUM (05/22/2025 6:45 AM CDT) [facility] Zinc, Serum/Plasma 53 44 - 115 ug/dL 05/24/2025 1:08 PM CDT [facility] ESOTERIC TESTING ([facility]) Comment:Detection Limit = 5 Blood BLOOD SPECIMEN / Unknown Non-Lab Venipuncture / Unknown 05/22/2025 6:45 AM CDT 05/22/2025 7:08 AM CDT Narrative [facility] ESOTERIC TESTING ([facility]) - 05/24/2025 1:08 PM CDT Test(s) [id number], Plasma or Serum was developed and its performance characteristics determined by [employer]. It has not been cleared or approved by the Food and Drug Administration. Performed at: [address] [id number] Chemical Handler: Swapnil Mitchell MD, Phone: [phone] MEEK Dubois RD SEND OUTS Final Resu lt Performing Organization Address City/[facility]/ZIP Co de Phone Number [facility] ESOTERIC TESTING ([facility]) [address] [place] [address], * (ABNORMAL) COPPER SERUM (05/22/2025 6:45 AM CDT) Copper, Serum/Plasma 66(L) 80 - 158 ug/dL 05/24/2025 1:08 PM CDT [facility] ESOTERIC TESTING ([facility]) Comment:Detection Limit = 5 Blood BLOOD SPECIMEN / Unknown Non-Lab Venipuncture / Unknown 05/22/2025 6:45 AM CDT 05/22/2025 7:08 AM CDT Narrative [facility] ESOTERIC TESTING ([facility]) - 05/24/2025 1:08 PM CDT Test(s) [id number], Serum or Plasma was developed and its performance characteristics determined by [facility]. It has not been cleared or approved by the Food and Drug Administration. Performed at: [address] [id number] Chemical Handler: Swapnil Mitchell MD, Phone: [phone] MEEK Dubois RD SEND OUTS Final Resu lt Performing Organization Address [facility] Co de Phone Number [facility] ESOTERIC TESTING ([facility]) [address] [place] [address], * VITAMIN D 25 (DEFICIENCY) (05/22/2025 6:45 AM CDT) VITAMIN D TOTAL 23.2 20.0 - 80.0 ng/mL 05/22/2025 11:52 AM CDT [facility] Blood BLOOD SPECIMEN / Unknown Non-Lab Venipuncture / Unknown 05/22/2025 6:45 AM CDT 05/22/2025 7:08 AM CDT Narrative [facility] - 05/22/2025 11:52 AM CDT Vitamin D Status Deficiency: <20 ng/mL Insufficiency: 20-29 ng/mL Sufficiency: 30-80 ng/mL Possible Toxicity: >80 ng/mL Based on [place] of Medicine recommendations Biotin supplements may cause clinically significant interference for this test assay. If interference is suspected, it is strongly recommended that biotin is discontinued for at least one week prior to retesting. Oscar Dumont RD, MEEK SEND OUTS Final Resu lt Performing Organization Address [facility] Co de Phone Number [facility] [address] [place] [address], * CLOSTRIDIOIDES DIFFICILE TOXIN PCR (05/21/2025 8:44 PM CDT) Only the most recent of2 resultswithin the time period is included. CLOSTRIDIUM DIFFICILE PCR Negative 05/21/2025 10:06 PM CDT [facility] PRESUMPTIVE NAP1 STRAIN Negative 05/21/2025 10:06 PM CDT [facility] Stool STOOL SPECIMEN / Unknown Non-Blood / Unknown 05/21/2025 8:44 PM CDT 05/21/2025 8:51 PM CDT Narrative [facility] - 05/21/2025 10:06 PM CDT The NAP1 (027 or BI) strain is a hypervirulent strain. Detection may be useful for epidemiological purposes. Sesar Millan MD MICROBIOLOGY Final R esult Performing Organization Address [facility] Co de Phone Number [facility] [address] [place] [address], * FOLIC ACID (05/21/2025 4:57 PM CDT) FOLIC ACID 5.2 4.6 - 34.8 ng/mL 05/21/2025 6:29 PM CDT [facility] Blood BLOOD SPECIMEN / Unknown Non-Lab Venipuncture / Unknown 05/21/2025 4:57 PM CDT 05/21/2025 5:04 PM CDT Narrative [facility] - 05/21/2025 6:29 PM CDT Biotin supplements may cause clinically significant interference for this test assay. If interference is suspected, it is strongly recommended that biotin is discontinued for at least one week prior to retesting. Oscar Dumont RD, LD CHEMISTRY Final Resu lt Performing Organization Address [facility] de Phone Number [facility] [address] [place] [address], [place] * TSH FOR ADD ON (05/20/2025 4:20 AM CDT) TSH 3.11 0.27 - 4.20 uIU/mL 05/20/2025 12:16 PM CDT [facility] Blood BLOOD SPECIMEN / Unknown Non-Lab Venipuncture / Unknown 05/20/2025 4:20 AM CDT 05/20/2025 4:37 AM CDT Narrative [facility] - 05/20/2025 12:16 PM CDT In Adults, TSH values between 5.00 and 10.00 uIU/ml do not necessarily indicate the presence of Hypothyroidism. Correlation with clinical findings such as presence of goiter and/or Thyroperoxidase (TPO) Antibody may be helpful. For more information please refer to VNICE 2004; 291: 228-238. Sesar Millan MD CHEMISTRY Final R esult Performing Organization Address [facility] de Phone Number [facility] [address] [place] [address], [place] * (ABNORMAL) URINALYSIS MICROSCOPIC (05/18/2025 10:49 PM CDT) RBC 11-25(A) 0-2, None Seen /HPF 05/18/2025 11:39 PM CDT [facility] WBC 3-5 0-2, 3-5, None Seen /HPF 05/18/2025 11:39 PM CDT [facility] BACTERIA Many(A) None Seen, Rare, Few Bacteria/ HPF 05/18/2025 11:39 PM CDT [facility] EPITHELIAL CELLS Moderate(A ) None Seen, Few Epi/HPF 05/18/2025 11:39 PM CDT [facility] HYALINE CASTS 0-2 0-2, 3-5 /LPF 05/18/2025 11:39 PM CDT [facility] CALCIUM OXALATE CRYSTALS Present(A) (none) 05/18/2025 11:39 PM CDT [facility] Urine URINE SPECIMEN / Unknown Non-Blood / Unknown 05/18/2025 10:49 PM CDT 05/18/2025 11:12 PM CDT us Alicia MORENO URINE Final Resul t [facility] [address] [place] [address], [place] * (ABNORMAL) UA W/ SEDIMENT EXAM REFLEXED PER CRITERIA (05/18/2025 10:49 PM CDT) COLOR Yellow Yellow Color 05/18/2025 11:39 PM CDT [facility] CLARITY Cloudy(A) Clear Clarity 05/18/2025 11:39 PM CDT [facility] SPECIFIC GRAVITY,URINE 1.025 1.010, 1.015, 1.020, 1.025 05/18/2025 11:39 PM CDT [facility] PH,URINE 5.5 6.0, 7.0, 8.0, 5.5, 6.5, 7.5, 8.5 05/18/2025 11:39 PM CDT [facility] UROBILINOGEN, QUALITATIVE Normal Normal EU/dl 05/18/2025 11:39 PM CDT [facility] PROTEIN, URINE Trace(A) Negative mg/dL 05/18/2025 11:39 PM CDT [facility] GLUCOSE, URINE Negative Negative mg/dL 05/18/2025 11:39 PM CDT [facility] KETONES,URINE Negative Negative mg/dL 05/18/2025 11:39 PM CDT [facility] BILIRUBIN,URI NE Negative Negative 05/18/2025 11:39 PM CDT [facility] OCCULT BLOOD,URINE Large(A) Negative 05/18/2025 11:39 PM CDT [facility] NITRITE Positive(A) Negative 05/18/2025 11:39 PM CDT [facility] LEUKOCYTE ESTERASE Small(A) Negative 05/18/2025 11:39 PM CDT [facility] Urine URINE SPECIMEN / Unknown Non-Blood / Unknown 05/18/2025 10:49 PM CDT 05/18/2025 11:12 PM CDT Alicia MORENO URINE Final Resul t Performing Organization Address [facility] Co de Phone Number [facility] [address] [address], [place] * Sodium AM (05/18/2025 5:50 AM CDT) Only the most recent of6 resultswithin the time period is included. SODIUM 142 136 - 145 mmol/L 05/18/2025 6:34 AM CDT [facility] Blood BLOOD SPECIMEN / Unknown Non-Lab Venipuncture / Unknown 05/18/2025 5:50 AM CDT 05/18/2025 6:10 AM CDT Leigh Ann Davila MD CHEMISTRY Final Resu lt Performing Organization Address City/[facility] Co de Phone Number [facility] [address] [place] [address], [place] * IR PERCUTANEOUS TUBE PLACEMENT (05/16/2025 11:48 AM CDT) Anatomical Region Laterality Modality X-Ray Angiograph y Narrative 05/16/2025 12:06 PM CDT Procedure: Percutaneous gastrojenjunostomy tube placement under fluoroscopic guidance Indication: Need for nutritional support Interventionalist: Ladarius Sandoval MD Fluoroscopy time: 5 minutes. Reference air kerma: 145 mGy. Estimated Blood Loss: <10 mL Medications: 1. 3 mg midazolam IV 2. 150 mcg fentanyl IV 3. 10 mL lidocaine SQ 4. 1 mg glucagon IV Sedation: Moderate Conscious sedation: 15 minutes of intraservice time. The sedation was supervised by myself and the patient's vital signs were actively monitored by an independent registered nurse. Complications: None immediate. Contrast: Contrast: Omnipaque 350, 20 mL into the GI tract Implanted device: 22 Colombian ANTOINE gastrojejunostomy feeding tube Technique: The procedure, risks, and alternative therapies were discussed in detail, and written informed consent was obtained. A time out was performed to verify correct patient and procedure. Moderate sedation was administered as above. The patient's pulse oximetry, EKG, and blood pressure were monitored by the interventional radiology nurse at all times. The patient was placed supine on the fluoroscopy table. The anterior abdomen was prepped and draped in the usual sterile fashion. All elements of maximum sterile barrier technique were used. Preliminary fluoroscopy demonstrated barium opacification of the transverse colon. The stomach was insufflated with air via a nasogastric tube. An appropriate puncture site was chosen in the region of the mid gastric body. The skin and subcutaneous tissues were anesthetized with 1% lidocaine. Using a 18-gauge T fastener deployment device, three T fasteners were inserted into the stomach on opposing sides of the planned incision site and locked in place for gastropexy. Intragastric position was confirmed fluoroscopically by aspiration of air and contrast injection. A skin camilo was made, and an 18-gauge needle was advanced into the stomach. Intragastric position was confirmed by aspiration of air and by contrast injection. A stiff guidewire was inserted into the needle. A Kumpe catheter was inserted. The catheter and wire were advanced through the pylorus and into the distal duodenum. The tract was sequentially dilated to a 24 [place]ian peel-away sheath. ANTOINE gastrojejunostomy feeding tube was inserted into the peel-away sheath, which was then removed. The balloon was inflated with 10 mL of saline mixed with a tiny amount of contrast. Injection of the gastrostomy port confirmed correct placement. Injection of jejunostomy port confirmed tip position in the small bowel. The tube and balloon were pulled anteriorly and the external disc was secured. The exit site was covered with a sterile dressing. There were no complications and the patient tolerated the procedure well. Impression: Successful placement of a percutaneous gastrojejunostomy tube using fluoroscopic guidance. Please contact me with any questions. Ladarius Sandoval MD Vascular & Interventional Radiology at [facility] [phone] Leigh Ann Davila MD IR Final Resu lt * (ABNORMAL) Protime INR (05/14/2025 4:55 PM CDT) Only the most recent of2 resultswithin the time period is included. INR 1.6(H) <1.3 05/14/2025 5:39 PM CDT [facility] PROTIME 18.9(H) 10.6 - 12.4 sec 05/14/2025 5:39 PM CDT [facility] Blood BLOOD SPECIMEN / Unknown Non-Lab Venipuncture / Unknown 05/14/2025 4:55 PM CDT 05/14/2025 5:02 PM CDT Narrative [facility] - 05/14/2025 5:39 PM CDT Therapeutic Range 2.0-3.0 for most [...] if the patient is on UFH. us Leigh Ann Davila MD HEMATOLOGY Final Resu lt [facility] [address] [place] [address], * ENDOSCOPY (05/13/2025 1:18 PM CDT) 05/13/2025 1:18 PM CDT Narrative Transcriptions Talib Cheng MD - 05/13/2025 2:06 PM CDT [facility] Patient Name: Mery Boyce Procedure Date: 05/13/2025 Gender: Female Date of : 1950 Admit Type: Inpatient Procedure: Upper GI endoscopy Proceduralist: Talib Cheng MD - [facility] Indications/Pre-Op Diagnosis: Nausea/vomiting Medications: MAC Procedure Description: Risk of bleeding, infection, perforation, need for surgery and alternatives discussed. The endoscope [id number] was introduced through the mouth, and advanced to the second part of duodenum. The upper GI endoscopy was accomplished without difficulty. The patient tolerated the procedure well. Complications: No immediate complications. Estimated Blood Loss & Specimen: None Findings: Esophagus - normal. At the GEJ, there was a minor Schatzki's ring;this was not addressed. Stomach - small hiatal hernia. There was minor nonspecificgastropathy with mild erythema and edema of the gastric body but no erosions or ulcerations were seen; no biopsies were taken. The stomach wasotherwise unremarkable. 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 This was not biopsied. 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 Note Initiated On: 05/13/2025 1:18 PM Talib Cheng MD PROCEDURE ORD Final Result * SCAN CORRESP-IMAGING (05/13/2025 11:12 AM CDT) Anatomical Region Laterality Modality Other Narrative 05/13/2025 11:12 AM CDT Ordered by an unspecified provider. us Other Clinical Staff OTHER Final Resul t * SCAN CORRESP-EKG RESULTS (05/13/2025 11:07 AM CDT) Only the most recent of2 resultswithin the time period is included. Narrative 05/13/2025 11:07 AM CDT Ordered by an unspecified provider. Other Clinical Staff OTHER Final Resul t * (ABNORMAL) CBC no diff AM (05/13/2025 5:39 AM CDT) Only the most recent of6 resultswithin the time period is included. WHITE BLOOD COUNT 7.3 4.5 - 11.0 thou/cu mm 05/13/2025 6:09 AM CDT [facility] RED BLOOD COUNT 4.35 4.00 - 5.20 mil/cu mm 05/13/2025 6:09 AM CDT [facility] HEMOGLOBIN 12.9 12.0 - 16.0 g/dL 05/13/2025 6:09 AM CDT [facility] HEMATOCRIT 41.6 33.0 - 51.0 % 05/13/2025 6:09 AM CDT [facility] MCV 96 80 - 100 fL 05/13/2025 6:09 AM CDT [facility] MCH 29.7 26.0 - 34.0 pg 05/13/2025 6:09 AM CDT [facility] MCHC 31.0(L) 32.0 - 36.0 g/dL 05/13/2025 6:09 AM CDT [facility] RDW 19.6(H) 11.5 - 15.5 % 05/13/2025 6:09 AM CDT [facility] PLATELET COUNT 262 140 - 440 thou/cu mm 05/13/2025 6:09 AM CDT [facility] MPV 11.3(H) 6.5 - 11.0 fL 05/13/2025 6:09 AM CDT [facility] NRBC 0.0 % 05/13/2025 6:09 AM CDT [facility] ABS NRBC 0.0 thou /cu mm 05/13/2025 6:09 AM CDT [facility] Blood BLOOD SPECIMEN / Unknown Venipuncture / Unknown 05/13/2025 5:39 AM CDT 05/13/2025 6:00 AM CDT Jaspreet Jimenez MD HEMATOLOGY Final Res ult Performing Organization Address City/[facility]/ZIP Co de Phone Number [facility] [address] [place] [address], [place] * (ABNORMAL) CK TOTAL (05/13/2025 5:39 AM CDT) Only the most recent of6 resultswithin the time period is included. [facility] CK,TOTAL 22(L) 26 - 192 IU/L 05/13/2025 6:47 AM CDT [facility] Blood BLOOD SPECIMEN / Unknown Venipuncture / Unknown 05/13/2025 5:39 AM CDT 05/13/2025 6:00 AM CDT Jaspreet Jimenez MD CHEMISTRY Final Res ult Performing Organization Address City/[facility]/ZIP Co de Phone Number [facility] [address] [place] [address], [place] * (ABNORMAL) Hepatic function panel AM (05/13/2025 5:39 AM CDT) Only the most recent of2 resultswithin the time period is included. [facility] ALBUMIN 2.6(L) 4.0 - 4.9 g/dL 05/13/2025 6:47 AM CDT [facility] PROTEIN,TOTAL 4.9(L) 6.0 - 8.0 g/dL 05/13/2025 6:47 AM CDT [facility] BILIRUBIN,TOTAL 0.4 0.0 - 1.2 mg/dL 05/13/2025 6:47 AM CDT [facility] BILIRUBIN,DIRECT 0.2 0.0 - 0.2 mg/dL 05/13/2025 6:47 AM CDT [facility] BILIRUBIN,INDIRE CT 0.2 0.2 - 0.8 mg/dL 05/13/2025 6:47 AM CDT [facility] ALK PHOSPHATASE 136(H) 35 - 104 IU/L 05/13/2025 6:47 AM CDT [facility] ALT (SGPT) 21 10 - 35 IU/L 05/13/2025 6:47 AM CDT [facility] AST (SGOT) 60(H) 10 - 35 IU/L 05/13/2025 6:47 AM CDT [facility] Blood BLOOD SPECIMEN / Unknown Venipuncture / Unknown 05/13/2025 5:39 AM CDT 05/13/2025 6:00 AM CDT us Jaspreet Jimenez MD CHEMISTRY Final Res ult [facility] [address] [place] [address], * stool pathogen multiplex PCR (05/13/2025 12:52 AM CDT) Pathologist [facility] Campylobacter NOT Detected NOT Detected 05/13/2025 10:45 PM CDT [facility] Salmonella NOT Detected NOT Detected 05/13/2025 10:45 PM CDT [facility] Shigella NOT Detected NOT Detected 05/13/2025 10:45 PM CDT [facility] Vibrio NOT Detected NOT Detected 05/13/2025 10:45 PM CDT [facility] Yersinia Enterocolitica NOT Detected NOT Detected 05/13/2025 10:45 PM CDT [facility] Shiga Toxin 1 NOT Detected NOT Detected 05/13/2025 10:45 PM CDT [facility] Shiga Toxin 2 NOT Detected NOT Detected 05/13/2025 10:45 PM CDT [facility] Norovirus NOT Detected NOT Detected 05/13/2025 10:45 PM CDT [facility] Rotavirus NOT Detected NOT Detected 05/13/2025 10:45 PM CDT [facility] Stool STOOL SPECIMEN / Unknown Non-Blood / Unknown 05/13/2025 12:52 AM CDT 05/13/2025 1:28 AM CDT [facility] - 05/13/2025 10:45 PM CDT This test is a Culture Independent Diagnostic Test (CIDT) therefore isolates are not available for susceptibility testing. Antibiotic treatment is often contraindicated and may be detrimental in cases of enteric infections, thus routine susceptibility testing is not recommended. us Jaspreet Jimenez MD MICROBIOLOGY Final Res ult [facility] [address] [place] [address], * (ABNORMAL) C-REACTIVE PROTEIN (05/12/2025 8:34 AM CDT) Only the most recent of8 resultswithin the time period is included. C-REACTIVE PROTEIN 0.7(H) <0.5 mg/dL 05/12/2025 10:15 AM CDT [facility] Blood BLOOD SPECIMEN / Unknown Butterfly / Unknown 05/12/2025 8:34 AM CDT 05/12/2025 9:40 AM CDT June R Nba SUPERVISORY EXAMINER CHEMISTRY Final Resul t [facility] [address] [place] [address] * CT ABDOMEN PELVIS W (05/07/2025 10:21 AM CDT) Only the most recent of3 [...] low as reasonably achievable. Dictated by Mark uBrr MD @ 05/08/2025 12:06:13 PM (Electronically Signed) [...] provided. See operative/procedure report for further information. Dimitry Garcia MD FLUOROSCOPY Misty l Result [...] Upper EUS Proceduralist: Dimitry Garcia MD - [facility] Referring MD: Dimitry Garcia MD [...] andthe patient gave informed consent. The endoscope [id number] was introduced through the mouth, and advanced [...] since January of this year andis at [facility]. Recommendation: - Discharge patient to [...] MD PROCEDURE ORD Misty l Result * (ABNORMAL) BUN (04/28/2025 7:50 AM CDT) Only the most recent of4 resultswithin the time period is included. BUN 7(L) 8 - 23 mg/dL 04/28/2025 9:38 AM CDT [facility] Blood BLOOD SPECIMEN / Unknown Butterfly / Unknown 04/28/2025 7:50 AM CDT 04/28/2025 9:11 AM CDT us Brad Bolanos MD CHEMISTRY Final Result [facility] [address] [place] [address] * CT ABDOMEN PELVIS WO (04/23/2025 9:23 [...] limits for newborns. 04/07/2025 10:56 AM CDT [facility] Blood BLOOD SPECIMEN / Unknown Butterfly / Unknown 04/07/2025 8:15 AM CDT 04/07/2025 9:35 AM CDT Brad Bolanos MD HEMATOLOGY Final Result Performing Organization Address City/[facility]/ZIP Co de Phone Number [facility] [address] [place], [place] [id number] * PLATELET ESTIMATE (04/07/2025 8:15 AM CDT) Pathologist [facility] PLATELET ESTIMATE Adequate Adequate, No estimate 04/07/2025 10:56 AM CDT [facility] Blood BLOOD SPECIMEN / Unknown Butterfly / Unknown 04/07/2025 8:15 AM CDT 04/07/2025 9:35 AM CDT Brad Bolanos MD HEMATOLOGY Final Result Performing Organization Address [facility]/ZIP Co de Phone Number [facility] [address] [place], [place] [id number] * (ABNORMAL) MANUAL DIFFERENTIAL (04/07/2025 8:15 AM CDT) [facility] % NEUTROPHILS 71.0 % 04/07/2025 10:56 AM CDT [facility] % LYMPHOCYTES 19.0 % 04/07/2025 10:56 AM T [facility] % MONOCYTES 6.0 % 04/07/2025 10:56 AM T [facility] [facility] % EOSINOPHILS 3.0 % 04/07/2025 10:[address] [facility] % BASOPHILS 1.0 % 04/07/2025 10:[address] [facility] NEUTROPHILS ABSOLUTE 9.1(H) 1.7 - 7.0 thou/cu mm 04/07/2025 10:56 AM T [facility] LYMPHOCYTES ABSOLUTE 2.4 0.9 - 2.9 thou/cu mm 04/07/2025 10:[address] [facility] MONOCYTES ABSOLUTE 0.8 <0.9 thou/cu mm 04/07/2025 10:[address] [facility] EOSINOPHILS ABSOLUTE 0.4 <0.5 thou/cu mm 04/07/2025 10:[address] [facility] BASOPHILS ABSOLUTE 0.1 <0.3 thou/cu mm 04/07/2025 10:[address] [facility] Blood BLOOD SPECIMEN / Unknown Butterfly / Unknown 04/07/2025 8:15 AM CDT 04/07/2025 9:35 AM CDT us Brad Bolanos MD HEMATOLOGY Final Result [facility] [address] [place] [address] * SCAN-LABORATORY REPORT (04/01/2025 12:00 AM CDT) us Scanner OTHER Final Result * ECG AM (03/28/2025 6:41 AM CDT) Only the most recent of4 resultswithin the time period is included. Interpretation [...] NOW QTc 440 ms BEYOND NOW P [place]field 72 degrees BEYOND NOW R Byfield -14 degrees BEYOND NOW T Byfield -9 degrees BEYOND NOW 03/28/2025 6:41 AM CDT 03/30/2025 8:24 PM CDT us Sesar Samuel MD EKG ORD Final Result BEYOND NOW [place], [place] * SCAN-CARDIAC STRIP (03/28/2025 4:07 AM CDT) [...] Diameter: 0.47 cm upon initial insertion (03/08/25) Kddcbfkv-uh-Fgva Ratio (%): Visible Catheter Length (cm): 0 [...] Dressing change due date 04/03/2025 03/27/251918 Line Radio Director Name:Bard, Solo Power PICC (proximal valve) Lot Number: [id number] Access Assistance:Modified Seldinger Technique (Micro-Introducer) WITHOUT Dermatotomy [...] Tech: DIONICIO/Josh Referring MD: JEREMIAH MUSA Site: [facility] Reading Location: [facility] Patient Location: Inpatient. Procedure: 2D, JUSTICE, Color [...] . This study was interpreted by an [facility] accredited facility. Final Procedure Note Sesar Samuel MD - 03/27/2025 TRANSESOPHAGEAL ECHOCARDIOGRAM MERY BOYCE : 1950 74 years Study Date: 03/27/2025 1:51:51 PM Gender: F BP: 106/84 mmHg Height: 168.00 cm BSA: 2.02 m Weight: 93.00 kg Tech: DIONICIO/Josh Referring MD: JEREMIAH MUSA Site: [facility] Reading Location: [facility] Patient Location: Inpatient. Procedure: 2D, JUSTICE, Color [...] . This study was interpreted by an [facility] accredited facility. Final us Jeremiah MORENO ECHO [...] Scanner OTHER Final Result * SCAN-CARDIAC STRIP (03/26/2025 12:00 AM CDT) Narrative 03/26/2025 12:00 AM CDT Ordered by an unspecified provider. us Other Clinical Staff OTHER Final Resul t * (ABNORMAL) GLUCOSE METER (03/16/2025 4:31 PM CDT) Only the most recent of41 resultswithin the time period is included. [facility] Signature GLUCOSE METER 121(H) 65 - 100 mg/dL 03/16/2025 4:32 PM CDT [facility] Blood BLOOD SPECIMEN / Unknown 03/16/2025 4:31 PM CDT 03/16/2025 4:32 PM CDT us Talib Naidu MD CHEMISTRY Final Res ult [facility] [address] [place] [address], [place] * SCAN-CARDIAC STRIP (03/14/2025 9:54 AM [...] adnexal cystic lesion. The lesion is homogeneously [id number] and has a uniform intermediate T1 intensity. [...] (ABNORMAL) PLATELET COUNT (03/10/2025 6:21 AM CDT) [facility] PLATELET COUNT 690(H) 140 - 440 thou/cu mm 03/10/2025 7:38 AM CDT [facility] MPV 9.1 6.5 - 11.0 fL 03/10/2025 7:38 AM CDT [facility] Blood BLOOD SPECIMEN / Unknown Line/Port / Unknown 03/10/2025 6:21 AM CDT 03/10/2025 7:28 AM CDT us Peyman Ring MD HEMATOLOGY Final Result [facility] [address] [place] [address], * SCAN-CARDIAC STRIP (03/10/2025 1:00 AM CDT) us Scanner OTHER Final Result * SCAN-CARDIAC STRIP (03/09/2025 2:41 PM CDT) us Scanner OTHER Final Result * XR ASPIRATION HAND RT (03/09/2025 9:25 AM CDT) Anatomical Region Laterality Modality ANKLES Digital Radiogra phy Narrative 03/09/2025 9:37 AM CDT RADIOLOGY POST PROCEDURE NOTE 03/09/2025 Mery Boyce [id number] PROCEDURE PERFORMED: FLUOROSCOPIC GUIDED Right 1st [...] seconds Jeancarlos Lopez PA-C [employer] [place] Protocol A. Pre-procedure verification complete yes 1-relevant [...] BACTERIAL CULTURE, STAIN (03/09/2025 9:15 AM CDT) CULTURE No Growth. 03/12/2025 9:04 AM CDT [facility] GRAM STAIN 1+ PMNs 03/12/2025 9:04 AM CDT [facility] GRAM STAIN 2+ RBCs 03/12/2025 9:04 AM CDT [facility] GRAM STAIN No Epithelial cells 03/12/2025 9:04 AM CDT [facility] GRAM STAIN No organisms seen 03/12/2025 9:04 AM CDT [facility] Other (Other) Non-Blood / Unknown 03/09/2025 9:15 AM CDT 03/09/2025 9:39 AM CDT Narrative [facility] - 03/12/2025 9:04 AM CDT us Peyman Ring MD MICROBIOLOGY Final Result Performing Organization Address City/[facility]/ZIP Co de Phone Number [facility] [address] [place] [phone], [place] * Crystal ID synovial fluid (03/09/2025 9:15 AM CDT) MONOSODIUM URATES None Seen None Seen, Present, Not Present 03/10/2025 10:08 AM CDT [facility] CALCIUM PYROPHOSPHATES None Seen None Seen, Present, Not Present 03/10/2025 10:08 AM CDT [facility] OTHER CRYSTALS 03/10/2025 10:08 AM CDT [facility] SPECIMEN SOURCE hand aspiration 03/10/2025 10:08 AM CDT [facility] Body Fluid JOINT SPECIMEN / Unknown Non-Blood / Unknown 03/09/2025 9:15 AM CDT 03/09/2025 9:39 AM CDT us Peyman Ring MD BODY FLUID Final Result Performing Organization Address [facility]/ZIP Co de Phone Number [facility] [address] [place] [phone], [place] * Uric acid AM (03/09/2025 5:10 AM CDT) Only the most recent of2 resultswithin the time period is included. URIC ACID 3.8 2.4 - 5.7 mg/dL 03/09/2025 5:57 AM CDT [facility] Blood BLOOD SPECIMEN / Unknown Non-Lab Venipuncture / Unknown 03/09/2025 5:10 AM CDT 03/09/2025 5:18 AM CDT us Peyman Ring MD CHEMISTRY Final Result [facility] [address] [place] [address], [place] * SCAN-CARDIAC STRIP (03/09/2025 1:05 AM [...] @ Mar 07 2025 1:44PM (Electronically Signed) [email or web address] Narrative 03/07/2025 1:44 PM CDT For Patients: [...] @ Mar 07 2025 1:44PM (Electronically Signed) [email or web address] us Peyman Ring MD GENERAL IMAGING Final Result * (ABNORMAL) WHITE BLOOD COUNT (03/07/2025 6:12 AM CDT) WHITE BLOOD COUNT 14.8(H) 4.5 - 11.0 thou/cu mm 03/07/2025 7:20 AM CDT [facility] [employer] [facility] NRBC 0.3 % 03/07/2025 7:20 AM CDT [facility] ABS NRBC 0.1 thou /cu mm 03/07/2025 7:20 AM CDT [facility] Blood BLOOD SPECIMEN / Unknown Butterfly / Unknown 03/07/2025 6:12 AM CDT 03/07/2025 7:13 AM CDT us Bushra MORENO HEMATOLOGY Misty l Result [facility] [address] [place] [address], [place] * SCAN-CARDIAC STRIP (03/07/2025 3:45 AM [...] us Peyman Ring MD LABORATORY Final Result [facility] [address] [place] [address], * SCAN-CARDIAC STRIP (03/05/2025 12:38 AM CDT) us Scanner OTHER Final Result * LOW MOLECULAR WGT HEPARIN (03/04/2025 1:21 PM CDT) [facility] LOW MOLECULAR WGT HEPARIN 0.64 U/mL 03/04/2025 1:49 PM CDT [facility] Comment: LMWH therapeutic range: 0.60-1.00 IU/mL for twice daily dosing* LMWH therapeutic range: 1.00-2.00 IU/mL for once daily dosing* LMWH prophylactic range: 0.10-0.30 IU/mL (*sample obtained 4-6 hours following subcutaneous injection) Blood BLOOD SPECIMEN / Unknown Butterfly / Unknown 03/04/2025 1:21 PM CDT 03/04/2025 1:35 PM CDT us Peyman Ring MD HEMATOLOGY Final Result [facility] [address] [place] [phone], [place] * SCAN-CARDIAC STRIP (03/04/2025 1:58 AM [...] OTHER Final Result * SCAN-CARDIAC STRIP (03/02/2025 1:14 AM CDT) us Scanner OTHER Final Result * LIPID PANEL W REFLEX MEASURED LDL (04/23/2024 11:19 AM CDT) CHOLESTEROL,TOTAL 191 100 - 199 mg/dL 04/23/2024 11:[address] [facility] Comment: Cholesterol, Total Reference Ranges Desirable <200 mg/dL Borderline 200-239 mg/dL High >=240 mg/dL TRIGLYCERIDES 140 <150 mg/dL 04/23/2024 11:[address] [facility] HDL CHOLESTEROL 48 >40 mg/dL 11:[address] [facility] NON-HDL CHOLESTEROL 143 <145 mg/dl 04/23/2024 11:[address] [facility] CHOL/HDL RATIO 3.98 <4.50 04/23/2024 11:[address] [facility] LDL CHOLESTEROL 115 <=130 mg/dL 04/23/2024 11:[address] [facility] VLDL CHOLESTEROL 28 <=30 mg/dL 04/23/2024 11:[address] [facility] PROVIDER ORDERED STATUS RANDOM 04/23/2024 11:[address] [facility] Blood BLOOD SPECIMEN / Unknown Venipuncture / Unknown 04/23/2024 11:19 AM CDT 04/23/2024 11:19 AM CDT William Najera MD CHEMISTRY Final R esult [facility] [address] [place] [address] * OCCULT BLOOD IFOBT STOOL [[id number]] (05/02/2022 1:28 PM CDT) STOOL BLOOD ,IFOBT Negative Negative 05/05/2022 8:45 AM CDT [facility] Stool STOOL SPECIMEN / Unknown Non-Blood / Unknown 05/02/2022 1:28 PM CDT 05/04/2022 1:28 PM CDT William Najera MD LABORATORY Final R esult [facility] [address] [place] [address], * (ABNORMAL) XR DXA BONE DENSITY 2 SITES AXIAL [[id number]] (04/26/2021 1:14 PM CDT) Anatomical Region Laterality [...] DXA Bone Mineral Density (BMD) EXAM LOCATION: [address] [id number] PATIENT NAME: Mery Boyce DATE OF : [...] 2:30 PM CDT XR MAMMO BILAT SCREENING [[id number]] CLINICAL HISTORY: This is an asymptomatic 68 y.o. patient. INDICATION FOR EXAM: Mammogram Screening. TECHNIQUE: CC & MLO views were obtained. This digital study was evaluated with the assistance of Computer-Aided Detection. COMPARISON FILM: Yes 02/05/17 [facility] FINDINGS: Mammographically, the breast tissue has scattered fibroglandular densities. There are no dominant masses, suspicious micro calcifications or areas of architectural distortion. William Najera MD MAMMO Final R esult * ANTI HCV [[id number]] (02/01/2015 10:44 AM CDT) HEPATITIS C ANTIBODY Non-Reacti ve Non-Reacti ve 02/01/2015 8:39 PM CDT [facility] Blood specimen (specimen) BLOOD SPECIMEN / Unknown Butterfly / Unknown 02/01/2015 10:44 AM CDT 02/01/2015 10:44 AM CDT Narrative [facility] - 02/01/2015 8:39 PM CDT Antibodies to HCV not detected; does not exclude the possibility of exposure to HCV. us William Najera MD SEND OUTS Final R esult [facility] 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
[2025-06-02 14:21] LABS: Appearance Urine Clear (Clear)
--- NOTE | 2025-06-02 15:07 | ED.GENADULT ---
HPI - General Adult General Chief complaint: Edema Stated complaint: Off labs Time Seen by Provider: 06/02/25 13:14 Source: patient Mode of arrival: EMS Limitations: no limitations History of Present Illness HPI narrative: Patient is a 74-year-old female presenting from [facility] [place] for lower extremity edema. Report is she also has sodium of 117 with a check labs. She states she has a history of leg swelling is 20 mg of Lasix daily. States over the past few days she has been having increased swelling. The increased swelling has been causing her legs to feel very tight and it is hard for her to walk due to it. Yesterday she did fall due to the tightness of her legs. She is on her knees and since then it has been having some knee discomfort. Is able a ambulate currently but not as well as she usually is. Denies fevers, chills, chest pain, shortness of breath, abdominal pain, headache, lightheadedness, dizziness, weakness, numbness. Denies missing any medications. No recent changes to her medication. 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 Was [facility] to the [facility] 6 days ago. She takes all her medications through the GJ to but is able to eat and drink normally. No other concerns noted. She states she was recently wait and is up 24 lb Related Data Home Medications ?Medication ?Instructions ?Recorded ?Confirmed acetaminophen 500 mg tablet 1,000 mg feeding tube Q6H PRN 05/12/25 06/02/25 (Acetaminophen Extra Strength) apixaban 5 mg tablet (Eliquis) 5 mg feeding tube BID 05/12/25 06/02/25 buspirone 30 mg tablet 15 mg feeding tube BID 05/12/25 06/02/25 diclofenac sodium 1 % topical gel 4 g topical QID PRN 05/12/25 06/02/25 (Arthritis Pain (diclofenac)) furosemide 20 mg tablet (Lasix) 20 mg feeding tube DAILY 05/12/25 06/02/25 gabapentin 300 mg capsule 300 mg feeding tube HS 05/12/25 06/02/25 hydroxyzine pamoate 25 mg capsule 25 mg feeding tube HS 05/12/25 06/02/25 lorazepam 0.5 mg tablet (Ativan) 0.5 mg feeding tube DAILY PRN 05/12/25 06/02/25 methocarbamol 500 mg tablet 500 mg feeding tube QID 05/12/25 06/02/25 pravastatin 40 mg tablet 40 mg feeding tube HS 05/12/25 06/02/25 Held on 05/12/25. Instructions: HOLD WHILE ON DAPTOMYCIN prochlorperazine maleate 10 mg 10 mg feeding tube BID 05/12/25 06/02/25 tablet (Compazine) sertraline 100 mg tablet 125 mg feeding tube DAILY 05/12/25 06/02/25 sotalol 80 mg tablet 80 mg feeding tube BID 05/12/25 06/02/25 Lipase Concentrate-HP 2 cap feeding tube TID 06/02/25 06/02/25 banana 1 ea PO TID 06/02/25 06/02/25 flakes-transgalactooligosaccharide oral powder packet (Banatrol Plus oral powder packet) diazepam 5 mg tablet 2.5 mg PO DAILY PRN 06/02/25 06/02/25 ergocalciferol (vitamin D2) PO .WEEKLY 06/02/25 guar gum 4 g feeding tube TID 06/02/25 06/02/25 lansoprazole 30 mg delayed 30 mg PO DAILY@07 06/02/25 06/02/25 release,disintegrating tablet loperamide 2 mg tablet 2 mg feeding tube QID 06/02/25 06/02/25 (Anti-Diarrheal (loperamide)) multivitamin with folic acid 400 1 tab PO DAILY 06/02/25 06/02/25 mcg tablet (Tab-A-Patrick) nystatin 100,000 unit/gram topical 1 applic topical BID 06/02/25 06/02/25 powder ondansetron 4 mg disintegrating 4 mg PO Q8H PRN 06/02/25 06/02/25 tablet oxycodone 5 mg tablet 5 mg feeding tube Q6H PRN pain 06/02/25 06/02/25 potassium chloride 20 mEq/15 mL 40 meq feeding tube BID 06/02/25 06/02/25 oral liquid Allergies Allergy/AdvReac Type Severity Reaction Status Date / Time erythromycin base Allergy Unknown Verified 05/12/25 10:56 Review of Systems Status of ROS: Reports: 10 or more systems reviewed and unremarkable except as noted in History and below PFSH PFSH Social History Smoking Status: Former smoker What tobacco products do you use: cigarettes How often do you have a drink containing alcohol: never AUDIT-C Alcohol total score: 0 Non-prescribed substance use: denies use service: No Exam Narrative: Exam Narrative: Const: Well-nourished, Well-developed, in mild distress Eyes: PERRL, no conjunctival injection, and symmetrical lids HENT: Atraumatic external nose and ears. Moist mucous membranes. Neck: Symmetric, trachea midline, No thyromegaly. CVS: RRR, No murmurs or gallops. Peripheral pulses 2+ and equal in all extremities, lower extremity edema +3 bilaterally up to the knees RESP: Unlabored respiratory effort. Clear to auscultation bilaterally. GI: Nontender/Nondistended, No rebound or guarding. MSK:Extremities w/o deformity, Normal Active ROM Skin: Warm, Dry. No rashes or lesions. Neuro: Normal Muscle tone, No focal neurological deficits. Psych: Awake, Alert, & Oriented x3. Appropriate mood and affect. Const: Vital Signs, click to edit/add: Vital Signs - 24 hr 06/02/25 12:52 06/02/25 15:05 Temperature 96.7 F L 97.1 F L Pulse Rate [Pulse Oximeter] 82 81 Respiratory Rate 18 18 Blood Pressure [Le ft Upper Arm] 109/90 H 125/103 H Pulse Oximetry 95 94 Oxygen Delivery Me thod Room Air Room Air Course Vital Signs Vital signs: Initial Vital Signs Temperature 96.7 F L 06/02/25 12:52 Temperature Source Temporal Artery Scan 06/02/25 12:52 Pulse Rate 82 06/02/25 12:52 Respiratory Rate 18 06/02/25 12:52 Blood Pressure 109/90 H 06/02/25 12:52 Blood Pressure Mean 96 06/02/25 12:52 Blood Pressure Position Supine 06/02/25 12:52 Pulse Oximetry 95 06/02/25 12:52 Oxygen Delivery Method Room Air 06/02/25 12:52 Vital Signs Temperature 96.7 F L 06/02/25 12:52 Pulse Rate 82 06/02/25 12:52 Respiratory Rate 18 06/02/25 12:52 Blood Pressure 109/90 H 06/02/25 12:52 Pulse Oximetry 95 06/02/25 12:52 Oxygen Delivery Method Room Air 06/02/25 12:52 Temperature 97.1 F L 06/02/25 15:05 Pulse Rate 81 06/02/25 15:05 Respiratory Rate 18 06/02/25 15:05 Blood Pressure 125/103 H 06/02/25 15:05 Pulse Oximetry 94 06/02/25 15:05 Oxygen Delivery Method Room Air 06/02/25 15:05 Medications Administered Medications: Discontinued Medications Generic Name Dose Route Start Last Admin Trade Name Rian PRN Reason Stop Dose Admin Furosemide 40 mg 06/02/25 16:03 06/02/25 16:42 Furosemide 10 Mg/Ml Inj IVP 06/02/25 16:04 40 mg ONCE ONE Administration Medical Decision Making MDM Narrative Medical decision making narrative: Patient is a 74-year-old female presenting to emergency department for lower extremity swelling. Will do a workup for this including CBC, BMP, BNP, EKG, troponin, urinalysis, magnesium. Also there is report of hyponatremia. We will recheck her sodium. Is having knee pain after fall also x-rays of her left and right knees ordered along the chest x-ray. BMP returned with a sodium of 113. Per chart review it was 117 this morning so do not believe this is a lab error. Her most recent sodium checked on 05/18/2025 was 142. I did speak to her and she does eat and drink normally and has about 16 oz of water a day but typically gets all her medications through her GJ tube. She states staff crush them up and flush them with water. Most recent echocardiogram done back and february shows no signs of heart failure. She does take 20 mg of Lasix today. I do believe she hypervolemic hyponatremia and we need to get fluid off of her. She is showing no signs of altered mental status or other neurological deficits. EKG and troponin showed no concerning findings. BNP is marginally elevated compared to baseline for her. Chest x-ray shows mild pulmonary edema consistent with expected diagnosis of fluid overload. Also reviewing epic she was 208 lb at discharge and she is now 224 lb. I do believe this is hypervolemic hyponatremia. I spoke to our hospitalist who accepts her for admission. Lasix given to try and get fluid off. Lab Data Labs: Lab Results 06/02/25 06/02/25 Range/Units 13:46 15:07 WBC 7.55 (4.50-11.00) K/uL RBC 3.04 L (4.00-5.20) m/uL Hgb 9.0 L (12.0-16.0) gm/dL Hct 26.3 L (33.0-51.0) % MCV 87 (80-100) fL MCH 30 (26-34) pg MCHC 34 (32-36) gm/dL RDW Coeff of Steffi 16.8 H (11.5-15.5) % Plt Count 523 H (140-440) K/uL Neut % (Auto) 71.7 (42.0-72.0) % Lymph % (Auto) 16.0 L (20-44) % [place] % (Auto) 8.5 (0.0-11.0) % Eos % (Auto) 3.0 (0.0-7.0) % Baso % (Auto) 0.4 (0.0-3.0) % Neut # (Auto) 5.41 (1.7-7.0) K/uL Lymph # (Auto) 1.20 (0.90-2.90) K/uL Atlantic # (Auto) 0.60 (0.00-0.90) K/UL Eos # (Auto) 0.23 (0.00-0.50) K/uL Baso # (Auto) 0.03 (0.00-0.30) K/uL Abs Immat Gran (auto) 0.03 (0.00-0.30) K/uL Imm/Tot Granulo (auto) 0.4 % Sodium 113 L* (135-149) mmol/L Potassium 4.0 (3.6-5.1) mmol/L Chloride 85 L (96-114) mmol/L Carbon Dioxide 24 (20-32) mmol/L Anion Gap 4 L (7-15) mEq/L BUN 6 L (7-30) mg/dL Creatinine 0.3 L (0.5-1.5) mg/dL Estimated Creat Clear 46.20 Estimated GFR 111 ml/min Glucose 96 (60-115) mg/dL Calcium 8.4 (8.4-10.6) mg/dL Magnesium 1.5 (1.5-2.6) mg/dL NT-Pro-B Natriuret Pep 2670 H (See Note) pg/mL Urine Color Yellow (Yellow) Urine Appearance Clear (Clear) Urine pH 7.0 (5.0-8.5) Ur Specific [place] 1.015 (1.000-1.030) Urine Protein Negative (Negative) Urine Glucose (UA) Negative (Negative) Urine Ketones Negative (Negative) Urine Blood Trace-intact A (Negative) Urine Nitrite Negative (Negative) Urine Bilirubin Negative (Negative) Urine Urobilinogen 0.2 (0.2-1.0) Ur Leukocyte Esterase Trace A (Negative) Urine RBC 0-2 (0-2) Urine WBC 0-2 (0-5) Ur Squamous Epith Cells Moderate A (None-Few) Urine Bacteria None (None) POC Troponin I 0.00 L (0.01-0.04) ng/ml Imaging Data Chest x-ray: Attestation: I have reviewed the pertinent imaging results. Radiologist's impression: Mild pulmonary edema. Small to moderate left pleural effusion with associated atelectasis. Dictated by Paras Vila MD @ 06/02/2025 3:53:03 PM Left knee x-ray: Attestation: I have reviewed the pertinent imaging results. Radiologist's impression: No acute displaced fracture or malalignment. 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 Dictated by Paras Vila MD @ 06/02/2025 3:55:24 PM Right knee x-ray: Attestation: I have reviewed the pertinent imaging results. Radiologist's impression: No acute displaced fracture or malalignment. Moderate degenerative changes of the knee. Dictated by Paras Vila MD @ 06/02/2025 3:56:39 PM Discharge Plan Discharge Clinical Impression: Acute hyponatremia Patient Disposition: Admitted As Observation Condition: Stable
--- NOTE | 2025-06-02 15:09 | CRLHL7_ITS ---
For Patients: As a result of the Century Cures Act, medical imaging exams and procedure reports are released immediately into your electronic medical record. You may view this report before your referring provider. If you have questions, please contact your health care provider. Indication: LOWER EXTREMEITY BILATERAL SWELLING Technique: PA and lateral views of the chest. Comparison: None. Findings: Low lung volumes. Normal cardiomediastinal silhouette aside from calcified aortic knob. Mild interstitial prominence. Retrocardiac opacity with small to moderate left pleural effusion. No visualized pneumothorax. Degenerative changes of the visualized spine. Impression: Mild pulmonary edema. Small to moderate left pleural effusion with associated atelectasis. Dictated by Paras Vila MD @ 06/02/2025 3:53:03 PM (Electronically Signed)
--- NOTE | 2025-06-02 15:09 | CRLHL7_ITS ---
For Patients: As a result of the Century Cures Act, medical imaging exams and procedure reports are released immediately into your electronic medical record. You may view this report before your referring provider. If you have questions, please contact your health care provider. Indication: LOWER EXTREMEITY BILATERAL SWELLING Knee pain after fall Technique: Three views of the right knee. Comparison: None. Findings: Osteopenia. No acute displaced fracture or malalignment. Nits-ma-ltysucqa degenerative changes of the medial and lateral compartments of the knee. Rjekcbic-rh-hxrawo degenerative changes of the patellofemoral compartment of the knee. No significant knee joint effusion. Impression: No acute displaced fracture or malalignment. Moderate degenerative changes of the knee. Dictated by Paras Vila MD @ 06/02/2025 3:56:39 PM (Electronically Signed)
--- NOTE | 2025-06-02 15:09 | CRLHL7_ITS ---
For Patients: As a result of the Cures Act, medical imaging exams and procedure reports are released immediately into your electronic medical record. You may view this report before your referring provider. If you have questions, please contact your health care provider. Indication: LOWER EXTREMEITY BILATERAL SWELLING Knee pain after fall Technique: Three views of the left knee. Comparison: None. Findings: Osteopenia. No acute displaced fracture or malalignment. Moderate to severe degenerative changes of the medial and lateral compartments of the knee. Moderate degenerative changes of the patellofemoral compartment of the knee. No significant knee joint effusion. Impression: No acute displaced fracture or malalignment. 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 Dictated by Paras Vila MD @ 06/02/2025 3:55:24 PM (Electronically Signed)
[2025-06-02 15:21] LABS: Troponin, Point-of-Care* 0.00 ng/ml (0.01-0.04)
[2025-06-02 15:40] LABS: Chloride* 85 mmol/L (96-114)
[2025-06-02 15:41] LABS: Potassium* 4.0 mmol/L (3.6-5.1)
[2025-06-02 15:46] LABS: Sodium* 113 mmol/L (135-149)
[2025-06-02 15:59] LABS: Anion Gap 4 mEq/L (7-15); Blood Urea Nitrogen* 6 mg/dL (7-30); Calcium* 8.4 mg/dL (8.4-10.6); Carbon Dioxide* 24 mmol/L (20-32); Creatinine* 0.3 mg/dL (0.5-1.5); Est. Creatinine Clearance* 46.20; Estimated Glomerular Filt Rate 111 ml/min; Glucose* 96 mg/dL (60-115); NT Pro B Type NatriureticPept* 2670 pg/mL (See Note)
[2025-06-02] MEDS: FUROSEMIDE 10 MG/ML inj 40 MG IVP (16:42)
[2025-06-02 16:50] LABS: Hematocrit 26.3 % (33.0-51.0); Hemoglobin* 9.0 gm/dL (12.0-16.0); Immature Granulocytes Abs Auto 0.03 K/uL (0.00-0.30); Immature Granulocytes Pct Auto 0.4 %; Mean Corpuscular HGB Conc 34 gm/dL (32-36); Mean Corpuscular Hemoglobin 30 pg (26-34); Mean Corpuscular Volume 87 fL (80-100); RDW Coefficient of Variation % 16.8 % (11.5-15.5); Red Blood Count 3.04 m/uL (4.00-5.20); White Blood Count* 7.55 K/uL (4.50-11.00)
[2025-06-02 16:51] LABS: Lymphocytes Absolute Auto 1.20 K/uL (0.90-2.90); Slide Review Reflex No
--- NOTE | 2025-06-02 20:26 | PM.IMHP1 ---
Assessment and Plan Assessment and plan (1) Acute hyponatremia: Problem comment: - most likely due to large volume of free water intake orally and via GJ tube - received furosemide IV in the emergency department - continue with diuresis efforts, monitor I/O, daily weight, serial Na values - nutritional consultation to help with assessing and recommending regarding water administration via GJ tube - initiated discussion with patient regarding taking her medications orally, and she continues to insist on taking her medications via GJ tube even though she is eating and drinking orally - we may need additional clarification about the indication for the GJ tube use for medication administration Status: Acute (2) Acute on chronic heart failure: Problem comment: - I suspect this is at least diastolic heart failure, possibly combined diastolic and systolic - check TTE - diuresis for now and monitor response - additional medication management after TTE results Status: Acute (3) Hypertensive heart disease: Status: Acute Plan 1. Reviewed impression, plan, recommendations with patient 2. Answered patient's questions to her satisfaction 3. Continue with supportive efforts 4. Patient agreeable with above stated plans and recommendations Total Time Spent Total Time Spent: 80 minutes Hospitalist- H&P: HPI History of Present Illness Date Seen: 06/02/25 Chief complaint: Off labs Narrative: Mery Boyce is a 74 year old woman presents as a referral from [address] [place] [address] today for further assessment of serum sodium of 117 with increased bilateral lower extremity edema. Patient was hospitalized at [facility] from 05/12/2025 through 05/27/2025 for post ERCP acute pancreatitis. She was found to have a pancreatic pseudocyst infected with Enterococcus faecalis. She had an ERCP earlier in the year. Has been in and out of the hospital and nursing homes since January 2025. Upon discharge from this most recent hospitalization she was transferred to [facility] on the same day of her discharge on 05/27/2025. Prior to discharge her serum sodium was 142. Today her serum sodium was 117 at shelter. Her weight reportedly was 208 lb at discharge and today was 222 lb. In addition to the 16 oz of water that she drinks daily, she receives a large volume of water through her GJ tube. Patient has GJ tube that was placed on 05/16/2025 and she continues to receive all of her medications via the GJ tube per her preference. She is able to eat and drink orally. Again, nevertheless, her preference is to continue to receive all her medications via the GJ tube. Receives ?a lot of water? with her medications via the GJ tube, she is uncertain how much. In her hospital discharge summary she is prescribed 60 mL of water 4 times daily via the GJ tube. It is unclear to me how much the staff at [facility] are actually giving her, with patient indicating that she is receiving a lot more water than what is prescribed. Review of Systems Status of ROS: Reports: 6 or more systems reviewed and unremarkable except as noted in History and below Narrative: Specifically denies dyspnea at rest, paroxysmal nocturnal dyspnea, orthopnea. Acknowledges chronic, evolving dyspnea with moderate exertion. Denies cough. Denies syncope or near-syncope. Denies chest heaviness, pressure, tightness, pain. Acknowledges sense of chronic nausea. Evolving disinterest in eating with early satiety which she states has been particularly noticeable since the GJ tube placement. Denies blood loss of any sort. Bilateral lower extremity edema worsening over the past week since she has been at the [facility] facility. Continues to receive oral furosemide. Denies fevers, rigors, diaphoresis. No recent trauma or injury. Medical Decision Making Medical Decision Making Code Status: DNR DNI resuscitation status - she is very adamant about this. I review with her how she had previously indicated a desire for full resuscitation, yet she is insistent that her preference is to have DNR DNI resuscitation status. During This Stay, Who Would You Like To Make Decisions For You In The Event You Are Unable To Make Them For Yourself?: Daughter, Roslyn Garcia, . [facility] Medical History Scoliosis of lumbar spine ?M41.9 - Scoliosis, unspecified (ICD-10) Scoliosis of thoracic spine ?M41.9 - Scoliosis, unspecified (ICD-10) Lesion of uterus ?N85.9 - Noninflammatory disorder of uterus, unspecified (ICD-10) Mass of right ovary ?N83.8 - Other noninflammatory disorders of ovary, fallopian tube and broad ligament (ICD-10) Atrial fibrillation with rapid ventricular response ?I48.91 - Unspecified atrial fibrillation (ICD-10) Infected pseudocyst of pancreas ?K86.3 - Pseudocyst of pancreas (ICD-10) Pseudocyst of pancreas due to acute pancreatitis ?K86.3 - Pseudocyst of pancreas (ICD-10) ?K85.90 - Acute pancreatitis without necrosis or infection, unspecified (ICD-10) Gastrojejunal (GJ) tube in place ?Z93.1 - Gastrostomy status (ICD-10) Exocrine pancreatic insufficiency ?K86.81 - Exocrine pancreatic insufficiency (ICD-10) Obstructive sleep apnea on CPAP ?G47.33 - Obstructive sleep apnea (adult) (pediatric) (ICD-10) Obesity ?E66.9 - Obesity, unspecified (ICD-10) Anxiety disorder ?F41.9 - Anxiety disorder, unspecified (ICD-10) Atrial fibrillation ?I48.91 - Unspecified atrial fibrillation (ICD-10) Opioid dependence ?F11.20 - Opioid dependence, uncomplicated (ICD-10) Acute necrotizing pancreatitis ?K85.91 - Acute pancreatitis with uninfected necrosis, unspecified (ICD-10) Post-ERCP acute pancreatitis ?K91.89 - Other postprocedural complications and disorders of digestive system (ICD-10) ?K85.90 - Acute pancreatitis without necrosis or infection, unspecified (ICD-10) Gastric outlet obstruction ?K31.1 - Adult hypertrophic pyloric stenosis (ICD-10) Hypomagnesemia ?E83.42 - Hypomagnesemia (ICD-10) Hypophosphatemia ?E83.39 - Other disorders of phosphorus metabolism (ICD-10) Malnutrition ?E46 - Unspecified protein-calorie malnutrition (ICD-10) Hypercholesterolemia ?E78.00 - Pure hypercholesterolemia, unspecified (ICD-10) Essential hypertension ?I10 - Essential (primary) hypertension (ICD-10) Family History Father Heart disease Mother Heart disease High blood pressure Stroke Diabetes Social History What is your current living situation?: I presently have a place to live Problems where you live: no known problems Problems where you live details: N/A In the past 12 months, utilities in danger of being shut off: no In past 12 months, lack of transportation kept you from medical appts, meetings, work, or getting things needed for daily living: no In the past 12 mos, have been you worried that your food would run out before you had money to buy more?: never true In the past 12 mos, the food you bought just didn't last and you didn't have money to buy more?: never true Smoking Status: Former smoker What tobacco products do you use: cigarettes Smoking quit date/years: >15 years ago Second hand tobacco smoke exposure: No How often do you have a drink containing alcohol: never AUDIT-C Alcohol total score: 0 Non-prescribed substance use: denies use Caffeine: No How often does anyone, including family, friends and others, physically hurt you: never How often does anyone, including family, friends and others, insult or talk down to you: never How often does anyone, including family, friends and others, threaten you with harm: never How often does anyone, including family, friends and others, scream or curse at you: never service: No Meds Home Medications and Allergies Home Medications ?Medication ?Instructions ?Recorded ?Confirmed ?Type acetaminophen 500 mg tablet 1,000 mg feeding tube Q6H PRN 05/12/25 06/02/25 History (Acetaminophen Extra Strength) apixaban 5 mg tablet (Eliquis) 5 mg feeding tube BID 05/12/25 06/02/25 History buspirone 30 mg tablet 15 mg feeding tube BID 05/12/25 06/02/25 History diclofenac sodium 1 % topical gel 4 g topical QID PRN 05/12/25 06/02/25 History (Arthritis Pain (diclofenac)) furosemide 20 mg tablet (Lasix) 20 mg feeding tube DAILY 05/12/25 06/02/25 History gabapentin 300 mg capsule 300 mg feeding tube 05/12/25 06/02/25 History hydroxyzine pamoate 25 mg capsule 25 mg feeding tube 05/12/25 06/02/25 History lorazepam 0.5 mg tablet (Ativan) 0.5 mg feeding tube DAILY PRN 05/12/25 06/02/25 History methocarbamol 500 mg tablet 500 mg feeding tube QID 05/12/25 06/02/25 History pravastatin 40 mg tablet 40 mg feeding tube 05/12/25 06/02/25 History Held on 05/12/25. Instructions: HOLD WHILE ON DAPTOMYCIN prochlorperazine maleate 10 mg 10 mg feeding tube BID 05/12/25 06/02/25 History tablet (Compazine) sertraline 100 mg tablet 125 mg feeding tube DAILY 05/12/25 06/02/25 History sotalol 80 mg tablet 80 mg feeding tube BID 05/12/25 06/02/25 History Lipase Concentrate-HP 2 cap feeding tube TID 06/02/25 06/02/25 History banana 1 ea PO TID 06/02/25 06/02/25 History flakes-transgalactooligosaccharide oral powder packet (Banatrol Plus oral powder packet) diazepam 5 mg tablet 2.5 mg PO DAILY PRN 06/02/25 06/02/25 History ergocalciferol (vitamin D2) PO .WEEKLY 06/02/25 History guar gum 4 g feeding tube TID 06/02/25 06/02/25 History lansoprazole 30 mg delayed 30 mg PO DAILY@07 06/02/25 06/02/25 History release,disintegrating tablet loperamide 2 mg tablet 2 mg feeding tube QID 06/02/25 06/02/25 History (Anti-Diarrheal (loperamide)) multivitamin with folic acid 400 1 tab PO DAILY 06/02/25 06/02/25 History mcg tablet (Tab-A-Patrick) nystatin 100,000 unit/gram topical 1 applic topical BID 06/02/25 06/02/25 History powder ondansetron 4 mg disintegrating 4 mg PO Q8H PRN 06/02/25 06/02/25 History tablet oxycodone 5 mg tablet 5 mg feeding tube Q6H PRN pain 06/02/25 06/02/25 History potassium chloride 20 mEq/15 mL 40 meq feeding tube BID 06/02/25 06/02/25 History oral liquid Allergies Allergy/AdvReac Type Severity Reaction Status Date / Time erythromycin base Allergy Unknown Verified 05/12/25 10:56 Exam Narrative: Exam Narrative: I examine her in her hospital room. She is laying in her bed with head of bed elevated about 45? and legs outstretched in front of her. Vision and hearing are adequate. Friendly, articulate, cooperative. Alert and oriented x3. Conjugate gaze. Midline nasal septum. Moist buccal mucosa. Dentition in fair repair. No icterus, jaundice, petechiae. Skin is dry, warm, intact. No rashes or ulcerations. Decreased breath sounds in the bases otherwise lungs are actually clear. Heart tones with regular rhythm, normal S1-S2. Abdomen with active bowel sounds, soft, nontender. Extremities with pitting edema all the way up to her thighs. No focal motor neurologic deficits. Const: Vital Signs, click to edit/add: Vital Signs - 24 hr 06/02/25 12:52 06/02/25 15:05 06/02/25 17:22 Temperature 96.7 F L 97.1 F L 97.8 F Pulse Rate [Pulse Oximeter] 82 81 88 Pulse Rate [Right Pulse Oximeter] Respiratory Rate 18 18 19 Blood Pressure [Le ft Arm] Blood Pressure [Le ft Upper Arm] 109/90 H 125/103 H 142/75 H Pulse Oximetry 95 94 95 Oxygen Delivery Me thod Room Air Room Air Room Air 06/02/25 19:00 Temperature 96.8 F L Pulse Rate [Pulse Oximeter] Pulse Rate [Right Pulse Oximeter] 86 Respiratory Rate 18 Blood Pressure [Le ft Arm] 100/52 L Blood Pressure [Le ft Upper Arm] Pulse Oximetry 90 Oxygen Delivery Me thod Room Air Hospitalist - H&P: Result Labs Labs: Short CBC 06/02/25 Range/Units 13:46 WBC 7.55 (4.50-11.00) K/uL Hgb 9.0 L (12.0-16.0) gm/dL Hct 26.3 L (33.0-51.0) % Plt Count 523 H (140-440) K/uL BMP 06/02/25 15:07 Sodium 113 L* Potassium 4.0 Chloride 85 L Carbon Dioxide 24 BUN 6 L Creatinine 0.3 L Glucose 96 Calcium 8.4 Urine 06/02/25 Range/Units 13:46 Urine Color Yellow (Yellow) Urine Appearance Clear (Clear) Urine pH 7.0 (5.0-8.5) Ur Specific Coy 1.015 (1.000-1.030) Urine Protein Negative (Negative) Urine Glucose (UA) Negative (Negative) ECG ECG interpretation date: 06/02/25 Interpretation: Normal sinus rhythm without infarction or ischemic pattern. Imaging Knee x-rays: Attestation: I have reviewed the pertinent imaging results. Radiologist's impression: Degenerative knee disease Chest x-ray: Radiologist's impression: Small left pleural effusion with mild pulmonary edema
[2025-06-02 21:40] LABS: Sodium* 115 mmol/L (135-149)
[2025-06-02] MEDS: ACETAMINOPHEN 500 MG TABLET 1000 MG G-TUBE (22:50)
[2025-06-02] MEDS: SODIUM CHLORIDE 1 GM TABLET PO (22:50)
[2025-06-03] VITALS (10 sets, daily range): BP systolic 94–125; BP diastolic 47–94; PULSE 80–101; RESP 16–20; TEMP 36.3–36.6; O2SAT 89–94; BMI 36.9
[2025-06-03 06:04] LABS: HCO3 VBG 29 mmol/L (21-28); Lactate* 0.7 mmol/L (0.5-1.9); PCO2 VBG 34 mmHG (40-50); PO2 VBG 43.9 mmHG (25-47); pH VBG 7.537 (7.32-7.43)
[2025-06-03 06:10] LABS: Hematocrit 25.3 % (33.0-51.0); Hemoglobin* 8.8 gm/dL (12.0-16.0); Mean Corpuscular HGB Conc 35 gm/dL (32-36); Mean Corpuscular Hemoglobin 30 pg (26-34); Mean Corpuscular Volume 86 fL (80-100); Red Blood Count 2.93 m/uL (4.00-5.20); White Blood Count* 5.94 K/uL (4.50-11.00)
[2025-06-03 06:12] LABS: Slide Review Reflex No
[2025-06-03 06:24] LABS: Chloride* 87 mmol/L (96-114); Potassium* 3.2 mmol/L (3.6-5.1)
[2025-06-03 06:27] LABS: Anion Gap 3 mEq/L (7-15); Blood Urea Nitrogen* 3 mg/dL (7-30); Carbon Dioxide* 26 mmol/L (20-32); Creatinine* 0.3 mg/dL (0.5-1.5); Est. Creatinine Clearance* 46.20; Estimated Glomerular Filt Rate 111 ml/min
[2025-06-03 06:28] LABS: Calcium* 8.4 mg/dL (8.4-10.6); Glucose* 84 mg/dL (60-115)
[2025-06-03 06:36] LABS: Sodium* 116 mmol/L (135-149)
[2025-06-03 06:42] LABS: Procalcitonin* 0.06 ng/mL (<0.50)
[2025-06-03] MEDS: 3 % SODIUM CHLORIDE 500 ml 50 ML 33.33 ML IV (09:21)
--- NOTE | 2025-06-03 09:31 | PM.IMPN1 ---
Assessment and Plan Assessment and plan (1) Acute hyponatremia: Problem comment: - admission (06/02) 113. am of 06/03 116. s/p oral sodium chloride, NS infusion, one 50cc of 3% saline am of 06/03. at noon on 06/03 it is now 119. Up six points from 3 pm on 06/02 to noon 06/03. Hold on further treatments other than fluid restriction. follow labs. - most likely due to large volume of free water intake orally and via GJ tube - received furosemide IV in the emergency department - continue with diuresis efforts, monitor I/O, daily weight, serial Na values - nutritional consultation to help with assessing and recommending regarding water administration via GJ tube Status: Acute (2) Electrolyte and fluid disorder: Problem comment: -replacing magnesium and potassium 06/03 -will have nutrition calculate fluid and nutritional needs -currently we have her tube feedings on hold, she is taking PO intake well Status: Acute (3) Gastrojejunal (GJ) tube in place: Problem comment: 05/16 @ [facility]. This was for protein calorie malnutrition and the noted fistula. this is to be short term and used for meds, fluids, and nutrition. -has been getting / enteral tube feeds with Vironox 6.5cartons @ 65cc/hr (The existing order from [facility] included liquid fiber (banatrol TF), banana flakes and guar gum -pt has had moderate diarrhea (CDIFF neg) - prn imodium Status: Acute (4) Pancreatic fistula: Problem comment: -EGD on 05/13 (at [facility]) Duodenum - in the bulb, along the posterior aspect, there was an ulcerated pancreatico-duodenal fistula with a small amount of drainage into the duodenum with pancreatico-duodenal fistula. GI wants to give time to heal. IR consulted for placement of GJ tube -GJ tube placed on 05/16 Status: Acute (5) Malnutrition: Problem comment: -24/7 enteral tube feeds with Vivonox 6.5cartons @ 65cc/hr (The existing order from [facility] included liquid fiber (banatrol TF), banana flakes and guar gum Status: Acute (6) Exocrine pancreatic insufficiency: Problem comment: -on enzymes (pharmD really feels these need to be oral as the acidity is needed to absorb); scarred pancreas -(EUS 05/07/25 @ [facility]) from her post ERCP severe pancreatitis in January-February (admitted 02/05 - 03/17) resulted in a pancreas that is markedly abnormal with atrophy, prominent duct measuring up to 4 mm at the head, the majority of the body and tail are replaced by a 26 x 17 mm in cross-sectional area tubular structure with debris Status: Acute (7) Chronic anticoagulation: Problem comment: AFIB; s/p cardioversion February 2025 splenic vein clot Status: Acute (8) Anemia: Problem comment: -new finding; at discharge previously >12 -follow, no active bleeding. check stools for occult blood, continue anticoagulation at this time -will check iron, b12/folate retic count. normocytic. chronic disease? Status: Acute (9) Infected pseudocyst of pancreas: Problem comment: - VRE (Enterococcus faecalis) treated with IV and oral antibiotics -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, Peritoneal body fluid @[facility]. VRE, CoNS and anaerobes in culture of infected pseudocyst. s/p drain, IV Unasyn and daptomycin (via PICC) and PO Augmentin. Finished abx on 04/10/25. ID Dr. Moreno. Status: Acute (10) VRE (vancomycin resistant enterococcus) culture positive: Problem comment: cultures during acute necrotizing pancreatitis. -s/p daptomycin, Unasyn, Augmentin. Saw IUD both inpatient and outpatient. -completed antibiotics -as of admission 06/02/2025 no longer on antibiotics or contact precautions Status: Acute (11) Splenic vein thrombosis: Problem comment: -on Eliquis -related to acute illness February-April 2025 for severe necrotizing pancreatitis, VRE infected pseudocyst, etc. Status: Acute (12) Acute on chronic heart failure: Problem comment: - unclear if the extremity swelling, weakness is heart related or profound hyponatremia. her weight is up but her BNP is at her baseline. Her echo on 06/02 is stable with excellent LV and RV function. -has a hx of AFIB with RVR (admission in February 2025), now in sinus -s/p 2 doses of IV lasix. will return her to her baseline oral lasix Status: Acute (13) Atrial fibrillation: Problem comment: -chronically anticoagulated with Eliquis -rate and rhythm control with sotalol -echo updated 06/03/2025: Normal LV and RV size and function. Moderate LAE. mild to moderate MR. -continue telemetry -no acute issues related to her known arrhythmia and anticoagulation. Status: Acute (14) Anxiety disorder: Problem comment: -longstanding zoloft, buspar -atarax (on hold) and gabapentin at night -prn Ativan (limit to at night) -will limit benzos and Atarax. pt has mobility issues, fell on 06/01 -high fall risk Status: Acute (15) Obstructive sleep apnea on CPAP: Status: Acute Subjective Date Seen: 06/03/25 Interval history: Daily Progress Note - Hospital Medicine Day #: 2 CC: Severe hyponatremia, multiple comorbidities -I extensively reviewed the [facility] admissions, procedures, tcu orders. Essentially she was at her baseline health which was quite good up until February 03 of this year. She lives in her own home in [place]. She is independent, likes to garden and spent time with her family. She presented to the [place] [id number] emergency room with acute abdominal pain. She was diagnosed with cholecystitis and choledocholithiasis. She had outpatient ERCP in [place] on February 05. She discharged home from this outpatient procedure. That night her pain escalated. [place] [id number] sent her to [facility]. She was then subsequently admitted for 40 days. Her course was complicated by aspiration pneumonia, ileus, gastric outlet obstruction, necrotizing pancreatitis, A-fib with RVR. She developed an expanding pseudocyst with gas collection concerning for infection. CT-guided drain placed and fluid culture grew VRE - Enterococcus faecium and she was started on daptomycin and Unasyn. Also found to have a splenic vein thrombosis and was started on enoxaparin. -She was discharged on 03/17/[address] and ongoing IV antibiotics with daptomycin as well as oral Augmentin. -Within 9 days of discharge she was admitted again for 2 days at [facility] for AFib RVR, requiring cardioversion. Because she had been on Eliquis for the splenic vein thrombosis she was able to go to immediate cardioversion. She continued eliquis and was started on sotalol. -Ultimately she went to the TCU at [facility]. She had a routine, follow-up EUS on 05/07 as an outpatient. This was done for a possible cystogastrostomy however her pancreatic necrosis spontaneously decompressed into lumen and was not amenable to cystogastrostomy. IR consult was recommended for consideration of GJ tube for enteric supplementation given her significant deconditioning and malnutrition. Her weakness, deconditioning, malnutrition and nausea and vomiting accelerated which resulted in an admission from 05/12 to 05/27 at [facility]. Ultimately IR placed a JG tube, tube feeds were started. Physical therapy and occupational therapy were underway. Her loose stools from all of the above were slowly resolving. She returned to [facility] on 05/27. -Routine labs done on SundayJune 02 showed a sodium of 113. This had previously been normal. In addition she had a fall the night prior to presentation on 06/01. She had increasing swelling in her legs and had significant weight gain. -ultimately we admitted for severe hyponatremia, chronic malnutrition and weakness and probable acute on chronic preserved ejection fraction heart failure. 24 HOUR UPDATE: Somewhat improved overnight. She feels her legs are less puffy. Still complaining of significant weakness. No overt nausea and vomiting. Diarrhea 4 times yesterday, none yet today. Notable Labs, Micro, Rads, Interventions: -CBC reflects a normal white blood cell count. Hemoglobin has dropped to 8.8 from 9.0 yesterday and mid last month was 14.7. -platelet count is reactive at 485. -differential on the CBC yesterday was essentially unremarkable. -only alkalotic at 7.5. Bicarb is minimally elevated at 29. -sodium is 116 as of 6:00 a.m. this morning. Previous draw at 9:15 p.m. last night was 115. -potassium is 3.2. -BUN and creatinine are normal. -no imaging. -Klebsiella grew in her urine culture in mid April. There is 1 in progress currently. Objective: alert, good historian. Vitals: Reviewed. Afebrile. Blood pressure 125/86. Pulse 83. Respiratory rate 18. Pulse ox 90s. On Room Air. Lungs: Clear. Cardiac: S1S2 1+ edema abdomen: obese; soft. NT. JG tube in place in upper left abdomen. unremarkable. Disposition/Potential discharge - Back to [facility] (on bed hold) when able (2-3 days) Today I spent 50minutes seeing the patient, reviewing Expanse and EPIC notes/diagnostics, discussing the care plan with our care time that includes social work, PT/OT, pharmacy, RT, snf and documenting my impressions and plan in the medical record. Exam Const: Vital Signs, click to edit/add: Vital Signs - 24 hr 06/02/25 12:52 06/02/25 15:05 06/02/25 17:22 Temperature 96.7 F L 97.1 F L 97.8 F Pulse Rate [Pulse Oximeter] 82 81 88 Pulse Rate [Right Pulse Oximeter] Respiratory Rate 18 18 19 Blood Pressure [Le ft Arm] Blood Pressure [Le ft Upper Arm] 109/90 H 125/103 H 142/75 H Pulse Oximetry 95 94 95 Oxygen Delivery Me thod Room Air Room Air Room Air 06/02/25 19:00 06/02/25 20:48 06/02/25 20:57 Temperature 96.8 F L 96.8 F L Pulse Rate [Pulse Oximeter] Pulse Rate [Right Pulse Oximeter] 86 86 Respiratory Rate 18 18 18 Blood Pressure [Le ft Arm] 100/52 L 100/52 L Blood Pressure [Le ft Upper Arm] Pulse Oximetry 90 90 90 Oxygen Delivery Va thod Room Air Room Air Room Air 06/02/25 23:00 06/02/25 23:00 06/02/25 23:00 Temperature 97.9 F Pulse Rate [Pulse Oximeter] Pulse Rate [Right Pulse Oximeter] 85 85 Respiratory Rate 18 18 18 Blood Pressure [Le ft Arm] 100/44 L Blood Pressure [Le ft Upper Arm] Pulse Oximetry 91 91 Oxygen Delivery Va thod Room Air Room Air 06/03/25 02:51 06/03/25 07:00 06/03/25 07:00 Temperature 97.4 F L 97.6 F Pulse Rate [Pulse Oximeter] Pulse Rate [Right Pulse Oximeter] 80 83 Respiratory Rate 18 18 18 Blood Pressure [Le ft Arm] 94/54 L 125/86 Blood Pressure [Le ft Upper Arm] Pulse Oximetry 91 94 94 Oxygen Delivery Va thod Room Air Room Air Room Air Labs Labs: Laboratory Results - last 24 hr 06/02/25 06/02/25 06/02/25 13:46 15:07 21:18 WBC 7.55 RBC 3.04 L Hgb 9.0 L Hct 26.3 L MCV 87 MCH 30 MCHC 34 RDW Coeff of Steffi 16.8 H Plt Count 523 H Neut % (Auto) 71.7 Lymph % (Auto) 16.0 L [place] % (Auto) 8.5 Eos % (Auto) 3.0 Baso % (Auto) 0.4 Neut # (Auto) 5.41 Lymph # (Auto) 1.20 [place] # (Auto) 0.60 Eos # (Auto) 0.23 Baso # (Auto) 0.03 Abs Immat Gran (auto) 0.03 Imm/Tot Granulo (auto) 0.4 VBG pH VBG pCO2 VBG pO2 VBG HCO3 Sodium 113 L* 115 L* Potassium 4.0 Chloride 85 L Carbon Dioxide 24 Anion Gap 4 L BUN 6 L Creatinine 0.3 L Estimated Creat Clear 46.20 Estimated GFR 111 Glucose 96 Lactate Calcium 8.4 Phosphorus Magnesium 1.5 NT-Pro-B Natriuret Pep 2670 H Procalcitonin Urine Color Yellow Urine Appearance Clear Urine pH 7.0 Ur Specific [place] 1.015 Urine Protein Negative Urine Glucose (UA) Negative Urine Ketones Negative Urine Blood Trace-intact A Urine Nitrite Negative Urine Bilirubin Negative Urine Urobilinogen 0.2 Ur Leukocyte Esterase Trace A Urine RBC 0-2 Urine WBC 0-2 Ur Squamous Epith Cells Moderate A Urine Bacteria None POC Troponin I 0.00 L 06/03/25 05:59 WBC 5.94 RBC 2.93 L Hgb 8.8 L Hct 25.3 L MCV 86 MCH 30 MCHC 35 RDW Coeff of Steffi Plt Count 485 H Neut % (Auto) Lymph % (Auto) [place] % (Auto) Eos % (Auto) Baso % (Auto) Neut # (Auto) Lymph # (Auto) [place] # (Auto) Eos # (Auto) Baso # (Auto) Abs Immat Gran (auto) Imm/Tot Granulo (auto) VBG pH 7.537 H VBG pCO2 34 L VBG pO2 43.9 VBG HCO3 29 H Sodium 116 L* Potassium 3.2 L Chloride 87 L Carbon Dioxide 26 Anion Gap 3 L BUN 3 L Creatinine 0.3 L Estimated Creat Clear 46.20 Estimated GFR 111 Glucose 84 Lactate 0.7 Calcium 8.4 Phosphorus 4.0 Magnesium 1.5 NT-Pro-B Natriuret Pep Procalcitonin 0.06 Urine Color Urine Appearance Urine pH Ur Specific [place] Urine Protein Urine Glucose (UA) Urine Ketones Urine Blood Urine Nitrite Urine Bilirubin Urine Urobilinogen Ur Leukocyte Esterase Urine RBC Urine WBC Ur Squamous Epith Cells Urine Bacteria POC Troponin I
--- NOTE | 2025-06-03 10:16 | REH.OT ---
Patient met at bedside. Despite encouragement, politely declines OT today but agreeable to try tomorrow. Baseline info collected and handed off to OT. OT eval scheduled for tomorrow.
[2025-06-03] MEDS: SOTALOL HCL 80 MG TABLET G-TUBE ×2 (11:58→21:17)
[2025-06-03] MEDS: FUROSEMIDE 10 MG/ML inj 40 MG IVP (11:58)
[2025-06-03] MEDS: BUSPIRONE 10 MG TABLET 15 MG G-TUBE ×2 (11:59→21:19)
[2025-06-03] MEDS: APIXABAN 5 MG TABLET G-TUBE ×2 (11:59→21:18)
[2025-06-03] MEDS: SERTRALINE 50 MG TABLET 125 MG G-TUBE (11:59)
[2025-06-03] MEDS: SODIUM CHLORIDE 0.9 % (FLUSH) 10 ML SYRINGE 5 ML IVF ×2 (12:00→21:28)
[2025-06-03] MEDS: MAGNESIUM IV 2 GM/50 ML PIGGYBACK IVPB (12:01)
[2025-06-03 12:05] LABS: Chloride* 88 mmol/L (96-114)
[2025-06-03 12:06] LABS: Potassium* 3.1 mmol/L (3.6-5.1)
[2025-06-03 12:08] LABS: Creatinine* 0.3 mg/dL (0.5-1.5); Est. Creatinine Clearance* 46.20; Estimated Glomerular Filt Rate 111 ml/min
[2025-06-03 12:09] LABS: Anion Gap 4 mEq/L (7-15); Calcium* 8.4 mg/dL (8.4-10.6); Carbon Dioxide* 27 mmol/L (20-32); Glucose* 107 mg/dL (60-115)
[2025-06-03 12:26] LABS: Blood Urea Nitrogen* < 2 mg/dL (7-30); Sodium* 119 mmol/L (135-149)
--- NOTE | 2025-06-03 13:09 | PC.SOCIAL ---
Discharge planning: SW emailed Leyla at [facility] to determine if patient is on a bed hold and if she is in TCU or long-term care. Leyla states that patient is on a bed hold and is in TCU. SW met with patient who states that she would like to go back to [facility] when ready for discharge. Patient discussed that she didn't realize she was getting too much water and now knows she'll need to cut back. Patient explained that she does have anxiety and that she takes medications for it, as she was feeling anxious this morning. Regarding transportation, patient states it would be best for [facility] as she doesn't know when she will discharge and her daughter has a wedding all weekend. SW discussed cost of this being around $113 and patient is in agreement. SW did not complete the transportation form at this time as unsure of when discharge will be. Patient had no other questions or concerns at this time. SW to continue to assist with discharge planning.
[2025-06-03] MEDS: POTASSIUM CHLORIDE 10 MEQ/100 ML PIGGYBACK 100 MEQ IVPB ×2 (13:40→15:17)
[2025-06-03 13:55] LABS: Immature Reticulocyte Fraction 24.2 % (3.0-15.9); Reticulocyte Hemoglobin Equivi 29.3 pg (29.0-35.0); Reticulocytes Absolute 0.11 # (0.03-0.08)
[2025-06-03 14:03] LABS: Iron* 41 ug/dL (37-170)
[2025-06-03 14:13] LABS: Percent Iron Saturation 20 % (20-50); Total Iron Binding Capacity 207 ug/dL (265-497)
--- NOTE | 2025-06-03 14:35 | PC.NURSE ---
End of Shift Note: Patient has been feeling wore out today. No complaints of nausea this shift. Did give her medications through her GT tube with flushing 10 cc of water before meds and 20 cc after med administration to make sure to clear the tube. She did work with PT we were going to attempt to get up to the chair but she did get lightheaded with sitting up so we did not move to the chair. She has a purewick in place which has been patent. She did eat two eggs and some toast for breakfast but has not taken in anything since and not drank anything for my shift. Will continue to monitor until able to give report to next shift.
[2025-06-03 14:54] LABS: Vitamin B12* 516 pg/mL (243-894)
[2025-06-03 16:48] LABS: Chloride* 90 mmol/L (96-114); Potassium* 3.4 mmol/L (3.6-5.1)
[2025-06-03 16:50] LABS: Blood Urea Nitrogen* 3 mg/dL (7-30); Creatinine* 0.3 mg/dL (0.5-1.5); Est. Creatinine Clearance* 46.20; Estimated Glomerular Filt Rate 111 ml/min
[2025-06-03 16:51] LABS: Anion Gap 3 mEq/L (7-15); Calcium* 8.4 mg/dL (8.4-10.6); Carbon Dioxide* 27 mmol/L (20-32); Glucose* 92 mg/dL (60-115)
[2025-06-03 17:10] LABS: Sodium* 120 mmol/L (135-149)
[2025-06-03] MEDS: PANCREALIPASE (12,38,60) CAP 2 CAP PO ×2 (17:30→21:15)
--- NOTE | 2025-06-03 19:36 | PC.NURSE ---
End of shift-- Pleasant and cooperative, alert and oriented patient. VSS and pt is afebrile. SpO2 maintained >90% on RA. She denied any pain. LS CTA. Telemetry shows chronic afib with NVR. She denied nausea and ate 75% of a regular dinner independently. Pt has voided approximately 1400ml of pale, yellow urine this shift via external catheter. Bed was also noted to be wet and was changed. Turned and repositioned only this shift. Daughter was at bedside and appears loving and supportive. Report to TINO Thomas.
[2025-06-03] MEDS: PROCHLORPERAZINE 10 MG TABLET G-TUBE (21:18)
[2025-06-03] MEDS: GABAPENTIN 300 MG CAPSULE G-TUBE (21:18)
[2025-06-03] MEDS: PRAVASTATIN SODIUM 20 MG TABLET 40 MG G-TUBE (21:19)
[2025-06-03] MEDS: NYSTATIN POWDER 1 APPLIC TOPICAL (21:20)
[2025-06-04] VITALS (7 sets, daily range): BP systolic 104–124; BP diastolic 50–87; PULSE 73–93; RESP 16–18; TEMP 36.1–36.9; O2SAT 84–95
--- NOTE | 2025-06-04 05:51 | PC.NURSE ---
Shift note: Patient alert and oriented. she has been in bed throughout the night. G-tube patent, medication given through G- tube. Patient reported feeling anxious. Valium 2.5mg given at 2100. Vitally stable.
[2025-06-04 06:51] LABS: Hematocrit 27.4 % (33.0-51.0); Hemoglobin* 9.2 gm/dL (12.0-16.0); Immature Granulocytes Abs Auto 0.02 K/uL (0.00-0.30); Immature Granulocytes Pct Auto 0.3 %; Mean Corpuscular HGB Conc 34 gm/dL (32-36); Mean Corpuscular Hemoglobin 30 pg (26-34); Mean Corpuscular Volume 89 fL (80-100); RDW Coefficient of Variation % 17.7 % (11.5-15.5); Red Blood Count 3.09 m/uL (4.00-5.20); White Blood Count* 7.75 K/uL (4.50-11.00)
[2025-06-04 06:54] LABS: Lymphocytes Absolute Auto 1.20 K/uL (0.90-2.90); Slide Review Reflex No
[2025-06-04 06:58] LABS: HCO3 VBG 30 mmol/L (21-28); Ionized Calcium* 1.15 mmol/L (1.11-1.30); PCO2 VBG 44 mmHG (40-50); PO2 VBG 43.2 mmHG (25-47); pH VBG 7.446 (7.32-7.43)
[2025-06-04 07:28] LABS: Albumin* 2.6 g/dL (3.3-5.0); Chloride* 92 mmol/L (96-114); Potassium* 3.2 mmol/L (3.6-5.1)
[2025-06-04 07:30] LABS: Blood Urea Nitrogen* 3 mg/dL (7-30); Creatinine* 0.3 mg/dL (0.5-1.5); Est. Creatinine Clearance* 46.20; Estimated Glomerular Filt Rate 111 ml/min
[2025-06-04 07:31] LABS: Alanine Aminotransferase* 25 U/L (4-35); Alkaline Phosphatase* 100 U/L (40-150); Anion Gap 4 mEq/L (7-15); Aspartate Amino Transferase* 43 U/L (12-35); Bilirubin Direct* 0.2 mg/dL (0.0-0.5); Bilirubin Total* 0.4 mg/dL (0.1-1.5); Calcium* 8.5 mg/dL (8.4-10.6); Carbon Dioxide* 29 mmol/L (20-32); Glucose* 91 mg/dL (60-115); Sodium* 125 mmol/L (135-149); Total Protein* 5.4 g/dL (6.0-8.3)
[2025-06-04] MEDS: PANTOPRAZOLE SODIUM 40 MG INJ IVP (08:24)
[2025-06-04] MEDS: BUSPIRONE 10 MG TABLET 15 MG G-TUBE ×2 (08:32→20:52)
[2025-06-04] MEDS: SERTRALINE 50 MG TABLET 125 MG G-TUBE (08:33)
[2025-06-04] MEDS: MULTIVITAMIN/MINERALS 1 TABLET 1 TAB G-TUBE (08:33)
[2025-06-04] MEDS: SOTALOL HCL 80 MG TABLET G-TUBE ×2 (08:33→20:50)
[2025-06-04] MEDS: PROCHLORPERAZINE 10 MG TABLET G-TUBE ×2 (08:33→20:51)
[2025-06-04] MEDS: APIXABAN 5 MG TABLET G-TUBE ×2 (08:33→20:52)
[2025-06-04] MEDS: FUROSEMIDE 20 MG TABLET G-TUBE (08:33)
[2025-06-04] MEDS: SODIUM CHLORIDE 0.9 % (FLUSH) 10 ML SYRINGE 5 ML IVF ×2 (08:33→21:02)
[2025-06-04] MEDS: PANCREALIPASE (12,38,60) CAP 2 CAP PO ×4 (08:51→20:50)
[2025-06-04] MEDS: NYSTATIN POWDER 1 APPLIC TOPICAL ×2 (08:51→21:02)
[2025-06-04 10:24] LABS: Fecal Occult Blood* Positive (Negative)
[2025-06-04] MEDS: POTASSIUM CHLORIDE 10 MEQ CAPSULE ER 40 MEQ J-TUBE ×2 (11:23→20:51)
--- NOTE | 2025-06-04 14:00 | CRLHL7_ITS ---
For Patients: As a result of the Century Cures Act, medical imaging exams and procedure reports are released immediately into your electronic medical record. You may view this report before your referring provider. If you have questions, please contact your health care provider. INDICATION: Swelling/Pain. TECHNIQUE: Ultrasound venous duplex lower left extremity. Compression venous exam was performed using arita-scale, color Doppler, and spectral Doppler analysis. COMPARISON: None. FINDINGS: Deep veins: Sonographic imaging demonstrates the left common femoral, deep femoral, superficial femoral, popliteal, posterior tibial and the contralateral right common femoral veins to be fully compressible with normal color Doppler blood flow. Superficial veins: Greater saphenous vein is fully compressible. Small fluid collection in the left anterior knee region, nonspecific. IMPRESSION: No sign of deep venous thrombosis in the left lower extremity. Dictated by Ladarius Felix MD @ 06/04/2025 3:03:05 PM (Electronically Signed)
[2025-06-04 15:27] LABS: Sodium* 127 mmol/L (135-149)
--- NOTE | 2025-06-04 16:23 | PC.SOCIAL ---
Discharge planning: ice cream vault worker secure emailed progress notes on the pt to TINO Drummond/TCU Clinical Coordinator at [facility] via secure email this afternoon for her review. Social work to follow-up as needed.
--- NOTE | 2025-06-04 16:35 | P.IMPN_ITS ---
Assessment and Plan Assessment and plan (1) Acute hyponatremia: Problem comment: - admission (06/02) 113. am of 06/03 116. s/p oral sodium chloride, NS infusion, one 50cc of 3% saline am of 06/03. at noon on 06/03 it is now 119. Up six points from 3 pm on 06/02 to noon 06/03. Hold on further treatments other than fluid restriction. follow labs. - most likely due to large volume of free water intake orally and via GJ tube - received furosemide IV in the emergency department - continue with diuresis efforts, monitor I/O, daily weight, serial Na values - nutritional consultation to help with assessing and recommending regarding water administration via GJ tube - 06/04: Na+ 125. Currently holing NaCl tabs - she has LLE pain that started after her fall on Sunday but got worse a couple of days later. Ordered LLE venous doppler US. Status: Acute (2) Electrolyte and fluid disorder: Problem comment: -replacing magnesium and potassium 06/03 -will have nutrition calculate fluid and nutritional needs -currently we have her tube feedings on hold, she is taking PO intake well Status: Acute (3) Anemia: Problem comment: -new finding; at discharge previously >12 -follow, no active bleeding. 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 GI wants to give time to heal, continue anticoagulation at this time as Hb is stable. -Hb stable: 8.8 -> 9.2 -Cont trending Hb. Status: Acute (4) Gastrojejunal (GJ) tube in place: Problem comment: 05/16 @ [facility]. This was for protein calorie malnutrition and the noted fistula. this is to be short term and used for meds, fluids, and nutrition. -has been getting 24/7 enteral tube feeds with Vironox 6.5cartons @ 65cc/hr (The existing order from [facility] included liquid fiber (banatrol TF), banana flakes and guar gum -pt has had moderate diarrhea (CDIFF neg) - prn imodium Status: Acute (5) Pancreatic fistula: Problem comment: -[facility] on 05/13 [facility] Duodenum - in the bulb, along the posterior aspect, there was an ulcerated pancreatico-duodenal fistula with a small amount of drainage into the duodenum with pancreatico-duodenal fistula. GI wants to give time to heal. IR consulted for placement of GJ tube -GJ tube placed on 05/16 Status: Acute (6) Acute pain of left lower extremity: Problem comment: she has LLE pain that started after her fall on Sunday but got worse a couple of days later. Ordered LLE venous doppler US -> negative for DVT. Status: Acute (7) Malnutrition: Problem comment: -21/05 enteral tube feeds with Vivonox 6.5cartons @ 65cc/hr (The existing order from [facility] included liquid fiber (banatrol TF), banana flakes and guar gum Status: Acute (8) Exocrine pancreatic insufficiency: Problem comment: -on enzymes (pharmD really feels these need to be oral as the acidity is needed to absorb); scarred pancreas -(EUS 05/07/25 @ [facility]) from her post ERCP severe pancreatitis in January-February (admitted 02/05 - 03/17) resulted in a pancreas that is markedly abnormal with atrophy, prominent duct measuring up to 4 mm at the head, the majority of the body and tail are replaced by a 26 x 17 mm in cross-sectional area tubular structure with debris Status: Acute (9) Chronic anticoagulation: Problem comment: AFIB; s/p cardioversion February 2025 splenic vein clot Status: Acute (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 VRE, CoNS and anaerobes in culture of infected pseudocyst. s/p drain, IV Unasyn and daptomycin (via PICC) and PO Augmentin. Finished abx on 04/10/25. ID Dr. Moreno. Status: Acute (11) VRE (vancomycin resistant enterococcus) culture positive: Problem comment: cultures during acute necrotizing pancreatitis. -s/p daptomycin, Unasyn, Augmentin. Saw IUD both inpatient and outpatient. -completed antibiotics -as of admission 06/02/2025 no longer on antibiotics or contact precautions Status: Acute (12) Splenic vein thrombosis: Problem comment: -on Eliquis -related to acute illness February-April 2025 for severe necrotizing pancreatitis, VRE infected pseudocyst, etc. Status: Acute (13) Acute on chronic heart failure: Problem comment: - unclear if the extremity swelling, weakness is heart related or profound hyponatremia. her weight is up but her BNP is at her baseline. Her echo on 06/02 is stable with excellent LV and RV function. -has a hx of AFIB with RVR (admission in February 2025), now in sinus -s/p 2 doses of IV lasix. will return her to her baseline oral lasix Status: Acute (14) Atrial fibrillation: Problem comment: -chronically anticoagulated with Eliquis -rate and rhythm control with sotalol -echo updated 06/03/2025: Normal LV and RV size and function. Moderate LAE. mild to moderate MR. -continue telemetry -no acute issues related to her known arrhythmia and anticoagulation. Status: Acute (15) Anxiety disorder: Problem comment: -longstanding zoloft, buspar -atarax (on hold) and gabapentin at night -prn Ativan (limit to at night) -will limit benzos and Atarax. pt has mobility issues, fell on 06/01 -high fall risk Status: Acute (16) Obstructive sleep apnea on CPAP: Status: Acute Total Time Spent Total Time Spent: Today I spent 50 minutes seeing the patient, reviewing Expanse and EPIC notes/diagnostics, discussing the care plan with our care time that includes social work, PT/OT, pharmacy, RT, detention and documenting my impressions and plan in the medical record. Subjective Date Seen: 06/04/25 Interval history: Pt examined at bedside. She states that she has LLE pain that started after her fall on Sunday but got worse a couple of days later. Ordered LLE venous doppler US. Denies SOB, CP or orthopnea. Exam Narrative: Exam Narrative: GENERAL: Comfortable, no acute distress. HEAD AND NECK: Atraumatic, normocephalic CARDIOVASCULAR: RRR. Normal S1, S2. No murmurs. RESPIRATORY: Clear to auscultation B/L. Good air entry B/L. No crackles. GASTROINTESTINAL: Not distended, not tender to palpation. G-J tube in, no erethema. NEUROLOGY: Alert, awake, oriented X 3. Normal speech. MSK: Lt LE: swollen (darien calf area), a bit warm and tender to palpation PSYCH: Normal mood, normal affect. Const: Vital Signs, click to edit/add: Vital Signs - 24 hr 06/03/25 16:47 06/03/25 16:52 06/03/25 19:00 Temperature 97.3 F L 97.6 F Pulse Rate Pulse Rate [Right Pulse Oximeter] 91 86 Respiratory Rate 16 16 16 Blood Pressure [Le ft Arm] 112/58 L 104/47 L Pulse Oximetry 90 90 90 Oxygen Delivery [facility] Room Air Room Air Room Air 06/03/25 23:00 06/03/25 23:00 06/03/25 23:00 Temperature 97.6 F Pulse Rate Pulse Rate [Right Pulse Oximeter] 81 81 Respiratory Rate 16 16 16 Blood Pressure [Le ft Arm] 122/94 H Pulse Oximetry 89 89 Oxygen Delivery [facility] Room Air Room Air 06/03/25 23:00 06/04/25 02:40 06/04/25 07:00 Temperature 97 F L Pulse Rate 87 73 Pulse Rate [Right Pulse Oximeter] 77 Respiratory Rate 16 Blood Pressure [Le ft Arm] 124/57 L Pulse Oximetry 92 Oxygen Delivery [facility] Room Air 06/04/25 07:00 06/04/25 07:00 06/04/25 07:00 Temperature 97.6 F Pulse Rate Pulse Rate [Right Pulse Oximeter] 84 84 Respiratory Rate 18 18 18 Blood Pressure [Le ft Arm] 110/61 Pulse Oximetry 93 93 Oxygen Delivery [facility] Room Air Room Air 06/04/25 11:00 06/04/25 15:00 06/04/25 15:00 Temperature 97.6 F Pulse Rate Pulse Rate [Right Pulse Oximeter] 76 86 Respiratory Rate 18 18 16 Blood Pressure [Le ft Arm] 121/59 L Pulse Oximetry 95 94 Oxygen Delivery [facility] Room Air Room Air 06/04/25 15:00 06/04/25 15:00 Temperature 98.4 F Pulse Rate 82 Pulse Rate [Right Pulse Oximeter] 86 Respiratory Rate 16 Blood Pressure [Le ft Arm] 104/87 Pulse Oximetry 94 Oxygen Delivery [facility] Room Air Labs Labs: Laboratory Results - last 24 hr 06/03/25 06/04/25 06/04/25 16:27 06:36 09:53 WBC 7.75 RBC 3.09 L Hgb 9.2 L Hct 27.4 L MCV 89 MCH 30 MCHC 34 RDW Coeff of Steffi 17.7 H Plt Count 516 H Neut % (Auto) 69.4 Lymph % (Auto) 15.1 L [place] % (Auto) 12.6 H Eos % (Auto) 2.3 Baso % (Auto) 0.3 Neut # (Auto) 5.38 Lymph # (Auto) 1.20 [place] # (Auto) 1.00 H Eos # (Auto) 0.18 Baso # (Auto) 0.02 Abs Immat Gran (auto) 0.02 Imm/Tot Granulo (auto) 0.3 VBG pH 7.446 H VBG pCO2 44 VBG pO2 43.2 VBG HCO3 30 H Sodium 120 L* 125 L Potassium 3.4 L 3.2 L Chloride 90 L 92 L Carbon Dioxide 27 29 Anion Gap 3 L 4 L BUN 3 L 3 L Creatinine 0.3 L 0.3 L Estimated Creat Clear 46.20 46.20 Estimated GFR 111 111 Glucose 92 91 Calcium 8.4 8.5 Ionized Calcium Alex 1.15 Phosphorus 3.9 Magnesium 2.0 Total Bilirubin 0.4 Direct Bilirubin 0.2 AST 43 H ALT 25 Alkaline Phosphatase 100 Total Protein 5.4 L Albumin 2.6 L Stool Occult Blood Positive A 06/04/25 12:53 WBC RBC Hgb Hct MCV MCH MCHC RDW Coeff of Steffi Plt Count Neut % (Auto) Lymph % (Auto) [place] % (Auto) Eos % (Auto) Baso % (Auto) Neut # (Auto) Lymph # (Auto) [place] # (Auto) Eos # (Auto) Baso # (Auto) Abs Immat Gran (auto) Imm/Tot Granulo (auto) VBG pH VBG pCO2 VBG pO2 VBG HCO3 Sodium 127 L Potassium Chloride Carbon Dioxide Anion Gap BUN Creatinine Estimated Creat Clear Estimated GFR Glucose Calcium Ionized Calcium Alex Phosphorus Magnesium Total Bilirubin Direct Bilirubin AST ALT Alkaline Phosphatase Total Protein Albumin Stool Occult Blood Imaging Venous US: Radiologist's impression: TECHNIQUE: Ultrasound venous duplex lower left extremity. Compression venous exam was performed using arita-scale, color Doppler, and spectral Doppler analysis. COMPARISON: None. FINDINGS: Deep veins: Sonographic imaging demonstrates the left common femoral, deep femoral, superficial femoral, popliteal, posterior tibial and the contralateral right common femoral veins to be fully compressible with normal color Doppler blood flow. Superficial veins: Greater saphenous vein is fully compressible. Small fluid collection in the left anterior knee region, nonspecific. IMPRESSION: No sign of deep venous thrombosis in the left lower extremity. Dictated by Ladarius Felix MD @ 06/04/2025 3:03:05 PM
--- NOTE | 2025-06-04 18:43 | PC.NURSE ---
End of shift note: Patient alert and oriented x3. VSS. on RA tolerating a reg. diet. Patient denies N/V/SOB. rates pain 4/10 in knee. using active ice. Meds crushed and given through J-tube. Patient tolerating a 1500fluid restriction. Purewick in place. Patient up to BSC 1-2 Assist walker and GB. Patient on tele w/hx of Afib. IV in L wrist SL. Stage II pressure ulcer on carissa. buttocks covered w/mepilex.
[2025-06-04] MEDS: PRAVASTATIN SODIUM 20 MG TABLET 40 MG G-TUBE (20:48)
[2025-06-04] MEDS: GABAPENTIN 300 MG CAPSULE G-TUBE (20:53)
[2025-06-05 03:00] VITALS: BP 115/79; PULSE 90; RESP 16; TEMP 36.6; O2SAT 91
--- NOTE | 2025-06-05 05:03 | PC.NURSE ---
Shift note: Patient is alert and oriented. Vitally stable. Patient has been in bed throughout the night. She reported difficulty sleeping due to anxiety. Diazepam 2.5mg given which appeared somewhat effective. Tolerating medication administration via the G-tube.
[2025-06-05] MEDS: ACETAMINOPHEN 500 MG TABLET 1000 MG G-TUBE ×2 (05:25→11:37)
[2025-06-05 06:17] LABS: Hematocrit 27.4 % (33.0-51.0); Hemoglobin* 9.0 gm/dL (12.0-16.0); Mean Corpuscular HGB Conc 33 gm/dL (32-36); Mean Corpuscular Hemoglobin 30 pg (26-34); Mean Corpuscular Volume 90 fL (80-100); Red Blood Count 3.04 m/uL (4.00-5.20); Slide Review Reflex No; White Blood Count* 9.24 K/uL (4.50-11.00)
[2025-06-05 06:40] LABS: Albumin* 2.7 g/dL (3.3-5.0); Chloride* 96 mmol/L (96-114); Potassium* 4.2 mmol/L (3.6-5.1); Sodium* 125 mmol/L (135-149)
[2025-06-05 06:43] LABS: Alanine Aminotransferase* 21 U/L (4-35); Alkaline Phosphatase* 114 U/L (40-150); Anion Gap 3 mEq/L (7-15); Aspartate Amino Transferase* 34 U/L (12-35); Bilirubin Total* 0.6 mg/dL (0.1-1.5); Blood Urea Nitrogen* 4 mg/dL (7-30); Calcium* 8.9 mg/dL (8.4-10.6); Carbon Dioxide* 26 mmol/L (20-32); Creatinine* 0.3 mg/dL (0.5-1.5); Est. Creatinine Clearance* 46.20; Estimated Glomerular Filt Rate 111 ml/min; Glucose* 111 mg/dL (60-115); Total Protein* 5.6 g/dL (6.0-8.3)
[2025-06-05 07:00] VITALS: BP 105/56; PULSE 82; RESP 16; TEMP 36.3; O2SAT 92; O2SAT 93
[2025-06-05] MEDS: PANTOPRAZOLE SODIUM 40 MG INJ IVP (08:07)
[2025-06-05] MEDS: PANCREALIPASE (12,38,60) CAP 2 CAP PO (08:07)
[2025-06-05] MEDS: SODIUM CHLORIDE 0.9 % (FLUSH) 10 ML SYRINGE 5 ML IVF (08:07)
[2025-06-05] MEDS: 3 % SODIUM CHLORIDE 500 ml 100 ML 33.33 ML IV (08:34)
[2025-06-05] MEDS: POTASSIUM CHLORIDE 10 MEQ CAPSULE ER 40 MEQ J-TUBE (09:45)
[2025-06-05] MEDS: NYSTATIN POWDER 1 APPLIC TOPICAL (09:45)
[2025-06-05] MEDS: SERTRALINE 50 MG TABLET 125 MG G-TUBE (09:45)
[2025-06-05] MEDS: BUSPIRONE 10 MG TABLET 15 MG G-TUBE (09:47)
[2025-06-05] MEDS: MULTIVITAMIN/MINERALS 1 TABLET 1 TAB G-TUBE (09:47)
[2025-06-05] MEDS: FUROSEMIDE 20 MG TABLET G-TUBE (09:47)
[2025-06-05] MEDS: APIXABAN 5 MG TABLET G-TUBE (09:48)
[2025-06-05] MEDS: SOTALOL HCL 80 MG TABLET G-TUBE (09:49)
[2025-06-05 10:18] VITALS: BP 148/86; PULSE 91; RESP 16; O2SAT 92
--- NOTE | 2025-06-05 11:18 | P.DS_ITS ---
DS: Providers Provider Date Seen: 06/05/25 Date of admission: 06/02/25 21:24 Primary care physician: Brad Bolanos MD Admitting Clinician: Carlos Love MD Consults: 06/02/25 21:24 Consult to Nutrition [CONS] Routine Comment: Reason for consult:: Miscellaneous Consult to Occupational Therapy [CONS] Routine Comment: Reason(s) for OT Consult:: Evaluate and Treat Any Restrictions?:: No Restrictions Consult to Physical Therapy [CONS] Routine Comment: Reason(s) for PT Consult:: Evaluate and Treat Any Restrictions?:: No Restrictions Consult to Trolley Collector [CONS] Routine Comment: Reason for Consult:: Discharge Planning Needs Attending Physician on discharge: Nancy Carranza MD DS: Diagnosis Discharge Diagnosis (1) Acute hyponatremia: Status: Acute Problem details: - admission (06/02) 113. am of 06/03 116. s/p oral sodium chloride, NS infusion, one 50cc of 3% saline am of 06/03. at noon on 06/03 it is now 119. Up six points from 3 pm on 06/02 to noon 06/03. Hold on further treatments other than fluid restriction. follow labs. - most likely due to large volume of free water intake orally and via GJ tube - received furosemide IV in the emergency department - continue with diuresis efforts, monitor I/O, daily weight, serial Na values - nutritional consultation to help with assessing and recommending regarding water administration via GJ tube - 06/04: Na+ 125. Currently holing NaCl tabs - she has LLE pain that started after her fall on Sunday but got worse a couple of days later. Ordered LLE venous doppler US. -06/05: Patient's sodium improved yesterday and it was up to 125 in the morning. Today morning it is still 125 so I ordered hypertonic saline 100 mL, will check sodium after that. Patient will be discharged to [facility] with sodium chloride tablets 1 g t.i.d. with meals for a short time until she will get her sodium checked (patient states that labs are done on Sunday). -I discussed with the patient the need to restrict free water intake orally and through the GJ tube as this is likely the reason for her hyponatremia. Start with 1500 mL per 24 hour fluid restriction and then after normalization of her sodium, she can go up to 1492-2714 mL fluids per 24 hour. -patient will need to follow up with her primary care physician, to discuss and monitor hyponatremia. In addition she needs to discuss and monitor her anemia which may be likely secondary to them pancreatico-duodenal ulcer that was seen during her recent EGD. GI plan for that ulcer is to wait until it heals. Patient's hemoglobin is 9.0 and it has not dropped during her four-day stay at our hospital. (2) Anemia: Status: Acute Problem details: -new finding; at discharge previously >12 -follow, no active bleeding. 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 GI wants to give time to heal, continue anticoagulation at this time as Hb is stable. -Hb stable: 8.8 -> 9.2 -Cont trending Hb. 06/05: Pt needs to discuss and monitor her anemia which may be likely secondary to them pancreatico-duodenal ulcer that was seen during her recent EGD. GI plan for that ulcer is to wait until it heals. Patient's hemoglobin is 9.0 and it has not dropped during her four-day stay at our hospital. (3) Electrolyte and fluid disorder: Status: Acute Problem details: -replacing magnesium and potassium 06/03 -will have nutrition calculate fluid and nutritional needs -currently we have her tube feedings on hold, she is taking PO intake well -06/05: Mg & K wnl. As above (4) Gastrojejunal (GJ) tube in place: Status: Acute Problem details: 05/16 @ [facility]. This was for protein calorie malnutrition and the noted fistula. this is to be short term and used for meds, fluids, and nutrition. -has been getting 24/ enteral tube feeds with Vironox 6.5cartons @ 65cc/hr (The existing order from [facility] included liquid fiber (banatrol TF), banana flakes and guar gum -pt has had moderate diarrhea (CDIFF neg) - prn imodium (5) Pancreatic fistula: Status: Acute Problem details: -[facility] 05[facility] Duodenum - in the bulb, along the posterior aspect, there was an ulcerated pancreatico-duodenal fistula with a small amount of drainage into the duodenum with pancreatico-duodenal fistula. GI wants to give time to heal. IR consulted for placement of GJ tube -GJ tube placed on 05/16 (6) Exocrine pancreatic insufficiency: Status: Acute Problem details: -on enzymes (pharmD really feels these need to be oral as the acidity is needed to absorb); scarred pancreas -(EUS 05/07/25 @ [facility]) from her post ERCP severe pancreatitis in January-February (admitted 02/05 - 03/17) resulted in a pancreas that is markedly abnormal with atrophy, prominent duct measuring up to 4 mm at the head, the majority of the body and tail are replaced by a 26 x 17 mm in cross-sectional area tubular structure with debris -Pt is will take pancreatic enzymes replacement orally, but she can take all other medication through the GJ tube. (7) Acute pain of left lower extremity: Status: Acute Problem details: she has LLE pain that started after her fall on Sunday but got worse a couple of days later. Ordered LLE venous doppler US -> negative for DVT. 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 VRE, CoNS and anaerobes in culture of infected pseudocyst. s/p drain, IV Unasyn and daptomycin (via PICC) and PO Augmentin. Finished abx on 04/10/25. ID Dr. Moreno. (11) VRE (vancomycin resistant enterococcus) culture positive: Status: Acute Problem details: cultures during acute necrotizing pancreatitis. -s/p daptomycin, Unasyn, Augmentin. Saw IUD both inpatient and outpatient. 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 (13) Acute on chronic heart failure: Status: Acute Problem details: - unclear if the extremity swelling, weakness is heart related or profound hyponatremia. her weight is up but her BNP is at her baseline. Her echo on 06/02 is stable with excellent LV and RV function. -has a hx of AFIB with RVR (admission in February 2025), now in sinus -s/p 2 doses of IV lasix. will return her to her baseline oral lasix (14) Atrial fibrillation: Status: Acute Problem details: -chronically anticoagulated with Eliquis -rate and rhythm control with sotalol -echo updated 06/03/2025: Normal LV and RV size and function. Moderate LAE. mild to moderate MR. -continue telemetry -no acute issues related to her known arrhythmia and anticoagulation. (15) Anxiety disorder: Status: Acute Problem details: -longstanding zoloft, buspar -atarax (on hold) and gabapentin at night -prn Ativan (limit to at night) -will limit benzos and Atarax. pt has mobility issues, fell on 06/01 -high fall risk (16) Obstructive sleep apnea on CPAP: Status: Acute DS: Summary Hospital Course Hospital Course: 74-year-old female patient with past medical history of chronic congestive heart failure, AFib on anticoagulation, history of necrotic pancreas, gastro pancreatic of fistula, GJ tube that was inserted recently who presents with acute hyponatremia and weakness. During her stay patient was treated for hyponatremia with both fluid restriction to 1500 mL per day an couple of hypertonic saline boluses and her hyponatremia improved. Currently asymptomatic. In addition patient was found to have positive blood occult but then her hemoglobin was stable at 9 during her stay. On examination her left lower extremity was swollen and this swelling started after a trauma that she had, venous Doppler was done and it was negative for DVT. Patient will be discharged to [facility] with sodium chloride tablets 1 g t.i.d. with meals for a short time until she will get her sodium checked (patient states that labs are done on Sunday) and normalized. -I discussed with the patient the need to restrict free water intake orally and through the GJ tube as this is likely the reason for her hyponatremia. Start with 1500 mL per 24 hour fluid restriction and then after normalization of her sodium, she can go up to 6892-6520 mL fluids per 24 hour. -patient will need to follow up with her primary care physician, to discuss and monitor hyponatremia. In addition she needs to discuss and monitor her anemia which may be likely secondary to them pancreatico-duodenal ulcer that was seen during her recent EGD. GI plan for that ulcer is to wait until it heals. Patient's hemoglobin is 9.0 and it has not dropped during her four-day stay at our hospital. Patient understands the treatment plan and is in agreement. Status at Discharge Functional status at discharge: uses cane/walker Overall status at discharge: patient is progressing back to baseline Time Spent with Patient Time attestation: Total time spent providing and/or coordinating discharge services: Exam Narrative: Exam Narrative: Physical exam GENERAL: Comfortable, no acute distress. HEAD AND NECK: Atraumatic, normocephalic CARDIOVASCULAR: RRR. Normal S1, S2. No murmurs. RESPIRATORY: Clear to auscultation B/L. Good air entry B/L. No wheezes or rhon chi. NEUROLOGY: Alert, awake, oriented X 3. Normal speech. MSK: Left lower extremity swelling compared to the right lower extremity PSYCH: Normal mood, normal affect. Const: Vital Signs, click to edit/add: Vital Signs - 24 hr 06/04/25 15:00 06/04/25 15:00 06/04/25 15:00 Temperature 98.4 F Pulse Rate Pulse Rate [Right Pulse Oximeter] 86 86 Respiratory Rate 18 16 16 Blood Pressure [Le ft Arm] 104/87 Pulse Oximetry 94 94 Oxygen Delivery Me thod Room Air Room Air 06/04/25 15:00 06/04/25 19:00 06/04/25 22:54 Temperature 98.5 F Pulse Rate 82 Pulse Rate [Right Pulse Oximeter] 93 84 Respiratory Rate 16 16 Blood Pressure [Le ft Arm] 104/59 L Pulse Oximetry 93 Oxygen Delivery Me thod Room Air 06/04/25 22:54 06/04/25 22:54 06/04/25 23:00 Temperature 98 F Pulse Rate 86 Pulse Rate [Right Pulse Oximeter] 84 Respiratory Rate 16 16 Blood Pressure [Le ft Arm] 115/50 L Pulse Oximetry 84 L 92 Oxygen Delivery Me thod Room Air Room Air 06/05/25 03:00 06/05/25 07:00 06/05/25 10:18 Temperature 97.9 F 97.3 F L Pulse Rate Pulse Rate [Right Pulse Oximeter] 90 82 91 Respiratory Rate 16 16 16 Blood Pressure [Le ft Arm] 115/79 105/56 L 148/86 H Pulse Oximetry 91 93 92 Oxygen Delivery Me thod Room Air Room Air Room Air DS: Data Data Completed and Pending Labs on day of discharge: Labs from last 24 hours 06/05/25 06/04/25 05:42 12:53 WBC 9.24 RBC 3.04 L Hgb 9.0 L Hct 27.4 L MCV 90 MCH 30 MCHC 33 Plt Count 541 H Sodium 125 L 127 L Potassium 4.2 Chloride 96 Carbon Dioxide 26 Anion Gap 3 L BUN 4 L Creatinine 0.3 L Estimated Creat Clear 46.20 Estimated GFR 111 Glucose 111 Calcium 8.9 Magnesium 1.9 Total Bilirubin 0.6 AST 34 ALT 21 Alkaline Phosphatase 114 Total Protein 5.6 L Albumin 2.7 L Discharge Plan Discharge Disposition: [facility] Date of Admission: 06/02/25 21:24 Attending Provider on Discharge: Nancy Carranza Primary Care Provider: Brad Bolanos Condition: Stable Anticipated Discharge Date/Time: 06/05/25 13:00 Discharge Medications: New Creon 12,000-38,000 -60,000 unit Capsule,Delayed Release(Dr/Ec) 2 cap PO ACHS 30 Days Qty: 240 0RF sodium chloride 1,000 mg Tablet,Soluble 1,000 mg G-tube TIDWM 7 Days Qty: 21 0RF Continued prochlorperazine maleate [Compazine] 10 mg tablet 10 mg feeding tube BID Rx Instructions: J-TUBE sotalol 80 mg tablet 80 mg feeding tube BID Rx Instructions: J-TUBE methocarbamol 500 mg tablet 500 mg feeding tube QID Rx Instructions: J-TUBE buspirone 30 mg tablet 15 mg feeding tube BID Rx Instructions: J-TUBE Eliquis 5 mg tablet 5 mg feeding tube BID Rx Instructions: J-TUBE furosemide [Lasix] 20 mg tablet 20 mg feeding tube DAILY Rx Instructions: J-TUBE gabapentin 300 mg capsule 300 mg feeding tube HS hydroxyzine pamoate 25 mg capsule 25 mg feeding tube HS Rx Instructions: HS lorazepam [Ativan] 0.5 mg tablet 0.5 mg feeding tube DAILY PRN Rx Instructions: PRIOR TO MEDICAL APPOINTMENTS diclofenac sodium [Arthritis Pain (diclofenac)] 1 % gel 4 g topical QID PRN sertraline 100 mg tablet 125 mg feeding tube DAILY Rx Instructions: DOSE PROVIDED (125 MG) BY SNF, NOT SPECEFIED WHAT TABLET COMBINATION TO GET THIS DOSE. acetaminophen [Acetaminophen Extra Strength] 500 mg tablet 1,000 mg feeding tube Q6H PRN Rx Instructions: J-TUBE pravastatin 40 mg tablet 40 mg feeding tube HS Rx Instructions: J-TUBE lansoprazole 30 mg tablet,disintegrat, delay rel 30 mg PO DAILY@07 potassium chloride 20 mEq/15 mL liquid 40 meq feeding tube BID Rx Instructions: J-TUBE oxycodone 5 mg tablet 5 mg feeding tube Q6H PRN (Reason: pain) Rx Instructions: J-TUBE ergocalciferol (vitamin D2) PO .WEEKLY Rx Instructions: WEEKLY ON SUNDAY, DOSE NOT SPECIFIED IN SNF DOCUMENTATION multivitamin with folic acid [Tab-A-Patrick] 400 mcg tablet 1 tab PO DAILY Rx Instructions: VIA J-TUBE nystatin 100,000 unit/gram powder 1 applic topical BID Rx Instructions: THROUGH MORNING OF 06/10/25 PER SNF DOCUMENTATION Banatrol Plus Powder In Packet 1 ea PO TID guar gum Powder 4 g feeding tube TID diazepam 5 mg tablet 2.5 mg PO DAILY PRN Rx Instructions: PRN NAUSEA ondansetron 4 mg tablet,disintegrating 4 mg PO Q8H PRN Changed loperamide [Anti-Diarrheal (loperamide)] 2 mg tablet 2 mg feeding tube QID PRN (Reason: diarrhea) 15 Days Qty: 60 0RF Discontinued Lipase Concentrate-HP 2 cap feeding tube TID Discharge Orders: Discharge Order (Routine); Ordered 06/05/25 Ordered By: Nancy Carranza Additional Instructions: -You will need Sodium tablets 1 g three times a day with meals for a few days until you get your sodium checked (as you mentioned labs are done every Sunday). -You need to restrict free water intake orally and through the GJ tube as this is likely the reason for your hyponatremia. Start with 1500 mL per 24 hour fluid restriction and then after normalization of your sodium, you can go up to 6700-2036 mL fluids per 24 hour and then stop sodium tablets. -You will need to follow up with your primary care physician, to discuss and monitor hyponatremia. In addition, you need to discuss and monitor your anemia with your primary care physician, which may be likely secondary to the pancreatico-duodenal ulcer which was seen during your recent EGD. GI plan for that ulcer is to wait until it heals. Your hemoglobin is 9.0 and it has not dropped during the four-days stay at our hospital. -Take your pancreatic enzymes replacement orally, but you can take all other medication through the GJ tube. Activity Level: Activity as Tolerated Discharge Diet: Regular and 1500 ml Fluid Restriction Diet Detail: 1500 mL per day fluid restriction (limit both oral and GJ tube fluid intake to 1500 mL per day only) until sodium level gets back to normal. Follow Up Appointments: Brad Bolanos MD [Primary Care Provider, Family Practice] Referral Note: Need sodium and hemoglobin recheck until sodium normalizes Forms: [facility] Info Instructions Admit to: SNF Discharge Potential: Fair Length of Stay: <30 days Code Status: DNR/DNI TEDs: Bilateral Knee Rehab Potential: Good Therapy: Physical Therapy and Occupational Therapy Therapy Orders: Evaluate and Treat Oxygen: No Urinary Catheter: No
[2025-06-05 11:25] VITALS: PULSE 81
--- NOTE | 2025-06-05 11:27 | PC.SOCIAL ---
Addendum entered by MACHO Gracia 06/05/25 14:36: Discharge planning: Discharge orders were secure emailed to TINO Drummond at [facility]. Social work to follow-up as needed. Original Note: Discharge planning: Pt can discharge back to [facility] today. Pt would like to take non-emergent EMS transportation. Pt signed the non-emergent EMS wheelchair form and is fine with paying for the transport cost if insurance does not cover it. Cost of the transport was discussed with the pt by the delinquency prevention social worker the other day. The non-emergent EMS wheelchair form was given to the charge nurse on duty. barnworker groom also left a message with pt's daughter, Roslyn Garcia, letting her know that the pt was being discharged back to [facility] this afternoon. Social work to follow-up as needed.
[2025-06-05 12:29] LABS: Sodium* 126 mmol/L (135-149)
[2025-06-05 12:56] LABS: Folate, Serum 16.6 ng/mL (>=5.9)
[2025-06-05] MEDS: SODIUM CHLORIDE 1 GM TABLET 2 GM G-TUBE (13:03)
[2025-06-05 14:14] VITALS: BP 148/86; PULSE 81; RESP 16; TEMP 36.3
--- NOTE | 2025-06-05 14:18 | PC.NURSE ---
Shift Summary: Patient pleasant and cooperative. Up with 1-2 assist, walker and gait belt. Ambulating short distances with staff assist. Vitals stable and WNL. C/o pain in left knee and right shoulder, pain managed with PRN medication and ice. Patient compliant with fluid restriction. Tolerating regular diet. Mepilex on bottom C/D/I.
[2025-06-05 17:54] LABS: Prealbumin 13.7 mg/dL (20.0-40.0)
== END 2025-06-05 14:11 | DRG 640 ==
LOC: ED 17:13 → MEDSURG 18:30
PROVIDERS: Family Medicine; Student in an Organized Health Care Education/Training Program; Admitting Provider Internal Medicine; Emergency Provider Student in an Organized Health Care Education/Training Program; PCP Family Medicine; Visit Provider Internal Medicine
DX: E87.1 Hypo-osmolality and hyponatremia (principal); I50.33 Acute on chronic diastolic (congestive) heart failure; I82.890 Acute embolism and thrombosis of other specified veins; Z16.22 Resistance to vancomycin related antibiotics; K86.3 Pseudocyst of pancreas; E46 Unspecified protein-calorie malnutrition; D62 Acute posthemorrhagic anemia; R60.0 Localized edema; I11.0 Hypertensive heart disease with heart failure; Z87.891 Personal history of nicotine dependence; Z93.1 Gastrostomy status; I48.91 Unspecified atrial fibrillation; Z79.01 Long term (current) use of anticoagulants; F41.9 Anxiety disorder, unspecified; G47.33 Obstructive sleep apnea (adult) (pediatric); Z99.89 Dependence on other enabling machines and devices; Z68.36 Body mass index [BMI] 36.0-36.9, adult; K86.89 Other specified diseases of pancreas; K86.81 Exocrine pancreatic insufficiency; M79.662 Pain in left lower leg
CPT/HCPCS: 36415; 71046; 73562; 80048; 80053; 80069; 80076; 81001; 82270; 82330; 82607; 82728; 82746; 82803; 83036; 83540; 83550; 83605; 83735; 83880; 84100; 84134; 84145; 84295; 84443; 84484; 85025; 85027; 85045; 87086; 93005; 93308; 93321; 93325; 93971; 97110; 97162; 97165; 97530; 97535; 99284; 99285; A9153; A9270; J1938; J2470; J3475; J3480; J7131

== ENCOUNTER 2025-06-05 14:11 | Outpatient (CLI) | payer MEDICARE, OTHER, SELFPAY | END 2025-06-05 14:12 | disposition home or self-care (01) | LOC: AMB 06-15 08:36 | PROVIDERS: PCP Family Medicine; Visit Provider Internal Medicine | DX: E87.1 Hypo-osmolality and hyponatremia (principal); D64.9 Anemia, unspecified; E87.8 Other disorders of electrolyte and fluid balance, not elsewhere classified; K86.89 Other specified diseases of pancreas | CPT/HCPCS: A0425; A0428 ==

== ENCOUNTER 2025-06-13 08:21 | Outpatient (REF) | payer MEDICARE, OTHER, SELFPAY ==
[2025-06-13 09:38] LABS: C.Difficile Negative (Negative); CDIFFEPI 027 PRESUMPTIVE NEGATIVE (Negative)
--- OUTSIDE RECORDS SUMMARY | 2025-06-14 00:06 | XMS_ITS | Clinical Summary ---
Author Organization [facility] Address [address] [place] [id number] Care Team Providers Care Heel Molder Name Role Phone William Najera Primary Care Provider [phone] Allergies Active Allergy Reactions Criticality Noted Date [...] t meet the criteria of an ESBL multimedia producer. A different resistance mechanism may be present. Kadeem Addison MD LAB - MICRO GENERAL ORDERA BLES Final Result [facility] Inf. Diseases Diag. Lab [address] [facility], [address] [place] [address] [[email or web address]] * (ABNORMAL) Comprehensive metabolic panel (02/03/2025 11:40 [...] - BLOOD ORDERABLE S Final Result LABORATORY [facility] Acute Care Lab [address] 1[address] floor, [address] [place] [address], [facility] [phone] from Last 3 Months or Most Recently Relevant to Health Maintenance Additional Health Concerns Infection Onset Date Last Indicated VRE Comment:Positive at [facility] 02/28/2025 03/31/2025 Insurance [employer] MEDICARE [employer] MEDICARE Care Teams Heel Molder Relationship Specialty Start Date End Date William Najera [address] [place] [id number] PCP - General Family Medicine 01/15/25
--- OUTSIDE RECORDS SUMMARY | 2025-06-14 00:06 | XMS_ITS | Clinical Summary ---
Author Organization [facility] Address [address] [place] [id number] Care Team Providers Care Rv Repairer Name Role Phone William Najera MD Primary Care Provider Allergies Active Allergy Reactions Criticality Noted Date Comments Erythromycin Vomiting 02/24/2017 Medications CPAPIndications:Ob structive sleep apnea RESMED CPAP (E0601) [...] mouth four times daily. 03/16/20 25 Active acetaminophen 500 mg tabletIndications: Infected pancreatic pseudocyst (HC) Take 2 Tablets (1,000 mg) by mouth every 6 hours if needed for Pain. Max acetaminophen dose: 4000mg in 24 hrs. 03/16/20 25 Active diclofenac topical 1 % gelIndications:Oth er chronic back pain Apply 4 g topically to affected area(s) 4 times daily if needed (back pain). 03/16/20 25 Active potassium chloride 20 mEq extended-release tablet (part/cryst)Indica tions:Hypokalemia Take 2 Tablets (40 mEq) by mouth two times daily with meals. 03/18/20 25 Active LORazepam (Ativan) 0.5 mg tab Take 0.5 mg by mouth each time if needed. give one tab po prior to medical appointments 04/10/20 25 Active oxyCODONE (ROXICODONE) 5 mg immediate release tablet Take 5 mg by mouth every 6 hours if needed. 03/24/20 25 Active prochlorperazine (COMPAZINE) 10 mg tablet Take 10 mg by mouth 2 times daily if needed for Nausea/Vomiting. Active sertraline (ZOLOFT) 25 mg tablet Take 25 mg by mouth once daily. Along with 100 mg tablet for TDD of 125 mg Active sotaloL (BETAPACE) 80 mg tablet Take 80 mg by mouth every 12 hours. 04/02/20 25 Active ergocalciferol ((vitamin D2)) 50,000 unit capsuleIndications :Nutritional deficiency Take 1 Capsule (50,000 units) by mouth once weekly. 4 Capsule 06/01/20 25 2024 Active guar gum (NUTRISOURCE FIBER) packetIndications: Nutritional deficiency Administer 1 Packet via J-tube three times daily. Mix 1 packet in 4 oz of beverage/soft food. 10 Packet 05/27/20 25 Active lansoprazole (Prevacid) 30 mg disintegrating tabletIndications: Acute necrotizing pancreatitis (HC),Ileus (HC) Place 1 Tablet (30 mg) on the tongue once daily before a meal. 30 Tablet 05/28/20 25 Active ycewrm-enjssscx-va ylase (ZENPEP) 3,000-10,000 -14,000-unit cpDRIndications:[place] necrotizing pancreatitis (HC) Administer 2 Capsules via nasogastric tube four times daily with meals and at bedtime. 30 Capsule 2 05/27/20 25 Active multivitamin folic acid 0.4 mgIndications:Nutr itional deficiency Take 1 Tablet by mouth once daily. 10 Tablet 05/27/20 25 Active nystatin powder (MYCOSTATIN) powderIndications: Yeast dermatitis Apply topically to affected area(s) two times daily. 15 g 05/27/20 25 Active ondansetron (ZOFRAN ODT) 4 mg disintegrating tabletIndications: Nausea Place 1 Tablet (4 mg) on the tongue every 8 hours if needed for Nausea/Vomiting. 30 Tablet 05/27/20 25 Active loperamide (Imodium A-D) 2 mg capsuleIndications :Acute necrotizing pancreatitis (HC) Take 1 capsule (2mg) four times daily. Max 16 mg in 24 hrs. If patient does not have bowel movement in 24 hours, switch to NEEDED 40 Capsule 05/27/20 25 Active sertraline (ZOLOFT) 100 mg tabletIndications: Anxiety state Take 1 Tablet (100 mg) by mouth once daily in the morning. 10 Tablet 05/28/20 25 Active diazePAM (VALIUM) 5 mg tabletIndications: Nausea Take 0.5 Tablets (2.5 mg) by mouth once daily in the morning. Then switch to as needed in the morning after 06/01/2025 5 Tablet 05/28/20 25 Active busPIRone (BUSPAR) 30 mg tabletIndications: Anxiety Take 0.5 Tablets (15 mg) by mouth two times daily. 90 Tablet 4 06/04/20 25 Active pravastatin (PRAVACHOL) 40 mg tabletIndications: Hyperlipidemia, unspecified hyperlipidemia type Take 1 Tablet (40 mg) by mouth at bedtime. Wait to start until done with daptomycin 90 Tablet 4 06/04/20 25 Active pantoprazole 40 mg delayed-release tabletIndications: GERD without esophagitis Take 1 Tablet (40 mg) by mouth once daily before a meal. 03/17/20 25 2024 Discontin ued(*IP Discontin ued) loperamide (Imodium A-D) 2 mg capsule Take 2 mg by mouth each time if needed for Diarrhea. Take 2 capsules (4mg) orally with 1st loose stool, then 1 capsule (2mg) with other loose stools. Max 16 mg in 24 hrs. 2024 Discontin ued(*IP Discontin ued) pravastatin 40 mg tabletIndications: Hyperlipidemia, unspecified hyperlipidemia type Take 1 Tablet (40 mg) by mouth at bedtime. Wait to start until done with daptomycin 90 Tablet 4 04/04/20 25 2024 Discontin ued(Reord er (E-cancel not sent)) busPIRone 30 mg tabletIndications: Anxiety Take 0.5 Tablets (15 mg) by mouth two times daily. 90 Tablet 4 03/28/20 25 2024 Discontin ued(Reord er (E-cancel not sent)) sertraline (ZOLOFT) 100 mg tabletIndications: Major depressive disorder, recurrent, moderate (HC) TAKE 1 TABLET DAILY IN THE MORNING 90 Tablet 1 05/08/20 25 2024 Discontin ued(*IP Discontin ued) amoxicillin-clavul anate (AUGMENTIN) 875-125 mg tablet Take 1 Tablet by mouth two times daily with meals. 04/24/20 25 2024 Discontin ued(*IP Discontin ued) DAPTOmycin (CUBICIN) 500 mg injection Inject 1,150 mg intravenous once daily. 05/08/20 25 2024 Discontin ued(*IP Discontin ued) buprenorphine 5 mcg/hr (BUTRANS) 5 mcg/hour transdermal patch Apply 1 Patch on dry, clean, hairless skin once weekly. 05/06/20 25 2024 Discontin ued(*IP Discontin ued) magnesium oxide (MAG-OX 400) 400 mg tabletIndications: Nutritional deficiency Take 1 Tablet (400 mg) by mouth or nasogastric tube four times daily for 3 days. Check BMP in 3 days 10 Tablet 05/27/20 25 2024 Active Problems Problem Noted Date Diagnosed [...] Encounters Date Type Department Care Team Description 06/08/20 Lab Requisition [facility] [phone] June Arango NP 06/03/20 11:00 AM CDT Ancillary Procedure [facility] [address] [place] [address] 06/02/20 Lab Requisition [facility] [address] [place] [address] Brad Bolanos MD 06/01/20 Refill [facility] [address] [place] [address] William Najera MD Refill Request (Pravastatin, Hydrochlorothiazide, Buspirone) 05/27/20 Refill [facility] [address] [place] [address] William Najera MD Refill Request (Metoprolol Tartrate) 05/19/20 25 Travel 05/13/20 25 1:35 PM CDT Anesthesia Event [facility] [address] [place] [address] Joe Fung MD Hill, Joanne, CRNA 05/13/20 25 1:05 PM CDT - 05/13/20 1:50 PM CDT Surgery [facility] [address] [place] [address] Talib Cheng MD ESOPHAGOGASTRODUODENOSCOPY 05/12/20 9:17 PM CDT - 05/27/20 1:00 PM CDT Hospital Encounter [facility] [address] [place] [address] [facility], [facility] Hospitalists Of Jaspreet Jimenez MD Hauff, MD Monty Moraes, MD Caitlin Henry Duc Minh, MD Nutritional deficiency (Primary Dx); Acute necrotizing pancreatitis (HC); Ileus (HC); Yeast dermatitis; Nausea; Anxiety state, unspecified Discharge Disposition: [facility] Facility 05/07/20 8:07 AM CDT Anesthesia Event [facility] [address] [place] [address] Joe Fung MD 05/07/20 7:50 AM CDT - 05/07/20 8:50 AM CDT Surgery [facility] [address] [place] [address] Dimitry Garcia MD ENDOSCOPIC ULTRASOUND UPPER 05/07/20 6:25 AM CDT - 05/07/20 10:45 AM CDT Hospital Encounter [facility] [address] [place] [address] Dimitry Garcia MD Post-ERCP acute pancreatitis (HC) (Primary Dx) Discharge Disposition: [facility] 05/07/20 Telephone [facility] [address] [address] Iwona Moreno MD Infusion Therapy 05/07/20 Travel 05/06/20 Lab Requisition [facility] [phone] June Arango NP 05/06/[address] [address] William Najera MD Refill Request (Sertraline) 05/05/20 Refill [facility] 100 [place] [address] William Najera MD Refill Request (Hydroxyzine Hcl) 04/30/20 25 Lab Requisition [facility] [phone] June Arango NP 04/29/20 Telephone [facility] [address] [place] [address] William Najera MD Procedure (Medication Hold Order) 04/27/20 Lab Requisition [facility] [phone] Brad Bolanos MD 04/23/20 25 9:30 AM CDT Telemedicine [facility] [address] [facility] [address] [place] [address] Iwona Moreno MD Error-please disregard (NO SHOW) 04/23/20 25 8:00 AM CDT Ancillary Procedure [facility] [address] [place] [address] 04/23/20 25 Travel 04/17/20 25 Lab Requisition [facility] [phone] Brad Bolanos MD 04/17/20 25 Telephone [facility] [address] [facility] [address] [place] [address] William Najera MD 04/10/20 25 Lab Requisition [facility] [phone] Brad Bolanos MD 04/10/20 25 Telephone [facility] [address] [facility] [address] [place] [address] Iwona Moreno MD antibiotics 04/02/20 25 Lab Requisition [facility] [phone] Brad Bolanos MD 04/01/20 25 Orders Only [facility] Scanner 1 scan: (1-Ord) [facility] MULT[facility]LE LAB TEST, 04/01/2025 03/27/20 25 2:13 PM CDT Anesthesia Event [facility] [address] [place] [address] Bocanegra, DO Nani Collado Brian Christopher, CRNA 03/26/20 11:18 AM CDT - 03/28/20 11:00 AM CDT Hospital Encounter [facility] [address] [place] [address] Kathy Akers DO Peterson, Christopher Roy, MD Mrkvicka, Josef Carson MD [facility], [facility] Hospitalists Of Atrial fibrillation with rapid ventricular response (HC) (Primary Dx); Anxiety; Hyperlipidemia, unspecified hyperlipidemia type; Acute necrotizing pancreatitis (HC) Discharge Disposition: [facility] Facility 03/26/20 9:30 AM CDT Office Visit [facility] [address] [place] [address] Iwona Moreno MD 03/26/20 Travel 03/24/20 Telephone [facility] [address] [place] [address] Iwona Moreno MD Questions (Questions about appt 03/26/25- patient is in [address] [place] [address] - ) 03/23/20 Lab Requisition [facility] [phone] June Arango NP 03/20/20 Lab Requisition [facility] [phone] June Arango NP 02/06/20 2:00 PM CDT - 03/17/20 10:30 AM CDT Hospital Encounter [facility] [address] [place] [address] [facility], [facility] Hospitalists Of Marcos Ybarra MD Tamhane, [...] Immunization Administration Dates Next Due COVID-19 vaccine ([employer] NTech 30mcg/0.3mL) 12YO+ BIVALENT PF, MDV 07/19/2022 COVID-19 vaccine ([employer] NTech 30mcg/0.3mL) PF, MDV 01/30/2022,07/25/2021,01/22/2021,01/01 Influenza A [...] on file 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 Gender Identity Not on file Sexual Orientation [...] Diagnosis Comments CBC WITH AUTO DIFFERENTIAL Routine 06/09 8:16 AM CDT Anemia, unspecified BASIC METABOLIC PANEL Routine 06/09/2025 8:16 AM CDT Anemia, unspecified CBC WITH AUTO DIFFERENTIAL Routine 06/09 8:16 AM CDT Anemia, unspecified ECHO TTE LIMITED WO CONTRAST Routine 03/2025 8:41 AM CDT Acute HF (heart failure) (HC) HTN (hypertension) Heart disease Hyponatremia CBC WITH AUTO DIFFERENTIAL Routine 06/02 7:40 [...] AM CDT METHYLMALONIC ACID BLOOD Early AM 025 6:45 AM CDT VITAMIN E Early [...] Routine 05/07/2025 8:31 AM CDT 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 WHITE BLOOD COUNT 7.3 4.5 - 11.0 thou/cu mm 06/09/2025 10:04 AM CDT [facility] RED BLOOD COUNT 3.47(L) 4.00 - 5.20 mil/cu mm 06/09/2025 10:04 AM [facility] HEMOGLOBIN 10.3(L) 12.0 - 16.0 g/dL 06/09/2025 10:04 AM [facility] HEMATOCRIT 31.4(L) 33.0 - 51.0 % 06/09/2025 10:04 AM [facility] MCV 91 80 - 100 fL 06/09/2025 10:04 AM [facility] MCH 29.7 26.0 - 34.0 pg 06/09/2025 10:04 AM [facility] MCHC 32.8 32.0 - 36.0 g/dL 06/09/2025 10:04 AM [facility] RDW 17.7(H) 11.5 - 15.5 % 06/09/2025 10:04 AM [facility] PLATELET COUNT 667(H) 140 - 440 thou/cu mm 06/09/2025 10:04 AM [facility] MPV 8.6 6.5 - 11.0 fL 06/09/2025 10:04 AM [facility] % NEUT 61.0 % 06/09/2025 10:04 AM [facility] % LYMPH 24.8 % 06/09/2025 10:04 AM [facility] % MONO 9.7 % 06/09/2025 10:04 AM [facility] % EOS 3.9 % 06/09/2025 10:04 AM [facility] % BASO 0.6 % 06/09/2025 10:04 AM [facility] ABSOLUTE NEUTROPHILS 4.4 1.7 - 7.0 thou/cu mm 06/09/2025 10:04 AM [facility] ABSOLUTE LYMPHOCYTES 1.8 0.9 - 2.9 thou/cu mm 06/09/2025 10:04 AM [facility] ABSOLUTE MONOCYTES 0.7 <0.9 thou/cu mm 06/09/2025 10:04 AM [facility] ABSOLUTE EOSINOPHILS 0.3 <0.5 thou/cu mm 06/09/2025 10:04 AM T [facility] ABSOLUTE BASOPHILS 0.0 <0.3 thou/cu mm 06/09/2025 10:04 AM [facility] Blood BLOOD SPECIMEN / Unknown Venipuncture / Unknown 06/09/2025 8:16 AM CDT 06/09/2025 9:47 AM CDT us June Arango NP HEMATOLOGY Final Resul t [facility] [address] [place] [address] * (ABNORMAL) BASIC METABOLIC PANEL (06/09/2025 8:16 AM CDT) Only the most recent of11 resultswithin the time period is included. SODIUM 135(L) 136 - 145 mmol/L 06/09/2025 10:19 AM [facility] POTASSIUM 4.2 3.5 - 5.1 mmol/L 06/09/2025 10:19 AM [facility] CHLORIDE 100 98 - 107 mmol/L 06/09/2025 10:19 AM [facility] CO2,TOTAL 22 22 - 29 mmol/L 06/09/2025 10:19 AM [facility] ANION GAP 13 5 - 18 06/09/2025 10:19 AM [facility] GLUCOSE 84 70 - 99 mg/dL 06/09/2025 10:19 AM [facility] CALCIUM 9.4 8.8 - 10.4 mg/dL 06/09/2025 10:19 AM [facility] Comment: Reference ranges for this test were updated on 09/02/2024 to reflect our healthy population more accurately. Reference range changes are not retroactively applied to results, but previous results using the same methodology can be interpreted in the context of the new reference range. BUN 7(L) 8 - 23 mg/dL 06/09/2025 10:19 AM [facility] CREATININE 0.35(L) 0.50 - 0.90 mg/dL 06/09/2025 10:19 AM CDT [facility] BUN/CREAT RATIO 20 10 - 20 10:19 AM CDT [facility] eGFR >90 >90 mL/min/1. 73m2 06/09/2025 10:19 AM CDT [facility] Comment:As of 2022, eG FR is calculated by the CKD-EPI creatinine equation without race adjustment. eGFR can be influenced by muscle mass, exercise, and diet. The reported eGFR is an estimation only and is only applicable if the renal function is stable. Blood BLOOD SPECIMEN / Unknown Venipuncture / Unknown 06/09/2025 8:16 AM CDT 06/09/2025 9:47 AM CDT us June Arango DATA SUPPORT SPECIALIST CHEMISTRY Final Resul t [facility] [address] [place] [address] * ECHO TTE LIMITED WO CONTRAST (06/03/2025 8:41 AM CDT) AORTIC VALVE MEAN PG 5 mmHg EJECTION FRACTION 67 % LVEDD 4.9 cm MITRAL VALVE MR ERO 45 mm2 EJECTION FRACTION 60 - 65% Anatomical Region Laterality Modality Ultrasound 06/03/2025 8:00 AM CDT Narrative 06/03/2025 9:15 AM CDT ECHOCARDIOGRAM MERY BOYCE : 1950 74 years Study Date: 06/03/2025 8:00:27 AM Gender: F BP: 94/54 mmHg Height: 165.00 cm BSA: 2.12 m Weight: 107.00 kg Tech: [facility] Referring MD: ELIAZAR LOVE Site: [facility] Reading Location: Mobile- Patient Location: Inpatient. Procedure: Limited 2D , Color Doppler and Limited Spectral Doppler. Indication for study: Acute HF (heart failure) (HC); HTN (hypertension); Heart disease; Hyponatremia Cardiac Rhythm: Regular.Study quality: Good. Final Impressions: Limited Echocardiogram performed 1. LVEF estimate 60-65%. Normal LV size and wall thickness. 2. Preserved RV function. 3. Lbrw-bj-ukokacly MR. 4. IVC not seen. 5. Moderate LAE. Chamber Sizes and Function Normal left ventricular size, normal wall thickness, normal global systolic function with an estimated EF of 60 - 65%. No resting regional wall motion abnormality visualized. Left atrial size is moderately enlarged. Right ventricular cavity size is normal, global systolic RV function is normal. The right atrium is normal. Right atrial volume index is 18 ml/m . The pulmonary artery is not well visualized. Valves, RV Pressures and Diastolic Function The aortic valve is trileaflet, sclerotic and calcified, no stenosis and no regurgitation. The mitral valve is normal in structure, mild to moderate mitral regurgitation. Indeterminate pattern of LV diastolic filling. The tricuspid valve is normal in structure, trace tricuspid regurgitation. The pulmonic valve is not well visualized. No pulmonic regurgitation is present on color flow. Masses, Effusion, Shunts There is no pericardial effusion. The inferior vena cava is not well visualized, respiratory size variation not well visualized. MEASUREMENTS AND CALCULATIONS 2-D Measurements and LV Function: LVID (d) 4.9 cm LV FS% (2D) 41 % LVID (s) 2.9 cm LVOT diameter 1.9 cm IVS (d) 1.1 cm HR 80 bpm LVPW (d) 1.2 cm LA Vol index 48 ml/m2 Ao Sinus 3.5 cm RA Vol index 18 ml/m2 Ao Sinus ULN 3.8 cm * RV Basal Diam 3.8 cm Asc Ao 3.1 cm Asc Ao ULN 4.0 cm * LA 5.2 cm * Input BSA outside of range, reported values correspond to BSA = 1.9 Diastology: Pulmonary veins Pulm s 79.2 cm/s Pulm d 86.4 cm/s Pulm s/d ratio 0.92 Aortic Valve: Vmax 1.5 m/s MANE (V) 2.71 cm VTI 0.33 m MANE (I) 2.59 cm LVOT V max 1.4 m/s Max PG 9 mmHg LVOT VTI 0.29 m Mean PG 5 mmHg SV 85 ml Dim Index 0.89 SV index 40 ml/m CO 6.8 l/min CI 3.2 l/min/m Mitral Valve: MR ERO 0.45 cm MR Vol. 61 ml MR TVI 1.35 m Tricuspid Valve and estimated PA pressures: TAPSE 73.0 cm . This study was interpreted by an [facility] accredited facility. CC: HIM (med records) [facility], Med/Surg - IP [facility]. Final Procedure Note Deshawn Rasheed MD - 06/03/2025 ECHOCARDIOGRAM MERY BOYEC : 1950 74 years Study Date: 06/03/2025 8:00:27 AM Gender: F BP: 94/54 mmHg Height: 165.00 cm BSA: 2.12 m Weight: 107.00 kg Tech: [facility] Referring MD: ELIAZRA LOVE Site: [facility] Reading Location: [place]- Patient Location: Inpatient. Procedure: Limited 2D , Color Doppler and Limited Spectral Doppler. Indication for study: Acute HF (heart failure) (HC); HTN (hypertension);Heart disease; Hyponatremia Cardiac Rhythm: Regular.Study quality: Good. Final Impressions: Limited Echocardiogram performed 1. LVEF estimate 60-65%. Normal LV size and wall thickness. 2. Preserved RV function. 3. Esgc-kb-aadvtsze MR. 4. IVC not seen. 5. Moderate LAE. Chamber Sizes and Function Normal left ventricular size, normal wall thickness, normal globalsystolic function with an estimated EF of 60 - 65%. No resting regionalwall motion abnormality visualized. Left atrial size is moderatelyenlarged. Right ventricular cavity size is normal, global systolic RVfunction is normal. The right atrium is normal. Right atrial volume indexis 18 ml/m . The pulmonary artery is not well visualized. Valves, RV Pressures and Diastolic Function The aortic valve is trileaflet, sclerotic and calcified, no stenosis andno regurgitation. The mitral valve is normal in structure, mild tomoderate mitral regurgitation. Indeterminate pattern of LV diastolicfilling. The tricuspid valve is normal in structure, trace tricuspidregurgitation. The pulmonic valve is not well visualized. No pulmonicregurgitation is present on color flow. Masses, Effusion, Shunts There is no pericardial effusion. The inferior vena cava is not wellvisualized, respiratory size variation not well visualized. MEASUREMENTS AND CALCULATIONS 2-D Measurements and LV Function: LVID (d) 4.9 cm LV FS% (2D) 41% LVID (s) 2.9 cm LVOT diameter1.9 cm IVS (d) 1.1 cm HR 80bpm LVPW (d) 1.2 cm LA Vol index 48ml/m2 Ao Sinus 3.5 cm RA Vol index 18ml/m2 Ao Sinus ULN 3.8 cm * RV Basal Diam3.8 cm Asc Ao 3.1 cm Asc Ao ULN 4.0 cm * LA 5.2 cm * Input BSA outside of range, reported values correspond to BSA = 1.9 Diastology: Pulmonary veins Pulm s 79.2 cm/s Pulm d 86.4 cm/s Pulm s/d ratio 0.92 Aortic Valve: Vmax 1.5 m/s MANE (V) 2.71 cm VTI 0.33 m MANE (I) 2.59 cm LVOT V max 1.4 m/s Max PG 9 mmHg LVOT VTI 0.29 m Mean PG 5 mmHg SV 85 ml Dim Index 0.89 SV index 40 ml/m CO 6.8 l/min CI 3.2 l/min/m Mitral Valve: MR ERO 0.45 cm MR Vol. 61 ml MR TVI 1.35 m Tricuspid Valve and estimated PA pressures: TAPSE 73.0 cm . This study was interpreted by an [facility] accredited facility. CC: HIM (med records) [facility], [facility]. Final us Eliazar Love MD ECHO ORD Final Resu lt * (ABNORMAL) PRO-BNP (06/02/2025 7:40 AM CDT) Only the most recent of2 resultswithin the time period is included. PRO-BNP 2,069(H) <125 pg/mL 06/02/2025 9:44 AM CDT [facility] Blood BLOOD SPECIMEN / Unknown Butterfly / Unknown 06/02/2025 7:40 AM CDT 06/02/2025 9:11 AM CDT Narrative [facility] - 06/02/2025 9:44 AM CDT The [...] Brad Bolanos MD SEND OUTS Final Result [facility] [address] [place] [id number] * REMOVE PICC LINE (05/27/2025 11:14 AM [...] 5:50 AM CDT) Only the most recent of20 resultswithin the time period is included. POTASSIUM 4.2 3.5 - 5.1 mmol/L 05/27/2025 6:45 AM CDT [facility] Blood BLOOD SPECIMEN / Unknown Venipuncture / Unknown 05/27/2025 5:50 AM CDT 05/27/2025 6:19 AM CDT us Carmelo Tucker MD CHEMISTRY Final Result Performing Organization Address [facility] de Phone Number [facility] [address] [address], [place] * (ABNORMAL) PHOSPHORUS (05/27/2025 5:50 AM CDT) Only the most recent of18 resultswithin the time period is included. PHOSPHORUS 2.4(L) 2.5 - 4.5 mg/dL 05/27/2025 6:45 AM CDT [facility] Blood BLOOD SPECIMEN / Unknown Venipuncture / Unknown 05/27/2025 5:50 AM CDT 05/27/2025 6:19 AM CDT us Carmelo Tucker MD CHEMISTRY Final Result Performing Organization Address [facility] Co de Phone Number [facility] [address] [place] [address], [place] * (ABNORMAL) MAGNESIUM (05/27/2025 5:50 AM CDT) Only the most recent of23 resultswithin the time period is included. MAGNESIUM 1.4(L) 1.6 - 2.4 mg/dL 05/27/2025 6:47 AM CDT [facility] Blood BLOOD SPECIMEN / Unknown Venipuncture / Unknown 05/27/2025 5:50 AM CDT 05/27/2025 6:19 AM CDT us Carmelo Tucker MD CHEMISTRY Final Result Performing Organization Address City/[facility]/ZIP Co de Phone Number [facility] [address] [address], [place] * (ABNORMAL) CREATININE (05/25/2025 6:27 AM CDT) Only the most recent of9 resultswithin the time period is included. eGFR >90 >90 mL/min/1.7 3m2 05/25/2025 7:45 AM CDT [facility] Comment:As of 2022, eG FR is calculated by the CKD-EPI creatinine equation without race adjustment. eGFR can be influenced by muscle mass, exercise, and diet. The reported eGFR is an estimation only and is only applicable if the renal function is stable. CREATININE 0.22(L) 0.50 - 0.90 mg/dL 05/25/2025 7:45 AM CDT [facility] Blood BLOOD SPECIMEN / Unknown Non-Lab Venipuncture / Unknown 05/25/2025 6:27 AM CDT 05/25/2025 6:40 AM CDT us Carmelo Tucker MD CHEMISTRY Final Result Performing Organization Address City/[facility]/ZIP Co de Phone Number [facility] [address] [place] [address], [place] * SCAN CORRESP-LABORATORY RESULTS (05/22/2025 12:11 PM CDT) Only the most recent of2 resultswithin the time period is included. Narrative 05/22/2025 12:11 PM CDT Ordered by an unspecified provider. us Other Clinical Staff OTHER Final Resul t * (ABNORMAL) SELENIUM SERUM/PLASMA (05/22/2025 6:45 AM CDT) Pathologist [facility] SELENIUM LVL 62(L) 93 - 198 ug/L 05/25/2025 2:06 AM CDT [facility] ([facility]) Blood BLOOD SPECIMEN / Unknown Non-Lab Venipuncture / Unknown 05/22/2025 6:45 AM CDT 05/22/2025 7:08 AM CDT Narrative [facility] ([facility]) - 05/25/2025 2:06 AM CDT Test(s) [id number]-[id number], Serum/Plasma was developed and its performance characteristics determined by [employer]. It has not been cleared or approved by the Food and Drug Administration. Performed at: 01 - [facility] [address], [place], [place] [id number] Furnace Operator: Radha Xiao MD, Phone: [phone] us Oscar Dumont RD, LD SEND OUTS Final Resu lt [facility] ([facility]) [facility] [place] [address], [place] * METHYLMALONIC ACID BLOOD (05/22/2025 6:45 AM CDT) [facility] Methylmalonic Acid 150 0 - 378 nmol/L 05/25/2025 6:08 PM CDT [facility] ([facility]) Blood BLOOD SPECIMEN / Unknown Non-Lab Venipuncture / Unknown 05/22/2025 6:45 AM CDT 05/22/2025 7:08 AM CDT Narrative [facility] ([facility]) - 05/25/2025 6:08 PM CDT Test(s) 475170-Hkfukcjowkocx Acid, Serum was developed and its performance characteristics determined by [employer]. It has not been cleared or approved by the Food and Drug Administration. Performed at: - [address] [id number] Furnace Operator: Swapnil Mitchell MD, Phone: [phone] MEEK Dubois RD SEND OUTS Final Resu lt Performing Organization Address [facility] Co de Phone Number [facility] ([facility]) [address] [place] [address] * VITAMIN E (05/22/2025 6:45 AM CDT) [facility] Vit E Alpha [place] 9.6 9.0 - 29.0 mg/L 05/26/2025 8:09 AM CDT [facility] ([facility]) Vit E Gamma [place] 0.7 0.5 - 4.9 mg/L 05/26/2025 8:09 AM CDT [facility] ([facility]) Comment: Reference intervals for alpha and gamma-tocopherol determined from National Health and Nutrition Examination Survey, 5821-4740. Individuals with alpha-tocopherol levels less than 5.0 mg/L are considered vitamin E deficient. Blood BLOOD SPECIMEN / Unknown Non-Lab Venipuncture / Unknown 05/22/2025 6:45 AM CDT 05/22/2025 7:08 AM CDT Narrative [facility] ([facility]) - 05/26/2025 8:09 AM CDT Test(s) 560659-Tgfwkjb E(Alpha Tocopherol); 543227- Vitamin E(Gamma Tocopherol) was developed and its performance characteristics determined by [facility]. It has not been cleared or approved by the Food and Drug Administration. Performed at: [address] [id number] Furnace Operator: Swapnil Mitchell MD, Phone: [phone] MEEK Dubois RD SEND OUTS Final Resu lt Performing Organization Address [facility]/ZIP Co de Phone Number [facility] ([facility]) [address] [place] [address], * VITAMIN K1 (05/22/2025 6:45 AM CDT) Vitamin K1 0.37 0.10 - 2.20 ng/mL 05/26/2025 2:07 AM CDT [facility] ([facility]) Blood BLOOD SPECIMEN / Unknown Non-Lab Venipuncture / Unknown 05/22/2025 6:45 AM CDT 05/22/2025 7:08 AM CDT Narrative [facility] ([facility]) - 05/26/2025 2:07 AM CDT Test(s) 305223-Jthzfnx K1 was developed and its performance characteristics determined by [facility]. It has not been cleared or approved by the Food and Drug Administration. Performed at: 01 - [address] [id number] Furnace Operator: Swapnil Mitchell MD, Phone: [phone] us Oscar Dumont RD, LD SEND OUTS Final Resu lt [facility] ([facility]) [address] [place] [address], * VITAMIN A BLOOD (05/22/2025 6:45 AM CDT) Pathologist [facility] Vitamin A 28.4 22.0 - 69.5 ug/dL 05/26/2025 8:09 AM CDT [facility] ([facility]) Comment: Reference intervals for vitamin A determined from [employer] internal studies. Individuals with vitamin A less than 20 ug/dL are considered vitamin A deficient and those with serum concentrations less than 10 ug/dL are considered severely deficient. This test was developed and its performance characteristics determined by [employer]. It has not been cleared or approved by the Food and Drug Administration. Blood BLOOD SPECIMEN / Unknown Non-Lab Venipuncture / Unknown 05/22/2025 6:45 AM CDT 05/22/2025 7:08 AM CDT Narrative [facility] ([facility]) - 05/26/2025 8:09 AM CDT Performed at: [address] [place] [id number] Furnace Operator: Swapnil Mtichell MD, Phone: [phone] MEEK Dubois RD SEND OUTS Final Resu lt Performing Organization Address [facility]/ZIP Co de Phone Number [facility] ([facility]) [address] [place] [address], * VITAMIN B6 BLOOD (05/22/2025 6:45 AM CDT) Vitamin B6 3.5 3.4 - 65.2 ug/L 05/25/2025 8:07 PM CDT [facility] ([facility]) Comment: Deficiency: <3.4 Marginal: 3.4 - 5.1 Adequate: >5.1 Blood BLOOD SPECIMEN / Unknown Non-Lab Venipuncture / Unknown 05/22/2025 6:45 AM CDT 05/22/2025 7:08 AM CDT Narrative [facility] ([facility]) - 05/25/2025 8:07 PM CDT Test(s) [id number]-Abkoeje B6 was developed and its performance characteristics determined by [facility]. It has not been cleared or approved by the Food and Drug Administration. Performed at: [address] [place] [id number] Furnace Operator: Swapnil Mitchell MD, Phone: [phone] MEEK Dubois RD CHEMISTRY Final Resu lt Performing Organization Address [facility]/ZIP Co de Phone Number [facility] ([facility]) [address] [place] [address], * VITAMIN C (05/22/2025 6:45 AM CDT) Vitamin C 0.9 0.4 - 2.0 mg/dL 05/27/2025 3:10 PM CDT [facility] ([facility]) Comment: Vitamin C deficiency is generally defined as plasma concentrations less than 0.2 mg/dL and levels between 0.2 and 0.4 mg/dL are considered low. Blood BLOOD SPECIMEN / Unknown Non-Lab Venipuncture / Unknown 05/22/2025 6:45 AM CDT 05/22/2025 7:08 AM CDT Narrative [facility] ([facility]) - 05/27/2025 3:10 PM CDT Test(s) [id number] C was developed and its performance characteristics determined by [facility]. It has not been cleared or approved by the Food and Drug Administration. Performed at: - [address] [id number] Furnace Operator: Swapnil Mitchell MD, Phone: [phone] Oscar Dumont RD, MEEK SEND OUTS Final Resu lt [facility] ([facility]) [address] [place] [address], * ZINC SERUM (05/22/2025 6:45 AM CDT) [facility] Zinc, Serum/Plasma 53 44 - 115 ug/dL 05/24/2025 1:08 PM CDT [facility] ([facility]) Comment:Detection Limit = 5 Blood BLOOD SPECIMEN / Unknown Non-Lab Venipuncture / Unknown 05/22/2025 6:45 AM CDT 05/22/2025 7:08 AM CDT Narrative [facility] ([facility]) - 05/24/2025 1:08 PM CDT Test(s) [id number], Plasma or Serum was developed and its performance characteristics determined by [facility]. It has not been cleared or approved by the Food and Drug Administration. Performed at: [address] [id number] Furnace Operator: Swapnil Mitchell MD, Phone: [phone] us MEEK Dubois RD SEND OUTS Final Resu lt Performing Organization Address [facility]/ZIP Co de Phone Number [facility] ([facility]) [address] [place] [address] * (ABNORMAL) COPPER SERUM (05/22/2025 6:45 AM CDT) Copper, Serum/Plasma 66(L) 80 - 158 ug/dL 05/24/2025 1:08 PM CDT [facility] ([facility]) Comment:Detection Limit = 5 Blood BLOOD SPECIMEN / Unknown Non-Lab Venipuncture / Unknown 05/22/2025 6:45 AM CDT 05/22/2025 7:08 AM CDT Narrative [facility] ([facility]) - 05/24/2025 1:08 PM CDT Test(s) [id number], Serum or Plasma was developed and its performance characteristics determined by [facility]. It has not been cleared or approved by the Food and Drug Administration. Performed at: 01 - [address] [id number] Furnace Operator: Swapnil Mitchell MD, Phone: [phone] MEEK Dubois RD SEND OUTS Final Resu lt Performing Organization Address [facility] de Phone Number [facility] ([facility]) [address] [place] [address], * VITAMIN D 25 (DEFICIENCY) (05/22/2025 6:45 AM CDT) VITAMIN D TOTAL 23.2 20.0 - 80.0 ng/mL 05/22/2025 11:52 AM CDT [facility] Blood BLOOD SPECIMEN / Unknown Non-Lab Venipuncture / Unknown 05/22/2025 6:45 AM CDT 05/22/2025 7:08 AM CDT Narrative [facility] - 05/22/2025 11:52 AM CDT Vitamin D Status Deficiency: <20 ng/mL Insufficiency: 20-29 ng/mL Sufficiency: 30-80 ng/mL Possible Toxicity: >80 ng/mL Based on [employer] recommendations Biotin supplements may cause clinically significant interference for this test assay. If interference is suspected, it is strongly recommended that biotin is discontinued for at least one week prior to retesting. Oscar Dumont RD, MEEK SEND OUTS Final Resu lt Performing Organization Address [facility] Co de Phone Number [facility] [address] [place] [address], * CLOSTRIDIOIDES DIFFICILE TOXIN PCR (05/21/2025 8:44 PM CDT) Only the most recent of2 resultswithin the time period is included. CLOSTRIDIUM DIFFICILE PCR Negative 05/21/2025 10:06 PM CDT [facility] PRESUMPTIVE NAP1 STRAIN Negative 05/21/2025 10:06 PM CDT [facility] Stool STOOL SPECIMEN / Unknown Non-Blood / Unknown 05/21/2025 8:44 PM CDT 05/21/2025 8:51 PM CDT Narrative [facility] - 05/21/2025 10:06 PM CDT The NAP1 (027 or BI) strain is a hypervirulent strain. Detection may be useful for epidemiological purposes. Sesar Millan MD MICROBIOLOGY Final R esult Performing Organization Address [facility] Co de Phone Number [facility] [address] [place] [address], * FOLIC ACID (05/21/2025 4:57 PM CDT) FOLIC ACID 5.2 4.6 - 34.8 ng/mL 05/21/2025 6:29 PM CDT [facility] Blood BLOOD SPECIMEN / Unknown Non-Lab Venipuncture / Unknown 05/21/2025 4:57 PM CDT 05/21/2025 5:04 PM CDT Narrative [facility] - 05/21/2025 6:29 PM CDT Biotin supplements may cause clinically significant interference for this test assay. If interference is suspected, it is strongly recommended that biotin is discontinued for at least one week prior to retesting. Oscar Dumont RD, LD CHEMISTRY Final Resu lt Performing Organization Address [facility] de Phone Number [facility] [address] [phone], [place] * TSH FOR ADD ON (05/20/2025 4:20 AM CDT) TSH 3.11 0.27 - 4.20 uIU/mL 05/20/2025 12:16 PM CDT [facility] Blood BLOOD SPECIMEN / Unknown Non-Lab Venipuncture / Unknown 05/20/2025 4:20 AM CDT 05/20/2025 4:37 AM CDT [facility] - 05/20/2025 12:16 PM CDT In Adults, TSH values between 5.00 and 10.00 uIU/ml do not necessarily indicate the presence of Hypothyroidism. Correlation with clinical findings such as presence of goiter and/or Thyroperoxidase (TPO) Antibody may be helpful. For more information please refer to VINCE 2004; 291: 228-238. Sesar Millan MD CHEMISTRY Final R esult Performing Organization Address [facility] de Phone Number [facility] [address] [place] [address], [place] * (ABNORMAL) URINALYSIS MICROSCOPIC (05/18/2025 10:49 PM CDT) RBC 11-25(A) 0-2, None Seen /HPF 05/18/2025 11:39 PM CDT [facility] WBC 3-5 0-2, 3-5, None Seen /HPF 05/18/2025 11:39 PM CDT [facility] BACTERIA Many(A) None Seen, Rare, Few Bacteria/ HPF 05/18/2025 11:39 PM CDT [facility] EPITHELIAL CELLS Moderate(A ) None Seen, Few Epi/HPF 05/18/2025 11:39 PM CDT [facility] HYALINE CASTS 0-2 0-2, 3-5 /LPF 05/18/2025 11:39 PM CDT [facility] CALCIUM OXALATE CRYSTALS Present(A) (none) 05/18/2025 11:39 PM CDT [facility] Urine URINE SPECIMEN / Unknown Non-Blood / Unknown 05/18/2025 10:49 PM CDT 05/18/2025 11:12 PM CDT us Alicia MORENO URINE Final Resul t [facility] [address] [place] [address], [place] * (ABNORMAL) UA W/ SEDIMENT EXAM REFLEXED PER CRITERIA (05/18/2025 10:49 PM CDT) COLOR Yellow Yellow Color 05/18/2025 11:39 PM CDT [facility] CLARITY Cloudy(A) Clear Clarity 05/18/2025 11:39 PM CDT [facility] SPECIFIC GRAVITY,URINE 1.025 1.010, 1.015, 1.020, 1.025 05/18/2025 11:39 PM CDT [facility] PH,URINE 5.5 6.0, 7.0, 8.0, 5.5, 6.5, 7.5, 8.5 05/18/2025 11:39 PM CDT [facility] UROBILINOGEN, QUALITATIVE Normal Normal EU/dl 05/18/2025 11:39 PM CDT [facility] PROTEIN, URINE Trace(A) Negative mg/dL 05/18/2025 11:39 PM CDT [facility] GLUCOSE, URINE Negative Negative mg/dL 05/18/2025 11:39 PM CDT [facility] KETONES,URINE Negative Negative mg/dL 05/18/2025 11:39 PM CDT [facility] BILIRUBIN,URI NE Negative Negative 05/18/2025 11:39 PM CDT [facility] OCCULT BLOOD,URINE Large(A) Negative 05/18/2025 11:39 PM CDT [facility] NITRITE Positive(A) Negative 05/18/2025 11:39 PM CDT [facility] LEUKOCYTE ESTERASE Small(A) Negative 05/18/2025 11:39 PM CDT [facility] Urine URINE SPECIMEN / Unknown Non-Blood / Unknown 05/18/2025 10:49 PM CDT 05/18/2025 11:12 PM CDT Alicia MORENO URINE Final Resul t Performing Organization Address [facility] de Phone Number [facility] [address] [address], [place] * Sodium AM (05/18/2025 5:50 AM CDT) Only the most recent of5 resultswithin the time period is included. SODIUM 142 136 - 145 mmol/L 05/18/2025 6:34 AM CDT [facility] Blood BLOOD SPECIMEN / Unknown Non-Lab Venipuncture / Unknown 05/18/2025 5:50 AM CDT 05/18/2025 6:10 AM CDT Leigh Ann Davila MD CHEMISTRY Final Resu lt Performing Organization Address [facility] Co de Phone Number [facility] [address] [place] [address], [place] * IR PERCUTANEOUS TUBE PLACEMENT (05/16/2025 [...] into the GI tract Implanted device: 22 [place] ANTOINE gastrojejunostomy feeding tube Technique: The procedure, [...] tract was sequentially dilated to a 24 [place] peel-away sheath. ANTOINE gastrojejunostomy feeding tube was [...] Sandoval MD [facility] [phone] us Leigh Ann Davila MD IR Final Resu lt * (ABNORMAL) Protime INR (05/14/2025 4:55 PM CDT) Only the most recent of2 resultswithin the time period is included. INR 1.6(H) <1.3 05/14/2025 5:39 PM CDT [facility] PROTIME 18.9(H) 10.6 - 12.4 sec 05/14/2025 5:39 PM CDT [facility] Blood BLOOD SPECIMEN / Unknown Non-Lab Venipuncture / Unknown 05/14/2025 4:55 PM CDT 05/14/2025 5:02 PM CDT Narrative [facility] - 05/14/2025 5:39 PM [...] Ann Davila MD HEMATOLOGY Final Resu lt [facility] [address] [place] [address], * ENDOSCOPY (05/13/2025 1:18 PM CDT) 05/13/2025 1:18 PM CDT Narrative Transcriptions Talib Cheng MD - 05/13/2025 2:06 PM CDT [facility] Patient Name: Mery Boyce Procedure Date: 05/13/2025 Gender: Female Date of : 1950 Admit Type: Inpatient Procedure: Upper GI endoscopy Proceduralist: Talib Cheng MD - [facility] Indications/Pre-Op Diagnosis: Nausea/vomiting Medications: MAC Procedure Description: Risk of bleeding, infection, perforation, need for surgery and alternatives discussed. The endoscope [id number] was introduced through the mouth, and advanced [...] 5:39 AM CDT) Only the most recent of5 resultswithin the time period is included. WHITE BLOOD COUNT 7.3 4.5 - 11.0 thou/cu mm 05/13/2025 6:09 AM CDT [facility] RED BLOOD COUNT 4.35 4.00 - 5.20 mil/cu mm 05/13/2025 6:09 AM CDT [facility] HEMOGLOBIN 12.9 12.0 - 16.0 g/dL 05/13/2025 6:09 AM CDT [facility] HEMATOCRIT 41.6 33.0 - 51.0 % 05/13/2025 6:09 AM CDT [facility] MCV 96 80 - 100 fL 05/13/2025 6:09 AM CDT [facility] MCH 29.7 26.0 - 34.0 pg 05/13/2025 6:09 AM CDT [facility] MCHC 31.0(L) 32.0 - 36.0 g/dL 05/13/2025 6:09 AM CDT [facility] RDW 19.6(H) 11.5 - 15.5 % 05/13/2025 6:09 AM CDT [facility] PLATELET COUNT 262 140 - 440 thou/cu mm 05/13/2025 6:09 AM CDT [facility] MPV 11.3(H) 6.5 - 11.0 fL 05/13/2025 6:09 AM CDT [facility] NRBC 0.0 % 05/13/2025 6:09 AM CDT [facility] ABS NRBC 0.0 thou /cu mm 05/13/2025 6:09 AM CDT [facility] Blood BLOOD SPECIMEN / Unknown Venipuncture / Unknown 05/13/2025 5:39 AM CDT 05/13/2025 6:00 AM CDT Jaspreet Jimenez MD HEMATOLOGY Final Res ult Performing Organization Address City/[facility]/ZIP Co de Phone Number [facility] [address] [place] [address], [place] * (ABNORMAL) CK TOTAL (05/13/2025 5:39 AM CDT) Only the most recent of5 resultswithin the time period is included. CK,TOTAL 22(L) 26 - 192 IU/L 05/13/2025 6:47 AM CDT [facility] Blood BLOOD SPECIMEN / Unknown Venipuncture / Unknown 05/13/2025 5:39 AM CDT 05/13/2025 6:00 AM CDT Jaspreet Jimenez MD CHEMISTRY Final Res ult Performing Organization Address City/[facility]/ZIP Co de Phone Number [facility] [address] [place] [address], [place] * (ABNORMAL) Hepatic function panel AM (05/13/2025 5:39 AM CDT) ALBUMIN 2.6(L) 4.0 - 4.9 g/dL 05/13/2025 6:47 AM CDT [facility] PROTEIN,TOTAL 4.9(L) 6.0 - 8.0 g/dL 05/13/2025 6:47 AM CDT [facility] BILIRUBIN,TOTAL 0.4 0.0 - 1.2 mg/dL 05/13/2025 6:47 AM CDT [facility] BILIRUBIN,DIRECT 0.2 0.0 - 0.2 mg/dL 05/13/2025 6:47 AM CDT [facility] BILIRUBIN,INDIRE CT 0.2 0.2 - 0.8 mg/dL 05/13/2025 6:47 AM CDT [facility] ALK PHOSPHATASE 136(H) 35 - 104 IU/L 05/13/2025 6:47 AM CDT [facility] ALT (SGPT) 21 10 - 35 IU/L 05/13/2025 6:47 AM CDT [facility] AST (SGOT) 60(H) 10 - 35 IU/L 05/13/2025 6:47 AM CDT [facility] Blood BLOOD SPECIMEN / Unknown Venipuncture / Unknown 05/13/2025 5:39 AM CDT 05/13/2025 6:00 AM CDT us Jaspreet Jimenez MD CHEMISTRY Final Res ult [facility] [address] [place] [address], * stool pathogen multiplex PCR (05/13/2025 12:52 AM CDT) Campylobacter NOT Detected NOT Detected 05/13/2025 10:45 PM CDT [facility] Salmonella NOT Detected NOT Detected 05/13/2025 10:45 PM CDT [facility] Shigella NOT Detected NOT Detected 05/13/2025 10:45 PM CDT [facility] Vibrio NOT Detected NOT Detected 05/13/2025 10:45 PM CDT [facility] Yersinia Enterocolitica NOT Detected NOT Detected 05/13/2025 10:45 PM CDT [facility] Shiga Toxin 1 NOT Detected NOT Detected 05/13/2025 10:45 PM CDT [facility] Shiga Toxin 2 NOT Detected NOT Detected 05/13/2025 10:45 PM CDT [facility] Norovirus NOT Detected NOT Detected 05/13/2025 10:45 PM CDT [facility] Rotavirus NOT Detected NOT Detected 05/13/2025 10:45 PM CDT [facility] Stool STOOL SPECIMEN / Unknown Non-Blood / Unknown 05/13/2025 12:52 AM CDT 05/13/2025 1:28 AM CDT [facility] - 05/13/2025 10:45 PM CDT This test is a Culture Independent Diagnostic Test (CIDT) therefore isolates are not available for susceptibility testing. Antibiotic treatment is often contraindicated and may be detrimental in cases of enteric infections, thus routine susceptibility testing is not recommended. us Jaspreet Jimenez MD MICROBIOLOGY Final Res ult Performing Organization Address City/[facility]/ZIP Co de Phone Number [facility] [address] [place] [address], * (ABNORMAL) C-REACTIVE PROTEIN (05/12/2025 8:34 AM CDT) Only the most recent of8 resultswithin the time period is included. C-REACTIVE PROTEIN 0.7(H) <0.5 mg/dL 05/12/2025 10:15 AM CDT [facility] Blood BLOOD SPECIMEN / Unknown Butterfly / Unknown 05/12/2025 8:34 AM CDT 05/12/2025 9:40 AM CDT June Arango NP CHEMISTRY Final Resul t [facility] [address] [place] [address] * CT ABDOMEN PELVIS W (05/07/2025 10:21 AM CDT) Anatomical Region Laterality Modality Abdomen, [...] [facility] Patient Name: Mery Davenport Johnathon Procedure Date: 05/07/2025 Gender: Female Date of : 1950 Admit Type: Ambulatory Procedure: Upper EUS Proceduralist: Dimitry Garcia MD - [facility] Referring MD: Dimitry Garcia MD [...] andthe patient gave informed consent. The endoscope [id number] was introduced through the mouth, and advanced [...] since [facility] Recommendation: - Discharge patient to [...] - 23 mg/dL 04/28/2025 9:38 AM CDT [facility] Blood BLOOD SPECIMEN / Unknown Butterfly / Unknown 04/28/2025 7:50 AM CDT 04/28/2025 9:11 AM CDT us Brad Bolanos MD CHEMISTRY Final Result [facility] [address] [place] [address] * CT ABDOMEN PELVIS WO (04/23/2025 9:23 AM CDT) Anatomical Region Laterality Modality Abdomen, Pelvis, AORTA, LIVER, SPLEEN Computed Tomography 04/23/2025 2:0 9 PM CDT Narrative 04/23/2025 2:09 PM CDT [...] @ 04/23/2025 2:09:52 PM (Electronically Signed) Nadja Garcia PA CT Final R esult * RED CELL MORPHOLOGY (04/07/2025 8:15 AM CDT) [facility] RBC COMMENT RBC morphology appears normal RBC morphology appears normal, RBC morphology within normal limits for newborns. 04/07/2025 10:56 AM CDT [facility] Blood BLOOD SPECIMEN / Unknown Butterfly / Unknown 04/07/2025 8:15 AM CDT 04/07/2025 9:35 AM CDT Brad Bolanos MD HEMATOLOGY Final Result Performing Organization Address City/[facility]/ZIP Co de Phone Number [facility] [address] [place] [address] * PLATELET ESTIMATE (04/07/2025 8:15 AM CDT) [facility] PLATELET ESTIMATE Adequate Adequate, No estimate 04/07/2025 10:56 AM CDT [facility] Blood BLOOD SPECIMEN / Unknown Butterfly / Unknown 04/07/2025 8:15 AM CDT 04/07/2025 9:35 AM CDT Brad Bolanos MD HEMATOLOGY Final Result [facility] [address] [place] [address] * (ABNORMAL) MANUAL DIFFERENTIAL (04/07/2025 8:15 AM CDT) [facility] % NEUTROPHILS 71.0 % 04/07/2025 10:56 AM CDT [facility] % LYMPHOCYTES 19.0 % 04/07/2025 10:56 AM CDT [facility] % MONOCYTES 6.0 % 04/07/2025 10:56 AM CDT [facility] % EOSINOPHILS 3.0 % 04/07/2025 10:56 AM CDT [facility] % BASOPHILS 1.0 % 04/07/2025 10:56 AM CDT [facility] NEUTROPHILS ABSOLUTE 9.1(H) 1.7 - 7.0 thou/cu mm 04/07/2025 10:56 AM CDT [facility] LYMPHOCYTES ABSOLUTE 2.4 0.9 - 2.9 thou/cu mm 04/07/2025 10:56 AM CDT [facility] MONOCYTES ABSOLUTE 0.8 <0.9 thou/cu mm 04/07/2025 10:56 AM CDT [facility] EOSINOPHILS ABSOLUTE 0.4 <0.5 thou/cu mm 04/07/2025 10:56 AM CDT [facility] BASOPHILS ABSOLUTE 0.1 <0.3 thou/cu mm 04/07/2025 10:56 AM CDT [facility] Blood BLOOD SPECIMEN / Unknown Butterfly / Unknown 04/07/2025 8:15 AM CDT 04/07/2025 9:35 AM CDT us Brad Bolanos MD HEMATOLOGY Final Result Performing Organization Address City/State/[facility] Co de Phone Number [facility] [address] [place] [address] * SCAN-LABORATORY REPORT (04/01/2025 12:00 AM CDT) [...] NOW QTc 440 ms BEYOND NOW P Medora 72 degrees BEYOND NOW R Medora -14 degrees BEYOND NOW T Medora -9 degrees BEYOND NOW 03/28/2025 6:41 AM CDT 03/30/2025 8:24 PM CDT Sesar Samuel MD EKG ORD Final Result BEYOND NOW [place], [place] * SCAN-CARDIAC STRIP (03/28/2025 4:07 AM CDT) us Scanner OTHER Final Result * Insert PICC line (03/27/2025 7:20 PM CDT) Narrative Kaitlin Duval, TINO - 03/27/2025 7:20 [...] Diameter: 0.47 cm upon initial insertion (03/08/25) Tsluyvec-lu-Duzj Ratio (%): Visible Catheter Length (cm): 0 [...] Dressing change due date 04/03/2025 03/27/251918 [employer] Process Engineer Name:Bard, Solo Power PICC (proximal valve) Lot Number: [id number] Access Assistance:Modified Seldinger Technique (Micro-Introducer) WITHOUT Dermatotomy [...] Tech: DIONICIO/Josh Taylor MD: JEREMIAH MUSA Site: [employer] Reading Location: [facility] Patient Location: Inpatient. Procedure: 2D, JUSTICE, [...] . This study was interpreted by an [facility] accredited facility. Final Procedure Note Sesar Samuel MD - 03/27/2025 TRANSESOPHAGEAL ECHOCARDIOGRAM MERY BOYCE : 1950 74 years Study Date: 03/27/2025 1:51:51 PM Gender: F BP: 106/84 mmHg Height: 168.00 cm BSA: 2.02 m Weight: 93.00 kg Tech: DIONICIO/Josh Referring MD: JEREMIAH MUSA Site: [employer] Reading Location: [facility] Patient Location: Inpatient. Procedure: 2D, JUSTICE, [...] . This study was interpreted by an [facility] accredited facility. Final us Jeremiah MORENO ECHO ORD Final Res ult * SCAN-CARDIAC STRIP (03/27/2025 11:15 AM CDT) us Scanner OTHER Final Result * SCAN-CARDIAC STRIP (03/27/2025 5:01 AM CDT) us Scanner OTHER Final Result * SCAN-CARDIAC STRIP (03/27/2025 5:01 AM CDT) us Scanner OTHER Final Result * XR CHEST 1 VIEW PORTABLE (03/26/2025 9:25 PM CDT) Anatomical Region Laterality Modality HEART, THORAX, CHEST [...] (ABNORMAL) GLUCOSE METER (03/16/2025 4:31 PM CDT) GLUCOSE METER 121(H) 65 - 100 mg/dL 03/16/2025 4:32 PM CDT [facility] Blood BLOOD SPECIMEN / Unknown 03/16/2025 4:31 PM CDT 03/16/2025 4:32 PM CDT us Talib Naidu MD CHEMISTRY Final Res ult [facility] [address] [place] [address], [place] * SCAN-CARDIAC STRIP (03/14/2025 9:54 AM CDT) us Scanner OTHER Final Result * SCAN-CARDIAC STRIP (03/14/2025 1:17 AM CDT) us Scanner OTHER Final Result * LIPID PANEL W REFLEX MEASURED LDL (04/23/2024 11:19 AM CDT) CHOLESTEROL,TOTAL 191 100 - 199 mg/dL 04/23/2024 11:56 AM T [facility] Comment: Cholesterol, Total Reference Ranges Desirable <200 mg/dL Borderline 200-239 mg/dL High >=240 mg/dL TRIGLYCERIDES 140 <150 mg/dL 04/23/2024 11:56 AM T [facility] HDL CHOLESTEROL 48 >40 mg/dL 11:56 AM CDT [facility] NON-HDL CHOLESTEROL 143 <145 mg/dl 04/23/2024 11:56 AM T [facility] CHOL/HDL RATIO 3.98 <4.50 04/23/2024 11:56 AM T [facility] LDL CHOLESTEROL 115 <=130 mg/dL 04/23/2024 11:56 AM CDT [facility] VLDL CHOLESTEROL 28 <=30 mg/dL 04/23/2024 11:56 AM CDT [facility] PROVIDER ORDERED STATUS RANDOM 04/23/2024 11:56 AM CDT [facility] Blood BLOOD SPECIMEN / Unknown Venipuncture / Unknown 04/23/2024 11:19 AM CDT 04/23/2024 11:19 AM CDT William Najera MD CHEMISTRY Final R esult [facility] [address] [place] [address] * OCCULT BLOOD IFOBT STOOL [[id number]] (05/02/2022 1:28 PM CDT) STOOL BLOOD ,IFOBT Negative Negative 05/05/2022 8:45 AM CDT [facility] Stool STOOL SPECIMEN / Unknown Non-Blood / Unknown 05/02/2022 1:28 PM CDT 05/04/2022 1:28 PM CDT William Najera MD LABORATORY Final R esult [facility] [address] [place] [address], * (ABNORMAL) XR DXA BONE DENSITY 2 SITES AXIAL [53633.1] (04/26/2021 1:14 PM CDT) Anatomical Region Laterality [...] DXA Bone Mineral Density (BMD) EXAM LOCATION: [address] [id number] PATIENT NAME: Mery Boyce DATE OF : [...] 2:30 PM CDT XR MAMMO BILAT SCREENING [[id number]] CLINICAL HISTORY: This is an asymptomatic 68 y.o. patient. INDICATION FOR EXAM: Mammogram Screening. TECHNIQUE: CC & MLO views were obtained. This digital study was evaluated with the assistance of Computer-Aided Detection. COMPARISON FILM: Yes 02/05/17 [facility] FINDINGS: Mammographically, the breast tissue has scattered fibroglandular densities. There are no dominant masses, suspicious micro calcifications or areas of architectural distortion. William Najera MD MAMMO Final R esult * ANTI HCV [[id number]] (02/01/2015 10:44 AM CDT) HEPATITIS C ANTIBODY Non-Reacti ve Non-Reacti ve 02/01/2015 8:39 PM CDT [facility] Blood specimen (specimen) BLOOD SPECIMEN / Unknown Butterfly / Unknown 02/01/2015 10:44 AM CDT 02/01/2015 10:44 AM CDT Narrative [facility] - 02/01/2015 8:39 PM CDT Antibodies to HCV not detected; does not exclude the possibility of exposure to HCV. William Najera MD SEND OUTS Final R esult [facility] [address] [place] [address], [place] from Last 3 Months or Most [...] HB ONLY MEDICARE PART A HB ONLY [address] [id number] [place] Advance Directives Documents on File Type Date Recorded Patient Sap Treasury Consultant Expl anation POLST 03/18/2025 Healthcare Directive 02/11/2024 [...] Code Status Discussion: Reviewed Preferences Care Teams Rv Repairer Relationship Specialty Start Date End Date William Najera MD [address] [place] [address] [place], [place] [address] [facility] - General 02/18/16
== END 2025-06-13 08:22 | disposition home or self-care (01) ==
LOC: NPINS 08:21
PROVIDERS: PCP Family Medicine; Visit Provider Family Medicine
DX: R19.7 Diarrhea, unspecified (principal)
CPT/HCPCS: 83789; 87045; 87046; 87427; 87493